=== PATIENT | female | born 1955 | race Caucasian/White ===

== ENCOUNTER 2022-06-04 22:21 | Inpatient (IN) ==
[2022-06-04] MEDS ORDERED: MoRPHine SULFATE 4 MG/ML 1 ML CARP\\VIAL IV STA (23:53)
[2022-06-04] MEDS ORDERED: ONDANSETRON INJ 2 MG/ML 2 ML VIAL IV STA (23:53)
[2022-06-04] MEDS ORDERED: SODIUM CHLORIDE 0.9% 500 ML IV STA (23:53)
--- NOTE | 2022-06-04 23:57 | Emergency Department Note ---
Impression & Plan Closed hip fracture ADMIT ED Provider Note HPI: The patient is a 67-year-old female with history of atrial fibrillation, on Eliquis, presents the emergency department with multiple complaints. Patient states that yesterday she had a mechanical fall, states that she fell after tripping onto her side. Patient states that she has had pain in her left hip as well as her bilateral knees where she states she does have a history of relatively severe osteoarthritis. Patient states that since her fall she has had some pain with ambulation in her left hip and her bilateral knees. Patient denies any headache although she states she did hit her head yesterday when she fell. On arrival the patient is alert, she is in no acute distress on my initial evaluation but is requesting pain medication for pain in her bilateral knees and left hip. ROS: -MSK: Bilateral knee pain, left hip pain status post fall *10 point review systems was conducted and is otherwise negative unless stated above *Outpatient medications and allergy history reviewed PE: General: Alert, NAD HEENT: Normocephalic, atraumatic Eyes: Extraocular eye movement is intact, no scleral erythema Pulmonary: Clear to auscultation bilaterally, no wheezing Cardio: Regular rate and rhythm GI: Abdomen is soft, nontender : No suprapubic tenderness MSK: No evidence of trauma or malformation of the extremities, no edema, there is limited range of motion with flexion at the left hip secondary to pain, palpable dorsalis pedis pulses felt bilaterally Skin: No evidence of rash Neuro: Alert, no focal deficits Psychiatric: Cooperative practice administrator: - An order was placed for continuous cardiac monitoring - Patient was noted to be in atrial fibrillation with a rate of 80 CT HEAD: Comparison is made to CT head on 11/08/2018. No acute intracranial abnormality identified. Chronic small vessel ischemic disease and cerebral volume loss. Stable remote lacunar infarct in the right caudate/gurerero radiata. Small remote lacunar infarct in the left caudate head. Bilateral lens implants. Atherosclerotic changes in the intracranial vasculature. Radiologist: Radha Chahal M.D. CT LEFT HIP: Nondisplaced subcapital femoral neck fracture on the left. Radiologist: Binh Roche MD Medical Decision Making: Patient presented to the emergency department with a chief complaint of bilateral knee pain as well as pain in her left hip, she states this is after mechanical fall that occurred yesterday and she fell on her left side. Patient states she has been able to ambulate small distances with the assistance of her walker at home, she is not able to flex the hip on the left side on arrival here to the ED. X-ray imaging of the knees did not show any obvious evidence of fracture or dislocation of the bilateral knees, x-ray imaging of the left hip is concerning for nondisplaced fracture. CT imaging was therefore obtained that does show evidence of a nondisplaced subcapital femoral neck fracture on the left side. CT imaging of the head was also obtained as the patient stated that she did hit her head when she fell yesterday, she is anticoagulated on Eliquis, there is no evidence of any acute intracranial bleeding. On my reassessment the patient was ordered a second dose of pain medication secondary to pain in her left hip. She will be admitted to the hospitalist service following my discussion with Dr. Broderick. Consultation was placed for Dr Miky Trinidad from orthopedics as the patient states that she currently is following with him as an outpatient. Patient is in agreement for admission and she was admitted in stable condition for further care. Diagnosis: 1. Left hip fracture, closed 2. Mechanical fall Disposition: Admission Vimal Romano DO Emergency Medicine Past Med/Surg History Medical History (Updated 06/05/22 @ 03:26 by Vimal Romano DO) Anxiety Atrial fibrillation dx 10/2019 - follows w/ Dr. Cee CAD (coronary artery disease) s/p SILVIANO to LAD in 2014 CHF (congestive heart failure), NYHA class III CKD (chronic kidney disease), stage III pt could not confirm Depression Diabetes mellitus, type II IDDM Diabetic neuropathy Diverticular disease Dyslipidemia Fatty liver History of colonic polyps HTN (hypertension) Multinodular goiter Myocardial Infarction 2014 Osteoarthritis RLS (restless legs syndrome) Surgical History H/O dilation and curettage H/O shoulder surgery "bilateral" H/O tubal ligation History of cardiac cath 2014 - [place] - [facility] - 1 STENT History of cataract surgery History of colonoscopy History of heart artery stent x 1 (2014) History of tooth extraction S/P tonsillectomy and adenoidectomy Family History Other Cancer Hypertension No family history of adverse response to anesthesia Social History Smoking Status: Never smoker Second Hand Exposure: No; Hx Alcohol Use: No Hx Substance Use: No Preferred Language: Lithuanian Communication Ability: Effective Project Intern Required: No Beliefs That Will Affect Care: None Current Living Situation: Spouse Feels Safe at Home: Yes Assistive Devices: Glasses Allergies Allergies Allergy/AdvReac Type Severity Reaction Status Date / Time Penicillins Allergy Intermediate RASH/ITCHIN Verified 12/18/20 17:46 G Iodinated Contrast Media AdvReac Intermediate NAUSEA/VOMI Verified 12/18/20 17:46 TTING Home Meds Home Medications Medication Instructions Recorded Confirmed amlodipine 5 mg tablet 5 mg PO QAM 11/08/18 12/18/20 aspirin 81 mg tablet,delayed 81 mg PO QAM 11/08/18 12/18/20 release atorvastatin 80 mg tablet 80 mg PO HS 11/08/18 12/18/20 glipizide 5 mg tablet 5 mg PO BID 11/08/18 12/18/20 insulin detemir U-100 100 unit/mL 35 units subcut HS 11/08/18 12/18/20 (3 mL) subcutaneous pen lorazepam 0.5 mg tablet 0.5 mg PO Q8H PRN Anxiety 11/08/18 12/18/20 losartan 100 mg tablet 100 mg PO QAM 11/08/18 12/18/20 nitroglycerin 0.4 mg sublingual 0.4 mg sublingual DIRECTED PRN 11/08/18 12/18/20 tablet Chest Pain venlafaxine 150 mg 150 mg PO QAM 11/08/18 12/18/20 capsule,extended release 24 hr zolpidem 10 mg tablet 10 mg PO HS PRN Sleep 11/08/18 12/18/20 metformin 500 mg tablet 500 mg PO BID 10/16/19 12/18/20 Previous Rx's Medication Instructions Recorded apixaban 5 mg tablet (Eliquis) 5 mg PO BID #60 tabs 10/21/19 furosemide 40 mg tablet 40 mg PO QAM #30 tabs 10/21/19 magnesium oxide 400 mg (241.3 mg 400 mg PO BID #30 tabs 10/21/19 magnesium) tablet metoprolol succinate 25 mg 25 mg PO HS #30 tabs 10/21/19 tablet,extended release 24 hr metoprolol succinate 50 mg 50 mg PO QAM #30 tabs 10/21/19 tablet,extended release 24 hr spironolactone 25 mg tablet 12.5 mg PO DAILY #30 tabs 10/21/19 dicyclomine 20 mg tablet 20 mg PO QID #20 tabs 12/18/20 Results & Data (ED) Vital Signs Vital Signs - 24 hr 06/04/22 22:24 06/04/22 23:51 06/05/22 00:18 Temperature 37.6 C H Temperature Source Oral Pulse Rate 100 H 84 Pulse Rate [Finger] 73 Respiratory Rate 18 18 18 Respiratory Effort / Characteristics Non-Labored Respiratory Depth Normal Blood Pressure 152/92 H Blood Pressure [Right Arm] 108/59 L Blood Pressure Mean 112 Blood Pressure Mean [Right Arm] 75 Pulse Oximetry 94 95 95 Oxygen Delivery Method Room Air Sepsis Recent Fever Within 48 Hours No Sepsis New/Unexplained Change in Mental Status No Sepsis Action Taken by Nursing No Action Required 06/05/22 01:00 06/05/22 02:22 Temperature Temperature Source Pulse Rate Pulse Rate [Finger] 71 84 Respiratory Rate 18 18 Respiratory Effort / Characteristics Respiratory Depth Blood Pressure Blood Pressure [Right Arm] 122/82 180/107 H Blood Pressure Mean Blood Pressure Mean [Right Arm] 95 131 Pulse Oximetry 94 94 Oxygen Delivery Method Room Air Sepsis Recent Fever Within 48 Hours Sepsis New/Unexplained Change in Mental Status Sepsis Action Taken by Nursing Laboratory Data Result diagrams: 06/05/22 00:09 06/05/22 00:09 Lab Results 06/05/22 06/05/22 06/05/22 Range/Units 00:09 00:09 00:09 WBC 14.48 H (4.8-10.8) K/ul RBC 4.54 (3.93-5.22) M/uL Hgb 14.4 (12.0-16.0) g/dl Hct 40.2 (34.1-44.9) % MCV 88.5 (80.0-100.0) fL MCH 31.7 (25.0-34.0) pg MCHC 35.8 (32.0-36.0) g/dL RDW Std Deviation 42.2 (36.4-46.3) fL RDW Coeff of Carissa 12.9 (11.5-14.5) % Plt Count 213 (130-400) K/uL MPV 8.9 L (9.4-12.3) fL Immature Gran % (Auto) 0.5 % Neut % (Auto) 68.4 % Lymph % (Auto) 20.3 % [place] % (Auto) 9.0 % Eos % (Auto) 1.2 % Baso % (Auto) 0.6 % Neut # (Auto) 9.91 H (1.4-6.5) K/uL Lymph # (Auto) 2.94 (1.2-3.4) K/uL [place] # (Auto) 1.30 H (0.24-0.82) K/uL Eos # (Auto) 0.18 (0-0.50) K/uL Baso # (Auto) 0.08 (0-0.2) K/uL Immature Gran # (Auto) 0.07 H (0.00-0.02) K/uL PT 10.8 (9.0-12.0) Seconds INR 1.0 (0.9-1.1) Sodium 133 L (136-145) mmol/L Potassium 3.3 L (3.5-5.1) mmol/L Chloride 98 (98-107) mmol/L Carbon Dioxide 26 (21-32) mmol/L Anion Gap 9 (3-11) BUN 19 (6-23) mg/dl Creatinine 1.11 (0.6-1.2) mg/dl Est Cr Clr Drug Dosing 58.1 ml/min Est GFR ( Amer) 58.7 ml/min Est GFR (Non-Af Amer) 50.6 ml/min BUN/Creatinine Ratio 17.1 (10-20) Glucose 274 H (70-99(Fasting)) mg/dl Calcium 9.1 (8.5-10.1) mg/dl Total Bilirubin 0.5 (0.2-1.0) mg/dl AST 11 L (13-39) U/L ALT 11 (7-52) U/L Alkaline Phosphatase 104 (34-104) U/L Total Protein 7.1 (6.0-8.3) gm/dl Albumin 4.1 (3.4-5.0) gm/dl Globulin 3.0 (2.5-4.0) gm/dl Albumin/Globulin Ratio 1.4 (0.9-2) Administered Medications Discontinued Medications Sodium Chloride (Nss) 500 mls @ 999 mls/hr IV .Q31M STA Stop: 06/05/22 00:23 Last Infusion: 06/05/22 01:36 Dose: 0 mls/hr Documented By: Admin: 06/05/22 00:06 Dose: 999 mls/hr Documented By: FREDDIE Morphine Sulfate (Morphine Sulfate 4 Mg/Ml 1 Ml Carp\\Vial) 4 mg IV NOW STA Stop: 06/04/22 23:54 Last Admin: 06/05/22 00:06 Dose: 4 mg Documented By: FREDDIE Ondansetron HCl (Ondansetron Inj 2 Mg/Ml 2 Ml Vial) 4 mg IV NOW STA Stop: 06/04/22 23:54 Last Admin: 06/05/22 00:06 Dose: 4 mg Documented By: FREDDIE Discharge Plan Visit Data Chief Complaint: Knee Injury/Pain Stated Complaint: KNEE, HIP AND HEAD PAIN, POST OP ED Provider: Vimal Romano Discharge Problem: Closed hip fracture Patient Disposition: Admitted As Inpatient Forms Stand Alone Forms: [facility] Prescriptions Prescriptions: No Action atorvastatin 80 mg tablet 80 mg PO HS venlafaxine 150 mg capsule,extended release 24hr 150 mg PO QAM amlodipine 5 mg tablet 5 mg PO QAM aspirin 81 mg Tablet,Delayed Release (Dr/Ec) 81 mg PO QAM lorazepam 0.5 mg tablet 0.5 mg PO Q8H PRN (Reason: Anxiety) nitroglycerin 0.4 mg tablet, sublingual 0.4 mg Sublingual DIRECTED PRN (Reason: Chest Pain) zolpidem 10 mg tablet 10 mg PO HS PRN (Reason: Sleep) losartan 100 mg tablet 100 mg PO QAM glipizide 5 mg Tablet 5 mg PO BID insulin detemir U-100 100 unit/mL (3 mL) insulin pen 35 units subcut HS metformin 500 mg tablet 500 mg PO BID Eliquis 5 mg Tablet 5 mg PO BID Qty: 60 0RF metoprolol succinate 25 mg Tablet Extended Release 24 Hr 25 mg PO HS Qty: 30 0RF metoprolol succinate 50 mg Tablet Extended Release 24 Hr 50 mg PO QAM Qty: 30 0RF spironolactone 25 mg Tablet 12.5 mg PO DAILY Qty: 30 0RF furosemide 40 mg Tablet 40 mg PO QAM Qty: 30 0RF magnesium oxide 400 mg (241.3 mg magnesium) Tablet 400 mg PO BID Qty: 30 0RF dicyclomine 20 mg tablet 20 mg PO QID Qty: 20 0RF Referrals Referrals: PCP,NO [Primary Care Provider] -
[2022-06-05 00:33] LABS: Basophils # (auto) 0.08 K/uL (0-0.2); Basophils % (auto) 0.6 %; Eosinophils # (auto) 0.18 K/uL (0-0.50); Eosinophils % (auto) 1.2 %; Hematocrit (blood only) 40.2 % (34.1-44.9); Hemoglobin 14.4 g/dl (12.0-16.0); Immature Granulocytes # (auto) 0.07 K/uL (0.00-0.02); Immature Granulocytes % (auto) 0.5 %; Lymphocytes # (auto) 2.94 K/uL (1.2-3.4); Lymphocytes % (auto) 20.3 %; Mean Corpuscular Hemoglobin 31.7 pg (25.0-34.0); Mean Corpuscular Hgb Conc 35.8 g/dL (32.0-36.0); Mean Corpuscular Volume 88.5 fL (80.0-100.0); Mean Platelet Volume 8.9 fL (9.4-12.3); Neutrophils # (auto) 9.91 K/uL (1.4-6.5); Neutrophils % (auto) 68.4 %; Platelet Count 213 K/uL (130-400); RDW Coefficient of Variation 12.9 % (11.5-14.5); RDW Standard Deviation 42.2 fL (36.4-46.3); Red Blood Count 4.54 M/uL (3.93-5.22); White Blood Count 14.48 K/ul (4.8-10.8)
[2022-06-05 00:39] LABS: Prothrombin Time 10.8 Seconds (9.0-12.0)
[2022-06-05 00:47] LABS: Albumin Globulin Ratio 1.4 (0.9-2); Albumin Level 4.1 gm/dl (3.4-5.0); BUN Creatinine Ratio 17.1 (10-20); Bilirubin,Total 0.5 mg/dl (0.2-1.0); Calcium 9.1 mg/dl (8.5-10.1); Creatinine Clr Calc Pharmacy 58.1 ml/min; Est GFR (African American) 58.7 ml/min; Est GFR (Non-African American) 50.6 ml/min; Potassium 3.3 mmol/L (3.5-5.1); Total Protein 7.1 gm/dl (6.0-8.3)
[2022-06-05] MEDS ORDERED: MoRPHine SULFATE 4 MG/ML 1 ML CARP\\VIAL ONE (03:31)
[2022-06-05] MEDS ORDERED: POTASSIUM CHLORIDE 20 MEQ/15 ML UDC PO STA (04:29)
--- NOTE | 2022-06-05 06:30 | History and Physical Report ---
DATE OF ADMISSION: 06/05/2022. CHIEF COMPLAINT: Status post fall, left hip fracture. HISTORY OF PRESENT ILLNESS: A 67-year-old female with past medical history significant for type 2 diabetes, diabetic retinopathy, chronic kidney disease stage III, hyperlipidemia, hypertension, CAD with a drug-eluting stent in 2014, GERD, depression, generalized anxiety disorder, who lives at home comes with a fall. The patient fell on Friday night, she was trying to pick out hand the paper, when she lost balance and fell . With difficulty, she was able to ambulate with a walker at home, but as the pain was getting worse, she was brought to the hospital today. The imaging study shows left nondisplaced subcapital femoral neck fracture on the left side. Received pain medication in the ER. The patient says she is somewhat foggy because of the pain medications. She says when she fell, she hit her head, but she did not lose her consciousness. Denies any headache. No blurred visions, no earache, no runny nose, no sore throat, no cough. The patient has no fevers, no chest pain, no shortness of breath, no difficulty swallowing. Her appetite is low because of her depression. No nausea. She has chronic mild abdominal pains thought to be from muscle spasms. No diarrhea. Normal bowel and bladder movements, hemodynamically stable. ALLERGIES: PENICILLIN AND IODINATED CONTRAST MEDIA. PAST MEDICAL HISTORY: As mentioned above. PAST SURGICAL HISTORY: Shoulder arthroscopy, colonoscopy, dilatation and curettage, injection of the eye drug, ligation of oviducts, cataract surgery, tonsillectomy and adenoidectomy. MEDICATIONS: The patient is on amlodipine 10 mg p.o. daily, aspirin 81 mg p.o. daily, Eliquis 5 mg p.o. b.i.d., Zetia 10 mg p.o. at bedtime, famotidine 40 mg p.o. daily, Lasix 40 mg p.o. a.m., Levemir 35 units subcutaneous at bedtime, lorazepam 0.5 mg p.o. q. 8 hours p.r.n., losartan 100 mg p.o. a.m., magnesium oxide 400 mg p.o. b.i.d., metformin 500 mg p.o. b.i.d., metoprolol succinate 50 mg p.o. p.m. and 25 mg p.o. a.m., nitroglycerin 0.4 mg sublingual p.r.n., atorvastatin 40 mg p.o. at bedtime, spironolactone 12.5 mg p.o. daily, terazosin 1 mg p.o. at bedtime, venlafaxine 225 mg p.o. daily, zolpidem 10 mg p.o. at bedtime p.r.n. FAMILY HISTORY: Significant for maternal grandfather had bladder cancer; mother has non-Hodgkin's lymphoma, glaucoma, thyroid disorder; father has aortic aneurysm, hypertension, heart disorder. SOCIAL HISTORY: Quit smoking in 1994. No alcohol use. No drug use. REVIEW OF SYSTEMS: As per HPI. Rest of the review of systems is negative. PHYSICAL EXAMINATION: GENERAL: The patient is obese, not in acute distress. VITAL SIGNS: Temperature 37.6, pulse 86, respiratory rate 20, blood pressure 175/109, oxygen 93% on room air. HEENT: Pupils equal, round, and reactive to light. Oral mucosa moist. NECK: No JVD, no neck masses. CARDIOVASCULAR: S1 and S2 heard. Regular rate and rhythm. No murmur, no gallop. RESPIRATORY SYSTEM: Normal AP diameter. No accessory muscle use. No wheezing, no crackles. ABDOMEN: Soft, bowel sounds present, nontender, no distention. CENTRAL NERVOUS SYSTEM: Alert and awake. Speech is clear. No facial droop. Obeys simple commands. EXTREMITIES: Left lower extremity shortened and externally rotated. No edema or erythema seen. LABORATORY DATA: WBC 14.4, hemoglobin 14.4, hematocrit 40.2, platelets 213. PT 10.8, INR 1. Sodium 133, potassium 3.3, chloride 98, bicarbonate 26, BUN 19, creatinine 1.1, serum glucose 274, calcium 9.1, total bilirubin 0.5, AST 11, ALT 11, alkaline phosphatase 104. SARS-CoV-2 rapid test negative. IMAGING DATA: Hip CT scan, preliminary report, nondisplaced subcapital femoral neck fracture on the left side. Head CT, preliminary report, no acute findings. Knee x-ray and hip x-rays, are pending. EKG: Normal sinus rhythm with rate of 86, incomplete right bundle-branch block and left axis deviation. ASSESSMENT AND PLAN: This is a 67-year-old female who presents status post mechanical fall and left hip fracture. 1. Mechanical fall, left hip fracture: Ortho consulted by the ER. Will keep her n.p.o., gentle fluids, IV pain medications p.r.n., IV antiemetics p.r.n. Monitor in the medical floor.Labs and ekg ok ,If CXR ok should be at acceptable risk to proceed with any procedure. 2. History of coronary artery disease: Status post stent. Continue her aspirin, statin, and beta kenton, currently stable 3. History of chronic systolic congestive heart failure: Her ejection fraction is 30% to 35%, on losartan, metoprolol succinate; Lasix and spironolactone. Getting gentle fluids. Monitor for any volume overload. 4. History of diabetes: Continue Levemir 35 units subcutaneous at bedtime. If still n.p.o. tomorrow night, then can cut back on the Levemir dose. Holding metformin. Placed on insulin sliding scale. Follow the blood sugars. 5. Hypertension: Continue her amlodipine, diuretics, losartan, metoprolol succinate, terazosin. Monitor the blood pressure. 6. Depression and generalized anxiety: Continue venlafaxine, Ativan p.r.n. 7. Hyperlipidemia: On Zetia and Crestor. 8. History of atrial fibrillation: Rate controlled with metoprolol succinate. On Eliquis, which will be held for procedures. 9. Chronic kidney disease stage III: Presents with creatinine of 1.1. Will follow the labs. 10. Gastroesophageal reflux disease: On famotidine. 11. Deep venous thrombosis prophylaxis: Could not place on scds because of the hip fracture, and no anticoagulation as there is plan for procedures. DISPOSITION: PT/OT prior to discharge. Social service to help with discharge planning. Level 1 full code. Job ID: [id number] [facility]
--- NOTE | 2022-06-05 06:50 | CT Scan Report ---
CT head/brain wo con CLINICAL HISTORY: 67 years-old Female with fall, hit R side of head. Acute right-sided head trauma s tatus post fall. Acute weakness. TECHNIQUE: Multiple axial CT images of the head were obtained without contrast. A dose lowering tech nique was utilized adhering to the principles of ALARA. CT DOSE: 614.27 mGy.cm COMPARISON: None. FINDINGS: No acute intracranial hemorrhage, midline shift, intracranial mass, hydrocephalus, territorial ischem ia or abnormal extra-axial collection. Age-related involutional changes. White matter hypodensities s uggest chronic microvascular ischemic disease. Chronic lacunar infarcts within the right guerrero radia ta. 9 mm hypodense focus within the left caudate head is new from prior. Cerebral vascular calcificat ions. The calvarium is intact. Prior bilateral lens repair. Streak artifact from the patient's necklace. Th e paranasal sinuses, mastoid air cells, and middle ear cavities are clear. IMPRESSION: 1. No acute intracranial hemorrhage, midline shift or acute territorial infarct. 2. Age-related involutional changes with chronic microvascular ischemic disease. 3. Subcentimeter age-indeterminate lacunar infarct of the left caudate nucleus is new from 11/08/2018 and is favored to be chronic. ACT 112: Negative or not required by law. The above report was generated using voice recognition software. It may contain grammatical, syntax o r spelling errors. Electronically signed by: Jonnie Ac M.D. 06/05/2022 6:48 AM
--- NOTE | 2022-06-05 07:01 | XRay Report ---
XR knee LT 3V, XR knee RT 3V HISTORY: 67 years-old Female fall acute pain of the bilateral knees status post fall COMPARISON: Knee radiographs 04/12/2020 TECHNIQUE: 3 views of the bilateral knees FINDINGS: LEFT: Mild medial with mild to moderate patellofemoral and moderate lateral compartment osteoarthritis. No acute fracture or dislocation. Small joint effusion. Arterial calcifications. RIGHT: Mild medial with mild to moderate lateral and patellofemoral compartment osteoarthritis. Trace joint effusion. Arterial calcifications. Degenerative spurring versus loose body measuring approximately 1. 2 cm projects over the anterior proximal tibia. IMPRESSION: No acute fracture or dislocation. ACT 112: Negative or not required by law. The above report was generated using voice recognition software. It may contain grammatical, syntax o r spelling errors. Electronically signed by: Jonnie Ac M.D. 06/05/2022 6:59 AM
[2022-06-05] MEDS ORDERED: HYDROmorphone INJ 0.5 MG/0.5 ML SYR IV STA (07:17)
[2022-06-05] MEDS ORDERED: HYDROmorphone INJ 0.5 MG/0.5 ML SYR ONE (07:21)
--- NOTE | 2022-06-05 07:43 | CT Scan Report ---
CT SCAN OF THE LEFT HIP WITHOUT IV CONTRAST CLINICAL HISTORY: Fall. Left hip pain. COMPARISON STUDY: Radiograph study left hip dated 06/05/2022. Pelvic CT dated 12/18/2020. TECHNIQUE: CT scan of the left hip was performed from the bony pelvis to the femoral shaft. Images ar e reviewed in the axial, sagittal, and coronal planes. IV contrast was not administered for this exam ination. A dose lowering technique was utilized adhering to the principles of ALARA. CT DOSE: 169.63 mGy.cm FINDINGS: The skeletal structures are osteopenic. There is an impacted subcapital fracture of the lef t femur with mild surrounding hemorrhage. No additional fracture is seen involving the left hemipelvi s. Mild arthritic change and joint space narrowing is seen in the hip. No lytic or blastic lesion is seen. There is no evidence of avascular necrosis of the femoral head. There is generalized atrophy of the regional musculature. No hematoma is seen. Atherosclerotic calcification is noted in the left fe moral artery. Imaged portions of the bladder are grossly unremarkable. There are calcified uterine fi broids. No left pelvic sidewall or inguinal adenopathy is seen. IMPRESSION: Impacted subcapital fracture of the left proximal femur. ACT 112: Negative or not required by law. Dictated: 06/05/2022 7:19 AM Transcribed: 06/05/2022 7:40 AM Cassidy [id number] JO-ANN_Judith Electronically signed by: Huseyin Hooks M.D. 06/05/2022 7:41 AM
[2022-06-05] MEDS ORDERED: POLYETHYLENE (MIRALAX) 17 GM PACK PO PRN (08:13)
[2022-06-05] MEDS ORDERED: ACETAMINOPHEN 325 MG TAB PO PRN (08:13)
[2022-06-05] MEDS ORDERED: ONDANSETRON INJ 2 MG/ML 2 ML VIAL IV PRN ×2 (08:13→15:45)
[2022-06-05] MEDS ORDERED: SODIUM CHLORIDE 0.9% 1000ML 1,000 ML IV SCH (08:13)
[2022-06-05] MEDS ORDERED: LORazepam 0.5 MG TAB PO PRN (08:13)
[2022-06-05] MEDS ORDERED: ZOLPIDEM TARTRATE 10 MG TAB PO PRN (08:13)
--- NOTE | 2022-06-05 08:27 | Anesthesiology Consultation ---
Date of Service June 05, 2022 Assessment & Plan (1) Encounter for pre-operative examination: Chart Review Chart Review: Acceptable Risk for Surgery (patient on eliquis - will d/w Dr Trinidad) History Surgery Operation Date: 06/05/22 10:20 Proposed Procedures p Left Hip Cannulate Screw Fixation - Caden Trinidad MD s Total Hip Arthroplasty - Caden Trinidad MD Height/Weight Height: 5 ft 7 in Weight: 100 kg Allergies Allergy/AdvReac Type Severity Reaction Status Date / Time Penicillins Allergy Intermediate RASH/ITCHIN Verified 12/18/20 17:46 G Iodinated Contrast Media AdvReac Intermediate NAUSEA/VOMI Verified 12/18/20 17:46 TTING Medications Home Medications Medication Instructions Recorded Confirmed Last Taken aspirin 81 mg tablet,delayed 81 mg PO QAM 11/08/18 12/18/20 12/18/20 release insulin detemir U-100 100 unit/mL 35 units subcut HS 11/08/18 12/18/20 12/17/20 (3 mL) subcutaneous pen lorazepam 0.5 mg tablet 0.5 mg PO Q8H PRN Anxiety 11/08/18 12/18/20 10/15/19 losartan 100 mg tablet 100 mg PO QAM 11/08/18 12/18/20 12/18/20 nitroglycerin 0.4 mg sublingual 0.4 mg sublingual DIRECTED PRN 11/08/18 12/18/20 Unknown tablet Chest Pain zolpidem 10 mg tablet 10 mg PO HS PRN Sleep 11/08/18 12/18/20 10/15/19 metformin 500 mg tablet 500 mg PO BID 10/16/19 12/18/20 12/18/20 08:00 apixaban 5 mg tablet (Eliquis) 5 mg PO BID #60 tabs 10/21/19 12/18/20 12/18/20 08:00 furosemide 40 mg tablet 40 mg PO QAM #30 tabs 10/21/19 12/18/20 12/18/20 magnesium oxide 400 mg (241.3 mg 400 mg PO BID #30 tabs 10/21/19 12/18/20 12/18/20 08:00 magnesium) tablet spironolactone 25 mg tablet 12.5 mg PO DAILY #30 tabs 10/21/19 12/18/20 12/18/20 amlodipine 10 mg tablet 10 mg PO DAILY 06/05/22 06/05/22 Unknown ezetimibe 10 mg tablet (Zetia) 10 mg PO HS 06/05/22 06/05/22 Unknown famotidine 40 mg tablet 40 mg PO DAILY 06/05/22 06/05/22 Unknown metoprolol succinate 25 mg 25 mg PO QAM 06/05/22 Unknown tablet,extended release 24 hr metoprolol succinate 50 mg 50 mg PO QPM 06/05/22 Unknown tablet,extended release 24 hr rosuvastatin 40 mg tablet 40 mg PO HS 06/05/22 06/05/22 Unknown terazosin 1 mg capsule 1 mg PO HS 06/05/22 06/05/22 Unknown venlafaxine 75 mg capsule,extended 225 mg PO DAILY 06/05/22 06/05/22 Unknown release 24 hr Past Medical History Medical History Anxiety Atrial fibrillation dx 10/2019 - follows w/ Dr. Cee CAD (coronary artery disease) s/p SILVIANO to LAD in 2014 CHF (congestive heart failure), NYHA class III CKD (chronic kidney disease), stage III pt could not confirm Depression Diabetes mellitus, type II IDDM Diabetic neuropathy Diverticular disease Dyslipidemia Fatty liver History of colonic polyps HTN (hypertension) Multinodular goiter Myocardial Infarction 2014 Osteoarthritis RLS (restless legs syndrome) Past Family History Family History Other Cancer Hypertension No family history of adverse response to anesthesia Past Surgical History Surgical History H/O dilation and curettage H/O shoulder surgery "bilateral" H/O tubal ligation History of cardiac cath 2014 - [place] - [facility] - 1 STENT History of cataract surgery History of colonoscopy History of heart artery stent x 1 (2014) History of tooth extraction S/P tonsillectomy and adenoidectomy Social History Smoking Status: Never smoker tobacco type: cigarettes Hx Alcohol Use: No Hx Substance Use: No Physical Exam Vital Signs Last Vital Signs Temp 37.6 C H 06/04/22 22:24 Pulse 91 H 06/05/22 07:32 Resp 22 06/05/22 07:32 BP 158/104 H 06/05/22 07:32 Pulse Ox 96 09/21/22 07:32 O2 Del Method 06/05/22 07:32 O2 Flow Rate 2 06/05/22 07:32 Testing Laboratory Results 06/05/22 00:09 06/05/22 00:09 PT 10.8 Seconds (9.0-12.0) 06/05/22 00:09 INR 1.0 (0.9-1.1) 06/05/22 00:09 Electrocardiogram Date: 06/05/22 Findings: + NSR @ (86) and + RBBB (incomplete) Echocardiogram Date: 10/16/19 EF: 30-35% Valvular Disease: + no significant valvular disease
[2022-06-05 08:45] LABS: Basophils # (auto) 0.07 K/uL (0-0.2); Basophils % (auto) 0.6 %; Eosinophils # (auto) 0.28 K/uL (0-0.50); Eosinophils % (auto) 2.4 %; Hematocrit (blood only) 37.4 % (34.1-44.9); Hemoglobin 13.2 g/dl (12.0-16.0); Immature Granulocytes # (auto) 0.03 K/uL (0.00-0.02); Immature Granulocytes % (auto) 0.3 %; Lymphocytes # (auto) 2.68 K/uL (1.2-3.4); Lymphocytes % (auto) 22.7 %; Mean Corpuscular Hemoglobin 31.6 pg (25.0-34.0); Mean Corpuscular Hgb Conc 35.3 g/dL (32.0-36.0); Mean Corpuscular Volume 89.5 fL (80.0-100.0); Monocytes # (auto) 1.32 K/uL (0.24-0.82); Monocytes % (auto) 11.2 %; Neutrophils # (auto) 7.44 K/uL (1.4-6.5); Neutrophils % (auto) 62.8 %; Platelet Count 193 K/uL (130-400); RDW Coefficient of Variation 13.2 % (11.5-14.5); RDW Standard Deviation 43.4 fL (36.4-46.3); Red Blood Count 4.18 M/uL (3.93-5.22); White Blood Count 11.82 K/ul (4.8-10.8)
[2022-06-05] MEDS ORDERED: CARBOHYDRATES FOR HYPOGLYCEMIA PO PRN ×2 (08:45→17:56)
[2022-06-05] MEDS ORDERED: GLUCOSE 10 TAB/TUBE PO PRN ×2 (08:45→17:56)
[2022-06-05] MEDS ORDERED: DEXTROSE 50% 50 ML SYRINGE IV PRN ×2 (08:45→17:56)
[2022-06-05] MEDS ORDERED: GLUCOSE 40% GEL 15 GM TUBE PO PRN ×2 (08:45→17:56)
[2022-06-05] MEDS ORDERED: GLUCAGON FOR INJ 1 MG VIAL IM PRN (08:45)
--- NOTE | 2022-06-05 08:57 | Cardiology Consultation ---
Date of Consultation June 05, 2022 Assessment & Plan (1) Preop cardiovascular exam: (2) CAD (coronary artery disease), [place] coronary artery: (3) Paroxysmal atrial fibrillation: (4) HTN (hypertension): Plan 67-year-old female admitted with acute left hip fracture after a mechanical fall. Perioperative cardiovascular risk is considered moderate due to underlying coronary disease and risk factors. Overall her cardiovascular disease status is stable without recent angina, unstable dysrhythmia, or decompensated heart failure. Recommend continuing beta-kenton uninterrupted perioperatively. Last dose of Eliquis 06/04/2022 in the evening. No further cardiac testing or intervention would lower patient's risk at this time. She may proceed with hip replacement per the discretion of orthopedic surgery. I will continue to follow the patient during hospitalization. History of Present Illness Reason for Consultation: Preop cardiovascular evaluation Requesting Physician: Dr. Broderick Attending Physician: Vandana Stanton MD History of Present Illness 67-year-old female suffered a mechanical fall on Friday. X-ray confirming hip fracture. Cardiology consultation requested for preoperative or stratification. History of chronic coronary disease status post drug-eluting stent implantation to the left anterior descending artery 2014, paroxysmal atrial fibrillation, tachycardia induced cardiomyopathy, hypertension, and dyslipidemia. Patient reports bending over to pickle pumper a piece of paper on Friday when she fell on her left hip. Significant discomfort and inability to bear weight noted. Denies any chest pain or unusual shortness of breath. Has not used any sublingual nitroglycerin recently. Function capacity stable. Denies orthopnea, PND, or lower extremity edema. Compliant with current cardiovascular medications including Eliquis and metoprolol. Last dose of Eliquis 06/04/2020 2 in the evening. present at bedside. Offers no additional concerns/complaints. Allergies Allergy/AdvReac Type Severity Reaction Status Date / Time Penicillins Allergy Intermediate RASH/ITCHIN Verified 12/18/20 17:46 G Iodinated Contrast Media AdvReac Intermediate NAUSEA/VOMI Verified 12/18/20 17:46 TTING Home Medications Medication Instructions Recorded Confirmed Type aspirin 81 mg tablet,delayed 81 mg PO QAM 11/08/18 12/18/20 History release insulin detemir U-100 100 unit/mL 35 units subcut HS 11/08/18 12/18/20 History (3 mL) subcutaneous pen lorazepam 0.5 mg tablet 0.5 mg PO Q8H PRN Anxiety 11/08/18 12/18/20 History losartan 100 mg tablet 100 mg PO QAM 11/08/18 12/18/20 History nitroglycerin 0.4 mg sublingual 0.4 mg sublingual DIRECTED PRN 11/08/18 12/18/20 History tablet Chest Pain zolpidem 10 mg tablet 10 mg PO HS PRN Sleep 11/08/18 12/18/20 History metformin 500 mg tablet 500 mg PO BID 10/16/19 12/18/20 History apixaban 5 mg tablet (Eliquis) 5 mg PO BID #60 tabs 10/21/19 12/18/20 Rx furosemide 40 mg tablet 40 mg PO QAM #30 tabs 10/21/19 12/18/20 Rx magnesium oxide 400 mg (241.3 mg 400 mg PO BID #30 tabs 10/21/19 12/18/20 Rx magnesium) tablet spironolactone 25 mg tablet 12.5 mg PO DAILY #30 tabs 10/21/19 12/18/20 Rx amlodipine 10 mg tablet 10 mg PO DAILY 06/05/22 06/05/22 History ezetimibe 10 mg tablet (Zetia) 10 mg PO HS 06/05/22 06/05/22 History famotidine 40 mg tablet 40 mg PO DAILY 06/05/22 06/05/22 History metoprolol succinate 25 mg 25 mg PO QAM 06/05/22 History tablet,extended release 24 hr metoprolol succinate 50 mg 50 mg PO QPM 06/05/22 History tablet,extended release 24 hr rosuvastatin 40 mg tablet 40 mg PO HS 06/05/22 06/05/22 History terazosin 1 mg capsule 1 mg PO HS 06/05/22 06/05/22 History venlafaxine 75 mg capsule,extended 225 mg PO DAILY 06/05/22 06/05/22 History release 24 hr Patient History Medical History Anxiety Atrial fibrillation dx 10/2019 - follows w/ Dr. Cee CAD (coronary artery disease) s/p SILVIANO to LAD in 2014 CHF (congestive heart failure), NYHA class III CKD (chronic kidney disease), stage III pt could not confirm Depression Diabetes mellitus, type II IDDM Diabetic neuropathy Diverticular disease Dyslipidemia Fatty liver History of colonic polyps HTN (hypertension) Multinodular goiter Myocardial Infarction 2014 Osteoarthritis RLS (restless legs syndrome) Surgical History H/O dilation and curettage H/O shoulder surgery "bilateral" H/O tubal ligation History of cardiac cath 2014 - [place] - [facility] - 1 STENT History of cataract surgery History of colonoscopy History of heart artery stent x 1 (2014) History of tooth extraction S/P tonsillectomy and adenoidectomy Family History Other Cancer Hypertension No family history of adverse response to anesthesia Social History Smoking Status: Never smoker Second Hand Exposure: No; Hx Alcohol Use: No Hx Substance Use: No Preferred Language: Amharic Communication Ability: Effective Counter Stitcher Required: No Beliefs That Will Affect Care: None Current Living Situation: Alone Feels Safe at Home: Yes Safety Concerns: Feels Safe At This Time Assistive Devices: Walker Review of Systems Review of Systems: All systems reviewed & are unremarkable except as noted in Subjective Physical Exam Constitutional: + obese; no acute distress Respiratory: normal respiratory effort; no respiratory distress and no labored breathing Auscultation: no crackles, no rales, no rhonchi and no wheezes Cardiovascular: Rate/Rhythm: regular rate and regular rhythm Heart Sounds: normal S1, normal S2 and + murmur (1/6 systolic ejection murmur heard best at the right second intercostal spa) Vessels: radial pulses present; no JVD and no carotid bruit Extremities: no edema Gastrointestinal (Abdomen): Inspection/Auscultation: normal bowel sounds; abdomen not distended Percussion/Palpation: abdomen soft; abdomen nontender and no guarding Neurologic: CN's II-XI intact bilaterally and moves all extremities; no focal motor deficits Results & Data ([facility]) Vital Signs (Past 12 Hours) Vital Signs Temp Pulse Pulse Resp BP BP Pulse Ox 06/05/22 07:32 91 H 22 158/104 H 96 06/05/22 06:10 84 19 155/92 H 94 06/05/22 04:54 88 L 06/05/22 04:11 86 20 175/109 H 93 06/05/22 02:22 84 18 180/107 H 94 06/05/22 01:00 71 18 122/82 94 06/05/22 00:18 84 18 95 06/04/22 23:51 73 18 108/59 L 95 06/04/22 22:24 37.6 C H 100 H 18 152/92 H 94 O2 Del Method O2 Flow Rate 06/05/22 07:32 Nasal Cannula 2 06/05/22 06:10 Room Air 2 06/05/22 04:54 Room Air, Nasal Cannula 0 06/05/22 04:11 Room Air 06/05/22 02:22 Room Air 06/05/22 01:00 06/05/22 00:18 Room Air 06/04/22 23:51 06/04/22 22:24
[2022-06-05 09:03] LABS: Calcium 8.5 mg/dl (8.5-10.1); Creatinine Clr Calc Pharmacy 64.5 ml/min; Est GFR (African American) 66.6 ml/min; Est GFR (Non-African American) 57.4 ml/min; Magnesium 1.8 mg/dl (1.7-2.4); Potassium 3.8 mmol/L (3.5-5.1)
--- NOTE | 2022-06-05 09:12 | Orthopedic Consultation ---
Date of Service June 05, 2022 Assessment & Plan (1) Closed hip fracture: She was educated on this injury/fracture and treatment options. I recommended surgery, specifically cannulated screw fixation. The procedure was explained to her including risks, benefits, alternatives. Consent obtained. She wants to proceed with surgery. This will be today with Dr. Trinidad. She is npo. She is on eliquis, which she can continue. I did discuss with her the possibility of hip arthroplasty if the fracture shifts position, so she is aware of this. History of Present Illness Reason for Consultation: . Requesting Physician: . Attending Physician: Vandana Stanton MD . Ruperto is a 67 year old patient admitted over night with a left hip fracture. She was bending to pick something up that she dropped, lost her balance and fell 2 days ago. She had immediate hip pain. She has had some hip pain prior to her fall. She has been ambulating with a walker on this since Friday. She was scheduled to seee Dr. Trinidad this week to discuss tka. Allergies Allergy/AdvReac Type Severity Reaction Status Date / Time Penicillins Allergy Intermediate RASH/ITCHIN Verified 12/18/20 17:46 G Iodinated Contrast Media AdvReac Intermediate NAUSEA/VOMI Verified 12/18/20 17:46 TTING Home Medications Medication Instructions Recorded Confirmed Type aspirin 81 mg tablet,delayed 81 mg PO QAM 11/08/18 12/18/20 History release insulin detemir U-100 100 unit/mL 35 units subcut HS 11/08/18 12/18/20 History (3 mL) subcutaneous pen lorazepam 0.5 mg tablet 0.5 mg PO Q8H PRN Anxiety 11/08/18 12/18/20 History losartan 100 mg tablet 100 mg PO QAM 11/08/18 12/18/20 History nitroglycerin 0.4 mg sublingual 0.4 mg sublingual DIRECTED PRN 11/08/18 12/18/20 History tablet Chest Pain zolpidem 10 mg tablet 10 mg PO HS PRN Sleep 11/08/18 12/18/20 History metformin 500 mg tablet 500 mg PO BID 10/16/19 12/18/20 History apixaban 5 mg tablet (Eliquis) 5 mg PO BID #60 tabs 10/21/19 12/18/20 Rx furosemide 40 mg tablet 40 mg PO QAM #30 tabs 10/21/19 12/18/20 Rx magnesium oxide 400 mg (241.3 mg 400 mg PO BID #30 tabs 10/21/19 12/18/20 Rx magnesium) tablet spironolactone 25 mg tablet 12.5 mg PO DAILY #30 tabs 10/21/19 12/18/20 Rx amlodipine 10 mg tablet 10 mg PO DAILY 06/05/22 06/05/22 History ezetimibe 10 mg tablet (Zetia) 10 mg PO HS 06/05/22 06/05/22 History famotidine 40 mg tablet 40 mg PO DAILY 06/05/22 06/05/22 History metoprolol succinate 25 mg 25 mg PO QAM 06/05/22 History tablet,extended release 24 hr metoprolol succinate 50 mg 50 mg PO QPM 06/05/22 History tablet,extended release 24 hr rosuvastatin 40 mg tablet 40 mg PO HS 06/05/22 06/05/22 History terazosin 1 mg capsule 1 mg PO HS 06/05/22 06/05/22 History venlafaxine 75 mg capsule,extended 225 mg PO DAILY 06/05/22 06/05/22 History release 24 hr Past Med/Surg History Medical History Anxiety Atrial fibrillation dx 10/2019 - follows w/ Dr. Cee CAD (coronary artery disease) s/p SILVIANO to LAD in 2014 CHF (congestive heart failure), NYHA class III CKD (chronic kidney disease), stage III pt could not confirm Depression Diabetes mellitus, type II IDDM Diabetic neuropathy Diverticular disease Dyslipidemia Fatty liver History of colonic polyps HTN (hypertension) Multinodular goiter Myocardial Infarction 2014 Osteoarthritis RLS (restless legs syndrome) Surgical History H/O dilation and curettage H/O shoulder surgery "bilateral" H/O tubal ligation History of cardiac cath 2014 - [place] - [facility] - 1 STENT History of cataract surgery History of colonoscopy History of heart artery stent x 1 (2014) History of tooth extraction S/P tonsillectomy and adenoidectomy Family History Other Cancer Hypertension No family history of adverse response to anesthesia Social History Smoking Status: Never smoker Second Hand Exposure: No; Hx Alcohol Use: No Hx Substance Use: No Preferred Language: [place] Island[place] Communication Ability: Effective Blueberry Grower Required: No Beliefs That Will Affect Care: None Current Living Situation: Spouse Feels Safe at Home: Yes Assistive Devices: Glasses Review of Systems All systems reviewed & are unremarkable except as noted in HPI & below. Physical Exam .alert and oriented. NAD Left leg: no motion of the hip performed. Minimal knee effusion. She can dorsiflex/plantarflex. NVI Results & Data Results & Data Laboratory Results . Diagnostic Findings .xrays and ct scan of the left hip shows an impacted femoral neck fracture of the left hip. PG Care Time/CCT Total # of Minutes Spent Total Time Spent with Patient: Total time spent is greater than 50% in coordination of care (as documented) at patient's floor/unit and/or counseling patient: Coding Level of Care Code 79646 Inpt Consult Level 4 Diagnoses Closed hip fracture S72.002A Encounter type: initial encounter Laterality: left (1) Closed hip fracture Encounter type: initial encounter Laterality: left Qualified Code(s): S72.002A - Fracture of unspecified part of neck of left femur, initial encounter for closed fracture
[2022-06-05] MEDS: amLODIPine BESYLATE 5 MG TAB PO SCH (09:16)
[2022-06-05] MEDS: FUROSEMIDE 40 MG TAB PO SCH (09:17)
[2022-06-05] MEDS: FAMOTIDINE 40 MG TABLET PO SCH (09:17)
[2022-06-05] MEDS: ASPIRIN 81 MG ECTAB PO SCH (09:17)
[2022-06-05] MEDS: LOSARTAN POTASSIUM 50 MG TAB PO SCH (09:18)
[2022-06-05] MEDS: MAGNESIUM OXIDE 400 MG TAB PO SCH ×2 (09:18→21:02)
[2022-06-05] MEDS: VENLAFAXINE HCL XR 75 MG CAPXR PO SCH (09:18)
[2022-06-05] MEDS: SPIRONOLACTONE 12.5 MG TAB PO SCH (09:18)
[2022-06-05] MEDS: METOPROLOL SUCC 25MG EXT REL TAB PO SCH (09:18)
--- NOTE | 2022-06-05 09:22 | XRay Report ---
XR chest 1V portable HISTORY: 67 years-old Female pre op preoperative exam. No acute chest complaints COMPARISON: Chest radiograph 10/16/2019, CTA chest 10/16/2019. TECHNIQUE: Portable AP view of the chest FINDINGS: Cardiac silhouette is enlarged. Mild right hemidiaphragmatic elevation. No pneumothorax, pleural effu hang, airspace consolidation or overt pulmonary edema. Unchanged right upper paratracheal opacity cor relating with the patient's known thyroid goiter. Degenerative changes of the shoulders and spine. IMPRESSION: No acute process. ACT 112: Negative or not required by law. The above report was generated using voice recognition software. It may contain grammatical, syntax o r spelling errors. Electronically signed by: Jonnie Ac M.D. 06/05/2022 9:20 AM
[2022-06-05] MEDS: INSULIN ASPART PER UNIT SC SCH ×5 (09:35→23:39)
--- NOTE | 2022-06-05 09:54 | XRay Report ---
XR hip LT min 2V HISTORY: 67 years-old Female fall acute left hip pain status post fall COMPARISON: CT left hip same day TECHNIQUE: 2 views of the left hip FINDINGS: Mildly demineralized appearance of the bones. There is an acute impacted subcapital fracture of the l eft femur demonstrating approximately 8 mm of impaction. No displacement or angulation. Mild to moder ate left hip osteoarthritis without dislocation. Arterial calcifications. Calcified uterine fibroid. IMPRESSION: Acute mildly impacted subcapital left femoral fracture. ACT 112: Negative or not required by law. The above report was generated using voice recognition software. It may contain grammatical, syntax o r spelling errors. Electronically signed by: Jonnie Ac M.D. 06/05/2022 9:53 AM
[2022-06-05 11:21] LABS: Estimated Average Glucose 229 mg/dl; Hemoglobin A1C 9.6 % (4.5-5.6)
--- NOTE | 2022-06-05 12:18 | Electrocardiogram Report ---
Test Reason : Blood Pressure : / mmHG Vent. Rate : 086 BPM Atrial Rate : 086 BPM P-R Int : 160 ms QRS Dur : 096 ms QT Int : 400 ms P-R-T Axes : 034 -59 070 degrees QTc Int : 478 ms Poor data quality, interpretation may be adversely affected Normal sinus rhythm Left axis deviation Incomplete right bundle branch block Left ventricular hypertrophy with repolarization abnormality Abnormal ECG When compared with ECG of 23-NOV-2019 07:57, Premature atrial complexes are no longer Present Incomplete right bundle branch block is now Present Confirmed by Denis Tavarez ([id number]) on 06/05/2022 12:17:50 PM Referred By: REFERRED SELF Confirmed By:Denis Tavarez
--- NOTE | 2022-06-05 13:18 | Hospitalist Progress Note ---
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 She is being managed for the following: Mechanical fall Left hip fracture Patient came in with mechanical fall, found to have mildly impacted subcapital left femoral fracture on imaging at presentation. Other imagings: Head CT/left knee x-ray/right knee x-ray/chest x-ray: With no acute findings. Cardiology for preop cardiovascular risk assessment, consider moderate risk. Last dose of Eliquis 06/04/2022, resume Eliquis after surgery with Ortho clearance. Pain management, nausea control. PT/OT as able after surgery. Will likely need rehab. Caution with antihypertensives during perioperative period Hypertension: Blood pressure borderline elevated likely secondary to pain from acute fracture, continue home meds, caution with blood pressure medication during perioperative period. Other chronic medical conditions: CAD, chronic systolic heart failure [EF 30 to 35%], T2DM, HTN, depression and JAZZMINE [venlafaxine and as needed Ativan], HLD, history of A. fib [on Eliquis], CKD stage III, GERD -->>> continue with/resume home meds as and when appropriate. DVT prophylaxis: Eliquis on hold for or today. Full code Admission and Anticipated Discharge Date Admission Date: June 05, 2022 Subjective Patient seen and examined at bedside as a follow-up of mechanical fall and left hip fracture. Patient was lying in bed, on 1 L nasal cannula oxygen, NAD, reports left hip pain upon movement, under control when not moving, denies any new acute event overnight, patient is n.p.o. for the OR today, denies any fever/ cough/headache/dizziness/chest pain/palpitation/other review of symptoms. Physical Exam Physical Exam: GENERAL: Alert and oriented x3. NAD, on 1L NC O2 HEENT: No pallor, no icterus. Pupils equal, round and reactive to light. Oral mucosa moist. NECK: No JVD, no neck masses. HEART: S1 and S2 heard. Regular rate and rhythm. No murmur, no gallop. RESPIRATORY SYSTEM: Normal AP diameter. No accessory muscle use. No wheezing, no crackles. ABDOMEN: Soft, bowel sounds present, nontender, no distention. CENTRAL NERVOUS SYSTEM: No facial droop. Speech is clear. Obeys simple commands. Moves extremities. EXTREMITIES: No edema, no erythema seen. LLE decreased ROM at hip, pain w/ movement. Distal NV status wnl x LLE. Results & Data Results & Data ([facility]) Vital Signs (Past 12 Hours) Vital Signs Pulse Pulse Resp BP BP Pulse Ox O2 Del Method 06/05/22 13:00 90 22 94 Nasal Cannula 06/05/22 13:00 153/124 H 06/05/22 12:45 90 23 94 Nasal Cannula 06/05/22 12:30 88 21 94 Nasal Cannula 06/05/22 12:15 89 24 93 Nasal Cannula 06/05/22 12:00 87 20 94 Nasal Cannula 06/05/22 12:00 142/93 H 06/05/22 11:45 90 24 94 Nasal Cannula 06/05/22 11:30 85 20 95 Nasal Cannula 06/05/22 11:30 153/84 H 06/05/22 11:15 84 19 94 Nasal Cannula 06/05/22 11:00 86 21 93 Nasal Cannula 06/05/22 11:00 135/80 06/05/22 10:45 87 20 93 Nasal Cannula 06/05/22 10:30 92 H 24 06/05/22 10:30 134/88 06/05/22 10:15 90 21 06/05/22 10:00 92 H 21 95 Nasal Cannula 06/05/22 10:00 150/84 H 06/05/22 09:45 89 21 06/05/22 09:30 91 H 22 94 Nasal Cannula 06/05/22 09:30 186/92 H 06/05/22 09:15 88 21 94 Nasal Cannula 06/05/22 09:00 89 18 94 Nasal Cannula 06/05/22 09:00 154/113 H 06/05/22 08:45 86 19 95 Nasal Cannula 06/05/22 08:30 87 22 94 Nasal Cannula 06/05/22 08:30 157/92 H 06/05/22 08:15 88 21 94 Nasal Cannula 06/05/22 08:00 87 21 93 Nasal Cannula 06/05/22 08:00 151/80 H 06/05/22 07:45 87 21 93 Nasal Cannula 06/05/22 07:32 91 H 22 158/104 H 96 Nasal Cannula 06/05/22 06:10 84 19 155/92 H 94 Room Air 06/05/22 04:54 88 L Room Air, Nasal Cannula 06/05/22 04:11 86 20 175/109 H 93 Room Air 06/05/22 02:22 84 18 180/107 H 94 Room Air O2 Flow Rate 06/05/22 13:00 2 06/05/22 13:00 06/05/22 12:45 2 06/05/22 12:30 2 06/05/22 12:15 2 06/05/22 12:00 2 06/05/22 12:00 06/05/22 11:45 2 06/05/22 11:30 2 06/05/22 11:30 06/05/22 11:15 2 06/05/22 11:00 2 06/05/22 11:00 06/05/22 10:45 2 06/05/22 10:30 06/05/22 10:30 06/05/22 10:15 06/05/22 10:00 2 06/05/22 10:00 06/05/22 09:45 06/05/22 09:30 2 06/05/22 09:30 06/05/22 09:15 2 06/05/22 09:00 2 06/05/22 09:00 06/05/22 08:45 2 06/05/22 08:30 2 06/05/22 08:30 06/05/22 08:15 2 06/05/22 08:00 2 06/05/22 08:00 06/05/22 07:45 2 06/05/22 07:32 2 06/05/22 06:10 2 06/05/22 04:54 0 06/05/22 04:11 06/05/22 02:22 (1) Closed hip fracture Encounter type: initial encounter Laterality: left Qualified Code(s): S72.002A - Fracture of unspecified part of neck of left femur, initial encounter for closed fracture
[2022-06-05] MEDS: HYDROmorphone INJ 0.5 MG/0.5 ML SYR IV PRN ×2 (13:36→21:00)
[2022-06-05] MEDS ORDERED: MIDAZOLAM HCL 1 MG/ML 2ML VIAL ONE (15:08)
[2022-06-05] MEDS ORDERED: fentaNYL citrate 100 MCG/2 ML VIAL ONE (15:08)
[2022-06-05] MEDS ORDERED: PROPOFOL IV EMULSION 10 MG/ML 20 ML VIAL IV ONE (15:08)
[2022-06-05] MEDS ORDERED: LIDOCAINE 2% MPF LOCAL 5 ML VIAL INFIL ONE (15:08)
[2022-06-05] MEDS ORDERED: ONDANSETRON INJ 2 MG/ML 2 ML VIAL ONE (15:08)
[2022-06-05] MEDS ORDERED: DEXAMETHASONE SOD INJ 4 MG/ML VIAL ONE (15:08)
[2022-06-05] MEDS ORDERED: EPINEPHrine INJ 1 MG/ML AMP ONE (15:43)
[2022-06-05] MEDS ORDERED: BUPIVACAINE 0.5 % 5 MG/1 ML MPF 30ML VIAL ONE (15:43)
[2022-06-05] MEDS ORDERED: PROMETHAZINE HCL 12.5 MG in SODIUM CHLORIDE 0.9% 50 ML IV PRN (15:45)
[2022-06-05] MEDS ORDERED: ATROPINE SULFATE 0.1 MG/ML 10ML SYR IV PRN (15:45)
[2022-06-05] MEDS ORDERED: fentaNYL citrate 100 MCG/2 ML VIAL IV PRN (15:45)
[2022-06-05] MEDS ORDERED: ePHEDrine sulfate 50 MG/ML AMP IV PRN (15:45)
[2022-06-05] MEDS ORDERED: HYDROmorphone INJ 2 MG/ML SYR/VIAL IV PRN (15:45)
[2022-06-05] MEDS ORDERED: ceFAZolin 330 MG/ML 1 GM VIAL ONE (16:10)
[2022-06-05] MEDS ORDERED: SUCCINYLCHOLINE CHLORIDE 20 MG/ML 10 ML VIAL IV ONE (16:10)
[2022-06-05] MEDS ORDERED: NEOSTIGMINE METHYLSULFATE 1 MG/ML 10ML VIAL ONE (16:40)
[2022-06-05] MEDS ORDERED: ROCURONIUM BROMIDE 10 MG/ML 5 ML VIAL IV ONE (16:40)
[2022-06-05] MEDS ORDERED: GLYCOPYRROLATE 0.2 MG/ML VIAL ONE (16:40)
--- NOTE | 2022-06-05 17:01 | Operative Report ---
PG Post Operative Report Pre & Post Diagnosis Operation Date: 06/05/22 10:20 Pre-Op Diagnosis: Left Hip Fracture/valgus impacted femoral neck fracture Post-Op Diagnosis: Left Hip Fracture/valgus impacted femoral neck fracture I identified the patient and participated in the time-out.: Yes Procedure Operation Date: 06/05/22 10:20 Actual Procedures p Left Hip Cannulate Screw Fixation(Left) - Caden Trinidad MD Surgeon Caden Trinidad MD Employee Relations Administrator Tobias Tamayo PA-C Estimated Blood Loss 50 Findings Consistent with Post-Op Diagnosis Specimens None Anesthesia Type General Complications none Disposition Accompanied Patient To Recovery: No Indications Patient is a 67-year-old female with multiple medical comorbidities who sustained a fall on Friday. She has some balance issues and slipped and fell. She had cute onset of pain and was having trouble ambulating. She is requiring a walker to get around. She came to the ER yesterday and x-ray and CT scan revealed a valgus impacted femoral neck fracture. Minimal arthritic change. She elected proceed with surgical treatment. Description of Procedure Operative implants consist of: 1. 7.3 long threaded cannulated screw x1 of 95 mm length. 2. 6.5 cannulated screw with short threads, 90 mm length with a washer. 3. 6.5 cannulated screw with short threads, 90 mm length. The patient was taken the operating, identified, placed on the operating table supine position protectors were properly padded. IV antibiotics tried by anesthesia team. General anesthetic was employed by anesthesia team. The patient was then placed on the fracture table. The left leg was placed in boot traction and the right leg was placed in a well leg ordonez. I applied some longitudinal traction of the left leg and internally rotated the foot to the point to the ceiling. X-rays brought in. The fracture was well aligned. There was valgus impaction. There is no significant displacement in other planes. The left hip was then scrubbed with Hibiclens, prepped with a ChloraPrep, and draped in the usual sterile fashion. A 5 cm incision was made over the lateral aspect of the proximal femur. Sharp dissection Through subcutaneous tissues down to level the IT band. The IT band was incised longitudinally in line with the skin incision. The vastus lateralis was retracted anteriorly. A guidewire was then placed in the mid aspect of the femur at the inferior aspect of the femoral neck. This is position under fluoroscopy. The parallel pin guide was then used to place 2 additional pins 1 superior and anterior 1 superior and posterior. The position of these were verified. I then placed a 7.3 screw over the inferior guidewire and a 2 x 6.5 screws over the superior guidewires. The most anterior screw I used a washer. We got excellent purchase. Some final x-rays were obtained. Attention drawn toward closing. The wound was irrigated with copious anand of normal saline. I injected locally with 30 cc of half Marcaine with epinephrine. The IT band was then closed with #1 Vicryl suture running fashion through the subcutaneous tissues then closed with 2 layers of the deep layer #1 Vicryl suture and subcutaneous ti ssues with 2-0 Dexon suture in a buried interrupted fashion the skin was closed skin elliot. Leg was then cleaned and dried and sterile dressed with Xeroform, 4 x 4's, ABD pad and foam tape was applied. The patient was then brought out of general anesthesia and transferred to the recovery room in stable condition. Patient tolerated procedure well and there are no complications. Tobias Tamayo, my physician program assistant, was present for the entire procedure. His assistance was required for proper patient positioning, prepping and draping, surgical exposure, perform the technical details the operation, placement of the hardware, closure of the wound, placement of sterile bandage. I attest to the content of the Intraoperative Record and any orders documented therein. Any exceptions are noted below.
--- NOTE | 2022-06-05 17:05 | Fluoroscopy Report ---
FL hip LT 2-3V CLINICAL HISTORY: LT CANNULATED SCREWS VS BRIGIDO TECHNIQUE: 2 views were obtained with the C-arm in the OR with the above procedure. Total fluoroscopy time was 54.2 seconds. Total skin dose was 16.7 mGy. Comparison: Comparison is made to CT left hip 06/05/2022 FINDINGS/IMPRESSION: Intraoperative images were obtained of cannulated screw placement. Please correlate with intraoperative fluoroscopy and operative report. ACT 112: Negative or not required by law. Electronically signed by: Travon Corrales M.D. 06/05/2022 5:03 PM
--- NOTE | 2022-06-05 17:28 | Anesthesiology Progress Note ---
Date of Service June 05, 2022 Anesthesia Post Procedure Vital Signs Vital Signs: Temp Pulse Pulse Pulse Resp BP BP 06/05/22 17:20 83 12 153/56 H 06/05/22 17:10 36.0 C L 78 22 134/70 06/05/22 14:55 36.7 C 85 17 06/05/22 14:30 90 17 06/05/22 14:30 153/87 H 06/05/22 14:15 88 17 06/05/22 14:00 89 18 06/05/22 14:00 153/80 H 06/05/22 13:45 93 H 18 06/05/22 13:30 90 21 06/05/22 13:30 161/89 H 06/05/22 13:15 94 H 22 06/05/22 13:00 90 22 06/05/22 13:00 153/124 H 06/05/22 12:45 90 23 06/05/22 12:30 88 21 06/05/22 12:15 89 24 06/05/22 12:00 87 20 06/05/22 12:00 142/93 H 06/05/22 11:45 90 24 06/05/22 11:30 85 20 06/05/22 11:30 153/84 H 06/05/22 11:15 84 19 06/05/22 11:00 86 21 06/05/22 11:00 135/80 06/05/22 10:45 87 20 06/05/22 10:30 92 H 24 06/05/22 10:30 134/88 06/05/22 10:15 90 21 06/05/22 10:00 92 H 21 06/05/22 10:00 150/84 H 06/05/22 09:45 89 21 06/05/22 09:30 91 H 22 06/05/22 09:30 186/92 H 06/05/22 09:15 88 21 06/05/22 09:00 89 18 06/05/22 09:00 154/113 H 06/05/22 08:45 86 19 06/05/22 08:30 87 22 06/05/22 08:30 157/92 H 06/05/22 08:15 88 21 06/05/22 08:00 87 21 06/05/22 08:00 151/80 H 06/05/22 07:45 87 21 06/05/22 07:32 91 H 22 158/104 H 06/05/22 06:10 84 19 06/05/22 04:54 06/05/22 04:11 86 20 06/05/22 02:22 84 18 06/05/22 01:00 71 18 06/05/22 00:18 84 18 06/04/22 23:51 73 18 06/04/22 22:24 37.6 C H 100 H 18 152/92 H BP Pulse Ox O2 Del Method O2 Flow Rate 06/05/22 17:20 96 Oxymask 6 06/05/22 17:10 96 Oxymask 15 06/05/22 14:55 136/82 94 Nasal Cannula 2 06/05/22 14:30 06/05/22 14:30 06/05/22 14:15 94 Nasal Cannula 2 06/05/22 14:00 93 Nasal Cannula 2 06/05/22 14:00 06/05/22 13:45 93 Nasal Cannula 2 06/05/22 13:30 95 Nasal Cannula 2 06/05/22 13:30 06/05/22 13:15 94 Nasal Cannula 2 06/05/22 13:00 94 Nasal Cannula 2 06/05/22 13:00 06/05/22 12:45 94 Nasal Cannula 2 06/05/22 12:30 94 Nasal Cannula 2 06/05/22 12:15 93 Nasal Cannula 2 06/05/22 12:00 94 Nasal Cannula 2 06/05/22 12:00 06/05/22 11:45 94 Nasal Cannula 2 06/05/22 11:30 95 Nasal Cannula 2 06/05/22 11:30 06/05/22 11:15 94 Nasal Cannula 2 06/05/22 11:00 93 Nasal Cannula 2 06/05/22 11:00 06/05/22 10:45 93 Nasal Cannula 2 06/05/22 10:30 06/05/22 10:30 06/05/22 10:15 06/05/22 10:00 95 Nasal Cannula 2 06/05/22 10:00 06/05/22 09:45 06/05/22 09:30 94 Nasal Cannula 2 06/05/22 09:30 06/05/22 09:15 94 Nasal Cannula 2 06/05/22 09:00 94 Nasal Cannula 2 06/05/22 09:00 06/05/22 08:45 95 Nasal Cannula 2 06/05/22 08:30 94 Nasal Cannula 2 06/05/22 08:30 06/05/22 08:15 94 Nasal Cannula 2 06/05/22 08:00 93 Nasal Cannula 2 06/05/22 08:00 06/05/22 07:45 93 Nasal Cannula 2 06/05/22 07:32 96 Nasal Cannula 2 06/05/22 06:10 155/92 H 94 Room Air 2 06/05/22 04:54 88 L Room Air, Nasal Cannula 0 06/05/22 04:11 175/109 H 93 Room Air 06/05/22 02:22 180/107 H 94 Room Air 06/05/22 01:00 122/82 94 06/05/22 00:18 95 Room Air 06/04/22 23:51 108/59 L 95 06/04/22 22:24 94 Pain Intensity Bilateral Knee: Pain Intensity: 8 Transfer of Care Handoff Completed per policy Notes Mental Status: alert / awake / arousable and participated in evaluation Patient Amnestic to Procedure: Yes Nausea / Vomiting: adequately controlled Pain: adequately controlled Airway Patency, RR, SpO2: stable & adequate BP & HR: stable & adequate Hydration State: stable & adequate Anesthetic Complications: no major complications apparent
[2022-06-05] MEDS ORDERED: GLUCAGON FOR INJ 1 MG VIAL SQ PRN (17:56)
[2022-06-05] MEDS ORDERED: NITROGLYCERIN SL 0.4 MG/TAB TAB SL PRN (17:56)
[2022-06-05] MEDS ORDERED: PHARMACY GLYCEMIC MGMT CONSULT PRN (17:56)
[2022-06-05] MEDS: SODIUM CHLORIDE 0.9% 1000ML 1,000 ML IV SCH (18:22)
[2022-06-05] MEDS: INSULIN DETEMIR FLEXPEN/FLEX TOUCH 100 UNITS/ML 3ML SQ SCH (20:59)
[2022-06-05] MEDS ORDERED: INSULIN DETEMIR FLEXPEN/FLEX TOUCH 100 UNITS/ML 3ML SQ SCH (21:00)
[2022-06-05] MEDS: ROSUVASTATIN CALCIUM 20 MG TAB PO SCH (21:01)
[2022-06-05] MEDS: TERAZOSIN HCL 1 MG CAP PO SCH (21:01)
[2022-06-05] MEDS: METOPROLOL SUCC 50MG EXT REL TAB PO SCH (21:02)
[2022-06-05] MEDS: APIXABAN 2.5 MG TAB PO SCH (21:11)
[2022-06-05] MEDS: EZETIMIBE 10 MG TABLET PO SCH (21:15)
[2022-06-06] MEDS: HYDROmorphone INJ 0.5 MG/0.5 ML SYR IV PRN ×3 (01:58→11:34)
[2022-06-06] MEDS: INSULIN ASPART PER UNIT SC SCH ×5 (04:18→21:09)
[2022-06-06] MEDS: SODIUM CHLORIDE 0.9% 1000ML 1,000 ML IV SCH ×2 (05:39→16:08)
[2022-06-06 06:42] LABS: Basophils # (auto) 0.02 K/uL (0-0.2); Basophils % (auto) 0.1 %; Hematocrit (blood only) 36.6 % (34.1-44.9); Hemoglobin 12.5 g/dl (12.0-16.0); Immature Granulocytes % (auto) 0.6 %; Lymphocytes # (auto) 0.95 K/uL (1.2-3.4); Mean Corpuscular Hemoglobin 31.7 pg (25.0-34.0); Mean Corpuscular Hgb Conc 34.2 g/dL (32.0-36.0); Mean Corpuscular Volume 92.9 fL (80.0-100.0); Mean Platelet Volume 9.2 fL (9.4-12.3); Monocytes # (auto) 1.52 K/uL (0.24-0.82); Monocytes % (auto) 9.6 %; Neutrophils # (auto) 13.25 K/uL (1.4-6.5); Neutrophils % (auto) 83.7 %; Platelet Count 179 K/uL (130-400); RDW Coefficient of Variation 13.2 % (11.5-14.5); RDW Standard Deviation 44.7 fL (36.4-46.3); Red Blood Count 3.94 M/uL (3.93-5.22); White Blood Count 15.84 K/ul (4.8-10.8)
[2022-06-06 07:13] LABS: Calcium 8.1 mg/dl (8.5-10.1); Creatinine Clr Calc Pharmacy 60.5 ml/min; Est GFR (African American) 62.8 ml/min; Est GFR (Non-African American) 54.1 ml/min; Magnesium 1.7 mg/dl (1.7-2.4); Potassium 4.5 mmol/L (3.5-5.1)
[2022-06-06] MEDS: MAGNESIUM OXIDE 400 MG TAB PO SCH ×2 (08:50→21:08)
[2022-06-06] MEDS: LOSARTAN POTASSIUM 50 MG TAB PO SCH (08:51)
[2022-06-06] MEDS: SPIRONOLACTONE 12.5 MG TAB PO SCH (08:51)
[2022-06-06] MEDS: METOPROLOL SUCC 25MG EXT REL TAB PO SCH (08:51)
[2022-06-06] MEDS: FAMOTIDINE 40 MG TABLET PO SCH (08:51)
[2022-06-06] MEDS: amLODIPine BESYLATE 5 MG TAB PO SCH (08:51)
[2022-06-06] MEDS: FUROSEMIDE 40 MG TAB PO SCH (08:51)
[2022-06-06] MEDS: ASPIRIN 81 MG ECTAB PO SCH (08:51)
[2022-06-06] MEDS: VENLAFAXINE HCL XR 75 MG CAPXR PO SCH (08:51)
[2022-06-06] MEDS: APIXABAN 2.5 MG TAB PO SCH ×2 (08:52→21:07)
--- NOTE | 2022-06-06 11:18 | Orthopedic Progress Note ---
Date of Service June 06, 2022 Assessment & Plan (1) Closed hip fracture: PT/OT: touch weight bearing LLE Pain controlled DVT prophylaxis: on eliquis d/c planning: she's looking into going to a rehab facility in [place] with her daughter. Subjective . 67 year old patient POD#1 from cannulated screw fixation of left hip fx. Having some hip pain. She was lightheaded with therapy. Review of Systems All systems reviewed & are unremarkable except as noted in HPI & below. Physical Exam .alert and oriented. NAD Sitting in chair. Dressing to left hip clean, dry, intact Able to dorsiflex and plantarflex. NVI Results & Data Results & Data Laboratory Results . Diagnostic Findings . PG Care Time/CCT Total # of Minutes Spent Total Time Spent with Patient: Total time spent is greater than 50% in coordination of care (as documented) at patient's floor/unit and/or counseling patient: Coding Level of Care Code 83565 Post Operative Follow-Up Diagnoses Closed hip fracture S72.002A Encounter type: initial encounter Laterality: left (1) Closed hip fracture Encounter type: initial encounter Laterality: left Qualified Code(s): S72.002A - Fracture of unspecified part of neck of left femur, initial encounter for closed fracture
--- NOTE | 2022-06-06 14:32 | Cardiology Progress Note ---
Date of Service June 06, 2022 Assessment & Plan (1) CAD (coronary artery disease), [place] coronary artery: (2) Paroxysmal atrial fibrillation: (3) HTN (hypertension): Plan 67-year-old female admitted with acute left hip fracture after a mechanical fall. Hip surgery performed yesterday without complication. Recovering well. Eliquis restarted at reduced dose per orthopedic surgeon. Recommend increase to full dose Eliquis, 5 mg twice daily within the next 24 to 48 hours if there are no bleeding complications. Continue other cardiovascular medications including metoprolol, furosemide, spironolactone, losartan, terazosin, aspirin, Zetia, and amlodipine. Admission and Anticipated Discharge Date Admission Date: June 05, 2022 Subjective Patient seen and examined the bedside. Feeling well from a cardiovascular perspective. Denies chest pain or shortness of breath. No palpitations, lightheadedness, or dizziness. Left hip discomfort controlled. Offers no other concerns/complaints. Eliquis restarted at reduced dose per orthopedic surgery. Review of Systems Review of Systems: All systems reviewed & are unremarkable except as noted in Subjective Physical Exam Constitutional: + obese; no acute distress Respiratory: normal respiratory effort; no respiratory distress and no labored breathing Auscultation: no crackles, no rales, no rhonchi and no wheezes Cardiovascular: Rate/Rhythm: regular rate and regular rhythm Heart Sounds: normal S1, normal S2 and + murmur (1/6 systolic ejection murmur heard best at the right second intercostal spa) Vessels: radial pulses present; no JVD and no carotid bruit Extremities: no edema Gastrointestinal (Abdomen): Inspection/Auscultation: normal bowel sounds; abdomen not distended Percussion/Palpation: abdomen soft; abdomen nontender and no guarding Neurologic: CN's II-XI intact bilaterally and moves all extremities; no focal motor deficits Results & Data ([facility]) Vital Signs (Past 12 Hours) Vital Signs Temp Pulse Resp BP BP Pulse Ox Pulse Ox 06/06/22 13:06 91 06/06/22 11:20 37.1 C 71 16 100/64 91 06/06/22 07:33 06/06/22 07:00 37.1 C 71 18 110/68 95 06/06/22 04:10 37.3 C 76 16 119/75 92 O2 Del Method O2 Flow Rate O2 Flow Rate 06/06/22 13:06 0 06/06/22 11:20 Room Air 06/06/22 07:33 Nasal Cannula 1 06/06/22 07:00 Nasal Cannula 1 06/06/22 04:10 Nasal Cannula 2
--- NOTE | 2022-06-06 14:40 | Pharmacy Report ---
Pharmacy Glycemic Short Note 2 - Date of Service June 06, 2022 - Glycemic Short BSG Results (Last 24 hours): 06/05/22 06/05/22 06/05/22 17:12 20:28 23:32 Glucose POC Glucose 220 H 258 H 247 H 06/06/22 06/06/22 06/06/22 04:09 05:24 08:05 Glucose 187 H POC Glucose 198 H 161 H 06/06/22 12:07 Glucose POC Glucose 166 H OUTPATIENT ANTIDIABETIC REGIMEN: * Levemir 35 units SQ HS * Metformin 500 mg PO BID ASSESSMENT: * 67 y/o F admitted for hip fracture repair. Patient with history of Type 2 diabetes managed at home on Levemir insulin and oral Metformin. * Metformin on hold currently. * POD #1 today. BSGs elevated last evening due to the IV Dexamethasone given yesterday with surgery. * Patient received basal 35 units of insulin last night which is her home dose. Continued basal insulin on a scale for HS today. * Novolog started last night based on wt and stress of 2. Tightened this slightly today with lunch. PLAN FOR INPATIENT GLYCEMIC CONTROL: * Hold outpatient oral diabetes medications * Basal insulin * Lantus 35-40 units scale SQ HS based on BSG * Bolus insulin * NovoLog per scale ACHS or Q6hrs while NPO * Goal Range: Low 110 mg/dL - High 140 mg/dL * Correction Factor: 20 mg/dL/unit * Nutritional / Prandial insulin per carb ratio of 1 unit per 7 grams CHO consumed
[2022-06-06] MEDS ORDERED: OLANZapine 5 MG TABLET PO STA (15:57)
--- NOTE | 2022-06-06 17:23 | Hospitalist Progress Note ---
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 She is being managed for the following: Mechanical fall Left hip fracture Patient came in with mechanical fall, found to have mildly impacted subcapital left femoral fracture on imaging at presentation. Other imagings: Head CT/left knee x-ray/right knee x-ray/chest x-ray: With no acute findings. Cardiology for preop cardiovascular risk assessment, consider moderate risk. Recommends Eliquis to be started at full dose in next 24 to 48 hours if no bleeding complications. Orthopedics started Eliquis at reduced dose. Pain management, nausea control. PT/OT as able after surgery. Will likely need rehab. Postoperative delirium: Patient was delirious during the day 06/06, mildly restless, not combative, will order haldol as needed, continue with IV fluids at a gentle rate, delirium precaution. Use one-to-one if needed. avoid ativan. Hypertension: Continue with home medications, blood pressure fairly controlled. Other chronic medical conditions: CAD, chronic systolic heart failure [EF 30 to 35%], T2DM, HTN, depression and JAZZMINE [venlafaxine and as needed Ativan], HLD, history of A. fib [on Eliquis], CKD stage III, GERD -->>> continue with/resume home meds as and when appropriate. DVT prophylaxis: Patient on reduced dose of Eliquis currently. Full code Disposition: PT/OT, CM to assist with DC planning, likely would need rehab. 06/06: Patient's daughter was updated at bedside. Admission and Anticipated Discharge Date Admission Date: June 05, 2022 Subjective Patient seen and examined at bedside as a follow-up of mechanical fall and left hip fracture. Patient was lying in bed, on RA, NAD, reports left hip pain under control with pain medications, denies any new acute event overnight, patient reports eating okay, has not moved bowels, is moving gas, denies any fever/cough/headache/dizziness/chest pain/palpitation/other review of symptoms. This was the finding during morning bedside exam. During the day, I was called for patient being hallucinogenic. I evaluated the patient at bedside. Patient was hallucinating and stating that " Dr. Cee came to my living room in the morning without permission and he could have gone anywhere", also stated that " PT came to my living room in the morning without my permission". Patient is oriented, is mildly restless, will avoid Ativan, will use haldol as needed, nurse communicated to reorient frequently and use one-to-one if needed. Physical Exam Physical Exam: GENERAL: Alert and oriented x3. NAD, on room air. Hallucination present HEENT: No pallor, no icterus. Pupils equal, round and reactive to light. Oral mucosa moist. NECK: No JVD, no neck masses. HEART: S1 and S2 heard. Regular rate and rhythm. No murmur, no gallop. RESPIRATORY SYSTEM: Normal AP diameter. No accessory muscle use. No wheezing, no crackles. ABDOMEN: Soft, bowel sounds present, nontender, no distention. CENTRAL NERVOUS SYSTEM: No facial droop. Speech is clear. Obeys simple commands. Moves extremities. EXTREMITIES: No edema, no erythema seen. Left hip with clean dressing without soakage.. Distal NV status wnl x LLE. Results & Data Results & Data ([facility]) Vital Signs (Past 12 Hours) Vital Signs Temp Pulse Resp BP BP Pulse Ox Pulse Ox 06/06/22 15:17 36.7 C 76 16 106/58 L 91 06/06/22 13:06 91 06/06/22 11:20 37.1 C 71 16 100/64 91 06/06/22 07:33 06/06/22 07:00 37.1 C 71 18 110/68 95 O2 Del Method O2 Flow Rate O2 Flow Rate 06/06/22 15:17 Room Air 06/06/22 13:06 0 06/06/22 11:20 Room Air 06/06/22 07:33 Nasal Cannula 1 06/06/22 07:00 Nasal Cannula 1 (1) Closed hip fracture Encounter type: initial encounter Laterality: left Qualified Code(s): S72.002A - Fracture of unspecified part of neck of left femur, initial encounter for closed fracture
[2022-06-06] MEDS ORDERED: haloperidoL 0.5 MG TAB PO PRN (17:25)
[2022-06-06] MEDS: METOPROLOL SUCC 50MG EXT REL TAB PO SCH (21:08)
[2022-06-06] MEDS: ROSUVASTATIN CALCIUM 20 MG TAB PO SCH (21:08)
[2022-06-06] MEDS: EZETIMIBE 10 MG TABLET PO SCH (21:09)
[2022-06-06] MEDS: INSULIN DETEMIR FLEXPEN/FLEX TOUCH 100 UNITS/ML 3ML SQ SCH (21:10)
[2022-06-06] MEDS: TERAZOSIN HCL 1 MG CAP PO SCH (21:11)
[2022-06-07] MEDS: SODIUM CHLORIDE 0.9% 1000ML 1,000 ML IV SCH (06:24)
[2022-06-07 06:28] LABS: Hematocrit (blood only) 32.7 % (34.1-44.9); Hemoglobin 11.1 g/dl (12.0-16.0); Mean Corpuscular Hemoglobin 31.3 pg (25.0-34.0); Mean Corpuscular Hgb Conc 33.9 g/dL (32.0-36.0); Mean Corpuscular Volume 92.1 fL (80.0-100.0); Mean Platelet Volume 9.3 fL (9.4-12.3); Platelet Count 175 K/uL (130-400); RDW Coefficient of Variation 13.2 % (11.5-14.5); RDW Standard Deviation 45.1 fL (36.4-46.3); Red Blood Count 3.55 M/uL (3.93-5.22); White Blood Count 12.21 K/ul (4.8-10.8)
[2022-06-07 07:04] LABS: BUN Creatinine Ratio 22.8 (10-20); Calcium 8.1 mg/dl (8.5-10.1); Creatinine Clr Calc Pharmacy 51.7 ml/min; Est GFR (African American) 51.8 ml/min; Est GFR (Non-African American) 44.7 ml/min; Potassium 3.5 mmol/L (3.5-5.1)
--- NOTE | 2022-06-07 07:56 | Progress Notes ---
DATE OF SERVICE: 06/07/2022 SUBJECTIVE: A 67-year-old white female with multiple medical comorbidities. Postop day 2 from cannu lated screw fixation of a valgus impacted femoral neck fracture. She seems to be doing pretty well t his morning. Denies much in the way of pain. No chest pain or shortness of breath. OBJECTIVE: VITAL SIGNS: Temperature 37.0. Vital signs are stable. GENERAL: Pleasant, elderly female. She is lying in bed, looks reasonably comfortable this morning. EXTREMITIES: Examination of the left hip reveals dressing to be clean, dry and intact. Leg lengths are equal. She is neurologically intact. LABORATORY DATA: Hemoglobin 11.1. Hematocrit 32.7. ASSESSMENT: A 67-year-old white female with multiple medical comorbidities. Postop day 2 from cannu lated screw fixation of valgus impacted femoral neck fracture. Orthopedically, she is doing okay. PLAN: 1. DVT prophylaxis includes thigh-high TEDs, SCDs and back on her normal anticoagulation. 2. PT/OT. She is touch weightbearing left leg for the next 4 to 6 weeks. 3. Pain control, seems to be doing okay, pain pritchett. 4. Medical management as per the medicine service. 5. Disposition: She is orthopedically okay for discharge any time. I need to see her back 2 to 3 w eeks out from surgery date. She is toe-touch weightbearing on this left side until I see her back. Any orthopedic questions can be directed to me at [phone]. Job ID: [id number]
[2022-06-07] MEDS: VENLAFAXINE HCL XR 75 MG CAPXR PO SCH (07:59)
[2022-06-07] MEDS: FUROSEMIDE 40 MG TAB PO SCH (08:00)
[2022-06-07] MEDS: APIXABAN 2.5 MG TAB PO SCH (08:00)
[2022-06-07] MEDS: SPIRONOLACTONE 12.5 MG TAB PO SCH (08:00)
[2022-06-07] MEDS: FAMOTIDINE 40 MG TABLET PO SCH (08:00)
[2022-06-07] MEDS: amLODIPine BESYLATE 5 MG TAB PO SCH (08:00)
[2022-06-07] MEDS: ASPIRIN 81 MG ECTAB PO SCH (08:00)
[2022-06-07] MEDS: MAGNESIUM OXIDE 400 MG TAB PO SCH ×2 (08:00→20:05)
[2022-06-07] MEDS: METOPROLOL SUCC 25MG EXT REL TAB PO SCH (08:00)
[2022-06-07] MEDS: LOSARTAN POTASSIUM 50 MG TAB PO SCH (08:00)
[2022-06-07] MEDS: INSULIN ASPART PER UNIT SC SCH ×4 (08:05→20:15)
[2022-06-07] MEDS: HYDROmorphone INJ 0.5 MG/0.5 ML SYR IV PRN ×2 (09:28→20:06)
--- NOTE | 2022-06-07 13:11 | Cardiology Progress Note ---
Date of Service June 07, 2022 Assessment & Plan (1) CAD (coronary artery disease), [place] coronary artery: (2) Paroxysmal atrial fibrillation: (3) HTN (hypertension): Plan 67-year-old female admitted with acute left hip fracture after a mechanical fall. Hip surgery performed 05/2021without complication. Recovering well. Mild postoperative anemia noted. No signs of ongoing blood loss. Eliquis will be titrated back to 5 mg twice daily. Continue other cardiovascular medications including metoprolol, furosemide, spironolactone, losartan, terazosin, aspirin, Zetia, and amlodipine. Cardiology will sign off. Please call with any further concerns/questions. Admission and Anticipated Discharge Date Admission Date: June 05, 2022 Subjective Patient seen exam at the bedside. Denies chest pain or unusual shortness of breath. No palpitations, lightheadedness, or dizziness. Hip pain controlled. Participating in physical therapy. Review of Systems Review of Systems: All systems reviewed & are unremarkable except as noted in Subjective Physical Exam Constitutional: + obese; no acute distress Respiratory: normal respiratory effort; no respiratory distress and no labored breathing Auscultation: no crackles, no rales, no rhonchi and no wheezes Cardiovascular: Rate/Rhythm: regular rate and regular rhythm Heart Sounds: normal S1, normal S2 and + murmur (1/6 systolic ejection murmur heard best at the right second intercostal spa) Vessels: radial pulses present; no JVD and no carotid bruit Extremities: no edema Gastrointestinal (Abdomen): Inspection/Auscultation: normal bowel sounds; abdomen not distended Percussion/Palpation: abdomen soft; abdomen nontender and no guarding Neurologic: CN's II-XI intact bilaterally and moves all extremities; no focal motor deficits Results & Data ([facility]) Vital Signs (Past 12 Hours) Vital Signs Temp Pulse Resp BP Pulse Ox O2 Del Method 06/07/22 08:00 Room Air 06/07/22 07:53 36.7 C 88 18 120/72 95 Room Air
--- NOTE | 2022-06-07 13:45 | Pharmacy Report ---
Pharmacy Glycemic Short Note 2 - Date of Service June 07, 2022 - Glycemic Short BSG Results (Last 24 hours): 06/06/22 06/06/22 06/07/22 17:12 20:32 05:30 Glucose 70 POC Glucose 163 H 197 H 06/07/22 06/07/22 08:04 12:16 Glucose POC Glucose 81 142 H OUTPATIENT ANTIDIABETIC REGIMEN: * Levemir 35 units SQ HS * Metformin 500 mg PO BID ASSESSMENT: 06/07 * Fasting this AM, slightly below goal, will decrease back to home 35 units of levemir * BSGs have been well-controlled , will continue current parameters, may consider loosening if BSGs trend down further. 06/06 * 67 y/o F admitted for hip fracture repair. Patient with history of Type 2 diabetes managed at home on Levemir insulin and oral Metformin. * Metformin on hold currently. * POD #1 today. BSGs elevated last evening due to the IV Dexamethasone given yesterday with surgery. * Patient received basal 35 units of insulin last night which is her home dose. Continued basal insulin on a scale for HS today. * Novolog started last night based on wt and stress of 2. Tightened this slightly today with lunch. PLAN FOR INPATIENT GLYCEMIC CONTROL: * Hold outpatient oral diabetes medications * Basal insulin * Lantus 35-40 units scale SQ HS based on BSG * Bolus insulin * NovoLog per scale ACHS or Q6hrs while NPO * Goal Range: Low 110 mg/dL - High 140 mg/dL * Correction Factor: 20 mg/dL/unit * Nutritional / Prandial insulin per carb ratio of 1 unit per 7 grams CHO consumed
[2022-06-07] MEDS ORDERED: POTASSIUM CHLORIDE CRTAB 20 MEQ TABCR PO STA (17:06)
--- NOTE | 2022-06-07 17:14 | Hospitalist Progress Note ---
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 She is being managed for the following: Mechanical fall Left hip fracture Patient came in with mechanical fall, found to have mildly impacted subcapital left femoral fracture on imaging at presentation. Other imagings: Head CT/left knee x-ray/right knee x-ray/chest x-ray: With no acute findings. Cardiology evaluated for preop cardiovascular risk assessment, appreciate recommendation. Pain management, nausea control. PT/OT as able after surgery. Will likely need rehab. Follow-up with orthopedics at 2 weeks upon discharge. She is toe touch la nena ghtbearing on her left side until she sees orthopedics. Laxative for BM. Postoperative delirium: Patient was delirious during the day 06/06, mildly restless, not combative, haldol as needed, continue with IV fluids at a gentle rate, delirium precaution. avoid ativan. Hypertension: Continue with home medications, blood pressure fairly controlled. Other chronic medical conditions: CAD, chronic systolic heart failure [EF 30 to 35%], T2DM, HTN, depression and JAZZMINE [venlafaxine and as needed Ativan], HLD, history of A. fib [on Eliquis], CKD stage III, GERD -->>> continue with/resume home meds as and when appropriate. DVT prophylaxis: Eliquis Full code Disposition: PT/OT, ESTEBAN to assist with DC planning, likely would need rehab. CM working w/ placement. 06/06: Patient's daughter was updated at bedside. Admission and Anticipated Discharge Date Admission Date: June 05, 2022 Subjective Patient seen and examined at bedside as a follow-up of mechanical fall and left hip fracture. Patient was sitting up in bed, getting ready to work with OT, on 1 L nasal cannula oxygen, NAD, reports left hip pain under control with pain medications, denies any new acute event overnight, patient reports eating okay, has not moved bowels, is moving gas, denies any fever/cough/headache/dizziness/chest pain/palpitation/other review of symptoms. Physical Exam Physical Exam: GENERAL: Alert and oriented x3. NAD, on room air. Hallucination absent. HEENT: No pallor, no icterus. Pupils equal, round and reactive to light. Oral mucosa moist. NECK: No JVD, no neck masses. HEART: S1 and S2 heard. Regular rate and rhythm. No murmur, no gallop. RESPIRATORY SYSTEM: Normal AP diameter. No accessory muscle use. No wheezing, no crackles. ABDOMEN: Soft, bowel sounds present, nontender, no distention. CENTRAL NERVOUS SYSTEM: No facial droop. Speech is clear. Obeys simple commands. Moves extremities. EXTREMITIES: No edema, no erythema seen. Left hip with clean dressing without soakage.. Distal NV status wnl x LLE. Results & Data Results & Data ([facility]) Vital Signs (Past 12 Hours) Vital Signs Temp Pulse Pulse Resp BP Pulse Ox O2 Del Method 06/07/22 16:00 36.8 C 75 20 106/70 98 Room Air 06/07/22 08:00 Room Air 06/07/22 07:53 36.7 C 88 18 120/72 95 Room Air O2 Flow Rate 06/07/22 16:00 1 06/07/22 08:00 06/07/22 07:53 (1) Closed hip fracture Encounter type: initial encounter Laterality: left Qualified Code(s): S72.002A - Fracture of unspecified part of neck of left femur, initial encounter for closed fracture
[2022-06-07] MEDS: POLYETHYLENE (MIRALAX) 17 GM PACK PO SCH (17:33)
[2022-06-07] MEDS: APIXABAN 5 MG TABLET PO SCH (20:04)
[2022-06-07] MEDS: METOPROLOL SUCC 50MG EXT REL TAB PO SCH (20:05)
[2022-06-07] MEDS: EZETIMIBE 10 MG TABLET PO SCH (20:05)
[2022-06-07] MEDS: ROSUVASTATIN CALCIUM 20 MG TAB PO SCH (20:05)
[2022-06-07] MEDS: TERAZOSIN HCL 1 MG CAP PO SCH (20:05)
[2022-06-07] MEDS: INSULIN DETEMIR FLEXPEN/FLEX TOUCH 100 UNITS/ML 3ML SQ SCH (20:15)
[2022-06-07] MEDS ORDERED: MELATONIN 3 MG TAB PO PRN (22:55)
[2022-06-07] MEDS ORDERED: OLANZapine 10 MG/2.1 ML SDV IM PRN (22:57)
[2022-06-07] MEDS ORDERED: ALBUMIN 25% 100 mL 25 GM/100 ML VIAL IV ONE (22:58)
--- NOTE | 2022-06-07 23:00 | Communication Note ---
Date of Service: June 07, 2022 Patient noted to be increasingly confused and agitated as per RN. Serum creatinine from a.m. labs 1.23 AP Delirium ARF Rule out UTI Zyprexa as needed agitation Baseline UA, monitor creatinine response to IV albumin (colloid preferred over crystalloid given CHF history) Hold losartan, diuretic for now until creatinine back to baseline ADDENDUM : UA WBC esterase Urine CS, cefepime for complicated UTI Will relay to AM provider.
[2022-06-07] MEDS: haloperidoL 5 MG TAB PO PRN (23:02)
[2022-06-07 23:47] LABS: BUN Creatinine Ratio 22.7 (10-20); Calcium 8.1 mg/dl (8.5-10.1); Creatinine Clr Calc Pharmacy 57.8 ml/min; Est GFR (African American) 59.3 ml/min; Est GFR (Non-African American) 51.2 ml/min; Potassium 3.8 mmol/L (3.5-5.1)
[2022-06-08 00:09] LABS: Thyroid Stimulating Hormone 0.115 uIu/ml (0.300-4.500)
[2022-06-08 00:42] LABS: T4 Free Thyroxine 1.38 ng/dl (0.61-1.60)
[2022-06-08 01:03] LABS: Appearance Urine Cloudy (Clear); Bacteria Urine Automated Negative (Negative); Bilirubin Urine Negative (Negative); Blood Urine Trace (Negative); Color Urine Yellow; Epithelial Cell Urine Auto >30 /lpf (0-5); Glucose Urine UA Negative (Negative); Ketones Urine Negative (Negative); Leukocyte Esterase Urine 3+ (Negative); Nitrite Urine Negative (Negative); Protein Urine Negative (Negative); RBC Urine Automated 0-4 /hpf (0-4); Specific Gravity Urine 1.012 (1.000-1.030); Urobilinogen Urine Negative (Negative); WBC Urine Automated >30 /hpf (0-5)
[2022-06-08] MEDS: CEFEPIME 2,000 MG in SYRINGE 0 ML IV SCH (06:40)
[2022-06-08 07:22] LABS: Hemoglobin 10.7 g/dl (12.0-16.0); Mean Corpuscular Hemoglobin 31.4 pg (25.0-34.0); Mean Corpuscular Hgb Conc 33.4 g/dL (32.0-36.0); Mean Corpuscular Volume 93.8 fL (80.0-100.0); Mean Platelet Volume 9.3 fL (9.4-12.3); Platelet Count 181 K/uL (130-400); RDW Coefficient of Variation 13.4 % (11.5-14.5); RDW Standard Deviation 46.3 fL (36.4-46.3); Red Blood Count 3.41 M/uL (3.93-5.22)
[2022-06-08 07:38] LABS: BUN Creatinine Ratio 23.1 (10-20); Calcium 8.4 mg/dl (8.5-10.1); Creatinine Clr Calc Pharmacy 58.8 ml/min; Est GFR (African American) 60.7 ml/min; Est GFR (Non-African American) 52.3 ml/min; Potassium 3.7 mmol/L (3.5-5.1)
[2022-06-08] MEDS: FAMOTIDINE 40 MG TABLET PO SCH (08:12)
[2022-06-08] MEDS: SPIRONOLACTONE 12.5 MG TAB PO SCH (08:13)
[2022-06-08] MEDS: amLODIPine BESYLATE 5 MG TAB PO SCH (08:13)
[2022-06-08] MEDS: VENLAFAXINE HCL XR 75 MG CAPXR PO SCH (08:13)
[2022-06-08] MEDS: ASPIRIN 81 MG ECTAB PO SCH (08:13)
[2022-06-08] MEDS: APIXABAN 5 MG TABLET PO SCH ×2 (08:13→20:55)
[2022-06-08] MEDS: METOPROLOL SUCC 25MG EXT REL TAB PO SCH (08:14)
[2022-06-08] MEDS: MAGNESIUM OXIDE 400 MG TAB PO SCH ×2 (08:14→20:55)
[2022-06-08] MEDS: POLYETHYLENE (MIRALAX) 17 GM PACK PO SCH (08:14)
[2022-06-08] MEDS: INSULIN ASPART PER UNIT SC SCH ×4 (08:56→20:53)
[2022-06-08] MEDS: HYDROmorphone INJ 0.5 MG/0.5 ML SYR IV PRN ×2 (10:48→20:56)
--- NOTE | 2022-06-08 16:41 | Hospitalist Progress Note ---
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 She is being managed for the following: Mechanical fall Left hip fracture Patient came in with mechanical fall, found to have mildly impacted subcapital left femoral fracture on imaging at presentation. Other imagings: Head CT/left knee x-ray/right knee x-ray/chest x-ray: With no acute findings. Cardiology evaluated for preop cardiovascular risk assessment, appreciate recommendation. Pain management, nausea control. PT/OT as able after surgery. Will likely need rehab. Follow-up with orthopedics at 2 weeks upon discharge. She is toe touch la nena ghtbearing on her left side until she sees orthopedics. Laxative for BM. Postoperative delirium: Patient was delirious during the day 06/06, mildly restless, not combative, haldol as needed, delirium precaution. avoid ativan and ambien. Will use melatonin. UTI: cefepime 06/08, f/u Cx. Hypertension: Continue with home medications, blood pressure fairly controlled. Other chronic medical conditions: CAD, chronic systolic heart failure [EF 30 to 35%], T2DM, HTN, depression and JAZZMINE [venlafaxine and as needed Ativan], HLD, history of A. fib [on Eliquis], CKD stage III, GERD -->>> continue with/resume home meds as and when appropriate. DVT prophylaxis: Eliquis Full code Disposition: PT/OT, ESTEBAN to assist with DC planning, likely would need rehab. CM working w/ placement. 06/06: Patient's daughter was updated at bedside. Admission and Anticipated Discharge Date Admission Date: June 05, 2022 Subjective Patient seen and examined at bedside as a follow-up of mechanical fall and left hip fracture. Patient was sitting up in bed, getting ready to work with OT, on 2 L nasal cannula oxygen, NAD, reports left hip pain under control with pain medications, has sundowning during evening and was more confused, patient reports eating less, denies any fever/cough/headache/dizziness/chest pain/palpitation/other review of symptoms. Physical Exam Physical Exam: GENERAL: Alert and oriented x3. NAD, on 2L O2 via NC. Hallucination absent. HEENT: No pallor, no icterus. Pupils equal, round and reactive to light. Oral mucosa moist. NECK: No JVD, no neck masses. HEART: S1 and S2 heard. Regular rate and rhythm. No murmur, no gallop. RESPIRATORY SYSTEM: Normal AP diameter. No accessory muscle use. No wheezing, no crackles. ABDOMEN: Soft, bowel sounds present, nontender, no distention. CENTRAL NERVOUS SYSTEM: No facial droop. Speech is clear. Obeys simple commands. Moves extremities. EXTREMITIES: No edema, no erythema seen. Left hip with clean dressing without soakage.. Distal NV status wnl x LLE. Results & Data Results & Data ([facility]) Vital Signs (Past 12 Hours) Vital Signs O2 Del Method 06/08/22 08:00 Room Air (1) Closed hip fracture Encounter type: initial encounter Laterality: left Qualified Code(s): S72.002A - Fracture of unspecified part of neck of left femur, initial encounter for closed fracture
[2022-06-08] MEDS: TERAZOSIN HCL 1 MG CAP PO SCH (20:53)
[2022-06-08] MEDS: INSULIN DETEMIR FLEXPEN/FLEX TOUCH 100 UNITS/ML 3ML SQ SCH (20:53)
[2022-06-08] MEDS: MELATONIN 3 MG TAB PO SCH (20:54)
[2022-06-08] MEDS: ROSUVASTATIN CALCIUM 20 MG TAB PO SCH (20:54)
[2022-06-08] MEDS: METOPROLOL SUCC 50MG EXT REL TAB PO SCH (20:54)
[2022-06-08] MEDS: EZETIMIBE 10 MG TABLET PO SCH (20:55)
[2022-06-08] MEDS: haloperidoL 5 MG TAB PO PRN (20:58)
[2022-06-09] MEDS: HYDROmorphone INJ 0.5 MG/0.5 ML SYR IV PRN ×2 (04:28→16:34)
[2022-06-09] MEDS: CEFEPIME 2,000 MG in SYRINGE 0 ML IV SCH (05:38)
[2022-06-09] MEDS: MAGNESIUM OXIDE 400 MG TAB PO SCH ×2 (07:35→21:05)
[2022-06-09] MEDS: APIXABAN 5 MG TABLET PO SCH ×2 (07:35→21:05)
[2022-06-09] MEDS: METOPROLOL SUCC 25MG EXT REL TAB PO SCH (07:35)
[2022-06-09] MEDS: amLODIPine BESYLATE 5 MG TAB PO SCH (07:36)
[2022-06-09] MEDS: ASPIRIN 81 MG ECTAB PO SCH (07:36)
[2022-06-09] MEDS: VENLAFAXINE HCL XR 75 MG CAPXR PO SCH (07:36)
[2022-06-09] MEDS: SPIRONOLACTONE 12.5 MG TAB PO SCH (07:36)
[2022-06-09] MEDS: FAMOTIDINE 40 MG TABLET PO SCH (07:36)
[2022-06-09] MEDS: POLYETHYLENE (MIRALAX) 17 GM PACK PO SCH (07:37)
[2022-06-09] MEDS: LOSARTAN POTASSIUM 50 MG TAB PO SCH (08:18)
[2022-06-09] MEDS: FUROSEMIDE 40 MG TAB PO SCH (08:18)
[2022-06-09] MEDS: INSULIN ASPART PER UNIT SC SCH ×4 (08:49→21:02)
--- NOTE | 2022-06-09 16:16 | Hospitalist Progress Note ---
Date of Service June 09, 2022 Assessment & Plan (1) Closed hip fracture: Plan 67-year-old lady with PMH of T2DM, diabetic retinopathy, CKD stage III, HLD, HTN, CAD with SILVIANO in 2014, GERD, depression, JAZZMINE presented from home 06/04 with fall after she was trying to roller picker the paper/she lost balance. She is being managed for the following: Mechanical fall Left hip fracture Patient came in with mechanical fall, found to have mildly impacted subcapital left femoral fracture on imaging at presentation. Other imagings: Head CT/left knee x-ray/right knee x-ray/chest x-ray: With no acute findings. Cardiology evaluated for preop cardiovascular risk assessment, appreciate recommendation. Pain management, nausea control. PT/OT as able after surgery. Will likely need rehab. Follow-up with orthopedics at 2 weeks upon discharge. She is toe touch la nena ghtbearing on her left side until she sees orthopedics. Laxative for BM. Postoperative delirium/sundowning: Patient was delirious during the day 06/06, mildly restless, not combative, haldol as needed, delirium precaution. avoid ativan and ambien. Will use melatonin. Patient has been delirious/confused in the evening since 06/06. UTI: cefepime 06/08, f/u Cx. Hypertension: Continue with home medications, blood pressure fairly controlled. Other chronic medical conditions: CAD, chronic systolic heart failure [EF 30 to 35%], T2DM, HTN, depression and JAZZMINE [venlafaxine and as needed Ativan], HLD, history of A. fib [on Eliquis], CKD stage III, GERD -->>> continue with/resume home meds as and when appropriate. DVT prophylaxis: Eliquis Full code Disposition: PT/OT, ESTEBAN to assist with DC planning, likely would need rehab. CM working w/ placement. Can DC. 06/06: Patient's daughter was updated at bedside. Admission and Anticipated Discharge Date Admission Date: June 05, 2022 Subjective Patient seen and examined at bedside as a follow-up of mechanical fall and left hip fracture. Patient was sitting up in chair, on room air, NAD, reports left hip pain under control with pain medications, has sundowning during evening and received Haldol, patient reports eating less, denies any fever/cough/headache/dizziness/chest pain/palpitation/other review of symptoms. Patient denies bowel movement. Will increase bowel regimen. Physical Exam Physical Exam: GENERAL: Alert and oriented x3. NAD, on room air. Hallucination absent. HEENT: No pallor, no icterus. Pupils equal, round and reactive to light. Oral mucosa moist. NECK: No JVD, no neck masses. HEART: S1 and S2 heard. Regular rate and rhythm. No murmur, no gallop. RESPIRATORY SYSTEM: Normal AP diameter. No accessory muscle use. No wheezing, no crackles. ABDOMEN: Soft, bowel sounds present, nontender, no distention. CENTRAL NERVOUS SYSTEM: No facial droop. Speech is clear. Obeys simple commands. Moves extremities. EXTREMITIES: No edema, no erythema seen. Left hip with clean dressing without soakage. Distal NV status wnl x LLE. Results & Data Results & Data ([facility]) Vital Signs (Past 12 Hours) Vital Signs Temp Pulse Resp BP Pulse Ox O2 Del Method 06/09/22 14:53 37.1 C 70 18 125/76 92 Room Air 06/09/22 11:18 93 06/09/22 08:00 36.5 C 66 16 130/76 97 Room Air (1) Closed hip fracture Encounter type: initial encounter Laterality: left Qualified Code(s): S72.002A - Fracture of unspecified part of neck of left femur, initial encounter for closed fracture
[2022-06-09] MEDS: INSULIN DETEMIR FLEXPEN/FLEX TOUCH 100 UNITS/ML 3ML SQ SCH (21:03)
[2022-06-09] MEDS: MELATONIN 3 MG TAB PO SCH (21:06)
[2022-06-09] MEDS: TERAZOSIN HCL 1 MG CAP PO SCH (21:06)
[2022-06-09] MEDS: DOCUSATE SODIUM 100 MG CAP PO SCH (21:06)
[2022-06-09] MEDS: ROSUVASTATIN CALCIUM 20 MG TAB PO SCH (21:06)
[2022-06-09] MEDS: EZETIMIBE 10 MG TABLET PO SCH (21:06)
[2022-06-09] MEDS: haloperidoL 5 MG TAB PO PRN (22:24)
[2022-06-09] MEDS: METOPROLOL SUCC 50MG EXT REL TAB PO SCH (22:24)
[2022-06-10] MEDS: HYDROmorphone INJ 0.5 MG/0.5 ML SYR IV PRN ×2 (00:24→11:42)
[2022-06-10] MEDS: CEFEPIME 2,000 MG in SYRINGE 0 ML IV SCH (06:23)
[2022-06-10 07:59] LABS: Creatinine Clr Calc Pharmacy 59.9 ml/min; Est GFR (Non-African American) 53.5 ml/min
[2022-06-10] MEDS: MAGNESIUM OXIDE 400 MG TAB PO SCH ×2 (08:41→19:57)
[2022-06-10] MEDS: LOSARTAN POTASSIUM 50 MG TAB PO SCH (08:41)
[2022-06-10] MEDS: FUROSEMIDE 40 MG TAB PO SCH (08:41)
[2022-06-10] MEDS: POLYETHYLENE (MIRALAX) 17 GM PACK PO SCH (08:41)
[2022-06-10] MEDS: SPIRONOLACTONE 12.5 MG TAB PO SCH (08:41)
[2022-06-10] MEDS: FAMOTIDINE 40 MG TABLET PO SCH (08:41)
[2022-06-10] MEDS: VENLAFAXINE HCL XR 75 MG CAPXR PO SCH (08:41)
[2022-06-10] MEDS: amLODIPine BESYLATE 5 MG TAB PO SCH (08:41)
[2022-06-10] MEDS: DOCUSATE SODIUM 100 MG CAP PO SCH ×2 (08:41→19:56)
[2022-06-10] MEDS: ASPIRIN 81 MG ECTAB PO SCH (08:41)
[2022-06-10] MEDS: METOPROLOL SUCC 25MG EXT REL TAB PO SCH (08:41)
[2022-06-10] MEDS: APIXABAN 5 MG TABLET PO SCH ×2 (08:42→19:56)
[2022-06-10] MEDS: INSULIN ASPART PER UNIT SC SCH ×4 (08:46→21:37)
--- NOTE | 2022-06-10 09:33 | Pharmacy Report ---
Pharmacy Glycemic Short Note 2 - Date of Service June 10, 2022 - Glycemic Short BSG Results (Last 24 hours): 06/09/22 06/09/22 06/09/22 12:14 16:59 20:54 POC Glucose 138 H 147 H 209 H 06/10/22 08:04 POC Glucose 175 H OUTPATIENT ANTIDIABETIC REGIMEN: * Levemir 35 units SQ HS * Metformin 500 mg PO BID ASSESSMENT: 06/10 * BSGs well controlled over last 24 hrs with current insulin orders * Fasting BSG elevated this AM, FBS 175, with 35 units Levemir on board. However this is a clear deviation from prior fasting BSG trend on same basal dose. Will not respond to today's isolated elevation. Continue same basal dose and monitor. * Post-prandial BSGs acceptable over last 24 hrs with current CF and CR - no change 06/07 * Fasting this AM, slightly below goal, will decrease back to home 35 units of levemir * BSGs have been well-controlled , will continue current parameters, may consider loosening if BSGs trend down further. 06/06 * 67 y/o F admitted for hip fracture repair. Patient with history of Type 2 diabetes managed at home on Levemir insulin and oral Metformin. * Metformin on hold currently. * POD #1 today. BSGs elevated last evening due to the IV Dexamethasone given yesterday with surgery. * Patient received basal 35 units of insulin last night which is her home dose. Continued basal insulin on a scale for HS today. * Novolog started last night based on wt and stress of 2. Tightened this slightly today with lunch. PLAN FOR INPATIENT GLYCEMIC CONTROL: * Hold outpatient oral diabetes medications * Basal insulin * Levemir 35 units scale SQ HS * Bolus insulin * NovoLog per scale ACHS or Q6hrs while NPO * Goal Range: Low 110 mg/dL - High 140 mg/dL * Correction Factor: 20 mg/dL/unit * Nutritional / Prandial insulin per carb ratio of 1 unit per 7 grams CHO consumed
--- NOTE | 2022-06-10 10:48 | Orthopedic Progress Note ---
Date of Service June 10, 2022 Assessment & Plan (1) Closed hip fracture: Pain controlled. Not really having hip pain. She would like to try an injection again for the knee. We will plan on doing an intraarticular steroid injection later today. PT/OT-touch weight bearing LLE DVT prophylaxis. D/c planning: awaiting possible d/c to rehab in [place]. (2) Left knee DJD: Subjective . 67 year old patient POD#5 from cannulated screw fixation of left hip. Not really having much hip pain. She complains of left knee pain. She was scheduled to see us in the office to schedule tka. It has been over a year since her last injection. Review of Systems All systems reviewed & are unremarkable except as noted in HPI & below. Physical Exam . alert and oriented. NAD Left leg: dressing clean, dry, intact Minimal left knee effusion. Able to dorsiflex and plantarflex. NVI Results & Data Results & Data Laboratory Results . Diagnostic Findings . PG Care Time/CCT Total # of Minutes Spent Total Time Spent with Patient: Total time spent is greater than 50% in coordination of care (as documented) at patient's floor/unit and/or counseling patient: Coding Level of Care Code 33497 Post Operative Follow-Up Diagnoses Closed hip fracture S72.002A Encounter type: initial encounter Laterality: left Left knee DJD M17.12 (1) Closed hip fracture Encounter type: initial encounter Laterality: left Qualified Code(s): S72. 002A - Fracture of unspecified part of neck of left femur, initial encounter for closed fracture
[2022-06-10] MEDS ORDERED: BUPIVACAINE 0.5 % 5 MG/1 ML MPF 30ML VIAL IA SCH (11:00)
[2022-06-10] MEDS ORDERED: BETAMETH SOD PHOS/ACETATE IA 6 MG/ML IA SCH (11:00)
--- NOTE | 2022-06-10 14:20 | Hospitalist Progress Note ---
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 She is being managed for the following: Mechanical fall Left hip fracture s/p cannulated screw fixation on 06/05 Patient came in with mechanical fall, found to have mildly impacted subcapital left femoral fracture on imaging at presentation. Underwent surgery on 06/05 Other imaging: Head CT/left knee x-ray/right knee x-ray/chest x-ray: With no acute findings. Pain management, nausea control. PT OT recommend rehab; patient wants to go to [facility] in [place]. Follow-up with orthopedics at 2 weeks upon discharge. She is toe touch weightbearing on her left side until she sees orthopedics. Laxative for BM. Postoperative delirium/sundowning: Patient was delirious during the day 06/06, mildly restless, not combative, haldol as needed, delirium precaution. avoid ativan and ambien. Daughter reported that this patient has frequent episode of delirium at night at home as well. UTI: cefepime 06/08, culture shows yeast. Patient is asymptomatic; discontinue antibiotics Hypertension: Continue with home medications, blood pressure fairly controlled. Other chronic medical conditions: CAD, chronic systolic heart failure [EF 30 to 35%], T2DM, HTN, depression and JAZZMINE [venlafaxine and as needed Ativan], HLD, history of A. fib [on Eliquis], CKD stage III, GERD -->>> continue with/resume home meds as and when appropriate. DVT prophylaxis: Eliquis Full code Disposition: PT/OT, ESTEBAN to assist with DC planning, likely would need rehab. CM working w/ placement. Can DC when placement obtained. Admission and Anticipated Discharge Date Admission Date: June 05, 2022 Subjective Patient seen and examined at bedside. She is sitting up on the chair; not in any distress. She is looking forward to getting discharged and going to rehab with her daughter in [place]. Review of Systems Review of Systems: All systems reviewed & are unremarkable except as noted in Subjective Physical Exam Physical Exam: GENERAL: Alert and oriented x3. NAD, on room air. Hallucination absent. HEENT: No pallor, no icterus. Pupils equal, round and reactive to light. Oral mucosa moist. NECK: No JVD, no neck masses. HEART: S1 and S2 heard. Regular rate and rhythm. No murmur, no gallop. RESPIRATORY SYSTEM: Normal AP diameter. No accessory muscle use. No wheezing, no crackles. ABDOMEN: Soft, bowel sounds present, nontender, no distention. CENTRAL NERVOUS SYSTEM: No facial droop. Speech is clear. Obeys simple commands. Moves extremities. EXTREMITIES: No edema, no erythema seen. Left hip with clean dressing without soakage. Distal NV status wnl x LLE. Results & Data Results & Data ([facility]) Vital Signs (Past 12 Hours) Vital Signs Temp Pulse Resp BP Pulse Ox O2 Del Method 06/10/22 07:45 Room Air 06/10/22 08:04 36.8 C 68 16 148/78 H 94 Room Air Laboratory Results Laboratory Results WBC 9.60 K/ul (4.8-10.8) 06/08/22 06:34 RBC 3.41 M/uL (3.93-5.22) L 06/08/22 06:34 Hgb 10.7 g/dl (12.0-16.0) L 06/08/22 06:34 Hct 32.0 % (34.1-44.9) L 06/08/22 06:34 MCV 93.8 fL (80.0-100.0) 06/08/22 06:34 MCH 31.4 pg (25.0-34.0) 06/08/22 06:34 MCHC 33.4 g/dL (32.0-36.0) 06/08/22 06:34 RDW Std Deviation 46.3 fL (36.4-46.3) 06/08/22 06:34 RDW Coeff of Carissa 13.4 % (11.5-14.5) 06/08/22 06:34 Plt Count 181 K/uL (130-400) 06/08/22 06:34 MPV 9.3 fL (9.4-12.3) L 06/08/22 06:34 Immature Gran % (Auto) 0.6 % 06/06/22 05:24 Neut % (Auto) 83.7 % 06/06/22 05:24 Lymph % (Auto) 6.0 % 06/06/22 05:24 Crane % (Auto) 9.6 % 06/06/22 05:24 Eos % (Auto) 0.0 % 06/06/22 05:24 Baso % (Auto) 0.1 % 06/06/22 05:24 Neut # (Auto) 13.25 K/uL (1.4-6.5) H 06/06/22 05:24 Lymph # (Auto) 0.95 K/uL (1.2-3.4) L 06/06/22 05:24 Crane # (Auto) 1.52 K/uL (0.24-0.82) H 06/06/22 05:24 Eos # (Auto) 0.00 K/uL (0-0.50) 06/06/22 05:24 Baso # (Auto) 0.02 K/uL (0-0.2) 06/06/22 05:24 Immature Gran # (Auto) 0.10 K/uL (0.00-0.02) H 06/06/22 05:24 PT 10.8 Seconds (9.0-12.0) 06/05/22 00:09 INR 1.0 (0.9-1.1) 06/05/22 00:09 Sodium 136 mmol/L (136-145) 06/08/22 06:34 Potassium 3.7 mmol/L (3.5-5.1) 06/08/22 06:34 Chloride 103 mmol/L (98-107) 06/08/22 06:34 Carbon Dioxide 30 mmol/L (21-32) 06/08/22 06:34 Anion Gap 3 (3-11) 06/08/22 06:34 BUN 25 mg/dl (6-23) H 06/08/22 06:34 Creatinine 1.06 mg/dl (0.6-1.2) 06/10/22 06:16 Est Cr Clr Drug Dosing 59.9 ml/min 06/10/22 06:16 Est GFR ( Amer) 62.0 ml/min 06/10/22 06:16 Est GFR (Non-Af Amer) 53.5 ml/min 06/10/22 06:16 BUN/Creatinine Ratio 23.1 (10-20) H 06/08/22 06:34 Glucose 74 mg/dl (70-99(Fasting)) 06/08/22 06:34 POC Glucose 165 mg/dl (70-99) H 06/10/22 12:02 Estimat Average Glucose 229 mg/dl 06/05/22 08:28 Hemoglobin A1c 9.6 % (4.5-5.6) H 06/05/22 08:28 Calcium 8.4 mg/dl (8.5-10.1) L 06/08/22 06:34 Magnesium 2.0 mg/dl (1.7-2.4) 06/07/22 05:30 Total Bilirubin 0.5 mg/dl (0.2-1.0) 06/05/22 00:09 AST 11 U/L (13-39) L 06/05/22 00:09 ALT 11 U/L (7-52) 06/05/22 00:09 Alkaline Phosphatase 104 U/L (34-104) 06/05/22 00:09 Total Protein 7.1 gm/dl (6.0-8.3) 06/05/22 00:09 Albumin 4.1 gm/dl (3.4-5.0) 06/05/22 00:09 Globulin 3.0 gm/dl (2.5-4.0) 06/05/22 00:09 Albumin/Globulin Ratio 1.4 (0.9-2) 06/05/22 00:09 25-OH Vitamin D Total 11.2 ng/ml (30-100) L 06/06/22 05:24 TSH 0.115 uIu/ml (0.300-4.500) L 06/07/22 23:12 Free T4 1.38 ng/dl (0.61-1.60) 06/07/22 23:12 Urine Color Yellow 06/08/22 00:33 Urine Appearance Cloudy (Clear) A 06/08/22 00:33 Urine pH 5.0 (4.5-7.5) 06/08/22 00:33 Ur Specific Hart 1.012 (1.000-1.030) 06/08/22 00:33 Urine Protein Negative (Negative) 06/08/22 00:33 Urine Glucose (UA) Negative (Negative) 06/08/22 00:33 Urine Ketones Negative (Negative) 06/08/22 00:33 Urine Blood Trace (Negative) H 06/08/22 00:33 Urine Nitrite Negative (Negative) 06/08/22 00:33 Urine Bilirubin Negative (Negative) 06/08/22 00:33 Urine Urobilinogen Negative (Negative) 06/08/22 00:33 Ur Leukocyte Esterase 3+ (Negative) H 06/08/22 00:33 Urine WBC (Auto) >30 /hpf (0-5) H 06/08/22 00:33 Urine RBC (Auto) 0-4 /hpf (0-4) 06/08/22 00:33 U Hyaline Cast (Auto) 1-5 /lpf (0-5) 06/08/22 00:33 U Epithel Cells (Auto) >30 /lpf (0-5) H 06/08/22 00:33 Urine Bacteria (Auto) Negative (Negative) 06/08/22 00:33 Urine Yeast Budding (None Prsent) A 06/08/22 00:33 SARS-CoV-2, RNA, NAAT NEGATIVE (NEGATIVE) 06/05/22 03:15 Blood Type A Positive 06/05/22 08:28 Antibody Screen NEGATIVE 06/05/22 08:[address] 06/04/22 23:52 CT head/brain wo con CLINICAL HISTORY: 67 years-old Female with fall, hit R side of head. Acute right-sided head trauma status post fall. Acute weakness. TECHNIQUE: Multiple axial CT images of the head were obtained without contrast. A dose lowering technique was utilized adhering to the principles of ALARA. CT DOSE: 614.27 mGy.cm COMPARISON: None. FINDINGS: No acute intracranial hemorrhage, midline shift, intracranial mass, hydrocephalus, territorial ischemia or abnormal extra-axial collection. Age- related involutional changes. White matter hypodensities suggest chronic microvascular ischemic disease. Chronic lacunar infarcts within the right guerrero radiata. 9 mm hypodense focus within the left caudate head is new from prior. Cerebral vascular calcifications. The calvarium is intact. Prior bilateral lens repair. Streak artifact from the patient's necklace. The paranasal sinuses, mastoid air cells, and middle ear cavities are clear. IMPRESSION: 1. No acute intracranial hemorrhage, midline shift or acute territorial infarct. 2. Age-related involutional changes with chronic microvascular ischemic disease. 3. Subcentimeter age-indeterminate lacunar infarct of the left caudate nucleus is new from 11/08/2018 and is favored to be chronic. ACT 112: Negative or not required by law. The above report was generated using voice recognition software. It may contain grammatical, syntax or spelling errors. Electronically signed by: Jonnie Ac M.D. 06/05/2022 6:48 AM Knee X-Ray 06/04/22 23:52 XR knee LT 3V, XR knee RT 3V HISTORY: 67 years-old Female fall acute pain of the bilateral knees status post fall COMPARISON: Knee radiographs 04/12/2020 TECHNIQUE: 3 views of the bilateral knees FINDINGS: LEFT: Mild medial with mild to moderate patellofemoral and moderate lateral compartment osteoarthritis. No acute fracture or dislocation. Small joint effusion. Arterial calcifications. RIGHT: Mild medial with mild to moderate lateral and patellofemoral compartment osteoarthritis. Trace joint effusion. Arterial calcifications. Degenerative spurring versus loose body measuring approximately 1.2 cm projects over the anterior proximal tibia. IMPRESSION: No acute fracture or dislocation. ACT 112: Negative or not required by law. The above report was generated using voice recognition software. It may contain grammatical, syntax or spelling errors. Electronically signed by: Jonnie Ac M.D. 06/05/2022 6:59 AM Hip X-Ray 06/05/22 00:00 FL hip LT 2-3V CLINICAL HISTORY: LT CANNULATED SCREWS VS BRIGIDO TECHNIQUE: 2 views were obtained with the C-arm in the OR with the above procedure. Total fluoroscopy time was 54.2 seconds. Total skin dose was 16.7 mGy. Comparison: Comparison is made to CT left hip 06/05/2022 FINDINGS/IMPRESSION: Intraoperative images were obtained of cannulated screw placement. Please correlate with intraoperative fluoroscopy and operative report. ACT 112: Negative or not required by law. Electronically signed by: Travon Corrales M.D. 06/05/2022 5:[address] 06/05/22 01:50 CT SCAN OF THE LEFT HIP WITHOUT IV CONTRAST CLINICAL HISTORY: Fall. Left hip pain. COMPARISON STUDY: Radiograph study left hip dated 06/05/2022. Pelvic CT dated 12/18/2020. TECHNIQUE: CT scan of the left hip was performed from the bony pelvis to the femoral shaft. Images are reviewed in the axial, sagittal, and coronal planes. IV contrast was not administered for this examination. A dose lowering technique was utilized adhering to the principles of ALARA. CT DOSE: 169.63 mGy.cm FINDINGS: The skeletal structures are osteopenic. There is an impacted subcapital fracture of the left femur with mild surrounding hemorrhage. No additional fracture is seen involving the left hemipelvis. Mild arthritic change and joint space narrowing is seen in the hip. No lytic or blastic lesion is seen. There is no evidence of avascular necrosis of the femoral head. There is generalized atrophy of the regional musculature. No hematoma is seen. Atheroscle rotic calcification is noted in the left femoral artery. Imaged portions of the bladder are grossly unremarkable. There are calcified uterine fibroids. No left pelvic sidewall or inguinal adenopathy is seen. IMPRESSION: Impacted subcapital fracture of the left proximal femur. ACT 112: Negative or not required by law. Dictated: 06/05/2022 7:19 AM Transcribed: 06/05/2022 7:40 AM Cassidy [id number] [facility] Electronically signed by: Huseyin Hooks M.D. 06/05/2022 7:41 AM Chest X-Ray 06/05/22 08:13 XR chest 1V portable HISTORY: 67 years-old Female pre op preoperative exam. No acute chest complaints COMPARISON: Chest radiograph 10/16/2019, CTA chest 10/16/2019. TECHNIQUE: Portable AP view of the chest FINDINGS: Cardiac silhouette is enlarged. Mild right hemidiaphragmatic elevation. No pneumothorax, pleural effusion, airspace consolidation or overt pulmonary edema. Unchanged right upper paratracheal opacity correlating with the patient's known thyroid goiter. Degenerative changes of the shoulders and spine. IMPRESSION: No acute process. ACT 112: Negative or not required by law. The above report was generated using voice recognition software. It may contain grammatical, syntax or spelling errors. Electronically signed by: Jonnie Ac M.D. 06/05/2022 9:20 AM (1) Closed hip fracture Encounter type: initial encounter Laterality: left Qualified Code(s): S72.002A - Fracture of unspecified part of neck of left femur, initial encounter for closed fracture
--- NOTE | 2022-06-10 15:49 | XRay Report ---
XR knee LT 1 or 2V routine CLINICAL HISTORY: Left knee pain and swelling. COMPARISON: Left knee radiographs June 05, 2022. FINDINGS: Alignment of the left knee is anatomic. There is no acute fracture. No suspicious osseous lesion. Trace joint effusion is unchanged. There is moderate to severe lateral compartment osteoarthr itis. Moderate patellofemoral compartment osteoarthritis is present. IMPRESSION: 1. No acute fracture. 2. Trace joint effusion. 3. Moderate to severe lateral compartment osteoarthritis. ACT 112: Negative or not required by law. Electronically signed by: Gurpreet Andujar M.D. 06/10/2022 3:48 PM
[2022-06-10] MEDS ORDERED: ACETAMINOPHEN 325 MG TAB PO PRN (18:05)
[2022-06-10] MEDS: oxyCODONE HCL IR 5 MG TAB (IMMEDIATE RELEASE) PO PRN (18:34)
[2022-06-10] MEDS: METOPROLOL SUCC 50MG EXT REL TAB PO SCH (19:56)
[2022-06-10] MEDS: ROSUVASTATIN CALCIUM 20 MG TAB PO SCH (19:57)
[2022-06-10] MEDS: TERAZOSIN HCL 1 MG CAP PO SCH (19:57)
[2022-06-10] MEDS: MELATONIN 3 MG TAB PO SCH (19:57)
[2022-06-10] MEDS: EZETIMIBE 10 MG TABLET PO SCH (19:57)
[2022-06-10] MEDS: INSULIN DETEMIR FLEXPEN/FLEX TOUCH 100 UNITS/ML 3ML SQ SCH (21:38)
[2022-06-10] MEDS: haloperidoL 5 MG TAB PO PRN (22:39)
[2022-06-11] MEDS: HYDROmorphone INJ 0.5 MG/0.5 ML SYR IV PRN (00:05)
[2022-06-11 06:24] LABS: Basophils # (auto) 0.03 K/uL (0-0.2); Basophils % (auto) 0.2 %; Hematocrit (blood only) 35.9 % (34.1-44.9); Hemoglobin 12.5 g/dl (12.0-16.0); Immature Granulocytes # (auto) 0.09 K/uL (0.00-0.02); Immature Granulocytes % (auto) 0.7 %; Lymphocytes # (auto) 0.95 K/uL (1.2-3.4); Lymphocytes % (auto) 7.9 %; Mean Corpuscular Hemoglobin 31.2 pg (25.0-34.0); Mean Corpuscular Hgb Conc 34.8 g/dL (32.0-36.0); Mean Corpuscular Volume 89.5 fL (80.0-100.0); Mean Platelet Volume 9.2 fL (9.4-12.3); Monocytes # (auto) 0.59 K/uL (0.24-0.82); Monocytes % (auto) 4.9 %; Neutrophils % (auto) 86.3 %; Platelet Count 288 K/uL (130-400); RDW Coefficient of Variation 11.9 % (11.5-14.5); RDW Standard Deviation 39.1 fL (36.4-46.3); Red Blood Count 4.01 M/uL (3.93-5.22); White Blood Count 12.06 K/ul (4.8-10.8)
[2022-06-11 07:03] LABS: BUN Creatinine Ratio 25.2 (10-20); Calcium 9.2 mg/dl (8.5-10.1); Creatinine Clr Calc Pharmacy 59.4 ml/min; Est GFR (African American) 61.3 ml/min; Est GFR (Non-African American) 52.9 ml/min; Potassium 4.6 mmol/L (3.5-5.1)
[2022-06-11] MEDS ORDERED: MAGNESIUM HYDROXIDE SUSP 30 ML UDC PO ONE (07:21)
[2022-06-11] MEDS: POLYETHYLENE (MIRALAX) 17 GM PACK PO SCH (08:47)
[2022-06-11] MEDS: VENLAFAXINE HCL XR 75 MG CAPXR PO SCH (08:48)
[2022-06-11] MEDS: amLODIPine BESYLATE 5 MG TAB PO SCH (08:48)
[2022-06-11] MEDS: FAMOTIDINE 40 MG TABLET PO SCH (08:48)
[2022-06-11] MEDS: LOSARTAN POTASSIUM 50 MG TAB PO SCH (08:48)
[2022-06-11] MEDS: FUROSEMIDE 40 MG TAB PO SCH (08:48)
[2022-06-11] MEDS: ASPIRIN 81 MG ECTAB PO SCH (08:48)
[2022-06-11] MEDS: DOCUSATE SODIUM 100 MG CAP PO SCH (08:49)
[2022-06-11] MEDS: METOPROLOL SUCC 25MG EXT REL TAB PO SCH (08:49)
[2022-06-11] MEDS: INSULIN ASPART PER UNIT SC SCH ×4 (08:49→20:25)
[2022-06-11] MEDS: SPIRONOLACTONE 12.5 MG TAB PO SCH (08:49)
[2022-06-11] MEDS: MAGNESIUM OXIDE 400 MG TAB PO SCH ×2 (08:49→20:22)
--- NOTE | 2022-06-11 08:51 | Pharmacy Report ---
Pharmacy Glycemic Short Note 2 - Date of Service June 11, 2022 - Glycemic Short BSG Results (Last 24 hours): 06/10/22 06/10/22 06/10/22 12:02 17:05 20:35 Glucose POC Glucose 165 H 186 H 217 H 06/11/22 06/11/22 05:50 08:11 Glucose 202 H POC Glucose 214 H OUTPATIENT ANTIDIABETIC REGIMEN: * Levemir 35 units SQ HS * Metformin 500 mg PO BID ASSESSMENT: 06/11 * BSGs have been trending higher. Suspect increase in insulin resistance is secondary to IA betamethasone administered yesterday. * Will titrate up both basal and prandial insulin doses today given steroid effect likely to persist today. * Of note, Levemir was converted to Lantus today as Levemir no longer available to pharmacy due to formulary changes. 06/10 * BSGs well controlled over last 24 hrs with current insulin orders * Fasting BSG elevated this AM, FBS 175, with 35 units Levemir on board. However this is a clear deviation from prior fasting BSG trend on same basal dose. Will not respond to today's isolated elevation. Continue same basal dose and monitor. * Post-prandial BSGs acceptable over last 24 hrs with current CF and CR - no change 06/07 * Fasting this AM, slightly below goal, will decrease back to home 35 units of levemir * BSGs have been well-controlled , will continue current parameters, may consider loosening if BSGs trend down further. 06/06 * 67 y/o F admitted for hip fracture repair. Patient with history of Type 2 diabetes managed at home on Levemir insulin and oral Metformin. * Metformin on hold currently. * POD #1 today. BSGs elevated last evening due to the IV Dexamethasone given yesterday with surgery. * Patient received basal 35 units of insulin last night which is her home dose. Continued basal insulin on a scale for HS today. * Novolog started last night based on wt and stress of 2. Tightened this slightly today with lunch. PLAN FOR INPATIENT GLYCEMIC CONTROL: * Hold outpatient oral diabetes medications * Basal insulin * Lantus 40 units scale SQ HS; give additional 5 units this AM * Bolus insulin * NovoLog per scale ACHS or Q6hrs while NPO * Goal Range: Low 110 mg/dL - High 140 mg/dL * Correction Factor: 15 mg/dL/unit * Nutritional / Prandial insulin per carb ratio of 1 unit per 6 grams CHO consumed
[2022-06-11] MEDS ORDERED: LANTUS PER UNIT CHARGE SQ ONE (09:00)
[2022-06-11] MEDS: APIXABAN 5 MG TABLET PO SCH ×2 (09:07→20:39)
[2022-06-11] MEDS: oxyCODONE HCL IR 5 MG TAB (IMMEDIATE RELEASE) PO PRN ×2 (13:02→20:31)
--- NOTE | 2022-06-11 13:11 | Hospitalist Progress Note ---
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 She is being managed for the following: Mechanical fall Left hip fracture s/p cannulated screw fixation on 06/05 Patient came in with mechanical fall, found to have mildly impacted subcapital left femoral fracture on imaging at presentation. Underwent surgery on 06/05 Other imaging: Head CT/left knee x-ray/right knee x-ray/chest x-ray: With no acute findings. Pain management, nausea control. PT OT recommend rehab; patient wants to go to [facility] in [place]. global marketing operations manager on board. Follow-up with orthopedics at 2 weeks upon discharge. She is toe touch weightbearing on her left side until she sees orthopedics. Laxative for BM. Postoperative delirium/sundowning: Patient was delirious during the day 06/06, mildly restless, not combative, haldol as needed, delirium precaution. avoid ativan and ambien. Daughter reported that this patient has frequent episode of delirium at night at home as well. UTI: cefepime 06/08, culture shows yeast. Patient is asymptomatic; discontinue antibiotics Hypertension: Continue with home medications, blood pressure fairly controlled. Other chronic medical conditions: CAD, chronic systolic heart failure [EF 30 to 35%], T2DM, HTN, depression and JAZZMINE [venlafaxine and as needed Ativan], HLD, history of A. fib [on Eliquis], CKD stage III, GERD -->>> continue with/resume home meds as and when appropriate. DVT prophylaxis: Eliquis Full code Disposition: PT/OT, ESTEBAN to assist with DC planning, likely would need rehab. CM working w/ placement. Can DC when placement obtained. Admission and Anticipated Discharge Date Admission Date: June 05, 2022 Subjective Patient seen and examined at bedside. She is sitting up on the chair; not in any distress. Her pain is well controlled. She is able to move around with a walker. She denies any fever, chills, chest pain, shortness of breath. Review of Systems Review of Systems: All systems reviewed & are unremarkable except as noted in Subjective Physical Exam Physical Exam: GENERAL: Alert and oriented x3. NAD, on room air. Hallucination absent. HEENT: No pallor, no icterus. Pupils equal, round and reactive to light. Oral mucosa moist. NECK: No JVD, no neck masses. HEART: S1 and S2 heard. Regular rate and rhythm. No murmur, no gallop. RESPIRATORY SYSTEM: Normal AP diameter. No accessory muscle use. No wheezing, no crackles. ABDOMEN: Soft, bowel sounds present, nontender, no distention. CENTRAL NERVOUS SYSTEM: No facial droop. Speech is clear. Obeys simple commands. Moves extremities. EXTREMITIES: No edema, no erythema seen. Left hip with clean dressing without soakage. Distal NV status wnl x LLE. Results & Data Results & Data ([facility]) Vital Signs (Past 12 Hours) Vital Signs Temp Pulse Resp BP Pulse Ox O2 Del Method O2 Flow Rate 06/11/22 07:20 Room Air 06/11/22 07:36 36.7 C 66 16 135/72 94 Nasal Cannula 2 Laboratory Results Laboratory Results WBC 12.06 K/ul (4.8-10.8) H 06/11/22 05:50 RBC 4.01 M/uL (3.93-5.22) 06/11/22 05:50 Hgb 12.5 g/dl (12.0-16.0) 06/11/22 05:50 Hct 35.9 % (34.1-44.9) 06/11/22 05:50 MCV 89.5 fL (80.0-100.0) 06/11/22 05:50 MCH 31.2 pg (25.0-34.0) 06/11/22 05:50 MCHC 34.8 g/dL (32.0-36.0) 06/11/22 05:50 RDW Std Deviation 39.1 fL (36.4-46.3) 06/11/22 05:50 RDW Coeff of Carissa 11.9 % (11.5-14.5) 06/11/22 05:50 Plt Count 288 K/uL (130-400) 06/11/22 05:50 MPV 9.2 fL (9.4-12.3) L 06/11/22 05:50 Immature Gran % (Auto) 0.7 % 06/11/22 05:50 Neut % (Auto) 86.3 % 06/11/22 05:50 Lymph % (Auto) 7.9 % 06/11/22 05:50 Stevens % (Auto) 4.9 % 06/11/22 05:50 Eos % (Auto) 0.0 % 06/11/22 05:50 Baso % (Auto) 0.2 % 06/11/22 05:50 Neut # (Auto) 10.40 K/uL (1.4-6.5) H 06/11/22 05:50 Lymph # (Auto) 0.95 K/uL (1.2-3.4) L 06/11/22 05:50 Stevens # (Auto) 0.59 K/uL (0.24-0.82) 06/11/22 05:50 Eos # (Auto) 0.00 K/uL (0-0.50) 06/11/22 05:50 Baso # (Auto) 0.03 K/uL (0-0.2) 06/11/22 05:50 Immature Gran # (Auto) 0.09 K/uL (0.00-0.02) H 06/11/22 05:50 PT 10.8 Seconds (9.0-12.0) 06/05/22 00:09 INR 1.0 (0.9-1.1) 06/05/22 00:09 Sodium 133 mmol/L (136-145) L 06/11/22 05:50 Potassium 4.6 mmol/L (3.5-5.1) 06/11/22 05:50 Chloride 96 mmol/L (98-107) L 06/11/22 05:50 Carbon Dioxide 31 mmol/L (21-32) 06/11/22 05:50 Anion Gap 6 (3-11) 06/11/22 05:50 BUN 27 mg/dl (6-23) H 06/11/22 05:50 Creatinine 1.07 mg/dl (0.6-1.2) 06/11/22 05:50 Est Cr Clr Drug Dosing 59.4 ml/min 06/11/22 05:50 Est GFR ( Amer) 61.3 ml/min 06/11/22 05:50 Est GFR (Non-Af Amer) 52.9 ml/min 06/11/22 05:50 BUN/Creatinine Ratio 25.2 (10-20) H 06/11/22 05:50 Glucose 202 mg/dl (70-99(Fasting)) H 06/11/22 05:50 POC Glucose 176 mg/dl (70-99) H 06/11/22 11:40 Estimat Average Glucose 229 mg/dl 06/05/22 08:28 Hemoglobin A1c 9.6 % (4.5-5.6) H 06/05/22 08:28 Calcium 9.2 mg/dl (8.5-10.1) 06/11/22 05:50 Magnesium 2.0 mg/dl (1.7-2.4) 06/07/22 05:30 Total Bilirubin 0.5 mg/dl (0.2-1.0) 06/05/22 00:09 AST 11 U/L (13-39) L 06/05/22 00:09 ALT 11 U/L (7-52) 06/05/22 00:09 Alkaline Phosphatase 104 U/L (34-104) 06/05/22 00:09 Total Protein 7.1 gm/dl (6.0-8.3) 06/05/22 00:09 Albumin 4.1 gm/dl (3.4-5.0) 06/05/22 00:09 Globulin 3.0 gm/dl (2.5-4.0) 06/05/22 00:09 Albumin/Globulin Ratio 1.4 (0.9-2) 06/05/22 00:09 25-OH Vitamin D Total 11.2 ng/ml (30-100) L 06/06/22 05:24 TSH 0.115 uIu/ml (0.300-4.500) L 06/07/22 23:12 Free T4 1.38 ng/dl (0.61-1.60) 06/07/22 23:12 Urine Color Yellow 06/08/22 00:33 Urine Appearance Cloudy (Clear) A 06/08/22 00:33 Urine pH 5.0 (4.5-7.5) 06/08/22 00:33 Ur Specific [place] 1.012 (1.000-1.030) 06/08/22 00:33 Urine Protein Negative (Negative) 06/08/22 00:33 Urine Glucose (UA) Negative (Negative) 06/08/22 00:33 Urine Ketones Negative (Negative) 06/08/22 00:33 Urine Blood Trace (Negative) H 06/08/22 00:33 Urine Nitrite Negative (Negative) 06/08/22 00:33 Urine Bilirubin Negative (Negative) 06/08/22 00:33 Urine Urobilinogen Negative (Negative) 06/08/22 00:33 Ur Leukocyte Esterase 3+ (Negative) H 06/08/22 00:33 Urine WBC (Auto) >30 /hpf (0-5) H 06/08/22 00:33 Urine RBC (Auto) 0-4 /hpf (0-4) 06/08/22 00:33 U Hyaline Cast (Auto) 1-5 /lpf (0-5) 06/08/22 00:33 U Epithel Cells (Auto) >30 /lpf (0-5) H 06/08/22 00:33 Urine Bacteria (Auto) Negative (Negative) 06/08/22 00:33 Urine Yeast Budding (None Prsent) A 06/08/22 00:33 SARS-CoV-2, RNA, NAAT NEGATIVE (NEGATIVE) 06/05/22 03:15 Blood Type A Positive 06/05/22 08:28 Antibody Screen NEGATIVE 06/05/22 08:[address] 06/04/22 23:52 CT head/brain wo con CLINICAL HISTORY: 67 years-old Female with fall, hit R side of head. Acute right-sided head trauma status post fall. Acute weakness. TECHNIQUE: Multiple axial CT images of the head were obtained without contrast. A dose lowering technique was utilized adhering to the principles of ALARA. CT DOSE: 614.27 mGy.cm COMPARISON: None. FINDINGS: No acute intracranial hemorrhage, midline shift, intracranial mass, hydrocephal us, territorial ischemia or abnormal extra-axial collection. Age-related involutional changes. White matter hypodensities suggest chronic microvascular ischemic disease. Chronic lacunar infarcts within the right guerrero radiata. 9 mm hypodense focus within the left caudate head is new from prior. Cerebral vascular calcifications. The calvarium is intact. Prior bilateral lens repair. Streak artifact from the patient's necklace. The paranasal sinuses, mastoid air cells, and middle ear cavities are clear. IMPRESSION: 1. No acute intracranial hemorrhage, midline shift or acute territorial infarct. 2. Age-related involutional changes with chronic microvascular ischemic disease. 3. Subcentimeter age-indeterminate lacunar infarct of the left caudate nucleus is new from 11/08/2018 and is favored to be chronic. ACT 112: Negative or not required by law. The above report was generated using voice recognition software. It may contain grammatical, syntax or spelling errors. Electronically signed by: Jonnie Ac M.D. 06/05/2022 6:48 AM Hip X-Ray 06/05/22 00:00 FL hip LT 2-3V CLINICAL HISTORY: LT CANNULATED SCREWS VS BRIGIDO TECHNIQUE: 2 views were obtained with the C-arm in the OR with the above procedure. Total fluoroscopy time was 54.2 seconds. Total skin dose was 16.7 mGy. Comparison: Comparison is made to CT left hip 06/05/2022 FINDINGS/IMPRESSION: Intraoperative images were obtained of cannulated screw placement. Please correlate with intraoperative fluoroscopy and operative report. ACT 112: Negative or not required by law. Electronically signed by: Travon Corrales M.D. 06/05/2022 5:[address] 06/05/22 01:50 CT SCAN OF THE LEFT HIP WITHOUT IV CONTRAST CLINICAL HISTORY: Fall. Left hip pain. COMPARISON STUDY: Radiograph study left hip dated 06/05/2022. Pelvic CT dated 12/18/2020. TECHNIQUE: CT scan of the left hip was performed from the bony pelvis to the femoral shaft. Images are reviewed in the axial, sagittal, and coronal planes. IV contrast was not administered for this examination. A dose lowering technique was utilized adhering to the principles of ALARA. CT DOSE: 169.63 mGy.cm FINDINGS: The skeletal structures are osteopenic. There is an impacted subcapital fracture of the left femur with mild surrounding hemorrhage. No additional fracture is seen involving the left hemipelvis. Mild arthritic change and joint space narrowing is seen in the hip. No lytic or blastic lesion is seen. There is no evidence of avascular necrosis of the femoral head. There is generalized atrophy of the regional musculature. No hematoma is seen. Atherosclerotic calcification is noted in the left femoral artery. Imaged portions of the bladder are grossly unremarkable. There are calcified uterine fibroids. No left pelvic sidewall or inguinal adenopathy is seen. IMPRESSION: Impacted subcapital fracture of the left proximal femur. ACT 112: Negative or not required by law. Dictated: 06/05/2022 7:19 AM Transcribed: 06/05/2022 7:40 AM Cassidy [id number] [email or web address] Electronically signed by: Huseyin Hooks M.D. 06/05/2022 7:41 AM Chest X-Ray 06/05/22 08:13 XR chest 1V portable HISTORY: 67 years-old Female pre op preoperative exam. No acute chest complaints COMPARISON: Chest radiograph 10/16/2019, CTA chest 10/16/2019. TECHNIQUE: Portable AP view of the chest FINDINGS: Cardiac silhouette is enlarged. Mild right hemidiaphragmatic elevation. No pneumothorax, pleural effusion, airspace consolidation or overt pulmonary edema. Unchanged right upper paratracheal opacity correlating with the patient's known thyroid goiter. Degenerative changes of the shoulders and spine. IMPRESSION: No acute process. ACT 112: Negative or not required by law. The above report was generated using voice recognition software. It may contain grammatical, syntax or spelling errors. Electronically signed by: Jonnie Ac M.D. 06/05/2022 9:20 AM Knee X-Ray 06/10/22 14:01 XR knee LT 1 or 2V routine CLINICAL HISTORY: Left knee pain and swelling. COMPARISON: Left knee radiographs June 05, 2022. FINDINGS: Alignment of the left knee is anatomic. There is no acute fracture. No suspicious osseous lesion. Trace joint effusion is unchanged. There is moderate to severe lateral compartment osteoarthritis. Moderate patellofemoral compartment osteoarthritis is present. IMPRESSION: 1. No acute fracture. 2. Trace joint effusion. 3. Moderate to severe lateral compartment osteoarthritis. ACT 112: Negative or not required by law. Electronically signed by: Gurpreet Andujar M.D. 06/10/2022 3:48 PM (1) Closed hip fracture Encounter type: initial encounter Laterality: left Qualified Code(s): S72.002A - Fracture of unspecified part of neck of left femur, initial encounter for closed fracture
--- NOTE | 2022-06-11 14:45 | Orthopedic Progress Note ---
Date of Service June 11, 2022 Assessment & Plan (1) Left knee DJD: (2) Closed hip fracture: She was seen and examined by Dr. Trinidad today. Pain is controlled and the injection helped her knee. PT/OT : touch weight bearing LLE Dvt prophylaxis d/c planning: awaiting transfer to rehab facility in [place]. Subjective . POD #6 from cannulated screw fixation of left hip and 1 day s/p left knee injection. Not really having much hip pain. The injection helped her knee. Review of Systems All systems reviewed & are unremarkable except as noted in HPI & below. Physical Exam .Alert and oriented. NAD. Left leg: dressing clean, dry, intact. Incision well approximated. Able to dorsiflex and plantarflex. NVI. Results & Data Results & Data Laboratory Results . Diagnostic Findings . PG Care Time/CCT Total # of Minutes Spent Total Time Spent with Patient: Total time spent is greater than 50% in coordination of care (as documented) at patient's floor/unit and/or counseling patient: Coding Level of Care Code 61256 Post Operative Follow-Up Diagnoses Left knee DJD M17.12 Closed hip fracture S72.002A Encounter type: initial encounter Laterality: left (1) Closed hip fracture Encounter type: initial encounter Laterality: left Qualified Code(s): S72.002A - Fracture of unspecified part of neck of left femur, initial encounter for closed fracture
[2022-06-11] MEDS: EZETIMIBE 10 MG TABLET PO SCH (20:22)
[2022-06-11] MEDS: ROSUVASTATIN CALCIUM 20 MG TAB PO SCH (20:22)
[2022-06-11] MEDS: TERAZOSIN HCL 1 MG CAP PO SCH (20:22)
[2022-06-11] MEDS: MELATONIN 3 MG TAB PO SCH (20:23)
[2022-06-11] MEDS: METOPROLOL SUCC 50MG EXT REL TAB PO SCH (20:23)
[2022-06-11] MEDS: haloperidoL 5 MG TAB PO PRN (20:31)
[2022-06-11] MEDS ORDERED: LANTUS PER UNIT CHARGE SQ SCH (21:00)
[2022-06-12 07:49] LABS: Basophils # (auto) 0.05 K/uL (0-0.2); Basophils % (auto) 0.3 %; Eosinophils # (auto) 0.03 K/uL (0-0.50); Eosinophils % (auto) 0.2 %; Hematocrit (blood only) 34.7 % (34.1-44.9); Immature Granulocytes # (auto) 0.12 K/uL (0.00-0.02); Immature Granulocytes % (auto) 0.8 %; Lymphocytes # (auto) 2.45 K/uL (1.2-3.4); Lymphocytes % (auto) 16.1 %; Mean Corpuscular Hemoglobin 31.7 pg (25.0-34.0); Mean Corpuscular Hgb Conc 34.6 g/dL (32.0-36.0); Mean Corpuscular Volume 91.6 fL (80.0-100.0); Mean Platelet Volume 9.2 fL (9.4-12.3); Monocytes # (auto) 1.19 K/uL (0.24-0.82); Monocytes % (auto) 7.8 %; Neutrophils # (auto) 11.39 K/uL (1.4-6.5); Neutrophils % (auto) 74.8 %; Platelet Count 299 K/uL (130-400); RDW Coefficient of Variation 12.5 % (11.5-14.5); RDW Standard Deviation 41.8 fL (36.4-46.3); Red Blood Count 3.79 M/uL (3.93-5.22); White Blood Count 15.23 K/ul (4.8-10.8)
[2022-06-12 08:27] LABS: BUN Creatinine Ratio 32.2 (10-20); Calcium 9.2 mg/dl (8.5-10.1); Creatinine Clr Calc Pharmacy 53.8 ml/min; Est GFR (African American) 54.5 ml/min; Potassium 4.9 mmol/L (3.5-5.1)
[2022-06-12] MEDS: INSULIN ASPART PER UNIT SC SCH ×4 (09:16→20:50)
[2022-06-12] MEDS: LOSARTAN POTASSIUM 50 MG TAB PO SCH (09:17)
[2022-06-12] MEDS: APIXABAN 5 MG TABLET PO SCH ×2 (09:17→20:48)
[2022-06-12] MEDS: VENLAFAXINE HCL XR 75 MG CAPXR PO SCH (09:17)
[2022-06-12] MEDS: SPIRONOLACTONE 12.5 MG TAB PO SCH (09:17)
[2022-06-12] MEDS: ASPIRIN 81 MG ECTAB PO SCH (09:18)
[2022-06-12] MEDS: POLYETHYLENE (MIRALAX) 17 GM PACK PO SCH (09:18)
[2022-06-12] MEDS: amLODIPine BESYLATE 5 MG TAB PO SCH (09:18)
[2022-06-12] MEDS: METOPROLOL SUCC 25MG EXT REL TAB PO SCH (09:18)
[2022-06-12] MEDS: FAMOTIDINE 40 MG TABLET PO SCH (09:18)
[2022-06-12] MEDS: MAGNESIUM OXIDE 400 MG TAB PO SCH ×2 (09:18→20:50)
[2022-06-12] MEDS: FUROSEMIDE 40 MG TAB PO SCH (09:18)
[2022-06-12] MEDS ORDERED: COVID19 BIVALENT Vaccine (Booster ONLY--Pfizer) 30mcg/0.3mL IM ONE (14:14)
[2022-06-12] MEDS: oxyCODONE HCL IR 5 MG TAB (IMMEDIATE RELEASE) PO PRN ×2 (14:35→22:44)
--- NOTE | 2022-06-12 15:28 | Hospitalist Progress Note ---
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 She is being managed for the following: Mechanical fall Left hip fracture s/p cannulated screw fixation on 06/05 Patient came in with mechanical fall, found to have mildly impacted subcapital left femoral fracture on imaging at presentation. Underwent surgery on 06/05 Other imaging: Head CT/left knee x-ray/right knee x-ray/chest x-ray: With no acute findings. Pain management, nausea control. PT OT recommend rehab; rejected for [facility]. [facility] to peer attempted. patient to go to [facility] Follow-up with orthopedics at 2 weeks upon discharge. She is toe touch weightbearing on her left side until she sees orthopedics. Laxative for BM. no BM yet. Enema ordered. Postoperative delirium/sundowning: Patient was delirious during the day 06/06, mildly restless, not combative, haldol as needed, delirium precaution. avoid ativan and ambien. Daughter reported that this patient has frequent episode of delirium at night at home as well. UTI: cefepime 06/08, culture shows yeast. Patient is asymptomatic; discontinue antibiotics Hypertension: Continue with home medications, blood pressure fairly controlled. Other chronic medical conditions: CAD, chronic systolic heart failure [EF 30 to 35%], T2DM, HTN, depression and JAZZMINE [venlafaxine and as needed Ativan], HLD, history of A. fib [on Eliquis], CKD stage III, GERD -->>> continue with/resume home meds as and when appropriate. DVT prophylaxis: Eliquis Full code Disposition: PT/OT, ESTEBAN to assist with DC planning, likely would need rehab. CM working w/ placement. Can DC when placement obtained. Admission and Anticipated Discharge Date Admission Date: June 05, 2022 Subjective Patient is comfortable; not in any distress. No bowel movement yet Review of Systems Review of Systems: All systems reviewed & are unremarkable except as noted in Subjective Physical Exam Physical Exam: GENERAL: Alert and oriented x3. NAD, on room air. Hallucination absent. HEENT: No pallor, no icterus. Pupils equal, round and reactive to light. Oral mucosa moist. NECK: No JVD, no neck masses. HEART: S1 and S2 heard. Regular rate and rhythm. No murmur, no gallop. RESPIRATORY SYSTEM: Normal AP diameter. No accessory muscle use. No wheezing, no crackles. ABDOMEN: Soft, bowel sounds present, nontender, no distention. CENTRAL NERVOUS SYSTEM: No facial droop. Speech is clear. Obeys simple commands. Moves extremities. EXTREMITIES: No edema, no erythema seen. Left hip with clean dressing without soakage. Distal NV status wnl x LLE. Results & Data Results & Data ([facility]) Vital Signs (Past 12 Hours) Vital Signs Temp Pulse Resp BP BP Pulse Ox O2 Del Method 06/12/22 15:22 36.5 C 60 16 92/52 L 95 Room Air 06/12/22 07:29 36.3 C L 58 L 16 132/67 95 Room Air Laboratory Results Laboratory Results WBC 15.23 K/ul (4.8-10.8) H 06/12/22 07:13 RBC 3.79 M/uL (3.93-5.22) L 06/12/22 07:13 Hgb 12.0 g/dl (12.0-16.0) 06/12/22 07:13 Hct 34.7 % (34.1-44.9) 06/12/22 07:13 MCV 91.6 fL (80.0-100.0) 06/12/22 07:13 MCH 31.7 pg (25.0-34.0) 06/12/22 07:13 MCHC 34.6 g/dL (32.0-36.0) 06/12/22 07:13 RDW Std Deviation 41.8 fL (36.4-46.3) 06/12/22 07:13 RDW Coeff of Carissa 12.5 % (11.5-14.5) 06/12/22 07:13 Plt Count 299 K/uL (130-400) 06/12/22 07:13 MPV 9.2 fL (9.4-12.3) L 06/12/22 07:13 Immature Gran % (Auto) 0.8 % 06/12/22 07:13 Neut % (Auto) 74.8 % 06/12/22 07:13 Lymph % (Auto) 16.1 % 06/12/22 07:13 [place] % (Auto) 7.8 % 06/12/22 07:13 Eos % (Auto) 0.2 % 06/12/22 07:13 Baso % (Auto) 0.3 % 06/12/22 07:13 Neut # (Auto) 11.39 K/uL (1.4-6.5) H 06/12/22 07:13 Lymph # (Auto) 2.45 K/uL (1.2-3.4) 06/12/22 07:13 [place] # (Auto) 1.19 K/uL (0.24-0.82) H 06/12/22 07:13 Eos # (Auto) 0.03 K/uL (0-0.50) 06/12/22 07:13 Baso # (Auto) 0.05 K/uL (0-0.2) 06/12/22 07:13 Immature Gran # (Auto) 0.12 K/uL (0.00-0.02) H 06/12/22 07:13 PT 10.8 Seconds (9.0-12.0) 06/05/22 00:09 INR 1.0 (0.9-1.1) 06/05/22 00:09 Sodium 136 mmol/L (136-145) 06/12/22 07:13 Potassium 4.9 mmol/L (3.5-5.1) 06/12/22 07:13 Chloride 97 mmol/L (98-107) L 06/12/22 07:13 Carbon Dioxide 36 mmol/L (21-32) H 06/12/22 07:13 Anion Gap 3 (3-11) 06/12/22 07:13 BUN 38 mg/dl (6-23) H 06/12/22 07:13 Creatinine 1.18 mg/dl (0.6-1.2) 06/12/22 07:13 Est Cr Clr Drug Dosing 53.8 ml/min 06/12/22 07:13 Est GFR ( Amer) 54.5 ml/min 06/12/22 07:13 Est GFR (Non-Af Amer) 47.0 ml/min 06/12/22 07:13 BUN/Creatinine Ratio 32.2 (10-20) H 06/12/22 07:13 Glucose 156 mg/dl (70-99(Fasting)) H 06/12/22 07:13 POC Glucose 175 mg/dl (70-99) H 06/12/22 11:51 Estimat Average Glucose 229 mg/dl 06/05/22 08:28 Hemoglobin A1c 9.6 % (4.5-5.6) H 06/05/22 08:28 Calcium 9.2 mg/dl (8.5-10.1) 06/12/22 07:13 Magnesium 2.0 mg/dl (1.7-2.4) 06/07/22 05:30 Total Bilirubin 0.5 mg/dl (0.2-1.0) 06/05/22 00:09 AST 11 U/L (13-39) L 06/05/22 00:09 ALT 11 U/L (7-52) 06/05/22 00:09 Alkaline Phosphatase 104 U/L (34-104) 06/05/22 00:09 Total Protein 7.1 gm/dl (6.0-8.3) 06/05/22 00:09 Albumin 4.1 gm/dl (3.4-5.0) 06/05/22 00:09 Globulin 3.0 gm/dl (2.5-4.0) 06/05/22 00:09 Albumin/Globulin Ratio 1.4 (0.9-2) 06/05/22 00:09 25-OH Vitamin D Total 11.2 ng/ml (30-100) L 06/06/22 05:24 TSH 0.115 uIu/ml (0.300-4.500) L 06/07/22 23:12 Free T4 1.38 ng/dl (0.61-1.60) 06/07/22 23:12 Urine Color Yellow 06/08/22 00:33 Urine Appearance Cloudy (Clear) A 06/08/22 00:33 Urine pH 5.0 (4.5-7.5) 06/08/22 00:33 Ur Specific [place] 1.012 (1.000-1.030) 06/08/22 00:33 Urine Protein Negative (Negative) 06/08/22 00:33 Urine Glucose (UA) Negative (Negative) 06/08/22 00:33 Urine Ketones Negative (Negative) 06/08/22 00:33 Urine Blood Trace (Negative) H 06/08/22 00:33 Urine Nitrite Negative (Negative) 06/08/22 00:33 Urine Bilirubin Negative (Negative) 06/08/22 00:33 Urine Urobilinogen Negative (Negative) 06/08/22 00:33 Ur Leukocyte Esterase 3+ (Negative) H 06/08/22 00:33 Urine WBC (Auto) >30 /hpf (0-5) H 06/08/22 00:33 Urine RBC (Auto) 0-4 /hpf (0-4) 06/08/22 00:33 U Hyaline Cast (Auto) 1-5 /lpf (0-5) 06/08/22 00:33 U Epithel Cells (Auto) >30 /lpf (0-5) H 06/08/22 00:33 Urine Bacteria (Auto) Negative (Negative) 06/08/22 00:33 Urine Yeast Budding (None Prsent) A 06/08/22 00:33 SARS-CoV-2, RNA, NAAT NEGATIVE (NEGATIVE) 06/05/22 03:15 Blood Type A Positive 06/05/22 08:28 Antibody Screen NEGATIVE 06/05/22 08:[address] 06/04/22 23:52 CT head/brain wo con CLINICAL HISTORY: 67 years-old Female with fall, hit R side of head. Acute right-sided head trauma status post fall. Acute weakness. TECHNIQUE: Multiple axial CT images of the head were obtained without contrast. A dose lowering technique was utilized adhering to the principles of ALARA. CT DOSE: 614.27 mGy.cm COMPARISON: None. FINDINGS: No acute intracranial hemorrhage, midline shift, intracranial mass, hydrocephalus, territorial ischemia or abnormal extra-axial collection. Age- related involutional changes. White matter hypodensities suggest chronic microvascular ischemic disease. Chronic lacunar infarcts within the right guerrero radiata. 9 mm hypodense focus within the left caudate head is new from prior. Cerebral vascular calcifications. The calvarium is intact. Prior bilateral lens repair. Streak artifact from the patient's necklace. The paranasal sinuses, mastoid air cells, and middle ear cavities are clear. IMPRESSION: 1. No acute intracranial hemorrhage, midline shift or acute territorial infarct. 2. Age-related involutional changes with chronic microvascular ischemic disease. 3. Subcentimeter age-indeterminate lacunar infarct of the left caudate nucleus is new from 11/08/2018 and is favored to be chronic. ACT 112: Negative or not required by law. The above report was generated using voice recognition software. It may contain grammatical, syntax or spelling errors. Electronically signed by: Jonnie Ac M.D. 06/05/2022 6:48 AM Hip X-Ray 06/05/22 00:00 FL hip LT 2-3V CLINICAL HISTORY: LT CANNULATED SCREWS VS BRIGIDO TECHNIQUE: 2 views were obtained with the C-arm in the OR with the above procedure. Total fluoroscopy time was 54.2 seconds. Total skin dose was 16.7 mGy. Comparison: Comparison is made to CT left hip 06/05/2022 FINDINGS/IMPRESSION: Intraoperative images were obtained of cannulated screw placement. Please correlate with intraoperative fluoroscopy and operative report. ACT 112: Negative or not required by law. Electronically signed by: Travon Corrales M.D. 06/05/2022 5:[address] 06/05/22 01:50 CT SCAN OF THE LEFT HIP WITHOUT IV CONTRAST CLINICAL HISTORY: Fall. Left hip pain. COMPARISON STUDY: Radiograph study left hip dated 06/05/2022. Pelvic CT dated 12/18/2020. TECHNIQUE: CT scan of the left hip was performed from the bony pelvis to the femoral shaft. Images are reviewed in the axial, sagittal, and coronal planes. IV contrast was not administered for this examination. A dose lowering technique was utilized adhering to the principles of ALARA. CT DOSE: 169.63 mGy.cm FINDINGS: The skeletal structures are osteopenic. There is an impacted subcapital fracture of the left femur with mild surrounding hemorrhage. No additional fracture is seen involving the left hemipelvis. Mild arthritic change and joint space narrowing is seen in the hip. No lytic or blastic lesion is seen. There is no evidence of avascular necrosis of the femoral head. There is generalized atrophy of the regional musculature. No hematoma is seen. Atherosclerotic calcification is noted in the left femoral artery. Imaged portions of the bladder are grossly unremarkable. There are calcified uterine fibroids. No left pelvic sidewall or inguinal adenopathy is seen. IMPRESSION: Impacted subcapital fracture of the left proximal femur. ACT 112: Negative or not required by law. Dictated: 06/05/2022 7:19 AM Transcribed: 06/05/2022 7:40 AM [place] [id number] [facility]_[employer] Electronically signed by: Huseyin Hooks M.D. 06/05/2022 7:41 AM Chest X-Ray 06/05/22 08:13 XR chest 1V portable HISTORY: 67 years-old Female pre op preoperative exam. No acute chest com plaints COMPARISON: Chest radiograph 10/16/2019, CTA chest 10/16/2019. TECHNIQUE: Portable AP view of the chest FINDINGS: Cardiac silhouette is enlarged. Mild right hemidiaphragmatic elevation. No pneumothorax, pleural effusion, airspace consolidation or overt pulmonary edema. Unchanged right upper paratracheal opacity correlating with the patient's known thyroid goiter. Degenerative changes of the shoulders and spine. IMPRESSION: No acute process. ACT 112: Negative or not required by law. The above report was generated using voice recognition software. It may contain grammatical, syntax or spelling errors. Electronically signed by: Jonnie Ac M.D. 06/05/2022 9:20 AM Knee X-Ray 06/10/22 14:01 XR knee LT 1 or 2V routine CLINICAL HISTORY: Left knee pain and swelling. COMPARISON: Left knee radiographs June 05, 2022. FINDINGS: Alignment of the left knee is anatomic. There is no acute fracture. No suspicious osseous lesion. Trace joint effusion is unchanged. There is moderate to severe lateral compartment osteoarthritis. Moderate patellofemoral compartment osteoarthritis is present. IMPRESSION: 1. No acute fracture. 2. Trace joint effusion. 3. Moderate to severe lateral compartment osteoarthritis. ACT 112: Negative or not required by law. Electronically signed by: Gurpreet Andujar M.D. 06/10/2022 3:48 PM (1) Closed hip fracture Encounter type: initial encounter Laterality: left Qualified Code(s): S72.002A - Fracture of unspecified part of neck of left femur, initial encounter for closed fracture
--- NOTE | 2022-06-12 15:39 | Orthopedic Progress Note ---
Date of Service June 12, 2022 Assessment & Plan (1) Left knee DJD: (2) Closed hip fracture: PT/OT: toe touch weight bearing LLE d/c planning: awaiting transfer to rehab facility in [place] near daughter pain controlled. Follow up 2-3 weeks post op with Dr. Amos Blue .67 year old patient POD #7 from cannulated screw fixation of left hip fx. Not having hip pain. Knee improved after steroid injection. Awaiting transfer to rehab facility in [place]. Review of Systems All systems reviewed & are unremarkable except as noted in HPI & below. Physical Exam . alert and oriented. NAD Left leg: Dressing clean, dry, intact. No significant swelling Minimal knee effusion. NVI Results & Data Results & Data Laboratory Results . Diagnostic Findings . PG Care Time/CCT Total # of Minutes Spent Total Time Spent with Patient: Total time spent is greater than 50% in coordination of care (as documented) at patient's floor/unit and/or counseling patient: Coding Level of Care Code 21956 Post Operative Follow-Up Diagnoses Left knee DJD M17.12 Closed hip fracture S72.002A Encounter type: initial encounter Laterality: left (1) Closed hip fracture Encounter type: initial encounter Laterality: left Qualified Code(s): S72.002A - Fracture of unspecified part of neck of left femur, initial encounter for closed fracture
[2022-06-12] MEDS ORDERED: MAGNESIUM HYDROXIDE SUSP 30 ML UDC PO ONE (17:12)
[2022-06-12] MEDS: SENNA 8.6 MG TAB PO SCH (17:31)
[2022-06-12] MEDS: METOPROLOL SUCC 50MG EXT REL TAB PO SCH (20:48)
[2022-06-12] MEDS: MELATONIN 3 MG TAB PO SCH (20:49)
[2022-06-12] MEDS: EZETIMIBE 10 MG TABLET PO SCH (20:49)
[2022-06-12] MEDS: ROSUVASTATIN CALCIUM 20 MG TAB PO SCH (20:49)
[2022-06-12] MEDS: TERAZOSIN HCL 1 MG CAP PO SCH (20:49)
[2022-06-12] MEDS ORDERED: LANTUS PER UNIT CHARGE SQ SCH (21:00)
[2022-06-13] MEDS: oxyCODONE HCL IR 5 MG TAB (IMMEDIATE RELEASE) PO PRN ×2 (04:26→09:23)
[2022-06-13] MEDS: ASPIRIN 81 MG ECTAB PO SCH (09:17)
[2022-06-13] MEDS: MAGNESIUM OXIDE 400 MG TAB PO SCH (09:17)
[2022-06-13] MEDS: METOPROLOL SUCC 25MG EXT REL TAB PO SCH (09:17)
[2022-06-13] MEDS: FAMOTIDINE 40 MG TABLET PO SCH (09:17)
[2022-06-13] MEDS: APIXABAN 5 MG TABLET PO SCH (09:17)
[2022-06-13] MEDS: LOSARTAN POTASSIUM 50 MG TAB PO SCH (09:17)
[2022-06-13] MEDS: VENLAFAXINE HCL XR 75 MG CAPXR PO SCH (09:18)
[2022-06-13] MEDS: FUROSEMIDE 40 MG TAB PO SCH (09:18)
[2022-06-13] MEDS: POLYETHYLENE (MIRALAX) 17 GM PACK PO SCH (09:18)
[2022-06-13] MEDS: SENNA 8.6 MG TAB PO SCH (09:18)
[2022-06-13] MEDS: amLODIPine BESYLATE 5 MG TAB PO SCH (09:18)
[2022-06-13] MEDS: SPIRONOLACTONE 12.5 MG TAB PO SCH (09:18)
[2022-06-13] MEDS: INSULIN ASPART PER UNIT SC SCH (09:23)
--- NOTE | 2022-06-13 10:49 | Discharge Summary ---
Date of Service June 13, 2022 Admission HPI Per Admitting Provider A 67-year-old female with past medical history significant for type 2 diabetes, diabetic retinopathy, chronic kidney disease stage III, hyperlipidemia, hypertension, CAD with a drug-eluting stent in 2014, GERD, depression, generalized anxiety disorder, who lives at home comes with a fall. 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 With difficulty, she was able to ambulate with a walker at home, but as the pain was getting worse, she was brought to the hospital today. The imaging study shows left nondisplaced subcapital femoral neck fracture on the left side. Received pain medication in the ER. The patient says she is somewhat foggy because of the pain medications. She says when she fell, she hit her head, but she did not lose her consciousness. Denies any headache. No blurred visions, no earache, no runny nose, no sore throat, no cough. The patient has no fevers, no chest pain, no shortness of breath, no difficulty swallowing. Her appetite is low because of her depression. No nausea. She has chronic mild abdominal pains thought to be from muscle spasms. No diarrhea. Normal bowel and bladder movements, hemodynamically stable. Admission Exam Per Admitting Provider GENERAL: The patient is obese, not in acute distress. VITAL SIGNS: Temperature 37.6, pulse 86, respiratory rate 20, blood pressure 175/109, oxygen 93% on room air. HEENT: Pupils equal, round, and reactive to light. Oral mucosa moist. NECK: No JVD, no neck masses. CARDIOVASCULAR: S1 and S2 heard. Regular rate and rhythm. No murmur, no gallop. RESPIRATORY SYSTEM: Normal AP diameter. No accessory muscle use. No wheezing, no crackles. ABDOMEN: Soft, bowel sounds present, nontender, no distention. CENTRAL NERVOUS SYSTEM: Alert and awake. Speech is clear. No facial droop. Obeys simple commands. EXTREMITIES: Left lower extremity shortened and externally rotated. No edema or erythema seen. Principal Diagnosis Mechanical fall Left hip fracture s/p cannulated screw fixation on 06/05 Discharge Exam GENERAL: Alert and oriented x3. NAD, on room air. Hallucination absent. HEENT: No pallor, no icterus. Pupils equal, round and reactive to light. Oral mucosa moist. NECK: No JVD, no neck masses. HEART: S1 and S2 heard. Regular rate and rhythm. No murmur, no gallop. RESPIRATORY SYSTEM: Normal AP diameter. No accessory muscle use. No wheezing, no crackles. ABDOMEN: Soft, bowel sounds present, nontender, no distention. CENTRAL NERVOUS SYSTEM: No facial droop. Speech is clear. Obeys simple commands. Moves extremities. EXTREMITIES: No edema, no erythema seen. Left hip with clean dressing without soakage. Distal NV status wnl x LLE. Discharge Data Allergies Allergy/AdvReac Type Severity Reaction Status Date / Time Penicillins Allergy Intermediate RASH/ITCHIN Verified 12/18/20 17:46 G Iodinated Contrast Media AdvReac Intermediate NAUSEA/VOMI Verified 12/18/20 17:46 TTING Consultations 06/05/22 03:14 Consult Orthopedic Surgery Routine ED Decision to Admit Stat 06/05/22 07:51 Consult Cardiology Routine Procedures Performed Operation Date: 06/05/22 10:20 Actual Procedures p Left Hip Cannulate Screw Fixation(Left) - Caden Trinidad MD Ordered Studies 06/04/22 23:52 CT head/brain wo con Stat 06/05/22 FL hip LT 2-3V Routine 06/05/22 01:50 CT hip LT wo con Urgent Diabetes Follow up Diabetes Follow-up Needed for HgbA1c >9% Hospital Course (1) Closed hip fracture: Plan Patient is a 67-year-old lady with PMH of T2DM, diabetic retinopathy, CKD stage III, HLD, HTN, CAD with SILVIANO in 2014, GERD, depression, JAZZMINE presented from home on 06/04 with fall after she was trying to 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 Patient was found to have left hip fracture. She underwent surgery on 06/05 by orthopedics with cannulated screw fixation. In the postop period, patient was delirious and required Haldol. Patient's home Ativan and Ambien were discontinued. Patient complained of left knee pain during the postop period. X-ray showed severe osteoarthritis; patient was given intra-articular steroid by orthopedics. PT OT evaluation was done; patient was recommended to go to rehab. Her daughter prefer her to be near her in [place]. Patient was discharged to subacute rehab in [place]. All her home medication were continued except for Ambien and Ativan. She was instructed to do follow-up with orthopedic for postop check in [address] Trinidad. She was also instructed to follow-up with her PCP as well. Total Time Total Time Spent Total Time Spent (In Minutes): 35 Total Time Includes: Examination of the Patient, Discharge Planning, Medication Reconciliation, Communication With Other Providers and Other Discharge Plan Discharge Items Patient Disposition: Transfer Shelter Fac Reason For Visit: FALL Discharge Diagnosis: Internal Fixation of Left Hip Fracture Activity: As commented below Activity Comment: Toe-touch weightbearing left leg for next 4 weeks Weightbearing: Left toe touch Non-emergency contact: Primary Care Provider Call non-emergency contact if: you have any medication questions Follow-up/Referrals: Caden Trinidad MD [Physician] - (Orthopedic follow-up 2-3 weeks from surgery date..) PCP,NO [Primary Care Provider] - Diet: Carb Consistent or DM2 Addtl Attending Provider Instructions: Toe-touch weight bearing on left leg for next 4 weeks. Please follow-up with Dr. Trinidad in 2 to 3 weeks. Please take your medications as prescribed. We are stopping Ambien and Ativan. Please follow-up with your primary care doctor. Pending Studies at Discharge: No Stand-Alone Forms: My Safe N Clear Skilled Items Patient informed of condition?: No DNR: No Discharge Level of Care: Skilled Communicable Disease: No Discharge Prognosis: Stable Lines: None Urinary Catheter: No Medications and DC Order Prescriptions: New acetaminophen 325 mg Tablet 650 mg PO Q4H PRN (Reason: pain) Qty: 60 0RF oxycodone 5 mg Tablet 5 mg PO Q6H PRN (Reason: pain) Qty: 10 0RF polyethylene glycol 3350 [Miralax] 17 gram Powder In Packet 17 g PO DAILY PRN (Reason: Constipation) Qty: 30 0RF melatonin 3 mg Tablet 6 mg PO HS PRN (Reason: sleep) Qty: 30 0RF Continued furosemide 40 mg Tablet 40 mg PO QAM Qty: 30 0RF metformin 500 mg tablet 500 mg PO BID Qty: 60 0RF venlafaxine 75 mg capsule,extended release 24hr 225 mg PO DAILY Qty: 30 0RF famotidine 40 mg tablet 40 mg PO DAILY Qty: 30 0RF terazosin 1 mg capsule 1 mg PO HS Qty: 30 0RF aspirin 81 mg Tablet,Delayed Release (Dr/Ec) 81 mg PO QAM Qty: 30 0RF spironolactone 25 mg Tablet 12.5 mg PO DAILY Qty: 30 0RF magnesium oxide 400 mg (241.3 mg magnesium) Tablet 400 mg PO BID Qty: 30 0RF amlodipine 10 mg tablet 10 mg PO DAILY Qty: 30 0RF nitroglycerin 0.4 mg tablet, sublingual 0.4 mg Sublingual DIRECTED PRN (Reason: Chest Pain) Qty: 30 0RF losartan 100 mg tablet 100 mg PO QAM Qty: 30 0RF ezetimibe [Zetia] 10 mg Tablet 10 mg PO HS Qty: 30 0RF rosuvastatin 40 mg tablet 40 mg PO HS Qty: 30 0RF Eliquis 5 mg Tablet 5 mg PO BID Qty: 60 0RF Changed metoprolol succinate 50 mg tablet extended release 24 hr 50 mg PO QPM Qty: 30 0RF metoprolol succinate 25 mg tablet extended release 24 hr 25 mg PO QAM Qty: 30 0RF insulin detemir U-100 100 unit/mL (3 mL) insulin pen 35 unit subcut HS Qty: 15 0RF Discontinued lorazepam 0.5 mg tablet 0.5 mg PO Q8H PRN (Reason: Anxiety) zolpidem 10 mg tablet 10 mg PO HS PRN (Reason: Sleep) Discharge Orders: Discharge Order (Routine); Ordered 06/13/22 Ordered By: Haile Davis/Other Patient Handouts: Managing Type 2 Diabetes Admission Data Admit Date/Time: 06/05/22 04:28 Attending Provider: Haile Roldan Admit Provider: Rob Broderick Primary Care Provider: PCP,NO Other Providers: Rob Broderick ; Caden Trinidad ; Abel Abreu ; Caden Vergara ; Peter Galindo ; Adiel Cee ; Luis Felipe Pimentel ; Vimal Bland ; Makenzie Little ; Norma Abraham ; Gilma Lobo ; Domingo Quinn ; Christy Trinidad Other Interventions: Discharge Summary Assessment (RN) Last Done: 06/13/22 09:27
== END 2022-06-13 10:39 | DRG 481 ==
LOC: ED 22:21 → EDINP 06-05 04:28 → SUATTDRO 06-05 04:28 → EDINP 06-05 08:01 → 3N 06-05 17:54

== ENCOUNTER 2023-01-21 07:44 | Observation (INO) ==
--- NOTE | 2022-12-30 14:02 | PAT Medication Instructions ---
Medication Instructions Date of Service December 30, 2022 Home Medications Medication Instructions Recorded acetaminophen 325 mg tablet 650 mg PO Q4H PRN pain #60 tabs 06/13/22 aspirin 81 mg tablet,delayed 81 mg PO QAM #30 tabs 06/13/22 release magnesium oxide 400 mg (241.3 mg 400 mg PO BID #30 tabs 06/13/22 magnesium) tablet melatonin 3 mg tablet 6 mg PO HS PRN sleep #30 tabs 06/13/22 metformin 500 mg tablet 500 mg PO BID #60 tabs 06/13/22 nitroglycerin 0.4 mg sublingual 0.4 mg sublingual DIRECTED PRN 06/13/22 tablet Chest Pain #30 tabs polyethylene glycol 3350 17 gram 17 g PO DAILY PRN Constipation #30 06/13/22 oral powder packet (Miralax) ea insulin detemir U-100 100 unit/mL 35 unit (0.35 mL) subcut HS #15 mL 08/14/22 (3 mL) subcutaneous pen apixaban 5 mg tablet (Eliquis) 5 mg PO BID #180 tabs 09/17/22 ezetimibe 10 mg tablet (Zetia) 10 mg PO HS #90 tabs 09/17/22 furosemide 40 mg tablet 40 mg PO QAM #90 tabs 09/17/22 losartan 25 mg tablet 25 mg PO BID #60 tabs 09/17/22 metoprolol succinate 25 mg 25 mg PO BID #180 tabs 09/17/22 tablet,extended release 24 hr rosuvastatin 40 mg tablet 40 mg PO HS #90 tabs 09/17/22 acetaminophen 325 mg tablet 650 mg PO Q4H PRN aspirin 81 mg tablet,delayed release 81 mg PO QAM magnesium oxide 400 mg (241.3 mg magnesium) tablet 400 mg PO BID melatonin 3 mg tablet 6 mg PO HS PRN metformin 500 mg tablet 500 mg PO BID nitroglycerin 0.4 mg sublingual tablet 0.4 mg sublingual DIRECTED PRN polyethylene glycol 3350 17 gram oral powder packet (Miralax) 17 g PO DAILY PRN insulin detemir U-100 100 unit/mL (3 mL) subcutaneous pen 35 unit (0.35 mL) subcut HS apixaban 5 mg tablet (Eliquis) 5 mg PO BID ezetimibe 10 mg tablet (Zetia) 10 mg PO HS furosemide 40 mg tablet 40 mg PO QAM losartan 25 mg tablet 25 mg PO BID metoprolol succinate 25 mg tablet,extended release 24 hr 25 mg PO BID rosuvastatin 40 mg tablet 40 mg PO HS trazodone 50 mg tablet 50 mg PO BID ropinirole 0.25 mg tablet 0.25 mg PO QPM venlafaxine 75 mg capsule,extended release 24 hr 75 mg PO TID Continue as directed nitroglycerin 0.4 mg sublingual tablet 0.4 mg sublingual DIRECTED PRN(if needed) ASK your prescriber and surgeon apixaban 5 mg tablet (Eliquis) 5 mg PO BID(in order for spinal or epidural anesthesia, Eliquis needs to be stopped 72 hours/3 days before surgery. Please check if okay with doctor that prescribes this to you) aspirin 81 mg tablet,delayed release 81 mg PO QAM DO NOT take the morning of surgery magnesium oxide 400 mg (241.3 mg magnesium) tablet 400 mg PO BID metformin 500 mg tablet 500 mg PO BID polyethylene glycol 3350 17 gram oral powder packet (Miralax) 17 g PO DAILY PRN furosemide 40 mg tablet 40 mg PO QAM losartan 25 mg tablet 25 mg PO BID Take morning of surgery With a small sip of water, OTHERWISE NOTHING TO EAT OR DRINK AFTER MIDNIGHT: acetaminophen 325 mg tablet 650 mg PO Q4H PRN(if needed) metoprolol succinate 25 mg tablet,extended release 24 hr 25 mg PO BID trazodone 50 mg tablet 50 mg PO BID venlafaxine 75 mg capsule,extended release 24 hr 75 mg PO TID Take evening before surgery acetaminophen 325 mg tablet 650 mg PO Q4H PRN(if needed) magnesium oxide 400 mg (241.3 mg magnesium) tablet 400 mg PO BID melatonin 3 mg tablet 6 mg PO HS PRN(if needed) metformin 500 mg tablet 500 mg PO BID insulin detemir U-100 100 unit/mL (3 mL) subcutaneous pen 35 unit (0.35 mL) subcut HS ezetimibe 10 mg tablet (Zetia) 10 mg PO HS losartan 25 mg tablet 25 mg PO BID metoprolol succinate 25 mg tablet,extended release 24 hr 25 mg PO BID rosuvastatin 40 mg tablet 40 mg PO HS trazodone 50 mg tablet 50 mg PO BID ropinirole 0.25 mg tablet 0.25 mg PO QPM venlafaxine 75 mg capsule,extended release 24 hr 75 mg PO TID Other Notes If you have any questions please call us at [phone] or [phone] or [phone] or [phone]
--- NOTE | 2023-01-02 10:52 | Anesthesiology Consultation ---
Date of Service January 02, 2023 Assessment & Plan (1) Encounter for pre-operative examination: - Check BSG AM DOS - COVID screening: Per assessment on 01/02: No known COVID-19 positive contacts or current COVID-19 related symptoms. Travel screen negative. Patient vaccinated. At surgeon discretion if preop Covid testing being done. - Outpatient joint assessment: Pt currently scheduled for inpatient pathway. If surgeon requests review for outpatient joint pathway, patient is not recommended candidate for outpatient joint program from anesthesia standpoint. - Apixaban/Eliquis instructions: patient made aware that in order for spinal anesthesia, Apixaban/Eliquis needs to be held 72 hours/3 days prior to surgery. Patient voiced understanding/will check if okay with prescriber. - Anesthesia reaction: Patient states that after having left hip fracture surgery/screw fixation 06/05/22 at [facility], she had hallucinations (same day as surgery)- saw "hayleeecauns" and called 911 indicating she "was held hostage." Concerned regarding upcoming anesthesia/surgery given reaction with previous anesthesia/surgery. - Cardiology visit (12/23/22): "History of obstructive sleep apnea.. This increases the patient's cardiovascular morbidity and mortality. If not using CPAP then this should be initiated as indicated. Management per primary care provider.. Cardiomyopathy.. EF is improved. Now only with mild LV systolic dysfunction and diastolic dysfunction. No evidence of volume overload at this time. Continue Lasix 40 mg daily for euvolemia. Continue chronic heart failure regimen with losartan 25 mg p.o. twice daily and metoprolol succinate ER 25 mg p.o. twice daily. We should also consider SGLT2 inhibitor if not previously attempted by her prior director of billing. I will discuss this further with her and recommend beginning after she completes her surgery.. Paroxysmal atrial fibrillation.. [id number] score is 6. High annual risk of CVA, TIA, or systemic embolization. Her rate is controlled and she is in sinus rhythm today. Continue metoprolol and Eliquis 5 mg p.o. twice daily for CVA prophylaxis.. Prior CA (details unavailable). No anginal symptoms but somewhat limited with activity secondary to orthopedic issues. Continue guideline directed medical therapy for secondary prevention of coronary disease including aspirin 81 mg daily, metoprolol succinate ER 25 mg p.o. daily, and losartan 25 mg p.o. daily. She will also continue on high intensity statin therapy as below. No recent stress tests available for review.. Dyslipidemia.. Patient is high risk (coronary disease and diabetes). High intensity statin therapy currently ongoing with Crestor 40 mg daily. She also takes Zetia 10 mg daily as adjunct. Annual lipid panel.. Pre-operative cardiovascular examination, myocardial ischemia.. Patient is asymptomatic with limited activity. She has intermediate pretest probability. Therefore, if she is to undergo orthopedic surgery I recommend she have further risk stratification by stress testing. Further recommendations pending results. If she does not undergo surgery then in the absence of symptoms I would not proceed with stress testing. She is likely unable to ambulate adequately for treadmill stress testing because of her orthopedic issues." Awaiting cardiology-ordered preop stress test (not scheduled yet) and final cardiology recommendations ([facility]). Chart Review Chart Review: Patient seen in Pre Admission Testing Teaching & Discussion Pre-Anesthesia Teaching/Discussion Notes: Instructed NPO after midnight before surgery,except medications with 15 cc of water. Medication instructions provided according to the PAT guidelines. History Surgery Operation Date: 01/21/23 10:40 Proposed Procedures p Left Total Knee Arthroplasty - Caden Trinidad MD Height/Weight Height: 5 ft 7 in Weight: 93.5 kg Allergies Allergy/AdvReac Type Severity Reaction Status Date / Time Penicillins Allergy Intermediate RASH/ITCHIN Verified 12/27/22 11:27 G Iodinated Contrast Media AdvReac Intermediate NAUSEA/VOMI Verified 12/27/22 11:27 TTING Medications Home Medications Medication Instructions Recorded Confirmed Last Taken acetaminophen 325 mg tablet 650 mg PO Q4H PRN pain #60 tabs 06/13/22 12/27/22 Unknown aspirin 81 mg tablet,delayed 81 mg PO QAM #30 tabs 06/13/22 12/27/22 Unknown release magnesium oxide 400 mg (241.3 mg 400 mg PO BID #30 tabs 06/13/22 12/27/22 Unknown magnesium) tablet melatonin 3 mg tablet 6 mg PO HS PRN sleep #30 tabs 06/13/22 12/27/22 Unknown metformin 500 mg tablet 500 mg PO BID #60 tabs 06/13/22 12/27/22 Unknown nitroglycerin 0.4 mg sublingual 0.4 mg sublingual DIRECTED PRN 09/29/22 04/14/23 Unknown tablet Chest Pain #30 tabs polyethylene glycol 3350 17 gram 17 g PO DAILY PRN Constipation #30 06/13/22 12/27/22 Unknown oral powder packet (Miralax) ea insulin detemir U-100 100 unit/mL 35 unit (0.35 mL) subcut HS #15 mL 08/14/22 12/27/22 Unknown (3 mL) subcutaneous pen apixaban 5 mg tablet (Eliquis) 5 mg PO BID #180 tabs 09/17/22 12/27/22 Unknown ezetimibe 10 mg tablet (Zetia) 10 mg PO HS #90 tabs 09/17/22 12/27/22 Unknown furosemide 40 mg tablet 40 mg PO QAM #90 tabs 09/17/22 12/27/22 Unknown losartan 25 mg tablet 25 mg PO BID #60 tabs 09/17/22 12/27/22 Unknown metoprolol succinate 25 mg 25 mg PO BID #180 tabs 09/17/22 12/27/22 Unknown tablet,extended release 24 hr rosuvastatin 40 mg tablet 40 mg PO HS #90 tabs 09/17/22 12/27/22 Unknown trazodone 50 mg tablet 50 mg PO BID 09/17/22 12/27/22 Unknown ropinirole 0.25 mg tablet 0.25 mg PO QPM 12/27/22 12/27/22 Unknown venlafaxine 75 mg capsule,extended 75 mg PO TID 12/27/22 12/27/22 Unknown release 24 hr Past Medical History Medical History Anxiety Atrial fibrillation Dx 2019 Follows w/ Dr. Cee CAD (coronary artery disease) s/p SILVIANO to LAD in 2014 CHF (congestive heart failure), NYHA class III CKD (chronic kidney disease), stage III Per records Depression Diabetes mellitus, type II IDDM Diabetic neuropathy Diverticular disease Dyslipidemia Fatty liver History of colonic polyps HTN (hypertension) Multinodular goiter Myocardial Infarction 2014 Osteoarthritis RLS (restless legs syndrome) Exercise / Class Metabolic Activity II 4-5 Yardwork/Stairs/Walk up hill (one FS (no CP, no SOB)) Past Family History Family History Mother Non-Hodgkin lymphoma Grandfather (Maternal) Bladder cancer Father Hypertension Myocardial infarction Grandfather (Paternal) Hypertension Grandmother (Paternal) Hypotension Other No family history of adverse response to anesthesia Denies family history of Ovarian cancer Prostate cancer Breast cancer Colorectal cancer Colonic polyp Past Surgical History Surgical History H/O dilation and curettage H/O shoulder surgery R/L H/O tubal ligation History of cardiac cath 2014 > stent x1 History of cataract surgery History of colonoscopy History of heart artery stent x1 (2014) History of hip surgery Left hip fracture > cannulated screw fixation (06/05/22): Grade view 1, MAC#4, ETT 7.0 at [facility] History of tooth extraction S/P tonsillectomy and adenoidectomy Past Anesthesia History No Family Hx of Anesthesia Complications and Other Anesthesia reaction: Patient states that after having left hip fracture surgery/screw fixation 06/05/22 at [facility], she had hallucinations (same day as surgery)- saw "bambi" and called 911 indicating she "was held hostage." Concerned regarding upcoming anesthesia/surgery given reaction with previous anesthesia/surgery. History of PONV No Hx of PONV and No Hx of Motion Sickness Social History Smoking Status: Never smoker Do You Dip or Chew Tobacco: No Hx Alcohol Use: No Hx Substance Use: No substance use type: does not use Review of Systems Patient denies chest pain, shortness of breath, dyspnea on exertion, fever, chills, cough, wheezing, palpitations. Physical Exam Vital Signs VITALS BP 178/83 P 77 TEMP 98.9 SP02 95%RA RESP 16 PHYSICAL Full cervical extension range of motion. Full TMJ range of motion. TMD 3.5 finger breaths Mallampati Score 1 Dentition: full upper plate, several missing on lower Lungs: clear throughout to auscultation Cardiac: regular rate and rhythm, no murmurs noted Spine: normal Carotid arteries: negative bruit Extremities: no LE edema Lab Results Anesthesia Preop Results Results Anesthesia Widget: WBC 6.36 K/ul (4.8-10.8) 01/02/23 Hgb 13.8 g/dl (12.0-16.0) 01/02/23 Hct 39.8 % (37.0-47.0) 01/02/23 Plt 256 K/uL (130-400) 01/02/23 Na 137 mmol/L (136-145) 01/02/23 K 5.0 mmol/L (3.5-5.1) 01/02/23 Cl 100 mmol/L (98-107) 01/02/23 CO2 30 mmol/L (21-32) 01/02/23 BUN 13 mg/dl (6-23) 01/02/23 Creat 1.03 mg/dl (0.6-1.2) 01/02/23 Glucose Level 221 mg/dl (70-99(Fasting)) H 01/02/23 PT 10.5 Seconds (9.0-12.0) 01/02/23 PTT 27.0 Seconds (21.0-31.0) 01/02/23 INR 1.0 (0.9-1.1) 01/02/23 HA1c 8.1 % (4.5-5.6) H 01/02/23 Blood Type A Positive 01/02/23 Antibody Screen NEGATIVE 01/02/23 Testing Electrocardiogram Date: 06/05/22 Normal sinus rhythm at 86 bpm. LAD. IRBBB. LVH with repolarization ab normality. *Poor data quality. Echo performed 12/16/2022* Chest X-Ray Date: 06/05/22 FINDINGS: Cardiac silhouette is enlarged. Mild right hemidiaphragmatic elevation. No pneumothorax, pleural effusion, airspace consolidation or overt pulmonary edema. Unchanged right upper paratracheal opacity correlating with the patient's known thyroid goiter. Degenerative changes of the shoulders and spine. IMPRESSION: No acute process. Echocardiogram Date: 12/16/22 EF 40-45%. Mild global hypokinesis of the left ventricle. No thrombus. Moderate concentric LVH. Grade 1 diastolic dysfunction. No significant valvular disease. Compared to prior echo 10/16/2019, EF and MR have improved per report. COVID-19 Risk Screen Screening Information COVID-19 Screen Date: 01/02/23 Exposure 21 Days Family/Household +COVID Last 21 Days: No Exposure 10 Days Any COVID Exposure Last 10 Days: No Symptoms Last 10 Days Experienced COVID Sx Last 10 Days: No + COVID 0-90 Days COVID + in Last 0-90 Days: No
[~2023-01-21 07:44] MED LIST: ACETAMINOPHEN 500 MG TAB PO SCH; BUPIVACAINE 0.5 % 5 MG/1 ML PF 10ML VIAL ONE; BUPIVACAINE LIPOSOME/PF 266 MG, BUPIVACAINE/EPINEPHRINE 50 ML, SODIUM CHLORIDE 0.9% PF ... INFIL SCH; CeleBREX 200 MG CAP PO SCH; FAMOTIDINE 20 MG TAB PO SCH; LR 15ML/HR IV SCH; LR 60ML/HR IV SCH; METOCLOPRAMIDE HCL 10 MG TABLET PO SCH; ROPIVACAINE 0.5% 5 MG/ML 30 ML VIAL ONE; Scopolamine 1 MG TDSY TD SCH; TRANEXAMIC ACID 1,000 MG **IV Intra-op IV SCH; ceFAZolin 2000MG 2,000 MG/15 ML SYR IV SCH
--- NOTE | 2023-01-21 09:03 | History & Physical Bridge Note ---
Date of Service January 21, 2023 History & Physical Bridge Note I have examined the patient, reviewed the History & Physical and in the interval since the performance of the History & Physical I have noted the following changes of clinical significance: no changes noted
[2023-01-21] MEDS ORDERED: MIDAZOLAM HCL 1 MG/ML 2ML VIAL ONE (10:00)
[2023-01-21] MEDS ORDERED: fentaNYL citrate PF 100 MCG/2 ML VIAL IV PRN (10:16)
[2023-01-21] MEDS ORDERED: ATROPINE SULFATE 0.1 MG/ML 10ML SYR IV PRN (10:16)
[2023-01-21] MEDS ORDERED: ePHEDrine sulfate 50 MG/ML AMP IV PRN (10:16)
[2023-01-21] MEDS ORDERED: PROMETHAZINE HCL 12.5 MG in SODIUM CHLORIDE 0.9% 50 ML IV PRN (10:16)
[2023-01-21] MEDS ORDERED: ONDANSETRON INJ 2 MG/ML 2 ML VIAL IV PRN ×2 (10:16→14:16)
[2023-01-21] MEDS ORDERED: HYDROmorphone INJ 2 MG/ML SYR/VIAL IV PRN (10:16)
[2023-01-21] MEDS ORDERED: BUPIVACAINE/EPINEPHRINE 0.25% 1:200,000 30 ML VIAL ONE (11:15)
[2023-01-21] MEDS ORDERED: SODIUM CHLORIDE 0.9% PF 50 ML VIAL ONE (11:15)
[2023-01-21] MEDS ORDERED: BUPIVACAINE LIPOSOME 1.3% 266 MG/20 ML VIAL ONE (11:15)
[2023-01-21] MEDS ORDERED: DEXAMETHASONE SOD INJ 4 MG/ML VIAL ONE (12:35)
[2023-01-21] MEDS ORDERED: PROPOFOL IV EMULSION 10 MG/ML 100 ML VIAL IV ONE (12:35)
--- NOTE | 2023-01-21 13:22 | Operative Report ---
PG Post Operative Report Pre & Post Diagnosis Operation Date: 01/21/23 10:00 Pre-Op Diagnosis: Left Knee Degenerative Joint Disease Post-Op Diagnosis: Left Knee Degenerative Joint Disease I identified the patient and participated in the time-out.: Yes Procedure Operation Date: 01/21/23 10:00 Actual Procedures p Left Total Knee Arthroplasty(Left) - Caden Trinidad MD Surgeon Caden Trinidad MD Textile Technologist Tobias Tamayo PA-C Estimated Blood Loss 50 Findings Consistent with Post-Op Diagnosis Operative findings real advanced left knee DJD. Chest she had a valgus deformity to her knee with grade 4 [id number] disease of the lateral compartment. She did have some spotty grade 4 changes of the patellofemoral joint as well as the medial compartment. Moderate-sized joint effusion. Specimens Left knee sent for pathology Anesthesia Type Spinal MAC Complications none Disposition Accompanied Patient To Recovery: No Indications Patient is a 67-year-old female has had a several year history of increasing l eft knee pain discomfort. She failed all conservative measures. She did have a fall bout 7 or 8 months ago and underwent cannulated screw fixation of a femoral neck fracture. She is recovered from this and now to continue to be bothered by knee pain. She failed conservative measures. X-rays show advanced lateral compartment arthritis. She elected proceed with surgical management. Description of Procedure Operative implants consist of: 1. Biomet Vanguard size 65 left posterior stabilized femoral component. 2. Biomet size 71 tibial tray. 3. 10 mm posterior stabilized polyethylene insert. 4. 31 x 8 all poly patella. The patient was taken to the operating room, identified, and placed on the operating table supine position but all contact areas were appropriately padded. IV antibiotics were provided by anesthesia team. A spinal anesthetic and abductor canal block had provided in the holding area. Stiles catheter was placed in sterile fashion. Left thigh tent was then placed in the left lower extremities and prepped and draped in usual sterile fashion. The left leg was elevated exsanguinated with use of an Esmarch and the to urniquet was placed at 300 mmHg. An anterior approach left knee was then performed through a longitudinal incision centered over the patella. Sharp dissection was carried through the subcutaneous tissue down the extensor mechanism. A medial parapatellar arthrotomy incision was made. Some subperiosteal dissection was carried out medially. The fat pad was dissected from Neath patella tendon. The lateral patellofemoral ligament was released. Patella subluxated laterally and the knee was flexed. The osteophytes taken distal femur. The ACL and PCL were then released from the distal femur and the tibia subluxated anteriorly. The external tibial alignment jig was then placed in the interface the tibia and adjusted 14 mm medially. Proximal tibial cut was made to remove about 3 to 4 mm of bone from the medial side. Her bone was fairly soft. The tibia was sized to a size 71. We tried to maximize coverage due to the osteopenia. Attention drawn the femur. The distal femur was then with a sharp drill. Intramedullary canal was suction. A left 5 degree valgus cutting guide was placed. Distal femoral cutting block was pinned in place. Distal femoral cut was made to take an additional 3 mm of bone off distal femur. The femur was then sized to a size 65. The AP cutting block was pinned parallel to the epicondylar axis which was 6 degrees of external rotation. The anterior cut, anterior chamfer, posterior cut, posterior chamfer cuts were made. The box cutting guide was placed in a just slightly lateral and the box cut was made. The knee was flexed. The remnants of the medial and lateral menisci were excised. The osteophytes were taken off the posterior aspect of femur. Trial femoral component was placed. Tibial tray was pinned in maximum external rotation and the drill and stem punch used to create defect in proximal tibia for the tibial tray. The knee was then trialed and the 10 mm insert fit most appropriately. Attention drawn the patella. The patella was cleaned of all soft tissues. Patella thickness measured 22 mm in thickness and was cut down to 13. It was sized to a size 31 patella. The lug holes were drilled for the 31 patella. The lateral osteophytes removed. Patella button was placed. Knee was taken through range of motion and the patella tracked nicely with no thumbs test. Attention drawn to place the permanent components. All trial components were removed. Bone plug was placed in the distal femur limit blood loss. Double batch Palacos G cement was mixed. BiomOcean Aero size 65 left posterior stabilized femoral component, size 71 tibial tray, a 10 mm posterior stabilized polyethylene insert, and a 31 x 8 all poly patella then cemented in place. Knee was brought into full extension till cement hardened. Final cement check was then performed. The pericapsular tissues were injected with total of 100 cc of combination of 20 cc of Exparel, 30 cc normal saline, 50 cc of quarter percent Marcaine with epinephrine. Patient did receive 1 g tranexamic acid. The tourniquet was then let down for final tourniquet time of 54 minutes. Hemostasis reduced electrocautery. Extensor mechanism closed with combination 1 PDS suture #1 Vicryl suture in a [id number] fashion. Extensor mechanism checked found to be intact and subcutaneous tissues then closed with 2 Dexon suture in a buried interrupted fashion skin was closed skin elliot. Leg was then cleaned and dried and sterile dressed with Xeroform, 4 fours, sterile cast padding, Lamberto bandage were applied. Patient then transferred to the recovery room in stable condition. Patient tolerated procedure well and there were no complications. Tobias Tamayo, my physician certified registered dental assistant, was present for the entire procedure. His assistance was essential and required for appropriate patient positioning, prepping and draping, surgical exposure, performing the technical details of the operation, placement the implants, closure of the wound, and placement of the sterile bandage. I attest to the content of the Intraoperative Record and any orders documented therein. Any exceptions are noted below.
--- NOTE | 2023-01-21 14:02 | Anesthesiology Progress Note ---
Date of Service January 21, 2023 Anesthesia Post Procedure Vital Signs Vital Signs: Temp Pulse Pulse Resp BP Pulse Ox O2 Del Method 01/21/23 14:00 36.3 C L 89 21 144/97 H 92 Room Air 01/21/23 13:40 71 20 144/68 H 93 Room Air 01/21/23 13:50 70 17 157/88 H 93 Room Air 01/21/23 13:30 82 17 124/73 95 Room Air 01/21/23 13:21 36.2 C L 79 14 122/67 94 Room Air 01/21/23 08:34 37.2 C 78 20 206/122 H 95 Room Air Transfer of Care Handoff Completed per policy Notes Mental Status: alert / awake / arousable and participated in evaluation Nausea / Vomiting: adequately controlled Pain: adequately controlled Airway Patency, RR, SpO2: stable & adequate BP & HR: stable & adequate Hydration State: stable & adequate Neuraxial Anesthesia: was administered and sensory block is resolving Anesthetic Complications: no major complications apparent and Pt Satisfied with anesthetic care
--- NOTE | 2023-01-21 14:05 | XRay Report ---
TWO VIEWS LEFT KNEE CLINICAL HISTORY: Postoperative examination. FINDINGS: AP and crosstable lateral portable views of the left knee are obtained. A left knee arthrop lasty is in near anatomic alignment. There has been undersurface remodeling of the patella. No acute fracture is seen. There are expected postoperative changes around the knee including skin clips, soft tissue edema, and subcutaneous gas. IMPRESSION: Expected postoperative changes status post left knee arthroplasty. No acute fracture is s een. ACT 112: Negative or not required by law. Electronically signed by: Huseyin Hooks M.D. 01/21/2023 2:03 PM
[2023-01-21] MEDS ORDERED: PHARMACY GLYCEMIC MGMT CONSULT PRN (14:16)
[2023-01-21] MEDS ORDERED: MELATONIN 3 MG TAB PO PRN (14:16)
[2023-01-21] MEDS ORDERED: NALOXONE HCL 0.4 MG/1 ML VIAL/CARP IV PRN (14:16)
[2023-01-21] MEDS ORDERED: HYDROmorphone INJ 0.5 MG/0.5 ML SYR IV PRN (14:16)
[2023-01-21] MEDS ORDERED: DEXTROSE 50% 50 ML SYRINGE IV PRN (14:16)
[2023-01-21] MEDS ORDERED: bisacodyL 10 MG SUPP PR PRN (14:16)
[2023-01-21] MEDS ORDERED: NITROGLYCERIN SL 0.4 MG/TAB TAB SL PRN (14:16)
[2023-01-21] MEDS ORDERED: MAGNESIUM HYDROXIDE SUSP 30 ML UDC PO PRN (14:16)
[2023-01-21] MEDS ORDERED: GLUCOSE 10 TAB/TUBE PO PRN (14:16)
[2023-01-21] MEDS ORDERED: GLUCAGON FOR INJ 1 MG VIAL SQ PRN (14:16)
[2023-01-21] MEDS ORDERED: GLUCOSE 40% GEL 15 GM TUBE PO PRN (14:16)
[2023-01-21] MEDS ORDERED: CARBOHYDRATES FOR HYPOGLYCEMIA PO PRN (14:16)
[2023-01-21] MEDS ORDERED: METOCLOPRAMIDE HCL INJ 5 MG/ML 2 ML VIAL IV PRN (14:16)
[2023-01-21] MEDS ORDERED: POLYETHYLENE (MIRALAX) 17 GM PACK PO PRN (14:16)
[2023-01-21] MEDS ORDERED: ALUMINUM/MAGNESIUM SUSP 30 ML UDC PO PRN (14:16)
[2023-01-21] MEDS: SODIUM CHLORIDE 0.9% 1000ML 1,000 ML IV SCH (14:58)
[2023-01-21] MEDS: VENLAFAXINE HCL XR 75 MG CAPXR PO SCH ×2 (15:01→20:23)
[2023-01-21] MEDS: ACETAMINOPHEN 500 MG TAB PO SCH ×2 (15:02→21:53)
[2023-01-21] MEDS: KETOROLAC TROMETHAMINE 15 MG/ML VIAL IV SCH ×2 (15:02→20:23)
[2023-01-21] MEDS: Scopolamine CHECK PATCH PLACEMENT SCH ×2 (15:04→23:51)
[2023-01-21] MEDS ORDERED: LANTUS PER UNIT CHARGE SC SCH (16:30)
[2023-01-21] MEDS: INSULIN ASPART PER UNIT CHARGE SC SCH ×2 (17:41→20:29)
[2023-01-21] MEDS: ASCORBIC ACID 500 MG TAB PO SCH (17:43)
[2023-01-21] MEDS: LOSARTAN POTASSIUM 25 MG TAB PO SCH (18:30)
[2023-01-21] MEDS: METOPROLOL SUCC 25MG EXT REL TAB PO SCH (18:30)
[2023-01-21] MEDS ORDERED: TRANEXAMIC ACID / 0.7% NACL 1,000 MG/100 ML BAG IV SCH (19:30)
[2023-01-21] MEDS: ceFAZolin 2000MG 2,000 MG/15 ML SYR IV SCH (19:31)
[2023-01-21] MEDS: DOCUSATE SODIUM 100 MG CAP PO SCH (20:19)
[2023-01-21] MEDS: SENNA 8.6 MG TAB PO SCH (20:20)
[2023-01-21] MEDS: traZODone HCL 50 MG TAB PO SCH (20:22)
[2023-01-21] MEDS: MAGNESIUM OXIDE 400 MG TAB PO SCH (20:22)
[2023-01-21] MEDS ORDERED: SENNA 8.6 MG TAB PO SCH (21:00)
[2023-01-21] MEDS ORDERED: EZETIMIBE 10 MG TABLET PO SCH (21:00)
[2023-01-21] MEDS ORDERED: rOPINIRole HCL 0.25 MG TABLET PO SCH (21:00)
[2023-01-21] MEDS ORDERED: ROSUVASTATIN CALCIUM 20 MG TAB PO SCH (21:00)
--- NOTE | 2023-01-21 21:23 | Pharmacy Report ---
Pharmacy Glycemic Short Note 2 - Date of Service January 21, 2023 - Glycemic Short BSG Results (Last 24 hours): 01/21/23 01/21/23 01/21/23 08:26 13:23 16:56 POC Glucose 170 H 172 H 274 H 01/21/23 20:22 POC Glucose 176 H OUTPATIENT ANTIDIABETIC REGIMEN: * Detemir 35 units HS, Metformin 500 mg BID * A1c 8.1% 01/02/23 ASSESSMENT: * Patient admitted post left knee arthroplasty. BSGs in the 170s pre/post op * Will start with home lantus dose 35 units * Add Novolog with weight based stress of 3 carb ratio and between 2/3 correction factor * BSG elevated at dinner, trending downward at HS PLAN FOR INPATIENT GLYCEMIC CONTROL: * Hold outpatient oral diabetes medications * Basal insulin * Lantus 35 units SQ x1- needs reassessed tomorrow * Bolus insulin * NovoLog per scale ACHS or Q6hrs while NPO * Goal Range: Low 110 mg/dL - High 150 mg/dL * Correction Factor: 20 mg/dL/unit * Nutritional / Prandial insulin per carb ratio of 1 unit per 6 grams CHO consumed
[2023-01-21] MEDS: oxyCODONE HCL IR 5 MG TAB (IMMEDIATE RELEASE) PO PRN (21:56)
[2023-01-22] MEDS: INSULIN ASPART PER UNIT CHARGE SC SCH ×4 (00:08→12:40)
[2023-01-22] MEDS: KETOROLAC TROMETHAMINE 15 MG/ML VIAL IV SCH ×2 (04:08→08:28)
[2023-01-22] MEDS: ceFAZolin 2000MG 2,000 MG/15 ML SYR IV SCH (04:09)
[2023-01-22] MEDS: SODIUM CHLORIDE 0.9% 1000ML 1,000 ML IV SCH (04:17)
[2023-01-22] MEDS: ACETAMINOPHEN 500 MG TAB PO SCH ×2 (05:06→12:41)
[2023-01-22 06:18] LABS: Hematocrit (blood only) 33.6 % (37.0-47.0); Hemoglobin 11.7 g/dl (12.0-16.0); Mean Corpuscular Hemoglobin 31.4 pg (25.0-34.0); Mean Corpuscular Hgb Conc 34.8 g/dL (32.0-36.0); Mean Corpuscular Volume 90.1 fL (80.0-100.0); Platelet Count 208 K/uL (130-400); RDW Coefficient of Variation 12.6 % (11.5-14.5); RDW Standard Deviation 41.7 fL (36.4-46.3); Red Blood Count 3.73 M/uL (4.20-5.40); White Blood Count 18.15 K/ul (4.8-10.8)
[2023-01-22 06:35] LABS: BUN Creatinine Ratio 17.9 (10-20); Calcium 7.7 mg/dl (8.6-10.3); Creatinine Clr Calc Pharmacy 53.3 ml/min; Est GFR (African American) 55.1 ml/min; Est GFR (Non-African American) 47.5 ml/min; Potassium 4.1 mmol/L (3.5-5.1)
[2023-01-22] MEDS: MAGNESIUM OXIDE 400 MG TAB PO SCH (08:22)
[2023-01-22] MEDS: Scopolamine CHECK PATCH PLACEMENT SCH (08:23)
[2023-01-22] MEDS: ASCORBIC ACID 500 MG TAB PO SCH (08:23)
[2023-01-22] MEDS: METOPROLOL SUCC 25MG EXT REL TAB PO SCH (08:23)
[2023-01-22] MEDS: LOSARTAN POTASSIUM 25 MG TAB PO SCH (08:23)
[2023-01-22] MEDS: VENLAFAXINE HCL XR 75 MG CAPXR PO SCH ×2 (08:24→12:41)
[2023-01-22] MEDS: traZODone HCL 50 MG TAB PO SCH (08:24)
[2023-01-22] MEDS: SENNA 8.6 MG TAB PO SCH (08:25)
[2023-01-22] MEDS: DOCUSATE SODIUM 100 MG CAP PO SCH (08:25)
[2023-01-22] MEDS: oxyCODONE HCL IR 5 MG TAB (IMMEDIATE RELEASE) PO PRN (08:36)
[2023-01-22] MEDS ORDERED: FUROSEMIDE 40 MG TAB PO SCH (09:00)
[2023-01-22] MEDS ORDERED: ASPIRIN 81 MG ECTAB PO SCH (09:00)
[2023-01-22] MEDS ORDERED: MULTIVITAMIN TAB PO SCH (09:00)
--- NOTE | 2023-01-22 13:24 | Progress Notes ---
SUBJECTIVE: A 67-year-old white female postoperative day 1 from a left knee replacement. She is doi ng well. Denies any significant pain. Therapy went well. Hoping to go home. Denies any chest pain , shortness of breath. Not feeling dizzy or lightheaded. OBJECTIVE: VITAL SIGNS: Temperature 37.0. Vital signs are stable. GENERAL: Shows a pleasant, elderly female. She is sitting up in bed, talking to her friend. She lo oks comfortable. LUNGS: Clear to auscultation. HEART: Has a regular rate and rhythm. ABDOMEN: Soft, nontender, nondistended. EXTREMITIES: Grossly neurovascularly intact except as follows. Examination of the left leg reveals the dressing to be in place. There is a little bit of bloody florencio inage and has been reinforced. She can do a good straight leg raise. She can dorsiflex and plantarf dax her foot appropriately. She is neurologically intact. LABORATORY DATA: Hemoglobin 11.7. Hematocrit 33.6. Electrolytes are stable. ASSESSMENT: A 67-year-old white female postoperative day 1 from a left knee replacement, doing quite well. Pain is controlled. She is neurologically intact. She is hoping to go home. PLAN: 1. DVT prophylaxis includes thigh-high TEDs, SCDs and back on Eliquis. We will use 2.5 mg today and then bump up to regular dose tomorrow. 2. PT/OT. She can weightbear as tolerated. Left total knee protocol. 3. Pain control, doing okay with current pain regimen. 4. Disposition: Plan to discharge to home with some home health today. Job ID: [id number]
[2023-01-22] MEDS ORDERED: APIXABAN 2.5 MG TAB PO SCH (14:00)
--- NOTE | 2023-01-24 18:08 | Discharge Summary ---
Date of Service January 24, 2023 Discharge Data Procedures Performed Operation Date: 01/21/23 10:00 Actual Procedures p Left Total Knee Arthroplasty(Left) - Caden Trinidda MD Hospital Course (1) Status post total left knee replacement: This is a 67 year old patient admitted on 01/21/23 and underwent total knee arthroplasty. She tolerated the procedure well and there were no complications. Transferred to the PACU post op and later to the orthopedic floor for further care. She was given ancef for antibiotic prophylaxis. She was also given ANTONIO stockings, SCDs, and eliquis for DVT prophylaxis. Hemoglobin, hematocrit, and vital signs were monitored during her hospital stay and remained stable. Did not require any blood transfusions. There were no complications during her hospital stay. By post op day #1 the patient was tolerating a diabetic diet, pain was reasonably controlled with oral pain medicine, and she was participating in physical therapy. On post op day #1 the patient was discharged home and set up with home health care. She was given printed discharge instructions including prescriptions for extra strength tylenol, cefadroxil, zofran, senokot, and oxycodone. Continue physical therapy, weight bearing as tolerated. Continue ANTONIO stockings. Follow up approximately 2 weeks post op or sooner if there are problems or concerns. Coding Level of Care Code None Diagnoses Status post total left knee replacement Z96.652
== END 2023-01-22 13:24 | disposition home health service (06) ==
LOC: ASU 07:44 → 3E 07:44

== ENCOUNTER 2024-03-04 17:01 | Inpatient (IN) ==
[2024-03-04 17:55] LABS: Basophils # (auto) 0.07 K/uL (0.00-0.20); Basophils % (auto) 0.7 %; Eosinophils # (auto) 0.08 K/uL (0.00-0.50); Eosinophils % (auto) 0.8 %; Hematocrit (blood only) 39.9 % (37.0-47.0); Hemoglobin 13.1 g/dl (12.0-16.0); Immature Granulocytes # (auto) 0.05 K/uL (0.01-0.20); Immature Granulocytes % (auto) 0.5 %; Lymphocytes # (auto) 1.89 K/uL (1.20-3.40); Mean Corpuscular Hemoglobin 29.4 pg (25.0-34.0); Mean Corpuscular Hgb Conc 32.8 g/dL (32.0-36.0); Mean Corpuscular Volume 89.5 fL (80.0-100.0); Mean Platelet Volume 8.8 fL (9.4-12.4); Monocytes # (auto) 0.85 K/uL (0.11-0.59); Monocytes % (auto) 8.1 %; Neutrophils # (auto) 7.57 K/uL (1.40-6.50); Neutrophils % (auto) 71.9 %; Platelet Count 214 K/uL (130-400); RDW Coefficient of Variation 14.3 % (11.5-14.5); RDW Standard Deviation 46.3 fL (36.4-46.3); Red Blood Count 4.46 M/uL (4.20-5.40); White Blood Count 10.51 K/ul (4.8-10.8)
[2024-03-04] MEDS: FUROSEMIDE 40 MG/4 ML VIAL IV ONE (18:07)
[2024-03-04] MEDS: MoRPHine SULFATE 4 MG/ML 1 ML CARP\\VIAL IV STA (18:07)
[2024-03-04] MEDS: ASPIRIN CHEW 324 MG PO STA (18:07)
[2024-03-04] MEDS: ONDANSETRON INJ 2 MG/ML 2 ML VIAL IV STA (18:07)
--- NOTE | 2024-03-04 18:14 | Emergency Department Note ---
Impression & Plan Hypertension, Pulmonary edema, Elevated troponin I level ED Provider Note NAME: MARY GRANADOS AGE: 68 SEX: F : 1955 ARRIVES VIA: Walk-In INFORMANT: Patient, ED PROVIDER(S): Loy Valverde DO CHIEF COMPLAINT: Shortness of breath HPI: The patient is a 68-year-old female whose been having problems of the course the last few weeks. The patient has been noticing difficulty breathing as well as epigastric pain. She also notices some chest pain at times. She has been using nitroglycerin for her shortness of breath because she thinks it could be related to her heart. She had a follow-up appointment with her robotic weld technician today. She was waiting for this appointment until she saw provider but the appointment was canceled so she came to the emergency department for further evaluation. She does complain of some leg swelling. She denies having any nausea or vomiting. She denies have any rectal bleeding. ROS: See above HPI for pertinent positives & negatives. A total of 10 systems reviewed and were otherwise negative. PAST MEDICAL HISTORY: See Below PAST SURGICAL HISTORY: See Below FAMILY HISTORY: See Below SOCIAL HISTORY: See Below HOME MEDICATIONS: See Below ALLERGIES: See Below VITALS: See Below PHYSICAL EXAMINATION: GENERAL: Patient is awake alert in no acute distress patient is resting comfortably and showing no signs of anxiety EYES: The conjunctivae are clear. The pupils are round and reactive. EARS, NOSE, MOUTH AND THROAT: The nose is without any evidence of any deformity. NECK: The neck is nontender and supple. RESPIRATORY: Diminished breath sounds are noted at both bases. There were rales both bases. CARDIOVASCULAR: Regular rate and rhythm noted there no murmurs rubs or gallops normal S1 normal S2. GASTROINTESTINAL: The abdomen is soft. Abdomen is nontender. MUSCULOSKELETAL/EXTREMITIES: There is no evidence of gross deformity full range of motion is noted in the hips and shoulders. SKIN: Trace pedal edema was noted bilaterally. NEUROLOGIC: Patient is awake alert and oriented x3 MEDICAL DECISION MAKING: The patient is a 68-year-old female who presented to the emergency department for an evaluation of elevated blood pressure. She has been having what sounds like chest pain but also shortness of breath. She had signs of pulmonary edema on chest x-ray. I discussed the patient's laboratory and radiographic studies with her. She was treated with aspirin as well as Lasix. She was also treated with morphine. Blood pressure significantly improved. The patient's symptoms also significantly improved. Given her elevated troponin I [facility] have agreed to evaluate the patient in the emergency department for further management and disposition. Triage Nursing notes reviewed. Prior medical records reviewed Vital Signs: reviewed and remarkable for no significant abnormalities Differential diagnosis: Cardiac ischemia, aortic dissection, pulmonary embolism, pneumothorax, pneumonia, pericarditis, myocarditis, esophageal rupture, GERD, cholecystitis, pancreatitis, musculoskeletal, as well as other pathologies. ER treatment provided: See below Diagnostics interpreted by me: ECG: EKG was obtained in the emergency department. My interpretation is normal sinus rhythm at 82 bpm. PVCs were noted. LVH was noted by voltage criteria. Poor R wave progression was noted. This was compared to a tracing from June 05, 2022. No significant changes were noted. Cardiac Monitoring: An order was placed for continuous cardiac monitoring. The monitor shows a rate of 72 bpm with sinus rhythm. Laboratory studies: As stated above and show below. Imaging studies: See below. Radiographic imaging was reviewed by myself Consultation(s): [facility] hospitalist, Dr. Terry was notified about the patient. 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, shift work type Status post total left knee replacement Depression (Chronic) Anxiety (Chronic) Fatty liver (Chronic) S/P coronary artery stent placement (Chronic) Bronchitis History of coronary artery disease Knee pain CAD (coronary artery disease), [place] coronary artery Paroxysmal atrial fibrillation Left knee DJD Insomnia Dysuria (Acute) Acute UTI Bilateral hand swelling Cardiomyopathy History of obstructive sleep apnea CHF (congestive heart failure), NYHA class III Dyslipidemia CKD (chronic kidney disease), stage III Per records Diabetes mellitus, type II (Chronic) IDDM RLS (restless legs syndrome) (Chronic) Diabetic neuropathy (Chronic) HTN (hypertension) (Chronic) H/O tubal ligation (Chronic) H/O dilation and curettage (Chronic) S/P tonsillectomy and adenoidectomy (Chronic) H/O shoulder surgery (Chronic) R/L Medical History Constipation Encounter for pre-operative examination Dizziness Osteoarthritis Fatty liver History of colonic polyps Diverticular disease Depression Anxiety CAD (coronary artery disease) s/p SILVIANO to LAD in 2014 Myocardial Infarction 2014 Atrial fibrillation Dx 2019 Follows w/ Dr. Cee Multinodular goiter Surgical History History of hip surgery Left hip fracture > cannulated screw fixation (06/05/22): Grade view 1, MAC#4, ETT 7.0 at [facility] History of cataract surgery History of tooth extraction History of colonoscopy History of heart artery stent x1 (2014) History of cardiac cath 2014 > stent x1 Family History Mother Non-Hodgkin lymphoma Grandfather (Maternal) Bladder cancer Father Hypertension Myocardial infarction Grandfather (Paternal) Hypertension Grandmother (Paternal) Hypotension Other No family history of adverse response to anesthesia Denies family history of Ovarian cancer Prostate cancer Breast cancer Colorectal cancer Colonic polyp Social History Smoking Status: Never smoker Second Hand Exposure: No; Do You Dip or Chew Tobacco: No; Hx Alcohol Use: No Hx Substance Use: No Preferred Language: Filipino Communication Ability: Effective Visual Impairment: No Limitations Hearing Ability: Normal Cartographic Engineer Required: No Beliefs That Will Affect Care: None marital status: Current Living Situation: Alone current occupational status: retired 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 [employer] Feels Safe at Home: Yes Childhood Exposure to Second-Hand Smoke: No Diet: regular Dental Care, Regularly: No Physical Activity Frequency: Does not Exercise Seatbelt Use: never Sunscreen Use: Yes Assistive Devices: Walker Allergies Allergies Allergy/AdvReac Type Severity Reaction Status Date / Time Penicillins Allergy Intermediate RASH/ITCHIN Verified 12/01/23 13:14 G Iodinated Contrast Media AdvReac Intermediate NAUSEA/VOMI Verified 12/01/23 13:14 TTING Home Meds Previous Rx's Medication Instructions Recorded aspirin 81 mg tablet,delayed 81 mg PO QAM #30 tabs 06/13/22 release magnesium oxide 400 mg (241.3 mg 400 mg PO BID #30 tabs 06/13/22 magnesium) tablet melatonin 3 mg tablet 6 mg (2 x 3 mg) PO HS PRN sleep 06/13/22 #30 tabs polyethylene glycol 3350 17 gram 17 g PO DAILY PRN Constipation #30 06/13/22 oral powder packet (Miralax) ea acetaminophen 500 mg tablet 1,000 mg (2 x 500 mg) PO TID pain 01/19/23 (Tylenol Extra Strength) 30 days #180 tabs sennosides 8.6 mg tablet (Senokot) 8.6 mg PO BID prevent constipation 01/19/23 14 days #28 tabs trazodone 50 mg tablet 50 mg PO DAILY #30 tabs 03/12/23 pen needle, diabetic 31 gauge x #100 ea 04/28/23/16" (BD Ultra-Fine Short Pen Needle) insulin glargine 100 unit/mL (3 35 unit (0.35 mL) subcut HS #15 mL 10/14/23 mL) subcutaneous pen (SafetyCultureaglNovaSom DemetriusPen U-100 Insulin) doxepin 10 mg capsule 10 mg PO .COMPLEX #60 caps 10/21/23 diltiazem HCl 180 mg 180 mg PO DAILY #90 caps 11/13/23 capsule,extended release 24 hr nitroglycerin 0.4 mg sublingual 0.4 mg sublingual DIRECTED PRN 11/13/23 tablet Chest Pain #25 tabs apixaban 5 mg tablet (Eliquis) 5 mg PO BID #180 tabs 11/18/23 ezetimibe 10 mg tablet (Zetia) 10 mg PO HS #90 tabs 11/18/23 flash glucose scanning reader #1 ea 11/18/23 (FreeStyle Chanelle 2 Novi) flash glucose sensor (FreeStyle #6 ea 11/18/23 Chanelle 2 Sensor kit) furosemide 40 mg tablet 40 mg PO QAM #90 tabs 11/18/23 losartan 50 mg tablet 50 mg PO BID #180 tabs 11/18/23 metformin 500 mg tablet,extended 500 mg PO BID #180 tabs 11/18/23 release 24 hr metoprolol succinate 25 mg 25 mg PO BID #180 tabs 11/18/23 tablet,extended release 24 hr rosuvastatin 40 mg tablet 40 mg PO HS #90 tabs 11/18/23 sertraline 100 mg tablet 100 mg PO DAILY #90 tabs 11/18/23 temazepam 30 mg capsule 30 mg PO ONCE #30 caps 11/27/23 Results & Data (ED) Vital Signs Vital Signs - 24 hr 03/04/24 17:06 03/04/24 17:10 03/04/24 18:09 Temperature 36.8 C Temperature Source Temporal Artery Scan Pulse Rate 84 87 Pulse Rate [Apical] Pulse Rate from SpO2 Sensor 79 Respiratory Rate 16 Respiratory Effort / Characteristics Non-Labored Spontaneous Respiratory Depth Normal Respiratory Pattern Blood Pressure 199/100 H Blood Pressure [Right Arm] Blood Pressure Mean 133 Blood Pressure Mean [Right Arm] Pulse Oximetry 92 94 92 Oxygen Delivery Method Room Air Nasal Cannula Oxygen Flow Rate 2 Fraction of Inspired Oxygen Sepsis Recent Fever Within 48 Hours No Sepsis New/Unexplained Change in Mental Status No Sepsis Action Taken by Nursing No Action Required 03/04/24 18:12 03/04/24 18:24 03/04/24 18:33 Temperature Temperature Source Pulse Rate 89 82 81 Pulse Rate [Apical] Pulse Rate from SpO2 Sensor 89 74 Respiratory Rate 20 19 19 Respiratory Effort / Characteristics Respiratory Depth Respiratory Pattern Blood Pressure 170/82 H Blood Pressure [Right Arm] Blood Pressure Mean 111 Blood Pressure Mean [Right Arm] Pulse Oximetry 88 L 95 Oxygen Delivery Method Oxygen Flow Rate Fraction of Inspired Oxygen Sepsis Recent Fever Within 48 Hours Sepsis New/Unexplained Change in Mental Status Sepsis Action Taken by Nursing 03/04/24 18:37 03/04/24 19:38 Temperature Temperature Source Pulse Rate Pulse Rate [Apical] 72 Pulse Rate from SpO2 Sensor Respiratory Rate 18 Respiratory Effort / Characteristics Non-Labored Respiratory Depth Normal Respiratory Pattern Regular Blood Pressure Blood Pressure [Right Arm] 138/84 Blood Pressure Mean Blood Pressure Mean [Right Arm] 102 Pulse Oximetry 94 95 Oxygen Delivery Method Room Air Nasal Cannula Oxygen Flow Rate 88 2 Fraction of Inspired Oxygen 2 Sepsis Recent Fever Within 48 Hours Sepsis New/Unexplained Change in Mental Status Sepsis Action Taken by Longterm Medications Current Medication List: was personally reviewed by me Laboratory Data Attestation: I reviewed the patient's lab results. 03/04/24 17:40 03/04/24 18:36 Lab Results 03/04/24 03/04/24 03/04/24 Range/Units 17:40 18:36 19:32 WBC 10.51 (4.8-10.8) K/ul RBC 4.46 (4.20-5.40) M/uL Hgb 13.1 (12.0-16.0) g/dl Hct 39.9 (37.0-47.0) % MCV 89.5 (80.0-100.0) fL MCH 29.4 (25.0-34.0) pg MCHC 32.8 (32.0-36.0) g/dL RDW Std Deviation 46.3 (36.4-46.3) fL RDW Coeff of Carissa 14.3 (11.5-14.5) % Plt Count 214 (130-400) K/uL MPV 8.8 L (9.4-12.4) fL Immature Gran % (Auto) 0.5 % Neut % (Auto) 71.9 % Lymph % (Auto) 18.0 % Alpine % (Auto) 8.1 % Eos % (Auto) 0.8 % Baso % (Auto) 0.7 % Neut # (Auto) 7.57 H (1.40-6.50) K/uL Lymph # (Auto) 1.89 (1.20-3.40) K/uL Alpine # (Auto) 0.85 H (0.11-0.59) K/uL Eos # (Auto) 0.08 (0.00-0.50) K/uL Baso # (Auto) 0.07 (0.00-0.20) K/uL Immature Gran # (Auto) 0.05 (0.01-0.20) K/uL PT 11.2 (9.0-12.0) Seconds INR 1.0 (0.9-1.1) APTT 27 (21-31) Seconds PTT Ratio 1.0 Sodium TNP 138 Potassium TNP 4.8 Chloride 103 (98-107) mmol/L Carbon Dioxide 28 (21-32) mmol/L Anion Gap TNP BUN 22 (6-23) mg/dl Creatinine 1.12 (0.6-1.2) mg/dl Est Cr Clr Drug Dosing 57.3 ml/min Est GFR ( Amer) 57.6 ml/min Est GFR (Non-Af Amer) 49.7 ml/min BUN/Creatinine Ratio 19.6 (10-20) Glucose 132 H (70-99(Fasting)) mg/dl Calcium 8.6 (8.6-10.3) mg/dl Total Bilirubin 0.4 (0.2-1.0) mg/dl AST TNP 12 L ALT 10 (7-52) U/L Alkaline Phosphatase 105 H (34-104) U/L Troponin I High Sens 28.2 H 30.7 H (0-14) pg/ml B-Natriuretic Peptide 726 H (0-100) pg/ml Total Protein 7.1 (6.0-8.3) gm/dl Albumin 4.2 (3.4-5.0) gm/dl Globulin 2.9 (2.5-4.0) gm/dl Albumin/Globulin Ratio 1.4 (0.9-2) Administered Medications Discontinued Medications Aspirin (Aspirin Chew 324 Mg) 324 mg PO NOW STA Stop: 03/04/24 18:02 Last Admin: 03/04/24 18:07 Dose: 324 mg Documented By: KT Furosemide (Furosemide 40 Mg/4 Ml Vial) 40 mg IV ONE ONE Stop: 03/04/24 18:02 Last Admin: 03/04/24 18:07 Dose: 40 mg Documented By: KT Morphine Sulfate (Morphine Sulfate 4 Mg/Ml 1 Ml Carp\\Vial) 4 mg IV NOW STA Stop: 03/04/24 18:02 Last Admin: 03/04/24 18:07 Dose: 4 mg Documented By: KT Ondansetron HCl (Ondansetron Inj 2 Mg/Ml 2 Ml Vial) 4 mg IV NOW STA Stop: 03/04/24 18:02 Last Admin: 03/04/24 18:07 Dose: 4 mg Documented By: KT Imaging Data Attestation: I personally reviewed and interpreted this imaging study as follows: My Impression: 1 view chest x-ray was obtained in the emergency department. My interpretation is no free air or definite infiltrate, final report below. Radiologist's Impression: Chest X-Ray 03/04/24 17:10 SINGLE VIEW CHEST CLINICAL HISTORY: Atypical chest pain. FINDINGS: An AP upright chest radiograph is compared to study dated 06/05/2022 and correlated with chest CT dated 10/16/2019. The heart is enlarged noting atherosclerotic calcification of the thoracic aorta. There is pulmonary vascular congestion. Scarring/atelectasis is noted at the lung bases. No large pleural effusion or pneumothorax is seen. The skeletal structures are osteopenic. The bony thorax is grossly intact. IMPRESSION: Cardiomegaly with evidence of congestive failure. ACT 112: Negative or not required by law. Electronically signed by: Huseyin Hooks M.D. 03/04/2024 7:52 PM Discharge Plan Visit Data Chief Complaint: Shortness of Breath/Dyspnea Stated Complaint: SOB, CHEST AND ABD PAIN, NECK PAIN ED Provider: Loy Valverde Discharge Problem: Hypertension, Pulmonary edema, Elevated troponin I level Patient Disposition: Being Evaluated by Hospitalist Forms Stand Alone Forms: My [facility] Prescriptions Prescriptions: No Action sennosides [Senokot] 8.6 mg tablet 8.6 mg PO BID 14 Days Qty: 28 0RF Rx Instructions: Take two times a day to prevent/treat constipation acetaminophen [Tylenol Extra Strength] 500 mg tablet 1,000 mg PO TID 30 Days Qty: 180 0RF Rx Instructions: Take 3 times per day to lessen paon. trazodone 50 mg tablet 50 mg PO DAILY Qty: 30 11RF (DME) pen needle, diabetic [BD Ultra-Fine Short Pen Needle] 31 gauge x 5/16" needle See Rx Instructions .Route Qty: 100 5RF Rx Instructions: TO USE WITH INSULIN ONCE DAILY; DX CODE-E11.9 insulin glargine [Basaglar KwikPen U-100 Insulin] 100 unit/mL (3 mL) insulin pen 35 unit subcut HS Qty: 15 5RF doxepin 10 mg capsule 10 mg PO .COMPLEX Qty: 60 5RF Rx Instructions: 10 mg PO One or 2 as needed for sleep at night; temazepam 30 mg capsule 30 mg PO ONCE Qty: 30 5RF (DME) FreeStyle Chanelle 2 Sensor Kit See Rx Instructions .Route Qty: 6 3RF Rx Instructions: continuous glucose monitoring (DME) FreeStyle Chanelle 2 Novi Misc See Rx Instructions .ROUTE .MEDSUPPLY Qty: 1 0RF Rx Instructions: continuous glucose monitoring Eliquis 5 mg tablet 5 mg PO BID Qty: 180 3RF furosemide 40 mg tablet 40 mg PO QAM Qty: 90 3RF metoprolol succinate 25 mg tablet extended release 24 hr 25 mg PO BID Qty: 180 3RF rosuvastatin 40 mg tablet 40 mg PO HS Qty: 90 3RF sertraline 100 mg tablet 100 mg PO DAILY Qty: 90 3RF ezetimibe [Zetia] 10 mg tablet 10 mg PO HS Qty: 90 3RF metformin 500 mg tablet extended release 24 hr 500 mg PO BID Qty: 180 3RF losartan 50 mg tablet 50 mg PO BID Qty: 180 3RF diltiazem HCl 180 mg capsule,extended release 24hr 180 mg PO DAILY Qty: 90 3RF nitroglycerin 0.4 mg tablet, sublingual 0.4 mg Sublingual DIRECTED PRN (Reason: Chest Pain) Qty: 25 5RF polyethylene glycol 3350 [Miralax] 17 gram Powder In Packet 17 g PO DAILY PRN (Reason: Constipation) Qty: 30 0RF melatonin 3 mg Tablet 6 mg PO HS PRN (Reason: sleep) Qty: 30 0RF aspirin 81 mg Tablet,Delayed Release (Dr/Ec) 81 mg PO QAM Qty: 30 0RF magnesium oxide 400 mg (241.3 mg magnesium) Tablet 400 mg PO BID Qty: 30 0RF Referrals Referrals: Julius Rodriguez DO [Primary Care Provider] - Discharge Problem: Hypertension Qualifiers: Hypertension type: unspecified Qualified Code(s): I10 - Essential (primary) hypertension Pulmonary edema Qualifiers: Chronicity: acute Qualified Code(s): J81.0 - Acute pulmonary edema
[2024-03-04 18:20] LABS: Alanine Aminotransferase 10 U/L (7-52); Albumin Globulin Ratio 1.4 (0.9-2); Albumin Level 4.2 gm/dl (3.4-5.0); Alkaline Phosphatase 105 U/L (34-104); BUN Creatinine Ratio 19.6 (10-20); Bilirubin,Total 0.4 mg/dl (0.2-1.0); Blood Urea Nitrogen 22 mg/dl (6-23); Calcium 8.6 mg/dl (8.6-10.3); Carbon Dioxide 28 mmol/L (21-32); Chloride 103 mmol/L (98-107); Creatinine Clr Calc Pharmacy 57.3 ml/min; Est GFR (African American) 57.6 ml/min; Est GFR (Non-African American) 49.7 ml/min; Globulin 2.9 gm/dl (2.5-4.0); Glucose 132 mg/dl (70-99(Fasting)); Total Protein 7.1 gm/dl (6.0-8.3); Troponin I High Sensitivity 28.2 pg/ml (0-14)
[2024-03-04 18:21] LABS: Partial Thromboplastin Time 27 Seconds (21-31); Prothrombin Time 11.2 Seconds (9.0-12.0)
[2024-03-04 19:13] LABS: Potassium 4.8 mmol/L (3.5-5.1)
--- NOTE | 2024-03-04 19:53 | XRay Report ---
SINGLE VIEW CHEST CLINICAL HISTORY: Atypical chest pain. FINDINGS: An AP upright chest radiograph is compared to study dated 06/05/2022 and correlated with [facility] CT dated 10/16/2019. The heart is enlarged noting atherosclerotic calcification of the thoracic aort a. There is pulmonary vascular congestion. Scarring/atelectasis is noted at the lung bases. No large pleural effusion or pneumothorax is seen. The skeletal structures are osteopenic. The bony thorax is grossly intact. IMPRESSION: Cardiomegaly with evidence of congestive failure. ACT 112: Negative or not required by law. Electronically signed by: Huseyin Hooks M.D. 03/04/2024 7:52 PM
--- NOTE | 2024-03-04 21:04 | History & Physical Report ---
Date of Service March 04, 2024 Assessment & Plan (1) Acute exacerbation of CHF (congestive heart failure): (2) Insulin dependent type 2 diabetes mellitus: (3) S/P coronary artery stent placement: (4) History of coronary artery disease: (5) History of obstructive sleep apnea: (6) CKD (chronic kidney disease), stage III: Plan 68-year-old female with past medical history of type 2 diabetes, hypertension that is not well-controlled, coronary artery disease, paroxysmal atrial fibrillation currently on Eliquis, dyslipidemia, insomnia, anxiety with depression, and HFrEF who was admitted for management of heart failure exacerbation. HFrEF exacerbation -Patient with 6 weeks of shortness of breath that worsens with exertion and noted swelling in bilateral lower extremities -BNP elevated above 700, and troponins with slight increase to 30.7 -Noncompliant with low-salt diet -Status post Lasix 40 mg IV in the ED -Last weight in EMR of 100 kg, but all weights before this averaging around 95 kg -Last ECHO on 07/07 with ejection fraction of 40 to 45%, no valvular abnormalities, and mild hypokinesis of left ventricle -Will admit to PCU/telemetry for IV diuresis -Strict I's and O's -Daily weight checks -Lasix 40 mg IV twice daily -Low-salt diet -Trend troponins to peak -TTE ordered -Monitor renal function during IV diuresis and other electrolytes with daily metabolic panel Hypertension -Not well-controlled on home losartan 50 mg and metoprolol succinate -Currently blood pressure improved -Will continue home medication regimen for now -If blood pressures remain uncontrolled during hospital stay, consider modifying antihypertensive regimen versus outpatient follow-up Right upper quadrant pain -Physical exam showing right upper quadrant pain on palpation, as well as epigastric pain that patient states is more due to radiation to right upper quadrant -Patient without history of fevers, shivers, weakness, nausea or vomiting, or noted jaundice -Given patient's obese habitus, hyperlipidemia, and other risk factors, will order CTAP for further evaluation Paroxysmal A-fib -Not currently in A-fib and heart rate well-controlled in the 70s -Continue home metoprolol succinate and Eliquis 5 mg twice daily Diabetes mellitus type 2 -Blood sugar at the time of admission around 130 -Last hemoglobin A1c on 02/05 showing level 7.6 (improved from 8.3 on 07/07) -Lantus and SSI ordered Anxiety with depression -Continue home sertraline Hyperlipidemia/CAD -Continue home ezetimibe, aspirin 81 mg, metoprolol, and rosuvastatin 40 mg Insomnia -Patient with long history of insomnia -Continue home trazodone and doxepin Dispo: Admit to PCU/telemetry Fluids: None Diet: Heart healthy, low-salt, DM2 Pain Control: None VTE ppx: Eliquis 5 mg twice daily Code Status: Full History of Present Illness Chief Complaint: SOB and swelling Primary Care Provider: Julius Rodriguez DO 68-year-old female with past medical history of type 2 diabetes, hypertension that is not well-controlled, coronary artery disease, paroxysmal atrial fibrillation currently on Eliquis, dyslipidemia, insomnia, anxiety with depressi on, and HFrEF who arrived to the emergency department due to 6 weeks of shortness of breath that is worse with exertion. She uses nasal cannula at 2 lpm at baseline when she is going to sleep as was recommended to her by her sleep medicine physician. Patient describes her blood pressure has not been very well-controlled since even before her shortness of breath began, and that her blood pressure in office while seeing her PCP has been mostly around 170s or 180s systolic. She talked to her licensed clinical social worker office about this and they had started losartan 50 mg, however her blood pressure has not reached goal and has remained elevated despite this addition. Other than her shortness of breath that has worsened acutely this last week, patient also describes having pain in her left arm going up the left side of her neck that was relieved after taking a nitroglycerin at home. Also describes having left sided headache without other associated symptoms last night that was also relieved with nitroglycerin. She has been experiencing swelling in bilateral lower extremities that was not relieved when she elevated them at home. She states that she does not cook with salt, but does eat foods that are high in sodium such as luncheon meat and pre- prepared salads with ham. ED Course: Patient given 40 mg of IV Lasix, aspirin 324 mg given, pain control with morphine 4 mg given. Labs/Imaging: CBC with possible subjective elevation in WBC (7.75 from previous visit and 10.5. Current visit with neutrophilic predominance), hemoglobin 13.1, platelets of 214, coagulation studies within normal limits, electrolytes within reference range, renal markers within appropriate range, blood sugar of 132, liver enzymes within normal limits, troponin of 28.2 on arrival at that increased to 30.7 hours later, BNP of 726. Chest x-ray without evidence of pleural effusions or pulmonary edema. Medical History: [Reviewed] Medications: [Reviewed] Surgical History: [Reviewed] Allergies: [Reviewed] Social History: [Reviewed] Code Status: Full Allergies Allergy/AdvReac Type Severity Reaction Status Date / Time Penicillins Allergy Intermediate RASH/ITCHIN Verified 12/01/23 13:14 G Iodinated Contrast Media AdvReac Intermediate NAUSEA/VOMI Verified 12/01/23 13:14 TTING Home Medications Medication Instructions Recorded Confirmed Type aspirin 81 mg tablet,delayed 81 mg PO QAM #30 tabs 06/13/22 12/01/23 Rx release magnesium oxide 400 mg (241.3 mg 400 mg PO BID #30 tabs 06/13/22 12/01/23 Rx magnesium) tablet melatonin 3 mg tablet 6 mg (2 x 3 mg) PO HS PRN sleep 06/13/22 12/01/23 Rx #30 tabs polyethylene glycol 3350 17 gram 17 g PO DAILY PRN Constipation #30 06/13/22 12/01/23 Rx oral powder packet (Miralax) ea acetaminophen 500 mg tablet 1,000 mg (2 x 500 mg) PO TID pain 01/19/23 12/01/23 Rx (Tylenol Extra Strength) 30 days #180 tabs sennosides 8.6 mg tablet (Senokot) 8.6 mg PO BID prevent constipation 01/19/23 12/01/23 Rx 14 days #28 tabs trazodone 50 mg tablet 50 mg PO DAILY #30 tabs 03/12/23 12/01/23 Rx pen needle, diabetic 31 gauge x #100 ea 04/28/23 12/01/23 Rx 5/16" (BD Ultra-Fine Short Pen Needle) insulin glargine 100 unit/mL (3 35 unit (0.35 mL) subcut HS #15 mL 10/14/2311/13 Rx mL) subcutaneous pen (Basaglar KwikPen U-100 Insulin) doxepin 10 mg capsule 10 mg PO .COMPLEX #60 caps 10/21/23 12/01/23 Rx diltiazem HCl 180 mg 180 mg PO DAILY #90 caps 11/13/23 12/01/23 Rx capsule,extended release 24 hr nitroglycerin 0.4 mg sublingual 0.4 mg sublingual DIRECTED PRN 11/13/23 12/01/23 Rx tablet Chest Pain #25 tabs apixaban 5 mg tablet (Eliquis) 5 mg PO BID #180 tabs 11/18/23 12/01/23 Rx ezetimibe 10 mg tablet (Zetia) 10 mg PO HS #90 tabs 11/18/23 12/01/23 Rx flash glucose scanning reader #1 ea 11/18/23 12/01/23 Rx (FreeStyle [place] 2 [place]) flash glucose sensor (FreeStyle #6 ea 11/18/23 12/01/23 Rx Chanelle 2 Sensor kit) furosemide 40 mg tablet 40 mg PO QAM #90 tabs 11/18/23 12/01/23 Rx losartan 50 mg tablet 50 mg PO BID #180 tabs 11/18/23 12/01/23 Rx metformin 500 mg tablet,extended 500 mg PO BID #180 tabs 11/18/23 12/01/23 Rx release 24 hr metoprolol succinate 25 mg 25 mg PO BID #180 tabs 11/18/23 12/01/23 Rx tablet,extended release 24 hr rosuvastatin 40 mg tablet 40 mg PO HS #90 tabs 11/18/23 12/01/23 Rx sertraline 100 mg tablet 100 mg PO DAILY #90 tabs 11/18/23 12/01/23 Rx temazepam 30 mg capsule 30 mg PO ONCE #30 caps 11/27/23 12/01/23 Rx 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, shift work type Status post total left knee replacement Depression (Chronic) Anxiety (Chronic) Fatty liver (Chronic) S/P coronary artery stent placement (Chronic) Bronchitis History of coronary artery disease Knee pain CAD (coronary artery disease), [place] coronary artery Paroxysmal atrial fibrillation Left knee DJD Insomnia Dysuria (Acute) Acute UTI Bilateral hand swelling Cardiomyopathy History of obstructive sleep apnea CHF (congestive heart failure), NYHA class III Dyslipidemia CKD (chronic kidney disease), stage III Per records Diabetes mellitus, type II (Chronic) IDDM RLS (restless legs syndrome) (Chronic) Diabetic neuropathy (Chronic) HTN (hypertension) (Chronic) H/O tubal ligation (Chronic) H/O dilation and curettage (Chronic) S/P tonsillectomy and adenoidectomy (Chronic) H/O shoulder surgery (Chronic) R/L Medical History Constipation Encounter for pre-operative examination Dizziness Osteoarthritis Fatty liver History of colonic polyps Diverticular disease Depression Anxiety CAD (coronary artery disease) s/p SILVIANO to LAD in 2014 Myocardial Infarction 2014 Atrial fibrillation Dx 2020 Follows w/ Dr. Cee Multinodular goiter Surgical History History of hip surgery Left hip fracture > cannulated screw fixation (06/05/22): Grade view 1, MAC#4, ETT 7.0 at [facility] History of cataract surgery History of tooth extraction History of colonoscopy History of heart artery stent x1 (2014) History of cardiac cath 2014 > stent x1 Family History Mother Non-Hodgkin lymphoma Grandfather (Maternal) Bladder cancer Father Hypertension Myocardial infarction Grandfather (Paternal) Hypertension Grandmother (Paternal) Hypotension Other No family history of adverse response to anesthesia Denies family history of Ovarian cancer Prostate cancer Breast cancer Colorectal cancer Colonic polyp Social History Smoking Status: Never smoker Second Hand Exposure: No; Do You Dip or Chew Tobacco: No; Hx Alcohol Use: No Hx Substance Use: No Preferred Language: Azerbaijani Communication Ability: Effective Visual Impairment: No Limitations Hearing Ability: Normal Cornice Upholsterer Required: No Beliefs That Will Affect Care: None marital status: Current Living Situation: Alone current occupational status: retired 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 Feels Safe at Home: Yes Childhood Exposure to Second-Hand Smoke: No Diet: regular Dental Care, Regularly: No Physical Activity Frequency: Does not Exercise Seatbelt Use: never Sunscreen Use: Yes Assistive Devices: Walker Review of Systems Review of Systems: As per HPI Physical Exam Physical Exam: GENERAL: AAOx3, afebrile, calm, in no acute distress HEAD: Atraumatic and normocephalic EYES: EOM intact, pupils equal and reactive to light, noninjected conjunctiva THROAT: Normal to visual inspection CHEST: Symmetric chest rise with respirations CARDIO: Regular rate and rhythm, no rubs murmurs or gallops appreciated PULMONARY: Crackles on auscultation of bilateral lung bases, normal respiratory effort, nasal cannula at 1 L/min, normal respiratory effort, no respiratory distress GI: Soft, nondistended, tenderness to palpation of right upper quadrant and epigastric region, no tenderness elicited on palpation of other quadrants : No [place] EXTREMITIES: Mild swelling in bilateral lower extremities without pitting, no calf tenderness bilaterally SKIN: No rashes Results & Data Results & Data Vital Signs (Past 12 Hours) Vital Signs Temp Pulse Pulse Resp BP BP Pulse Ox 03/04/24 19:38 72 18 138/84 95 03/04/24 18:37 94 03/04/24 18:33 81 19 170/82 H 03/04/24 18:24 82 19 95 03/04/24 18:12 89 20 88 L 03/04/24 18:09 87 92 03/04/24 17:10 94 03/04/24 17:06 36.8 C 84 16 199/100 H 92 O2 Del Method O2 Flow Rate FiO2 03/04/24 19:38 Nasal Cannula 2 03/04/24 18:37 Room Air 88 2 03/04/24 18:33 03/04/24 18:24 03/04/24 18:12 03/04/24 18:09 03/04/24 17:10 Nasal Cannula 2 03/04/24 17:06 Room Air Supervising Physician Co-Signing Physician Notes Attending addendum: I have physically seen this patient, have supervised the medical residents activities, and agree with the H&P unless as otherwise noted. Assessment and Plan: Acute on chronic HFrEF/hypertension/CAD/coronary stent placement/PAF/cardiomyopathy- The patient will be admitted to telemetry for serial cardiac enzymes, serial EKG's, cardiac rhythm monitoring and a 2-D echocardiogram with Dopplers. Initial troponin 28.2, follow-up 30.7 BNP 726 Status post furosemide 40 mg IV and aspirin 324 mg in the ED Most recent echo on 07/09/2023 with ejection fraction 40-45% Hold oral furosemide, placed on furosemide 40 mg IV twice daily and follow clinical examination Continue apixaban, aspirin, diltiazem, losartan, metoprolol succinate Diabetes mellitus- Hold metformin Insulin glargine as noted Placed on Accu-Cheks with NovoLog SSI Check hemoglobin A1c Hyperlipidemia- Continue Zetia, and rosuvastatin Check a fasting lipid panel Resident Activity Tracking Resident Involvement: Resident Care Provided Care Provided: Adult [facility] Medicine
[2024-03-04] MEDS ORDERED: GLUCOSE 10 TAB/TUBE PO PRN (23:13)
[2024-03-04] MEDS ORDERED: GLUCOSE 40% GEL 15 GM TUBE PO PRN (23:13)
[2024-03-04] MEDS ORDERED: GLUCAGON FOR INJ 1 MG VIAL SQ PRN (23:13)
[2024-03-04] MEDS ORDERED: DEXTROSE 50% 50 ML SYRINGE IV PRN (23:13)
[2024-03-04] MEDS ORDERED: CARBOHYDRATES FOR HYPOGLYCEMIA PO PRN (23:13)
[2024-03-05] MEDS ORDERED: Nursing to Pharmacy Communication SCH (01:15)
[2024-03-05] MEDS: DOXEPIN HCL 10 MG CAPSULE PO PRN (01:37)
--- NOTE | 2024-03-05 01:57 | CT Scan Report ---
Exam(s): CT ABDOMEN + PELVIS Without Contrast EXAM: CT Abdomen and Pelvis Without Intravenous Contrast CLINICAL HISTORY: Reason for exam: RUQ and erpigastric pain. TECHNIQUE: Axial computed tomography images of the abdomen and pelvis without intravenous contrast. CTDI is 27.91 mGy and DLP is 1439.14 mGy-cm. Automated exposure control was utilized for the study. A dose lowering technique was utilized adhering to the principles of ALARA. COMPARISON: No relevant prior studies available. FINDINGS: Lung bases: See below. Pleural space: Small bilateral pleural effusions. Consolidation at the lung bases, likely atelectasis. Correlate for mild pneumonia. ABDOMEN: Liver: Unremarkable. Gallbladder and bile ducts: Small gallstones. No ductal dilation. Pancreas: Unremarkable. No ductal dilation. Spleen: Unremarkable. No splenomegaly. Adrenals: Unremarkable. No mass. Kidneys and ureters: Unremarkable. No hydronephrosis or nephrolithiasis. Stomach and bowel: Diverticulosis, without acute diverticulitis. No small bowel obstruction. No free intraperitoneal air. PELVIS: Appendix: No findings to suggest acute appendicitis. Bladder: Unremarkable. No stones. Normal urinary bladder. Reproductive: Calcified fundal fibroid measures 2.3 cm. ABDOMEN and PELVIS: Intraperitoneal space: Unremarkable. No free air. No significant fluid collection. Bones/joints: Degenerative changes of the spine. Percutaneous pinning of the left femoral neck. No acute fracture. No dislocation. Soft tissues: Unremarkable. Vasculature: Atherosclerotic changes of the aorta. No abdominal aortic aneurysm. Lymph nodes: Unremarkable. No enlarged lymph nodes. IMPRESSION: 1. No hydronephrosis or nephrolithiasis. 2. Small bilateral pleural effusions. Consolidation at the lung bases, likely atelectasis. Correlate for mild pneumonia. 3. Small gallstones. 4. Percutaneous pinning of the left femoral neck. 5. Diverticulosis, without acute diverticulitis. No small bowel obstruction. No free intraperitoneal air. Electronically signed by: Melo cEhols MD 03/05/24 01:56 AM
[2024-03-05 02:29] LABS: Basophils # (auto) 0.07 K/uL (0.00-0.20); Basophils % (auto) 0.7 %; Eosinophils # (auto) 0.12 K/uL (0.00-0.50); Eosinophils % (auto) 1.2 %; Hematocrit (blood only) 35.5 % (37.0-47.0); Hemoglobin 11.8 g/dl (12.0-16.0); Immature Granulocytes # (auto) 0.03 K/uL (0.01-0.20); Immature Granulocytes % (auto) 0.3 %; Lymphocytes % (auto) 20.6 %; Mean Corpuscular Hemoglobin 29.7 pg (25.0-34.0); Mean Corpuscular Hgb Conc 33.2 g/dL (32.0-36.0); Mean Corpuscular Volume 89.4 fL (80.0-100.0); Monocytes # (auto) 0.97 K/uL (0.11-0.59); Monocytes % (auto) 9.5 %; Neutrophils % (auto) 67.7 %; Platelet Count 195 K/uL (130-400); RDW Coefficient of Variation 14.4 % (11.5-14.5); RDW Standard Deviation 46.8 fL (36.4-46.3); Red Blood Count 3.97 M/uL (4.20-5.40); White Blood Count 10.19 K/ul (4.8-10.8)
--- NOTE | 2024-03-05 02:38 | Billing Data ---
Date of Service March 05, 2024 Coding Level of Care Code 87662 INT INP/OBS CARE
[2024-03-05 02:44] LABS: Albumin Globulin Ratio 1.4 (0.9-2); Albumin Level 3.8 gm/dl (3.4-5.0); BUN Creatinine Ratio 16.5 (10-20); Bilirubin,Total 0.5 mg/dl (0.2-1.0); Calcium 8.7 mg/dl (8.6-10.3); Creatinine Clr Calc Pharmacy 48.3 ml/min; Est GFR (African American) 46.8 ml/min; Est GFR (Non-African American) 40.4 ml/min; Globulin 2.7 gm/dl (2.5-4.0); Magnesium 1.9 mg/dl (1.7-2.4); Potassium 4.7 mmol/L (3.5-5.1); Total Protein 6.5 gm/dl (6.0-8.3)
[2024-03-05] MEDS: ACETAMINOPHEN 325 MG TAB PO PRN (03:20)
[2024-03-05] MEDS ORDERED: STAT IV Infusion **Titration per Protocol STA (08:19)
[2024-03-05] MEDS: INSULIN ASPART PER UNIT CHARGE SC SCH (08:45)
[2024-03-05] MEDS: LANTUS PER UNIT CHARGE SQ SCH (08:51)
[2024-03-05] MEDS: SERTRALINE HCL 100 MG TABLET PO SCH (08:57)
[2024-03-05] MEDS: FUROSEMIDE 40 MG/4 ML VIAL IV SCH (08:57)
[2024-03-05] MEDS: LOSARTAN POTASSIUM 50 MG TAB PO SCH (08:57)
[2024-03-05] MEDS: ASPIRIN 81 MG ECTAB PO SCH (08:57)
[2024-03-05] MEDS: dilTIAZem HCL 180 MG CAPCR PO SCH (08:58)
[2024-03-05] MEDS: METOPROLOL SUCC 25MG EXT REL TAB PO SCH (08:58)
[2024-03-05] MEDS: APIXABAN 5 MG TABLET PO SCH (08:58)
[2024-03-05] MEDS ORDERED: traZODone HCL 50 MG TAB PO SCH (09:00)
[2024-03-05] MEDS: dilTIAZem HCl 5 MG/ML 5 ML VIAL IV STA (09:09)
[2024-03-05] MEDS: dilTIAZem HCL 125 MG in DEXTROSE 5% 100 ML IV SCH (09:09)
--- NOTE | 2024-03-05 09:53 | Hospitalist Progress Note ---
Date of Service March 05, 2024 Assessment & Plan (1) Acute exacerbation of CHF (congestive heart failure): Plan: Acute congestive heart failure with reduced ejection fraction: Patient presents to the hospital worsening shortness of breath On admission BNP was 700 Last 2D echo in 2022 showed ejection fraction 40 to 45% Has been started on IV Lasix 40 mg daily Monitor input and output, daily weight Repeat 2D echo (2) Chest pain: Plan: Patient described pain radiating to the left shoulder, which got better with nitroglycerin Mild elevation in troponin Will consult cardiology (3) Paroxysmal atrial fibrillation: Plan: Has a history of A-fib under good control however this morning went into rapid rhythm 140 However has since come back under good control Will continue metoprolol and p.o. Cardizem Currently on Eliquis, continue. (4) Hypertension: Plan: Blood pressures under fair control Continue home losartan (5) Insulin dependent type 2 diabetes mellitus: Plan: Blood glucose under good control Last hemoglobin A1c 7 Continue insulin sliding scale Plan Continue to monitor in the hospital Full code Admission and Anticipated Discharge Date Admission Date: March 04, 2024 Subjective Patient seen and examined, lying quietly in bed, states shortness of breath is still little bit improved Review of Systems Review of Systems: All systems reviewed are negative, apart from the ones contained in the history. Physical Exam Physical Exam: The patient is awake, alert and oriented 3, well developed and well nourished, normocephalic and atraumatic, lying in bed and in no acute distress. HEENT--PERRL, EOMI, mucous membranes and oropharynx mildly dry Neck--supple. No JVD. No bruits. Thyroid normal, trachea midline, no adenopathy. Heart--normal S1 and S2. No murmurs, rubs or gallops. Lungs--clear bilaterally, no respiratory distress, no accessory muscle use. Abdomen--normal bowel sounds and soft. Extremities--no cyanosis or clubbing. No edema. Dermatologic--normal skin turgor, normal color, no abnormal lymph nodes, no r antony. Neurologic--cranial nerves II through XII grossly intact. Rheumatologic--normal range of motion. Psychiatric--normal affect. Results & Data Results & Data Vital Signs (Past 12 Hours) Vital Signs Temp Pulse Pulse Resp BP Pulse Ox O2 Del Method 03/05/24 08:15 99.3 F 132 H 20 160/87 H 92 Nasal Cannula 03/05/24 08:05 Nasal Cannula 03/05/24 03:13 98.8 F 76 18 175/82 H 95 Nasal Cannula 03/04/24 23:29 Nasal Cannula 03/04/24 23:10 73 03/04/24 22:55 98.2 F 79 19 146/80 H 88 L Room Air O2 Flow Rate 03/05/24 08:15 1 03/05/24 08:05 2 03/05/24 03:13 1 03/04/24 23:29 2 03/04/24 23:10 03/04/24 22:55 PG Care Time/CCT Total # of Minutes Spent Total Time Spent with Patient: Total time spent is greater than 50% in coordination of care (as documented) at patient's floor/unit and/or counseling patient: Coding Level of Care Code 61804 SUB INP/OBS CARE 2/35MIN Diagnoses Acute exacerbation of CHF (congestive heart failure) I50.9 Chest pain R07.9 Paroxysmal atrial fibrillation I48.0 Hypertension I10 Hypertension type: unspecified Insulin dependent type 2 diabetes mellitus E11.9; Z79.4 Time Spent (min) 35 (4) Hypertension Hypertension type: unspecified Qualified Code(s): I10 - Essential (primary) hypertension
--- NOTE | 2024-03-05 10:57 | Electrocardiogram Report ---
Test Reason : Blood Pressure : / mmHG Vent. Rate : 082 BPM Atrial Rate : 082 BPM P-R Int : 176 ms QRS Dur : 108 ms QT Int : 394 ms P-R-T Axes : 042 -56 091 degrees QTc Int : 460 ms Sinus rhythm with marked sinus arrhythmia Left anterior fascicular block Left ventricular hypertrophy with repolarization abnormality ( R in aVL ) Poor R wave progression, consider anterior MA vs. lead placement vs. LVH Abnormal ECG When compared with ECG of 13-NOV-2023 14:16, (unconfirmed) Incomplete right bundle branch block is no longer Present Confirmed by Loy Telles ([id number]) on 03/05/2024 10:56:37 AM Referred By: REFERRED SELF Confirmed By:Loy Telles
--- NOTE | 2024-03-05 16:05 | Cardiology Consultation ---
Date of Consultation March 05, 2024 Assessment & Plan (1) Acute on chronic combined systolic (congestive) and diastolic (congestive) heart failure: Unclear why she became decompensated. Suspect the high blood pressure plus may be some dietary indiscretion or even potentially protracted episodes of uncont rolled atrial fibrillation. In any case, she is fluid overloaded at this time. Continue diuresis. Will titrate her chronic heart failure regimen. She has [place] heart association class III symptoms at this time although sounds like she was class IV on admission. (2) Coronary artery disease without angina pectoris: History of coronary disease. She did not have anginal chest pain she has intermittent fluttering more consistent with her A-fib. Her troponin is very mildly elevated and in a pattern which is flat. This is inconsistent with acute coronary syndrome. We should continue with guideline directed medical therapy for secondary prevention of coronary disease including aspirin 81 mg daily, losartan, metoprolol succinate, and rosuvastatin. (3) Hypertension: Blood pressure was very elevated. Currently its improved but still not at target. Will continue diuresis and if it remains elevated tomorrow I would recommend titrating up her regimen. (4) Atherogenic dyslipidemia: Patient is high risk. High intensity statin therapy is recommended. Continue rosuvastatin and Zetia. (5) Paroxysmal atrial fibrillation: She is not in atrial fibrillation on my evaluation. However, the fluttering episodes which lasted a few minutes may be A-fib or a flutter. She will need to remain on her anticoagulant (Eliquis 5 mg p.o. twice daily) and the low-dose aspirin. Continue metoprolol and utilize diltiazem for blood pressure control and rate control. History of Present Illness Reason for Consultation: CHF exacerbation Attending Physician: Alma Delia Hicks MD History of Present Illness 68-year-old female known to me from the outpatient setting. She has a history of coronary disease status post myocardial infarction status post LAD stent, ischemic cardiomyopathy, paroxysmal atrial fibrillation, and comorbid disease including hypertension, dyslipidemia, diabetes complicated by stage III chronic renal insufficiency. She presented to the hospital at this time with several day history of increasing dyspnea, weight gain, and lower extremity edema. She denies any excessive sodium intake. She has been taking her medications as recommended. She reports fatigue, exertional dyspnea, orthopnea, no PND, occasional fluttering but no racing heartbeat, denies syncope or near syncope, and has the aforementioned edema. She has been admitted to the hospitalist service and diuresis was initiated. At the time of my evaluation she was feeling better although not back to her usual self. She was laying nearly flat without dyspnea. She denies any fevers, chills, anginal chest pain, numbness, tingling, or weakness. She tells me she has had a lot of lightheadedness and her blood pressure has been running high. Even after receiving medications in the hospital she notes some residual lightheadedness and dizziness despite the fact that her blood pressure is improved. Allergies Allergy/AdvReac Type Severity Reaction Status Date / Time Penicillins Allergy Intermediate RASH/ITCHIN Verified 12/01/23 13:14 G Iodinated Contrast Media AdvReac Intermediate NAUSEA/VOMI Verified 12/01/23 13:14 TTING Home Medications Medication Instructions Recorded Confirmed Type aspirin 81 mg tablet,delayed 81 mg PO QAM #30 tabs 06/13/22 12/01/23 Rx release magnesium oxide 400 mg (241.3 mg 400 mg PO BID #30 tabs 06/13/22 12/01/23 Rx magnesium) tablet melatonin 3 mg tablet 6 mg (2 x 3 mg) PO HS PRN sleep 06/13/22 12/01/23 Rx #30 tabs polyethylene glycol 3350 17 gram 17 g PO DAILY PRN Constipation #30 06/13/22 12/01/23 Rx oral powder packet (Miralax) ea acetaminophen 500 mg tablet 1,000 mg (2 x 500 mg) PO TID pain 01/19/23 12/01/23 Rx (Tylenol Extra Strength) 30 days #180 tabs sennosides 8.6 mg tablet (Senokot) 8.6 mg PO BID prevent constipation 01/19/23 12/01/23 Rx 14 days #28 tabs trazodone 50 mg tablet 50 mg PO DAILY #30 tabs 03/12/23 12/01/23 Rx pen needle, diabetic 31 gauge x #100 ea 04/28/23 12/01/23 Rx 5/16" (BD Ultra-Fine Short Pen Needle) insulin glargine 100 unit/mL (3 35 unit (0.35 mL) subcut HS #15 mL 10/14/23 12/01/23 Rx mL) subcutaneous pen (Basaglar KwikPen U-100 Insulin) doxepin 10 mg capsule 10 mg PO .COMPLEX #60 caps 10/21/23 12/01/23 Rx diltiazem HCl 180 mg 180 mg PO DAILY #90 caps 11/13/23 12/01/23 Rx capsule,extended release 24 hr nitroglycerin 0.4 mg sublingual 0.4 mg sublingual DIRECTED PRN 11/13/23 12/01/23 Rx tablet Chest Pain #25 tabs apixaban 5 mg tablet (Eliquis) 5 mg PO BID #180 tabs 11/18/23 12/01/23 Rx ezetimibe 10 mg tablet (Zetia) 10 mg PO HS #90 tabs 11/18/23 12/01/23 Rx flash glucose scanning reader #1 ea 11/18/23 12/01/23 Rx (FreeStyle Chanelle 2 [place]) flash glucose sensor (FreeStyle #6 ea 11/18/23 12/01/23 Rx Chanelle 2 Sensor kit) furosemide 40 mg tablet 40 mg PO QAM #90 tabs 11/18/23 12/01/23 Rx losartan 50 mg tablet 50 mg PO BID #180 tabs 11/18/23 12/01/23 Rx metformin 500 mg tablet,extended 500 mg PO BID #180 tabs 11/18/23 12/01/23 Rx release 24 hr metoprolol succinate 25 mg 25 mg PO BID #180 tabs 11/18/23 12/01/23 Rx tablet,extended release 24 hr rosuvastatin 40 mg tablet 40 mg PO HS #90 tabs 11/18/23 12/01/23 Rx sertraline 100 mg tablet 100 mg PO DAILY #90 tabs 11/18/23 12/01/23 Rx temazepam 30 mg capsule 30 mg PO ONCE #30 caps 11/27/23 12/01/23 Rx Patient History Medical History Constipation Encounter for pre-operative examination Dizziness Osteoarthritis Fatty liver History of colonic polyps Diverticular disease Depression Anxiety CAD (coronary artery disease) s/p SILVIANO to LAD in 2014 Myocardial Infarction 2014 Atrial fibrillation Dx 2019 Follows w/ Dr. Cee Multinodular goiter Surgical History History of hip surgery Left hip fracture > cannulated screw fixation (06/05/22): Grade view 1, MAC#4, ETT 7.0 at [facility] History of cataract surgery History of tooth extraction History of colonoscopy History of heart artery stent x1 (2014) History of cardiac cath 2014 > stent x1 Family History Mother Non-Hodgkin lymphoma Grandfather (Maternal) Bladder cancer Father Hypertension Myocardial infarction Grandfather (Paternal) Hypertension Grandmother (Paternal) Hypotension Other No family history of adverse response to anesthesia Denies family history of Ovarian cancer Prostate cancer Breast cancer Colorectal cancer Colonic polyp Social History Smoking Status: Never smoker Second Hand Exposure: No; Do You Dip or Chew Tobacco: No; Hx Alcohol Use: No Hx Substance Use: No Preferred Language: Sammarinese Communication Ability: Effective Visual Impairment: No Limitations Hearing Ability: Normal Certified Ski Patroller Required: No Beliefs That Will Affect Care: None marital status: Current Living Situation: Alone current occupational status: retired 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 Sclera anicteric. ENMT: Oral mucosa is pink moist and intact Neck: No JVD, thyromegaly, or bruits. Respiratory: Diffuse bilateral crackles. Diminished air movement. Cardiovascular: Regular rate and rhythm. S4 gallop. No rubs or murmurs appreciated. 1+ bilateral lower extremity edema Musculoskeletal: no cyanosis or clubbing, extremities motor strength 5/5 Neurologic: Cognition is intact. Speech is fluent. No focal motor deficits. No tremor. Psychiatric: A+Ox3, euthymic affect Results & Data Vital Signs (Past 12 Hours) Vital Signs Temp Pulse Pulse Resp BP Pulse Ox O2 Del Method 03/05/24 15:55 78 06/21/24 15:42 37.4 C 76 19 157/68 H 93 Nasal Cannula 03/05/24 14:42 80 03/05/24 11:26 37.3 C 67 20 131/73 93 Nasal Cannula 03/05/24 08:15 37.4 C 132 H 20 160/87 H 92 Nasal Cannula 03/05/24 08:05 Nasal Cannula O2 Flow Rate 03/05/24 15:55 03/05/24 15:42 1 03/05/24 14:42 03/05/24 11:26 1 03/05/24 08:15 1 03/05/24 08:05 2 PG Care Time/CCT Total # of Minutes Spent Total Time Spent with Patient: Total time spent is greater than 50% in coordination of care (as documented) at patient's floor/unit and/or counseling patient: Coding Level of Care Code 79687 INT INP/OBS CARE 2/55MIN Diagnoses Acute on chronic combined systolic (congestive) and diastolic (congestive) heart failure I50.43 Coronary artery disease without angina pectoris I25.10 Hypertension I10 Hypertension type: unspecified Atherogenic dyslipidemia E78.5 Paroxysmal atrial fibrillation I48.0 (3) Hypertension Hypertension type: unspecified Qualified Code(s): I10 - Essential (primary) hypertension
[2024-03-05] MEDS: ROSUVASTATIN CALCIUM 20 MG TAB PO SCH (21:01)
[2024-03-05] MEDS: traZODone HCL 50 MG TAB PO SCH (21:02)
[2024-03-05] MEDS: EZETIMIBE 10 MG TAB PO SCH (21:02)
[2024-03-06 06:27] LABS: Basophils # (auto) 0.05 K/uL (0.00-0.20); Basophils % (auto) 0.5 %; Eosinophils # (auto) 0.11 K/uL (0.00-0.50); Eosinophils % (auto) 1.2 %; Hematocrit (blood only) 36.6 % (37.0-47.0); Hemoglobin 12.3 g/dl (12.0-16.0); Immature Granulocytes # (auto) 0.04 K/uL (0.01-0.20); Immature Granulocytes % (auto) 0.4 %; Lymphocytes # (auto) 2.26 K/uL (1.20-3.40); Lymphocytes % (auto) 24.7 %; Mean Corpuscular Hemoglobin 30.1 pg (25.0-34.0); Mean Corpuscular Hgb Conc 33.6 g/dL (32.0-36.0); Mean Corpuscular Volume 89.7 fL (80.0-100.0); Mean Platelet Volume 9.2 fL (9.4-12.4); Monocytes # (auto) 1.03 K/uL (0.11-0.59); Monocytes % (auto) 11.2 %; Neutrophils # (auto) 5.67 K/uL (1.40-6.50); Platelet Count 194 K/uL (130-400); RDW Coefficient of Variation 14.3 % (11.5-14.5); RDW Standard Deviation 47.1 fL (36.4-46.3); Red Blood Count 4.08 M/uL (4.20-5.40); White Blood Count 9.16 K/ul (4.8-10.8)
[2024-03-06 06:36] LABS: Albumin Globulin Ratio 1.4 (0.9-2); Albumin Level 3.7 gm/dl (3.4-5.0); BUN Creatinine Ratio 16.3 (10-20); Bilirubin,Total 0.6 mg/dl (0.2-1.0); Calcium 8.6 mg/dl (8.6-10.3); Creatinine Clr Calc Pharmacy 37.7 ml/min; Est GFR (African American) 37.4 ml/min; Est GFR (Non-African American) 32.3 ml/min; Globulin 2.7 gm/dl (2.5-4.0); Potassium 3.4 mmol/L (3.5-5.1); Total Protein 6.4 gm/dl (6.0-8.3)
--- NOTE | 2024-03-06 09:53 | Hospitalist Progress Note ---
Date of Service March 06, 2024 Assessment & Plan (1) Acute exacerbation of CHF (congestive heart failure): Plan: Acute congestive heart failure with reduced ejection fraction: Patient presents to the hospital worsening shortness of breath On admission BNP was 700 Last 2D echo in 2022 showed ejection fraction 40 to 45% Has been started on IV Lasix 40 mg daily She is diuresing very well, shortness of breath is much improved leg swelling is much improved to Monitor input and output, daily weight Repeat 2D echo Pending (2) Chest pain: Plan: Patient described pain radiating to the left shoulder, which got better with nitroglycerin Mild elevation in troponin Per cardiology, no concern for ACS Continue to monitor (3) Paroxysmal atrial fibrillation: Plan: Has a history of A-fib under good control however this morning went into rapid rhythm 140 However has since come back under good control Will continue metoprolol and p.o. Cardizem Currently on Eliquis, continue. (4) Hypertension: Plan: Blood pressures under fair control Continue home losartan (5) Insulin dependent type 2 diabetes mellitus: Plan: Blood glucose under good control Last hemoglobin A1c 7 Continue insulin sliding scale Plan Continue to monitor in the hospital Full code Admission and Anticipated Discharge Date Admission Date: March 04, 2024 Subjective Patient seen and examined, lying quietly in bed, states shortness of breath is still little bit improved Review of Systems Review of Systems: All systems reviewed are negative, apart from the ones contained in the history. Physical Exam Physical Exam: The patient is awake, alert and oriented 3, well developed and well nourished, normocephalic and atraumatic, lying in bed and in no acute distress. HEENT--PERRL, EOMI, mucous membranes and oropharynx mildly dry Neck--supple. No JVD. No bruits. Thyroid normal, trachea midline, no adenopathy. Heart--normal S1 and S2. No murmurs, rubs or gallops. Lungs--clear bilaterally, no respiratory distress, no accessory muscle use. Abdomen--normal bowel sounds and soft. Extremities--no cyanosis or clubbing. No edema. Dermatologic--normal skin turgor, normal color, no abnormal lymph nodes, no rash. Neurologic--cranial nerves II through XII grossly intact. Rheumatologic--normal range of motion. Psychiatric--normal affect. Results & Data Results & Data Vital Signs (Past 12 Hours) Vital Signs Temp Pulse Pulse Resp BP Pulse Ox O2 Del Method 03/06/24 08:06 83 03/06/24 07:30 97.3 F L 66 18 114/79 95 Nasal Cannula 03/06/24 04:17 97.7 F 73 18 104/66 93 Nasal Cannula 03/06/24 01:39 79 03/06/24 00:06 98.1 F 67 18 115/69 91 Nasal Cannula O2 Flow Rate 03/06/24 08:06 03/06/24 07:30 03/06/24 04:17 2 03/06/24 01:39 03/06/24 00:06 2 PG Care Time/CCT Total # of Minutes Spent Total Time Spent with Patient: Total time spent is greater than 50% in coordination of care (as documented) at patient's floor/unit and/or counseling patient: Coding Level of Care Code 59875 SUB INP/OBS CARE 2/35MIN Diagnoses Acute exacerbation of CHF (congestive heart failure) I50.9 Chest pain R07.9 Paroxysmal atrial fibrillation I48.0 Hypertension I10 Hypertension type: unspecified Insulin dependent type 2 diabetes mellitus E11.9; Z79.4 Time Spent (min) 35 (4) Hypertension Hypertension type: unspecified Qualified Code(s): I10 - Essential (primary) hypertension
--- NOTE | 2024-03-06 13:29 | XCELERA ---
[id number]
[2024-03-07 06:26] LABS: Basophils # (auto) 0.05 K/uL (0.00-0.20); Basophils % (auto) 0.5 %; Eosinophils # (auto) 0.14 K/uL (0.00-0.50); Eosinophils % (auto) 1.4 %; Hematocrit (blood only) 36.1 % (37.0-47.0); Hemoglobin 12.1 g/dl (12.0-16.0); Immature Granulocytes # (auto) 0.05 K/uL (0.01-0.20); Immature Granulocytes % (auto) 0.5 %; Lymphocytes # (auto) 2.14 K/uL (1.20-3.40); Lymphocytes % (auto) 20.7 %; Mean Corpuscular Hemoglobin 29.5 pg (25.0-34.0); Mean Corpuscular Hgb Conc 33.5 g/dL (32.0-36.0); Mean Platelet Volume 9.5 fL (9.4-12.4); Monocytes # (auto) 0.97 K/uL (0.11-0.59); Monocytes % (auto) 9.4 %; Neutrophils # (auto) 6.98 K/uL (1.40-6.50); Neutrophils % (auto) 67.5 %; Platelet Count 197 K/uL (130-400); RDW Coefficient of Variation 13.8 % (11.5-14.5); RDW Standard Deviation 44.7 fL (36.4-46.3); White Blood Count 10.33 K/ul (4.8-10.8)
[2024-03-07 06:50] LABS: Albumin Globulin Ratio 1.3 (0.9-2); Albumin Level 3.6 gm/dl (3.4-5.0); BUN Creatinine Ratio 21.6 (10-20); Bilirubin,Total 0.5 mg/dl (0.2-1.0); Calcium 8.5 mg/dl (8.6-10.3); Creatinine Clr Calc Pharmacy 45.5 ml/min; Est GFR (African American) 46.4 ml/min; Globulin 2.7 gm/dl (2.5-4.0); Potassium 3.4 mmol/L (3.5-5.1); Total Protein 6.3 gm/dl (6.0-8.3)
[2024-03-07] MEDS: FUROSEMIDE 40 MG/4 ML VIAL IV SCH (08:44)
[2024-03-07] MEDS: POTASSIUM CHLORIDE CRTAB 20 MEQ TABCR PO STA (08:51)
--- NOTE | 2024-03-07 10:45 | Discharge Summary ---
Date of Service March 07, 2024 Admission HPI Per Admitting Provider 68-year-old female with past medical history of type 2 diabetes, hypertension that is not well-controlled, coronary artery disease, paroxysmal atrial fibrillation currently on Eliquis, dyslipidemia, insomnia, anxiety with depression, and HFrEF who arrived to the emergency department due to 6 weeks of shortness of breath that is worse with exertion. She uses nasal cannula at 2 lpm at baseline when she is going to sleep as was recommended to her by her sleep medicine physician. Patient describes her blood pressure has not been very well-controlled since even before her shortness of breath began, and that her blood pressure in office while seeing her PCP has been mostly around 170s or 180s systolic. She talked to her computer repair instructor office about this and they had started losartan 50 mg, however her blood pressure has not reached goal and has remained elevated despite this addition. Other than her shortness of breath that has worsened acutely this last week, patient also describes having pain in her left arm going up the left side of her neck that was relieved after taking a nitroglycerin at home. Also describes having left sided headache without other associated symptoms last night that was also relieved with nitroglycerin. She has been experiencing swelling in bilateral lower extremities that was not relieved when she elevated them at home. She states that she does not cook with salt, but does eat foods that are high in sodium such as luncheon meat and pre- prepared salads with ham. ED Course: Patient given 40 mg of IV Lasix, aspirin 324 mg given, pain control with morphine 4 mg given. Labs/Imaging: CBC with possible subjective elevation in WBC (7.75 from previous visit and 10.5. Current visit with neutrophilic predominance), hemoglobin 13.1, platelets of 214, coagulation studies within normal limits, electrolytes within reference range, renal markers within appropriate range, blood sugar of 132, liver enzymes within normal limits, troponin of 28.2 on arrival at that increased to 30.7 hours later, BNP of 726. Chest x-ray without evidence of pleural effusions or pulmonary edema. Medical History: [Reviewed] Medications: [Reviewed] Surgical History: [Reviewed] Allergies: [Reviewed] Social History: [Reviewed] Code Status: Full Principal Diagnosis Acute congestive heart failure Discharge Exam The patient is awake, alert and oriented 3, well developed and well nourished, normocephalic and atraumatic, lying in bed and in no acute distress. HEENT--PERRL, EOMI, mucous membranes and oropharynx mildly dry Neck--supple. No JVD. No bruits. Thyroid normal, trachea midline, no adenopathy. Heart--normal S1 and S2. No murmurs, rubs or gallops. Lungs--clear bilaterally, no respiratory distress, no accessory muscle use. Abdomen--normal bowel sounds and soft. Extremities--no cyanosis or clubbing. No edema. Dermatologic--normal skin turgor, normal color, no abnormal lymph nodes, no rash. Neurologic--cranial nerves II through XII grossly intact. Rheumatologic--normal range of motion. Psychiatric--normal affect. Discharge Data Allergies Allergy/AdvReac Type Severity Reaction Status Date / Time Penicillins Allergy Intermediate RASH/ITCHIN Verified 12/01/23 13:14 G Iodinated Contrast Media AdvReac Intermediate NAUSEA/VOMI Verified 12/01/23 13:14 TTING Consultations 03/04/24 20:36 ED Decision to Admit Stat 03/05/24 07:54 Consult Cardiology Routine Ordered Studies 03/04/24 22:08 CT Abd and Pelvis [CT abd pelvis wo con] Routine Hospital Course (1) Acute exacerbation of CHF (congestive heart failure): Acute congestive heart failure with reduced ejection fraction: Patient presents to the hospital worsening shortness of breath On admission BNP was 700 Last 2D echo in 2022 showed ejection fraction 40 to 45% Has been started on IV Lasix 40 mg daily She is diuresing very well, shortness of breath is much improved leg swelling is much improved to Monitor input and output, daily weight Repeat 2D echo Showed ejection fraction 40 to 45%, no wall motion abnormality Will discharge today, patient asked to follow-up with cardiology (2) Chest pain: Patient described pain radiating to the left shoulder, which got better with nitroglycerin Mild elevation in troponin Per cardiology, no concern for ACS Continue to monitor (3) Paroxysmal atrial fibrillation: Has a history of A-fib under good control however this morning went into rapid r hythm 140 However has since come back under good control Will continue metoprolol and p.o. Cardizem Currently on Eliquis, continue. (4) Hypertension: Blood pressures under fair control Continue home losartan (5) Insulin dependent type 2 diabetes mellitus: Blood glucose under good control Last hemoglobin A1c 7 Continue insulin sliding scale Plan Discharge home Full code Total Time Total Time Spent Total Time Spent (In Minutes): 35 Discharge Plan Discharge Items Patient Disposition: Home - Self-Care Reason For Visit: SOB Discharge Diagnosis: acute chf exacerbation Activity: Resume your previous activity Non-emergency contact: Primary Care Provider and Cane Burner Follow-up/Referrals: Julius Rodriguez, [Primary Care Provider] - Diet: Heart Healthy and Low Sodium (2gm) Addtl Attending Provider Instructions: please follow up with your regular computer repair instructor as soon as possible Pending Studies at Discharge: No Stand-Alone Forms: My [employer], Smoking Cessation Medications and DC Order Prescriptions: New potassium chloride 10 mEq capsule, extended release 10 meq PO DAILY Qty: 30 0RF Continued sennosides [Senokot] 8.6 mg tablet 8.6 mg PO BID 14 Days Qty: 28 0RF Rx Instructions: Take two times a day to prevent/treat constipation acetaminophen [Tylenol Extra Strength] 500 mg tablet 1,000 mg PO TID 30 Days Qty: 180 0RF Rx Instructions: Take 3 times per day to lessen paon. trazodone 50 mg tablet 50 mg PO DAILY Qty: 30 11RF (DME) pen needle, diabetic [BD Ultra-Fine Short Pen Needle] 31 gauge x 5/16" needle See Rx Instructions .Route Qty: 100 5RF Rx Instructions: TO USE WITH INSULIN ONCE DAILY; DX CODE-E11.9 insulin glargine [Basaglar KwikPen U-100 Insulin] 100 unit/mL (3 mL) insulin pen 35 unit subcut HS Qty: 15 5RF doxepin 10 mg capsule 10 mg PO .COMPLEX Qty: 60 5RF Rx Instructions: 10 mg PO One or 2 as needed for sleep at night; temazepam 30 mg capsule 30 mg PO ONCE Qty: 30 5RF (DME) FreeStyle Chanelle 2 Sensor Kit See Rx Instructions .Route Qty: 6 3RF Rx Instructions: continuous glucose monitoring (DME) FreeStyle Chanelle 2 [place] Misc See Rx Instructions .ROUTE .MEDSUPPLY Qty: 1 0RF Rx Instructions: continuous glucose monitoring Eliquis 5 mg tablet 5 mg PO BID Qty: 180 3RF furosemide 40 mg tablet 40 mg PO QAM Qty: 90 3RF metoprolol succinate 25 mg tablet extended release 24 hr 25 mg PO BID Qty: 180 3RF rosuvastatin 40 mg tablet 40 mg PO HS Qty: 90 3RF sertraline 100 mg tablet 100 mg PO DAILY Qty: 90 3RF ezetimibe [Zetia] 10 mg tablet 10 mg PO HS Qty: 90 3RF metformin 500 mg tablet extended release 24 hr 500 mg PO BID Qty: 180 3RF losartan 50 mg tablet 50 mg PO BID Qty: 180 3RF diltiazem HCl 180 mg capsule,extended release 24hr 180 mg PO DAILY Qty: 90 3RF nitroglycerin 0.4 mg tablet, sublingual 0.4 mg Sublingual DIRECTED PRN (Reason: Chest Pain) Qty: 25 5RF polyethylene glycol 3350 [Miralax] 17 gram Powder In Packet 17 g PO DAILY PRN (Reason: Constipation) Qty: 30 0RF melatonin 3 mg Tablet 6 mg PO HS PRN (Reason: sleep) Qty: 30 0RF aspirin 81 mg Tablet,Delayed Release (Dr/Ec) 81 mg PO QAM Qty: 30 0RF magnesium oxide 400 mg (241.3 mg magnesium) Tablet 400 mg PO BID Qty: 30 0RF Discharge Orders: Discharge Order (Routine); Ordered 03/07/24 Ordered By: Alma Delia Hicks Admission Data Admit Date/Time: 03/04/24 21:50 Attending Provider: Alma Delia Hicks Admit Provider: Silvana Mcmillan Primary Care Provider: Julius Rodriguez Other Providers: Jewel Artis; Loy Telles Coding Level of Care Code 70989 INP/OBS DISCH >30 MIN Diagnoses Acute exacerbation of CHF (congestive heart failure) I50.9 Chest pain R07.9 Paroxysmal atrial fibrillation I48.0 Hypertension I10 Hypertension type: unspecified Insulin dependent type 2 diabetes mellitus E11.9; Z79.4 Time Spent (min) 35
== END 2024-03-07 13:15 | disposition home or self-care (01) | DRG 291 ==
LOC: ED 17:01 → SUATTDRO 21:50 → 4W 21:50

== ENCOUNTER 2024-08-28 09:05 | Inpatient (IN) ==
[2024-08-28 09:35] LABS: iSTAT Creatinine 1.2 mg/dl (0.6-1.3); iSTAT Hemoglobin 12.9 g/dl (12.0-16.0); iSTAT Ionized Calcium 1.07 mmol/l (1.12-1.32); iSTAT Potassium 3.6 mmol/L (3.3-5.0)
[2024-08-28] MEDS: OPTIRAY 320 125ml IV ONE (09:38)
[2024-08-28] MEDS: diphenhydrAMINE 50 MG/ML VIAL IV STA (09:42)
[2024-08-28 09:44] LABS: Basophils # (auto) 0.04 K/uL (0.00-0.20); Basophils % (auto) 0.3 %; Eosinophils # (auto) 0.05 K/uL (0.00-0.50); Eosinophils % (auto) 0.3 %; Hematocrit (blood only) 36.5 % (37.0-47.0); Hemoglobin 12.3 g/dl (12.0-16.0); Immature Granulocytes % (auto) 0.6 %; Lymphocytes # (auto) 0.75 K/uL (1.20-3.40); Lymphocytes % (auto) 4.8 %; Mean Corpuscular Hemoglobin 30.4 pg (25.0-34.0); Mean Corpuscular Hgb Conc 33.7 g/dL (32.0-36.0); Mean Corpuscular Volume 90.1 fL (80.0-100.0); Monocytes # (auto) 1.34 K/uL (0.11-0.59); Monocytes % (auto) 8.6 %; Neutrophils # (auto) 13.22 K/uL (1.40-6.50); Neutrophils % (auto) 85.4 %; Platelet Count 189 K/uL (130-400); RDW Coefficient of Variation 14.2 % (11.5-14.5); RDW Standard Deviation 47.1 fL (36.4-46.3); Red Blood Count 4.05 M/uL (4.20-5.40)
--- NOTE | 2024-08-28 09:57 | CT Scan Report ---
CT ANGIOGRAPHY OF THE CHEST, PULMONARY EMBOLUS PROTOCOL CLINICAL HISTORY: Shortness of breath. PE vs CHF. COMPARISON STUDY: Chest CT October 16, 2019 and chest radiograph June 21, 2024. TECHNIQUE: Following IV administration of 112 mL of Optiray, helical axial images of the chest were o btained utilizing the pulmonary embolus protocol. Maximal intensity projections and sagittal and cor onal reformats were viewed on an independent 3D workstation. IV contrast was administered without co mplication. Automated exposure control was utilized for the study. A dose lowering technique was ut ilized adhering to the principles of ALARA. CT DOSE: 976.04 mGy.cm FINDINGS: No pulmonary emboli are identified although segmental and subsegmental pulmonary arteries are suboptimally assessed due to respiratory motion. The heart is moderately enlarged and there is mo derate coronary artery calcification. There is no pericardial effusion. Mildly enlarged mediastinal a nd bilateral hilar lymph nodes have decreased in size when compared to CT of October 16, 2019. These are likely benign. This no pneumothorax. There are trace bilateral pleural effusions. The lungs are s uboptimally assessed due to respiratory motion. Interlobular septal thickening is present. There are mild groundglass opacities within the lungs as well. There is no consolidation to suggest pneumonia. The thyroid gland is enlarged and contains numerous nodules, similar in appearance to prior CT. This represents a multinodular goiter. Chest wall collaterals are again noted. There are gallstones within the gallbladder. Upper abdomen is otherwise unremarkable. IMPRESSION: 1. No pulmonary emboli identified although segmental and subsegmental pulmonary arteries suboptimally assessed due to respiratory motion. 2. Cardiomegaly with interstitial pulmonary edema. Groundglass opacities favor alveolar pulmonary soren ma. No consolidation to suggest pneumonia. 3. Trace bilateral pleural effusions. 4. Multinodular thyroid goiter, similar in appearance to prior CT. ACT 112: Negative or not required by law. Electronically signed by: Gurpreet Andujar M.D. 08/28/2024 9:54 AM
[2024-08-28 10:04] LABS: BUN Creatinine Ratio 16.1 (10-20); Calcium 8.6 mg/dl (8.6-10.3); Creatinine Clr Calc Pharmacy 56.4 ml/min; Potassium 3.6 mmol/L (3.5-5.1)
[2024-08-28 10:10] LABS: Troponin I High Sensitivity 28.3 pg/ml (0-14)
[2024-08-28] MEDS: STAT IV Infusion **Titration per Protocol STA (10:33)
[2024-08-28] MEDS: NITROGLYCERIN/D5W 100MCG/ML 250 ML IV SCH (10:33)
--- NOTE | 2024-08-28 10:44 | Emergency Department Note ---
Impression & Plan Flash pulmonary edema, CHF exacerbation, Shortness of breath ED Provider Note NAME: MARY GRANADOS AGE: 69 SEX: F : 1955 ARRIVES VIA: Ambulance INFORMANT: Patient, ED PROVIDER(S): Stepan Leary MD CHIEF COMPLAINT: Short of breath HPI: This is a 69-year-old female present for shortness of breath and chest pain. Patient was cardioverted twice in the last few weeks. She does take Eliquis missing doses. She notes history of A-fib. She notes she began having chest pain and extreme shortness of breath. She notes was 2 L at night. EMS noted Rales bilaterally. She reports her chest pain is improving but her shortness of breath is still the same and severe. ROS: See above HPI for pertinent positives & negatives. A total of 10 systems reviewed and were otherwise negative. PAST MEDICAL HISTORY: See Below PAST SURGICAL HISTORY: See Below FAMILY HISTORY: See Below SOCIAL HISTORY: See Below HOME MEDICATIONS: See Below ALLERGIES: See Below VITALS: See Below PHYSICAL EXAMINATION: General: Moderate respiratory distress Head: Normocephalic and atraumatic Eyes: Normal inspection, extraocular muscles intact Ear, nose, throat: Normal external exam Neck: Normal range of motion Respiratory: Crackles with poor air movement Cardiovascular: Regular rate/rhythm, no murmur GI: soft, nontender, no guarding or rebound Extremities: nontender, moves all extremities Neuro: The patient awake and alert, appropriately conversive, no focal deficits, symmetric faces Skin: Warm, dry, and intact MEDICAL DECISION MAKING: This is a 69-year-old female presented for shortness of breath/chest pain to consider PE as patient was cardioverted recently despite taking Eliquis. Also consider flash pulmonary edema. Will do emergent CT imaging to rule out PE. Will do IV nitro drip and BiPAP for shortness of breath afterwards. Will check for ACS, PE, dissection, CHF, flash pulm edema, pneumonia, upper respiratory infection -Troponin minimally elevated with significant elevated BNP. White count is noted at 15.5. -Will initiate IV nitroglycerin drip due to the significant respiratory distress, concerning for flash, edema -CTA of the chest performed for PE rule out does not reveal pulm embolism but does reveal cardiomegaly, likely pulmonary edema -Patient has no sniffing improvement with nitroglycerin drip at this time, shortness of breath is significantly improving. -Patient watched for multiple hours, now has remained stable. Will admit for vaginal edema, CHF. Will give IV Lasix, 40 mg here -Discussed with Dr. Young for admission Differential diagnosis: Flash pulmonary edema, PE, history, CHF, pneumonia, URI Diagnostics interpreted by me: ECG: ECG independently interpreted by me with sinus tachycardia at 131, normal axis, normal CT, normal QRS, normal QTc, no ST segment elevations consistent with STEMI criteria, frequent PVCs Cardiac Monitoring: An order was placed for continuous cardiac monitoring. The monitor shows a rate of 130 with sinus tachycardia rhythm. Critical Care Note: I have personally spent 45 minutes of critical care time in the direct management of this patient. This includes bedside care, interpretation of diagnostic studies, and testing, discussion with consultants, patient, and family members, and other required patient management activities. This 45 minutes is in excess of all separately billable procedures. 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, shift work type Dysuria (Acute) Encounter for pre-operative examination Multinodular goiter Medical History RLS (restless legs syndrome) Nocturnal hypoxemia 2L O2 HS Multinodular goiter History of obstructive sleep apnea 2L O2 HS Insomnia Fatigue Diabetic neuropathy Diabetes mellitus, type 2 IDDM Chronic kidney disease, stage III (moderate) Hx of cardiomyopathy Bilateral hand swelling Hypertension Atrial fibrillation Follows with [facility] cardio Atherogenic dyslipidemia History of anemia CHF (congestive heart failure), NYHA class III Constipation Dizziness Osteoarthritis Fatty liver History of colonic polyps Diverticular disease Hx Depression Anxiety CAD (coronary artery disease) SILVIANO to LAD (2014) Myocardial Infarction 2014 Surgical History History of anesthesia reaction After hip surgery "was seeing bambi and called 911 from hospital room" > no similar issues after total knee replacement" (both surgeries at [facility]) History of tonsillectomy and adenoidectomy Hx of shoulder surgery R/L x2 History of bilateral tubal ligation History of dilatation and curettage History of cardioversion [facility] History of total left knee replacement (TKR) History of hip surgery Left hip fracture > cannulated screw fixation (06/05/22): Grade view 1, MAC#4, ETT 7.0 at [facility] History of cataract surgery R/L History of tooth extraction History of colonoscopy History of heart artery stent x1 (2014) History of cardiac cath 2014 > stent x1 Family History Mother Non-Hodgkin lymphoma Grandfather (Maternal) Bladder cancer Father Hypertension Myocardial infarction Grandfather (Paternal) Hypertension Grandmother (Paternal) Hypotension Other No family history of adverse response to anesthesia Denies family history of Ovarian cancer Prostate cancer Breast cancer Colorectal cancer Colonic polyp Social History Smoking Status: Former smoker Tobacco Type: Cigarettes Second Hand Exposure: No; Do You Dip or Chew Tobacco: No; Hx Alcohol Use: No Hx Substance Use: No Preferred Language: Belarusian Communication Ability: Effective Visual Impairment: No Limitations Hearing Ability: Normal Firefighter Type One Required: No Beliefs That Will Affect Care: None marital status: Current Living Situation: Alone current occupational status: retired 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 Other Information That Helps Us Care for You: No Feels Safe at Home: Yes Safety Concerns: Feels Safe At This Time Childhood Exposure to Second-Hand Smoke: No Diet: regular Dental Care, Regularly: No Physical Activity Frequency: Does not Exercise Seatbelt Use: never Sunscreen Use: Yes Assistive Devices: Denture - Upper, Denture - Lower, Glasses, Oxygen - at Night and Walker Allergies Allergies Allergy/AdvReac Type Severity Reaction Status Date / Time Penicillins Allergy Intermediate Rash, Verified 08/28/24 11:53 itching Iodinated Contrast Media AdvReac Intermediate N/V Verified 08/28/24 11:53 Home Meds Home Medications Medication Instructions Recorded Confirmed doxepin 10 mg capsule 10 mg PO UD PRN Sleep 08/19/24 08/28/24 insulin glargine 100 unit/mL (3 36 unit subcut HS 08/19/24 08/28/24 mL) subcutaneous pen (Basaglar KwikPen U-100 Insulin) lemborexant 5 mg tablet 5 mg PO HS 08/19/24 08/28/24 potassium chloride 10 mEq 0 meq PO QAM 08/19/24 08/28/24 capsule,extended release sertraline 100 mg tablet 100 mg PO QAM 08/19/24 08/28/24 apixaban 5 mg tablet (Eliquis) 0 mg PO BID 08/28/24 08/28/24 ezetimibe 10 mg tablet (Zetia) 0 mg PO HS 08/28/24 08/28/24 furosemide 40 mg tablet 0 mg PO QAM 08/28/24 08/28/24 losartan 50 mg tablet 0 mg PO BID 08/28/24 08/28/24 metformin 500 mg tablet,extended 0 mg PO BID 08/28/24 08/28/24 release 24 hr rosuvastatin 40 mg tablet 0 mg PO HS 08/28/24 08/28/24 Previous Rx's Medication Instructions Recorded aspirin 81 mg tablet,delayed 81 mg PO QAM #30 tabs 06/13/22 release magnesium oxide 400 mg (241.3 mg 400 mg PO BID #30 tabs 06/13/22 magnesium) tablet polyethylene glycol 3350 17 gram 17 g PO DAILY PRN Constipation #30 06/13/22 oral powder packet (Miralax) ea acetaminophen 500 mg tablet 1,000 mg (2 x 500 mg) PO TID pain 01/19/23 (Tylenol Extra Strength) 30 days #180 tabs nitroglycerin 0.4 mg sublingual 0.4 mg sublingual DIRECTED PRN 11/13/23 tablet Chest Pain #25 tabs flash glucose scanning reader #1 ea 11/18/23 (FreeStyle Chanelle 2 [place]) flash glucose sensor (FreeStyle #6 ea 11/18/23 Chanelle 2 Sensor kit) metoprolol succinate 25 mg 50 mg (2 x 25 mg) PO BID #180 tabs 07/14/24 tablet,extended release 24 hr pen needle, diabetic 31 gauge x #100 ea 08/03/24/16" (BD Ultra-Fine Short Pen Needle) Results & Data (ED) Vital Signs Vital Signs - 24 hr 08/28/24 09:10 08/28/24 09:10 08/28/24 09:10 Temperature 37.9 C H Temperature Source Oral Pulse Rate 122 H Pulse Rate from SpO2 Sensor Pulse Rhythm Irregular Respiratory Rate 24 Respiratory Effort / Characteristics Short of Breath Non-Labored Respiratory Depth Shallow Normal Respiratory Pattern Regular Blood Pressure 170/118 H Blood Pressure Mean 135 Pulse Oximetry 97 88 L Oxygen Delivery Method Nasal Cannula Nasal Cannula Oxygen Flow Rate 2 0 Sepsis Recent Fever Within 48 Hours No Sepsis New/Unexplained Change in Mental Status N/A Sepsis Action Taken by Nursing Physician Notified Oxygen Flow Rate - Titration 2 Pulse Oximetry Post Tiitration 96 08/28/24 09:20 08/28/24 09:34 08/28/24 10:00 Temperature Temperature Source Pulse Rate 120 H 117 H 132 H Pulse Rate from SpO2 Sensor Pulse Rhythm Respiratory Rate 12 32 H Respiratory Effort / Characteristics Respiratory Depth Respiratory Pattern Blood Pressure 170/118 H 178/126 H Blood Pressure Mean 135 160 Pulse Oximetry 96 94 Oxygen Delivery Method Nasal Cannula Oxygen Flow Rate 2 Sepsis Recent Fever Within 48 Hours Sepsis New/Unexplained Change in Mental Status Sepsis Action Taken by Nursing Oxygen Flow Rate - Titration Pulse Oximetry Post Tiitration 08/28/24 10:30 08/28/24 10:40 08/28/24 10:55 Temperature Temperature Source Pulse Rate 121 H 118 H 120 H Pulse Rate from SpO2 Sensor Pulse Rhythm Respiratory Rate 33 H 34 H 30 H Respiratory Effort / Characteristics Respiratory Depth Respiratory Pattern Blood Pressure 152/119 H 177/122 H 169/113 H Blood Pressure Mean 134 145 143 Pulse Oximetry 95 96 96 Oxygen Delivery Method Oxygen Flow Rate Sepsis Recent Fever Within 48 Hours Sepsis New/Unexplained Change in Mental Status Sepsis Action Taken by Nursing Oxygen Flow Rate - Titration Pulse Oximetry Post Tiitration 08/28/24 11:05 08/28/24 11:10 08/28/24 11:35 Temperature Temperature Source Pulse Rate 113 H 113 H 124 H Pulse Rate from SpO2 Sensor 114 H 126 H Pulse Rhythm Respiratory Rate 29 H 29 H 31 H Respiratory Effort / Characteristics Respiratory Depth Respiratory Pattern Blood Pressure 154/114 H 135/96 Blood Pressure Mean 135 109 Pulse Oximetry 98 98 96 Oxygen Delivery Method Nasal Cannula Oxygen Flow Rate 4 Sepsis Recent Fever Within 48 Hours Sepsis New/Unexplained Change in Mental Status Sepsis Action Taken by Nursing Oxygen Flow Rate - Titration Pulse Oximetry Post Tiitration 08/28/24 11:41 08/28/24 11:50 08/28/24 11:56 Temperature Temperature Source Pulse Rate 107 H 105 H 103 H Pulse Rate from SpO2 Sensor 107 H 101 H Pulse Rhythm Respiratory Rate 30 H 30 H 29 H Respiratory Effort / Characteristics Respiratory Depth Respiratory Pattern Blood Pressure 144/91 H 112/95 121/97 Blood Pressure Mean 108 100 105 Pulse Oximetry 96 96 97 Oxygen Delivery Method Nasal Cannula Oxygen Flow Rate 4 Sepsis Recent Fever Within 48 Hours Sepsis New/Unexplained Change in Mental Status Sepsis Action Taken by Nursing Oxygen Flow Rate - Titration Pulse Oximetry Post Tiitration 08/28/24 12:30 08/28/24 12:35 Temperature Temperature Source Pulse Rate 100 H 98 H Pulse Rate from SpO2 Sensor Pulse Rhythm Respiratory Rate 30 H 28 H Respiratory Effort / Characteristics Respiratory Depth Respiratory Pattern Blood Pressure 133/81 135/99 Blood Pressure Mean 115 117 Pulse Oximetry 97 97 Oxygen Delivery Method Oxygen Flow Rate Sepsis Recent Fever Within 48 Hours Sepsis New/Unexplained Change in Mental Status Sepsis Action Taken by Nursing Oxygen Flow Rate - Titration Pulse Oximetry Post Tiitration Laboratory Data 08/29/24 02:48 08/29/24 02:48 Lab Results 08/28/24 08/28/24 Range/Units 09:18 09:23 WBC 15.50 H (4.8-10.8) K/ul RBC 4.05 L (4.20-5.40) M/uL Hgb 12.3 (12.0-16.0) g/dl POC Hgb 12.9 (12.0-16.0) g/dl Hct 36.5 L (37.0-47.0) % POC Hct 38 (37-47) % MCV 90.1 (80.0-100.0) fL MCH 30.4 (25.0-34.0) pg MCHC 33.7 (32.0-36.0) g/dL RDW Std Deviation 47.1 H (36.4-46.3) fL RDW Coeff of Carissa 14.2 (11.5-14.5) % Plt Count 189 (130-400) K/uL MPV 9.0 L (9.4-12.4) fL Immature Gran % (Auto) 0.6 % Neut % (Auto) 85.4 % Lymph % (Auto) 4.8 % [place] % (Auto) 8.6 % Eos % (Auto) 0.3 % Baso % (Auto) 0.3 % Neut # (Auto) 13.22 H (1.40-6.50) K/uL Lymph # (Auto) 0.75 L (1.20-3.40) K/uL [place] # (Auto) 1.34 H (0.11-0.59) K/uL Eos # (Auto) 0.05 (0.00-0.50) K/uL Baso # (Auto) 0.04 (0.00-0.20) K/uL Immature Gran # (Auto) 0.10 (0.01-0.20) K/uL POC Sodium 138 (135-144) mmol/L Sodium 138 (136-145) mmol/L POC Potassium 3.6 (3.3-5.0) mmol/L Potassium 3.6 (3.5-5.1) mmol/L POC Chloride 100 L (101-112) mmol/L Chloride 102 (98-107) mmol/L Carbon Dioxide 28 (21-32) mmol/L POC Total CO2 27 (24-31) mmol/L Anion Gap 8 (3-11) POC Anion Gap 16.0 (16-25) mmol/L POC BUN 19 H (7-18) mg/dl BUN 19 (6-23) mg/dl Creatinine 1.18 (0.6-1.2) mg/dl POC Creatinine 1.2 (0.6-1.3) mg/dl Est Cr Clr Drug Dosing 56.4 ml/min eGFR 49.38 BUN/Creatinine Ratio 16.1 (10-20) Glucose 163 H (70-99(Fasting)) mg/dl POC Glucose (other) 161 H (70-99) mg/dl Calcium 8.6 (8.6-10.3) mg/dl POC Ioniz Calcium Hlelen 1.07 L (1.12-1.32) mmol/l Troponin I High Sens 28.3 H (0-14) pg/ml B-Natriuretic Peptide 984 H (0-100) pg/ml Adenovirus (PCR) Not Detected (NotDetected) B. pertussis DNA (PCR) Not Detected (NotDetected) B.parapertussis DNA PCR Not Detected (NotDetected) C. pneumoniae DNA (PCR) Not Detected (NotDetected) Coronavirus OC43 (PCR) Not Detected (NotDetected) Coronavirus HKU1 (PCR) Not Detected (NotDetected) Coronavirus 229E (PCR) Not Detected (NotDetected) SARS-CoV-2 (PCR) Not Detected (NotDetected) Coronavirus NL63 (PCR) Not Detected (NotDetected) Human Metapneumovir PCR Not Detected (NotDetected) Influenza Type A (PCR) Not Detected (NotDetected) Influenza Type B (PCR) Not Detected (NotDetected) M. pneumoniae (PCR) Not Detected (NotDetected) Parainfluenza 1 (PCR) Not Detected (NotDetected) Parainfluenza 2 (PCR) Not Detected (NotDetected) Parainfluenza 3 (PCR) Not Detected (NotDetected) Parainfluenza 4 (PCR) Not Detected (NotDetected) RSV (PCR) Not Detected (NotDetected) Entero/Rhino (PCR) Not Detected (NotDetected) Administered Medications Acetaminophen (Acetaminophen 500 Mg Tab) 1,000 mg PO TID [facility] Stop: 09/27/24 14:55 Last Admin: 08/29/24 13:04 Dose: 1,000 mg Documented By: Admin: 08/29/24 08:29 Dose: 1,000 mg Documented By: Admin: 08/28/24 20:20 Dose: 1,000 mg Documented By: Admin: 08/28/24 15:08 Dose: 1,000 mg Documented By: PARKER Apixaban (Apixaban 5 Mg Tablet) 5 mg PO BID [facility] Stop: 09/27/24 20:59 Last Admin: 08/29/24 07:18 Dose: 5 mg Documented By: Admin: 08/28/24 20:19 Dose: 5 mg Documented By: HARI Aspirin (Aspirin 81 Mg Ectab) 81 mg PO QAM [facility] Stop: 09/28/24 08:59 Last Admin: 08/29/24 07:18 Dose: 81 mg Documented By: PARKER Ezetimibe (Ezetimibe 10 Mg Tab) 10 mg PO HS [facility] Stop: 09/27/24 20:59 Last Admin: 08/28/24 20:19 Dose: 10 mg Documented By: HARI Furosemide (Furosemide 40 Mg/4 Ml Vial) 40 mg IV BID [facility] Stop: 09/27/24 20:59 Last Admin: 08/29/24 07:22 Dose: 40 mg Documented By: Admin: 08/28/24 20:20 Dose: 40 mg Documented By: HARI Diltiazem HCl 125 mg/ Dextrose 125 mls @ 15 mls/hr IV .Q8H20M [facility]; Protocol Stop: 09/27/24 22:44 Last Admin: 08/29/24 13:04 Dose: 15 mg/hr, 15 mls/hr Documented By: PARKER Co-signed By: ALEC Titration: 08/29/24 13:04 Dose: Infused Documented By: PARKER Co-signed By: ALEC Titration: 08/29/24 08:08 Dose: 15 mg/hr, 15 mls/hr Documented By: PARKER Co-signed By: ALEC Titration: 08/29/24 07:14 Dose: 10 mg/hr, 10 mls/hr Documented By: PARKER Co-signed By: [facility] Admin: 08/28/24 23:21 Dose: 5 mg/hr, 5 mls/hr Documented By: HARI Co-signed By: WILL Ceftriaxone Sodium (Rocephin) 2,000 mg in 50 mls @ 100 mls/hr IV Q24H [facility] Stop: 09/08/24 09:29 Last Infusion: 08/29/24 11:23 Dose: Infused Documented By: Admin: 08/29/24 10:40 Dose: 100 mls/hr Documented By: PARKER Insulin Aspart (Insulin Aspart Per Unit Charge) 0 units SC ACHS [facility] Stop: 09/27/24 20:59 Last Admin: 08/29/24 12:33 Dose: 4 units Documented By: PARKER Co-signed By: [facility] [place] Admin: 08/29/24 08:28 Dose: 4 units Documented By: PARKER Co-signed By: [facility] [place] Admin: 08/28/24 20:02 Dose: Not Given Documented By: HARI Insulin Glargine (Lantus Per Unit Charge) 30 units SC HS [facility] Stop: 09/27/24 20:59 Last Admin: 08/29/24 08:28 Dose: 30 units Documented By: PARKER Co-signed By: [facility] [place] Admin: 08/28/24 20:20 Dose: 30 units Documented By: HARI Co-signed By: WILL Losartan Potassium (Losartan Potassium 50 Mg Tab) 50 mg PO BID [facility] Stop: 09/27/24 20:59 Last Admin: 08/29/24 07:18 Dose: 50 mg Documented By: Admin: 08/28/24 20:19 Dose: 50 mg Documented By: HARI Magnesium Oxide (Magnesium Oxide 400 Mg Tab) 400 mg PO BID [facility] Stop: 09/27/24 20:59 Last Admin: 08/29/24 08:49 Dose: 400 mg Documented By: Admin: 08/28/24 20:19 Dose: 400 mg Documented By: HARI Methimazole (Methimazole 5 Mg Tablet) 10 mg PO BID [facility] Stop: 09/28/24 11:14 Last Admin: 08/29/24 12:33 Dose: 10 mg Documented By: PARKER Metoprolol Succinate (Metoprolol Succ 50mg Ext Rel Tab) 50 mg PO BID [facility] Stop: 09/27/24 20:59 Last Admin: 08/29/24 08:49 Dose: 50 mg Documented By: Admin: 08/28/24 20:19 Dose: 50 mg Documented By: HARI Nitroglycerin (Nitroglycerin 2% Ointment 30gm Tube) 1 inch EXT Q6 [facility] Stop: 09/27/24 17:59 Last Admin: 08/29/24 12:33 Dose: 1 inch Documented By: Admin: 08/29/24 06:23 Dose: 1 inch Documented By: Admin: 08/29/24 00:33 Dose: 1 inch Documented By: Admin: 08/28/24 17:16 Dose: 1 inch Documented By: PARKER Potassium Chloride (Potassium Chloride 10 Meq Tabcr) 10 meq PO QAM [facility] Stop: 09/28/24 08:59 Last Admin: 08/29/24 08:29 Dose: 10 meq Documented By: PARKER Rosuvastatin Calcium (Rosuvastatin Calcium 20 Mg Tab) 40 mg PO HS [facility] Stop: 09/27/24 20:59 Last Admin: 08/28/24 20:19 Dose: 40 mg Documented By: HARI Sertraline HCl (Sertraline Hcl 100 Mg Tablet) 100 mg PO QAM [facility] Stop: 09/28/24 08:59 Last Admin: 08/29/24 07:18 Dose: 100 mg Documented By: PARKER Discontinued Medications Diltiazem HCl (Diltiazem Hcl 5 Mg/Ml 5 Ml Vial) 20 mg IV NOW STA Stop: 08/28/24 22:43 Last Admin: 08/28/24 23:07 Dose: 20 mg Documented By: HARI Co-signed By: WILL Diphenhydramine HCl (Diphenhydramine 50 Mg/Ml Vial) 25 mg IV NOW STA Stop: 08/28/24 09:30 Last Admin: 08/28/24 09:42 Dose: 25 mg Documented By: ABIMAEL Furosemide (Furosemide 40 Mg/4 Ml Vial) 40 mg IV ONE ONE Stop: 08/28/24 12:10 Last Admin: 08/28/24 12:27 Dose: 40 mg Documented By: RILEY Nitroglycerin/Dextrose (Nitroglycerin/D5w 100 Mcg/Ml) 250 mls @ 3 mls/hr IV .Q24H [facility]; Protocol Stop: 09/27/24 10:14 Last Titration: 08/28/24 14:55 Dose: Infused Documented By: Titration: 08/28/24 14:00 Dose: 0 mcg/min, 0 mls/hr Documented By: Titration: 08/28/24 12:50 Dose: 15 mcg/min, 9 mls/hr Documented By: Titration: 08/28/24 11:01 Dose: 10 mcg/min, 6 mls/hr Documented By: Admin: 08/28/24 10:33 Dose: 5 mcg/min, 3 mls/hr Documented By: ABIMAEL Co-signed By: Magnesium Sulfate/Dextrose (Magnesium Sulfate / D5w) 1 gm in 100 mls @ 50 mls/hr IV 0745 ONE Stop: 08/29/24 09:44 Last Infusion: 08/29/24 09:57 Dose: Infused Documented By: Admin: 08/29/24 07:55 Dose: 50 mls/hr Documented By: PARKER Ioversol (Optiray 320 125ml) 112 ml IV ONCE ONE Stop: 08/28/24 09:39 Last Admin: 08/28/24 09:38 Dose: 112 ml Documented By: SE Metoprolol Tartrate (Metoprolol Tartrate 1 Mg/Ml Vial) 5 mg IV NOW STA Stop: 08/28/24 20:53 Last Admin: 08/28/24 21:47 Dose: Not Given Documented By: HARI Metoprolol Tartrate (Metoprolol Tartrate 1 Mg/Ml Vial) Confirm Administered Dose 5 mg IV .STK-MED ONE Stop: 08/28/24 20:56 Last Admin: 08/28/24 20:57 Dose: 5 mg Documented By: HARI Metoprolol Tartrate (Metoprolol Tartrate 1 Mg/Ml Vial) 5 mg IV NOW STA Stop: 08/28/24 21:54 Last Admin: 08/28/24 22:16 Dose: 5 mg Documented By: HARI Miscellaneous (Stat Iv Infusion Titration Per Protocol) 1 each N/A NOW STA Stop: 08/28/24 10:05 Last Admin: 08/28/24 10:33 Dose: Not Given Documented By: ANT Miscellaneous (Order Awaiting Action Lemborexant (Dayvigo) 5 Mg) 1 each N/A QS [facility] Stop: 09/27/24 15:59 Last Admin: 08/28/24 15:45 Dose: Not Given Documented By: PARKER Morphine Sulfate (Morphine Sulfate 2 Mg/Ml Carp) 1 mg IV NOW STA Stop: 08/28/24 22:14 Last Admin: 08/28/24 23:13 Dose: Not Given Documented By: HARI Morphine Sulfate (Morphine Sulfate 2 Mg/Ml Carp) Confirm Administered Dose 2 mg .ROUTE .STK-MED ONE Stop: 08/28/24 22:25 Last Admin: 08/28/24 22:24 Dose: 2 mg Documented By: HARI Imaging Data Radiologist's Impression: Chest CTA 08/28/24 09:28 CT ANGIOGRAPHY OF THE CHEST, PULMONARY EMBOLUS PROTOCOL CLINICAL HISTORY: Shortness of breath. PE vs CHF. COMPARISON STUDY: Chest CT October 16, 2019 and chest radiograph June 21, 2024. TECHNIQUE: Following IV administration of 112 mL of Optiray, helical axial images of the chest were obtained utilizing the pulmonary embolus protocol. Maximal intensity projections and sagittal and coronal reformats were viewed on an independent 3D workstation. IV contrast was administered without complication. Automated exposure control was utilized for the study. A dose lowering technique was utilized adhering to the principles of ALARA. CT DOSE: 976.04 mGy.cm FINDINGS: No pulmonary emboli are identified although segmental and subsegmental pulmonary arteries are suboptimally assessed due to respiratory motion. The heart is moderately enlarged and there is moderate coronary artery calcification. There is no pericardial effusion. Mildly enlarged mediastinal and bilateral hilar lymph nodes have decreased in size when compared to CT of October 16, 2019. These are likely benign. This no pneumothorax. There are trace bilateral pleural effusions. The lungs are suboptimally assessed due to respiratory motion. Interlobular septal thickening is present. There are mild groundglass opacities within the lungs as well. There is no consolidation to suggest pneumonia. The thyroid gland is enlarged and contains numerous nodules, similar in appearance to prior CT. This represents a multinodular goiter. Chest wall collaterals are again noted. There are gallstones within the gallbladder. Upper abdomen is otherwise unremarkable. IMPRESSION: 1. No pulmonary emboli identified although segmental and subsegmental pulmonary arteries suboptimally assessed due to respiratory motion. 2. Cardiomegaly with interstitial pulmonary edema. Groundglass opacities favor alveolar pulmonary edema. No consolidation to suggest pneumonia. 3. Trace bilateral pleural effusions. 4. Multinodular thyroid goiter, similar in appearance to prior CT. ACT 112: Negative or not required by law. Electronically signed by: Gurpreet Andujar M.D. 08/28/2024 9:54 AM Discharge Plan Visit Data Chief Complaint: Cardiac Assessment Stated Complaint: CARDIAC ASSESSMENT ED Provider: Stepan Leary Discharge Problem: Flash pulmonary edema, CHF exacerbation, Shortness of breath Patient Disposition: Admitted As Inpatient Discharge Instructions Interventions: ED Discharge Assessment Last Done: 08/28/24 13:58
[2024-08-28 11:10] LABS: Adenovirus PCR Not Detected (NotDetected); Bordetella parapertussis PCR Not Detected (NotDetected); Bordetella pertussis PCR Not Detected (NotDetected); Chlamydia pneumoniae PCR Not Detected (NotDetected); Coronavirus 229E PCR Not Detected (NotDetected); Coronavirus CoV-2 (COVID19)PCR Not Detected (NotDetected); Coronavirus HKU1 PCR Not Detected (NotDetected); Coronavirus NL63 PCR Not Detected (NotDetected); Coronavirus OC43PCR Not Detected (NotDetected); Human Metapneumovirus PCR Not Detected (NotDetected); Influenza A PCR Not Detected (NotDetected); Influenza B PCR Not Detected (NotDetected); Mycoplasma pneumoniae PCR Not Detected (NotDetected); Parainfluenza Virus 1 PCR Not Detected (NotDetected); Parainfluenza Virus 2 PCR Not Detected (NotDetected); Parainfluenza Virus 3 PCR Not Detected (NotDetected); Parainfluenza Virus 4 PCR Not Detected (NotDetected); Respiratory Syncytial VirusPCR Not Detected (NotDetected); Rhinovirus/Enterovirus PCR Not Detected (NotDetected)
[2024-08-28] MEDS: FUROSEMIDE 40 MG/4 ML VIAL IV ONE (12:27)
--- NOTE | 2024-08-28 13:02 | History & Physical Report ---
Date of Service August 28, 2024 Assessment & Plan (1) CHF (congestive heart failure), NYHA class III: Plan: appears to be acute on chronic combined systolic and diastolic CHFI suspect the chronic worsening was due to uncontrolled atrial fibrillationprobably leadi ng to impaired diastolic filling time and a slow accumulation of pulmonary edema during the last few months; while the cardioversion was successful, she probably had already been fluid overloadedand then the salt load with her jaradaut unfortunately probably led to excess fluid retention leading to today's admission fortunately she is already stabilizing significantly from when the ER initially saw her to whenever I do; continue supplemental oxygen was started on a nitrate drip by the ERtransition to Nitropastewean as possible continue Lasix 40 mg IV twice daily follow closely/follow daily labs/serial exams/oxygen requirement will need ongoing education about sodium restriction (2) Atrial fibrillation: Plan: now sinus rhythm/rate fitting to her degree of physiologic distress; anticoagulated. Continue to follow (3) Diabetes mellitus, type 2: Plan: last A1c fairly recently was 7.5. Is only on Lantus as far as I can tellcontinue this, but reduce the dose somewhat given that she will likely be eating less carbohydrates while in the hospital. Fingersticks and supplemental insulin with NovoLog as needed (4) Chronic kidney disease, stage III (moderate): Plan: appears to be at her baseline range (5) Leukocytosis: Plan: no infectious signs or symptoms, outside of having a low-grade temperature briefly while she is herebut no other signs or symptoms consistent with infectionchecked CRP and Pro-Andreas that are both not in a bacterial rangeI suspect her leukocytosis is demargination from physiologic stress, possibly even from her procedure the other day. Continue to follow closely, serial exams/serial labs, but no indication for empiric antibiotics at this time (6) DVT prophylaxis: Plan: anticoagulated History of Present Illness Chief Complaint: SOB/fatigue Primary Care Provider: Julius Rodriguez DO patient is a very pleasant 69-year-old female who presents after probably 2 months of worsening symptoms. She noted nonspecifically in onset of shortness of breath and fatigue about 2 months agopredominantly with exertion. She does not note any orthopnea, but also clarifies by saying she was recently started on oxygen at bedtime and wonders if that is why she does not have any dyspnea whenever she is laying down (she only sleeps on 1 pillow). She notes that her symptoms were gradually worsening, and she has been struggling with her atrial fibrillationshe actually had a cardioversion only a few days ago. Notes that unfortunately that did not help with her symptoms at all. She notes that she was continuing to feel about the same after the cardioversion not really worse, and then this morning had way worse shortness of breath and came to the ER for further evaluationhere she was found to have findings mostly consistent with fairly severe pulmonary edema and was started on Lasix and a nitro drip as well as supplemental oxygen (BiPAP initially ordered, but she stabilized quickly enough it was not needed). Of note, she relates that she had sauerkraut last night. Although she had a low-grade temperature here in the ER, she denies any infe ctious symptoms, denies fevers chills sweats. Allergies Allergy/AdvReac Type Severity Reaction Status Date / Time Penicillins Allergy Intermediate Rash, Verified 08/28/24 11:53 itching Iodinated Contrast Media AdvReac Intermediate N/V Verified 08/28/24 11:53 Home Medications Medication Instructions Recorded Confirmed Type aspirin 81 mg tablet,delayed 81 mg PO QAM #30 tabs 06/13/22 08/28/24 Rx release magnesium oxide 400 mg (241.3 mg 400 mg PO BID #30 tabs 06/13/22 08/28/24 Rx magnesium) tablet polyethylene glycol 3350 17 gram 17 g PO DAILY PRN Constipation #30 06/13/22 08/28/24 Rx oral powder packet (Miralax) ea acetaminophen 500 mg tablet 1,000 mg (2 x 500 mg) PO TID pain 01/19/23 08/28/24 Rx (Tylenol Extra Strength) 30 days #180 tabs nitroglycerin 0.4 mg sublingual 0.4 mg sublingual DIRECTED PRN 11/13/23 08/28/24 Rx tablet Chest Pain #25 tabs flash glucose scanning reader #1 ea 11/18/23 08/05/24 Rx (FreeStyle Chanelle 2 [place]pe) flash glucose sensor (FreeStyle #6 ea 11/18/23 08/05/24 Rx Chanelle 2 Sensor kit) metoprolol succinate 25 mg 50 mg (2 x 25 mg) PO BID #180 tabs 07/14/24 08/28/24 Rx tablet,extended release 24 hr pen needle, diabetic 31 gauge x #100 ea 08/03/24 08/05/24 Rx /16" (BD Ultra-Fine Short Pen Needle) doxepin 10 mg capsule 10 mg PO UD PRN Sleep 08/19/24 08/28/24 History insulin glargine 100 unit/mL (3 36 unit subcut HS 08/19/24 08/28/24 History mL) subcutaneous pen (Basaglar KwikPen U-100 Insulin) lemborexant 5 mg tablet 5 mg PO HS 08/19/24 08/28/24 History potassium chloride 10 mEq 0 meq PO QAM 08/19/24 08/28/24 History capsule,extended release sertraline 100 mg tablet 100 mg PO QAM 08/19/24 08/28/24 History apixaban 5 mg tablet (Eliquis) 0 mg PO BID 08/28/24 08/28/24 History ezetimibe 10 mg tablet (Zetia) 0 mg PO HS 08/28/24 08/28/24 History furosemide 40 mg tablet 0 mg PO QAM 08/28/24 08/28/24 History losartan 50 mg tablet 0 mg PO BID 08/28/24 08/28/24 History metformin 500 mg tablet,extended 0 mg PO BID 08/28/24 08/28/24 History release 24 hr rosuvastatin 40 mg tablet 0 mg PO HS 08/28/24 08/28/24 History Past Med/Surg History Problem List (Updated 08/28/24 @ 16:37 by Mac Young DO) DVT prophylaxis Leukocytosis Decreased thyroid stimulating hormone (TSH) level Elevated troponin I level (Acute) Hypersomnia Circadian rhythm sleep disorder, 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, shift work type Dysuria (Acute) Encounter for pre-operative examination Multinodular goiter Medical History RLS (restless legs syndrome) Nocturnal hypoxemia 2L O2 HS Multinodular goiter History of obstructive sleep apnea 2L O2 HS Insomnia Fatigue Diabetic neuropathy Diabetes mellitus, type 2 IDDM Chronic kidney disease, stage III (moderate) Hx of cardiomyopathy Bilateral hand swelling Hypertension Atrial fibrillation Follows with [facility] cardio Atherogenic dyslipidemia History of anemia CHF (congestive heart failure), NYHA class III Constipation Dizziness Osteoarthritis Fatty liver History of colonic polyps Diverticular disease Hx Depression Anxiety CAD (coronary artery disease) SILVIANO to LAD (2014) Myocardial Infarction 2015 Surgical History History of anesthesia reaction After hip surgery "was seeing bambi and called 911 from hospital room" > no similar issues after total knee replacement" (both surgeries at [facility]) History of tonsillectomy and adenoidectomy Hx of shoulder surgery R/L x2 History of bilateral tubal ligation History of dilatation and curettage History of cardioversion [facility] History of total left knee replacement (TKR) History of hip surgery Left hip fracture > cannulated screw fixation (06/05/22): Grade view 1, MAC#4, ETT 7.0 at [facility] History of cataract surgery R/L History of tooth extraction History of colonoscopy History of heart artery stent x1 (2014) History of cardiac cath 2014 > stent x1 Family History Mother Non-Hodgkin lymphoma Grandfather (Maternal) Bladder cancer Father Hypertension Myocardial infarction Grandfather (Paternal) Hypertension Grandmother (Paternal) Hypotension Other No family history of adverse response to anesthesia Denies family history of Ovarian cancer Prostate cancer Breast cancer Colorectal cancer Colonic polyp Social History Smoking Status: Former smoker Tobacco Type: Cigarettes Second Hand Exposure: No; Do You Dip or Chew Tobacco: No; Hx Alcohol Use: No Hx Substance Use: No Preferred Language: Somali Communication Ability: Effective Visual Impairment: No Limitations Hearing Ability: Normal Engineer Systems Required: No Beliefs That Will Affect Care: None marital status: Current Living Situation: Alone current occupational status: retired 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 HEENT normocephalic atraumatic mucous membranes moist. Cardio is regular without rubs murmurs or gallops, somewhat distant. Lungs are diminished bilaterally and faint rales, no rhonchi no wheezes no accessory muscle use, she has no conversational dyspnea/tachypnea/accessory muscles on 4 L nasal cannula. Abdomen is soft. Extremities are without cyanosis or clubbing, no calf tenderness. Skin without rashes pallor or icterus. Neuro shows cranial nerves II through XII are grossly intact gross motor and sensory intact. Mental status shows good recent and remote recall normal mood and affect good judgment and insight. Results & Data Results & Data Vital Signs (Past 12 Hours) Vital Signs Temp Pulse Resp BP Pulse Ox O2 Del Method O2 Flow Rate 08/28/24 12:35 98 H 28 H 135/99 97 08/28/24 12:30 100 H 30 H 133/81 97 08/28/24 11:56 103 H 29 H 121/97 97 08/28/24 11:50 105 H 30 H 112/95 96 Nasal Cannula 4 08/28/24 11:41 107 H 30 H 144/91 H 96 08/28/24 11:35 124 H 31 H 135/96 96 08/28/24 11:10 113 H 29 H 154/114 H 98 Nasal Cannula 4 08/28/24 11:05 113 H 29 H 98 08/28/24 10:55 120 H 30 H 169/113 H 96 08/28/24 10:40 118 H 34 H 177/122 H 96 08/28/24 10:30 121 H 33 H 152/119 H 95 08/28/24 10:00 132 H 32 H 178/126 H 94 08/28/24 09:34 117 H 08/28/24 09:20 120 H 12 170/118 H 96 Nasal Cannula 2 08/28/24 09:10 88 L Nasal Cannula 0 08/28/24 09:10 100.2 F H 122 H 24 170/118 H 97 Nasal Cannula 2 PG Care Time/CCT Total # of Minutes Spent Total Time Spent with Patient: Total time spent is greater than 50% in coordination of care (as documented) at patient's floor/unit and/or counseling patient: Coding Level of Care Code 33515 INT INP/OBS CARE 3/75MIN Diagnoses CHF (congestive heart failure), NYHA class III I50.9 Atrial fibrillation I48.91 Diabetes mellitus, type 2 E11.9 Chronic kidney disease, stage III (moderate) N18.30 Leukocytosis D72.829 DVT prophylaxis Z29.9
[2024-08-28 14:13] LABS: C Reactive Protein 3.87 mg/dl (0-0.5)
[2024-08-28] MEDS ORDERED: ALUMINUM/MAGNESIUM SUSP 30 ML UDC PO PRN (14:56)
[2024-08-28] MEDS ORDERED: ACETAMINOPHEN 325 MG TAB PO PRN (14:56)
[2024-08-28] MEDS ORDERED: MAGNESIUM HYDROXIDE SUSP 30 ML UDC PO PRN (14:56)
[2024-08-28] MEDS ORDERED: POLYETHYLENE (MIRALAX) 17 GM PACK PO PRN (14:56)
[2024-08-28] MEDS ORDERED: NITROGLYCERIN SL 0.4 MG/TAB TAB SL PRN (14:56)
[2024-08-28] MEDS ORDERED: DOXEPIN HCL 10 MG CAPSULE PO PRN (14:56)
[2024-08-28] MEDS: ACETAMINOPHEN 500 MG TAB PO SCH (15:08)
[2024-08-28 16:49] LABS: Troponin I High Sensitivity 61.6 pg/ml (0-14)
[2024-08-28] MEDS: NITROGLYCERIN 2% OINTMENT 30GM TUBE EXT SCH (17:16)
[2024-08-28] MEDS: INSULIN ASPART PER UNIT CHARGE SC SCH (20:02)
[2024-08-28] MEDS: MAGNESIUM OXIDE 400 MG TAB PO SCH (20:19)
[2024-08-28] MEDS: METOPROLOL SUCC 50MG EXT REL TAB PO SCH (20:19)
[2024-08-28] MEDS: EZETIMIBE 10 MG TAB PO SCH (20:19)
[2024-08-28] MEDS: ROSUVASTATIN CALCIUM 20 MG TAB PO SCH (20:19)
[2024-08-28] MEDS: APIXABAN 5 MG TABLET PO SCH (20:19)
[2024-08-28] MEDS: LOSARTAN POTASSIUM 50 MG TAB PO SCH (20:19)
[2024-08-28] MEDS: LANTUS PER UNIT CHARGE SC SCH (20:20)
[2024-08-28] MEDS: FUROSEMIDE 40 MG/4 ML VIAL IV SCH (20:20)
[2024-08-28] MEDS: METOPROLOL TARTRATE 1 MG/ML VIAL IV ONE (20:57)
[2024-08-28] MEDS ORDERED: LANTUS PER UNIT CHARGE SC SCH (21:00)
[2024-08-28] MEDS: METOPROLOL TARTRATE 1 MG/ML VIAL IV STA ×2 (21:47→22:16)
[2024-08-28] MEDS: MoRPHine SULFATE 2 MG/ML CARP ONE (22:24)
[2024-08-28] MEDS ORDERED: STAT IV Infusion **Titration per Protocol STA (22:42)
--- NOTE | 2024-08-28 22:45 | Communication Note ---
Date of Service: August 28, 2024 Received messaging from nursing that when getting her pills in the evening she choked on 1. Heart rate went as high as 188. She then was sustaining SVT at 166 bpm. Blood pressure of 141/83. Vagal maneuver tried and only slightly decreased heart rate. 2 rounds of 5 mg Lopressor was given. 1 mg of morphine was given as well. Patient then states that she could not breathe despite being on 99% on 4 L. She remained in SVT at 164. Chest x-ray showed pulmonary vascular congestion with suggest mild pulmonary edema as well as small pleural effusions. Patient denies any chest pain, abdominal pain, nausea, vomiting, or other pain. Still states that she is just short of breath. Patient has required cardioversion x 2 last week. UA was ordered due to having dark urine. Patient was then started on a Cardizem drip with a 20 mg bolus. She then converted to normal sinus rhythm overnight on Cardizem drip. Added on magnesium to morning labs.
[2024-08-28] MEDS: dilTIAZem HCl 5 MG/ML 5 ML VIAL IV STA (23:07)
[2024-08-28] MEDS: MoRPHine SULFATE 2 MG/ML CARP IV STA (23:13)
--- NOTE | 2024-08-28 23:18 | XRay Report ---
Exam(s): XR CXR 1 VIEW EXAM: XR Chest, 1 View CLINICAL HISTORY: Reason for exam: sob. TECHNIQUE: Frontal view of the chest. COMPARISON: No relevant prior studies available. FINDINGS: Lungs: Pulmonary vascular congestion. Interstitial prominence. No consolidation. Pleural space: Small pleural effusions. Heart: Borderline cardiomegaly. Bones/joints: No acute fracture. No dislocation. IMPRESSION: 1. Pulmonary vascular congestion. Interstitial prominence. Appearance suggests mild pulmonary edema. 2. Small pleural effusions. Electronically signed by: Jennifer Vernon M.D. 08/28/24 23:17 PM
[2024-08-28] MEDS: dilTIAZem HCL 125 MG in DEXTROSE 5% 100 ML IV SCH (23:21)
[2024-08-29 03:05] LABS: Basophils # (auto) 0.04 K/uL (0.00-0.20); Basophils % (auto) 0.3 %; Eosinophils # (auto) 0.01 K/uL (0.00-0.50); Eosinophils % (auto) 0.1 %; Hematocrit (blood only) 34.5 % (37.0-47.0); Hemoglobin 11.3 g/dl (12.0-16.0); Immature Granulocytes # (auto) 0.09 K/uL (0.01-0.20); Immature Granulocytes % (auto) 0.6 %; Lymphocytes # (auto) 0.76 K/uL (1.20-3.40); Lymphocytes % (auto) 5.4 %; Mean Corpuscular Hemoglobin 29.4 pg (25.0-34.0); Mean Corpuscular Hgb Conc 32.8 g/dL (32.0-36.0); Mean Corpuscular Volume 89.8 fL (80.0-100.0); Mean Platelet Volume 8.8 fL (9.4-12.4); Monocytes # (auto) 1.37 K/uL (0.11-0.59); Monocytes % (auto) 9.7 %; Neutrophils # (auto) 11.79 K/uL (1.40-6.50); Neutrophils % (auto) 83.9 %; Platelet Count 159 K/uL (130-400); RDW Coefficient of Variation 14.6 % (11.5-14.5); RDW Standard Deviation 47.6 fL (36.4-46.3); Red Blood Count 3.84 M/uL (4.20-5.40); White Blood Count 14.06 K/ul (4.8-10.8)
[2024-08-29 03:23] LABS: BUN Creatinine Ratio 15.6 (10-20); Calcium 8.7 mg/dl (8.6-10.3); Creatinine Clr Calc Pharmacy 45.4 ml/min; Magnesium 1.9 mg/dl (1.7-2.4); Potassium 3.9 mmol/L (3.5-5.1)
--- NOTE | 2024-08-29 06:06 | Electrocardiogram Report ---
Test Reason : Blood Pressure : */* mmHG Vent. Rate : 131 BPM Atrial Rate : 131 BPM P-R Int : 176 ms QRS Dur : 110 ms QT Int : 312 ms P-R-T Axes : * -66 88 degrees QTcB Int : 460 ms Sinus tachycardia with Premature ventricular complexes or Fusion complexes Left anterior fascicular block Left ventricular hypertrophy with repolarization abnormality ( R in aVL , [place] product ) Poor R wave progression, consider anterior [place] vs. lead placement vs. LVH Abnormal ECG When compared with ECG of 25-Aug-2024 07:36, Premature ventricular complexes are now Present Confirmed by Con Galvez ([id number]) on 08/29/2024 6:05:59 AM Referred By: REFERRED SELF Confirmed By: Con Galvez
[2024-08-29] MEDS: SERTRALINE HCL 100 MG TABLET PO SCH (07:18)
[2024-08-29] MEDS: ASPIRIN 81 MG ECTAB PO SCH (07:18)
--- NOTE | 2024-08-29 07:42 | Hospitalist Progress Note ---
Date of Service August 29, 2024 Assessment & Plan (1) Atrial fibrillation: Plan: 69yo female admitted for acute on chronic systolic/diastolic heart failure with worsening uncontrolled afib likely leading to impaired diastolic dysfunction. Did just recently undergo cardioversion in the past month. CXR w/ volume overload and hypoxia/O2 requirements, increased salt load w/ sauerkraut at home (eats out ~6x/wk) Lasix IV BID continued for volume overload Resident reporting SVT overnight, see note. -- Mag 1.9/1gm IV ordered given underlying afib/flutter and appears was actually in fib/flutter rather than SVT Cardizem gtt started/titrated and rates stable in 80s at present. Flipping in/out but rates controlled at present on metoprolol 50mg BID Cardiology consult placed Troponin elevation suspected 2nd to afib/flutter w/ elevated rates. NO CP but monitoring EKG/repeat troponin. Cannot r/o ACS/anginal equivalent but suspect related to demand ischemia. Will defer echo to cardiology who has been consulted Discussed w/ cardiology as I reviewed outpatient labs w/ repeat undetectable TSH and no antibody testing but w/ goiter on exam and "unchanged multinodular goiter" on CT soft tissue neck on outpatient imaging - Does endorse sx consistent with, tremors as well as palpitations at times Discussed w/ endocrinology outpatient who rec for TSI/TPO testing as well as TSH/T4/T3 (T3 to be added to AM labs) TSH repeated w/ T4 --> TSH LOW 0.012, T4 ELEVATED 1.84. --> Recs to start methimazole 10mg PO BID and will arrange for outpatient follow up. Possible need for biopsy pending further eval Likely worse w/ diltiazem with underlying thyroid issues. -->Dr Galvez to see today but plans to discontinue following increasing her metoprolol.. Continues on eliquis BID Also notable infection w/ UTI causes her "afib to act up" --> WBC elevation w/ low grade temp and suprapubic discomfort and UA obtained and APPEARS INFECTED. --> Start Ceftriaxone IV, -->monitor urine cx EKG w/ CP Continued telemetry monitoring/appreciate cardiology recs (2) Hyperthyroidism: Plan: suspected as above multiple TSH outpt low/undetectable back to 2021, noting goiter on CTA since 2019 As above, repeat TSH LOW/ELEVATED T4 Sending to TPO/TSI Plans to start methimazole 10mg PO BID per endocrinology recs and plan for outpt f/u (3) SVT (supraventricular tachycardia): Plan: Reported episode SVT following choking on pill last evening with HR 188bpm, BP 141/83 and resident attempted vagal maneuver with slight improvement in HR but not significant and was provided 2 rounds of lopressory and 1mg of morphine for shortness of breath and was 99% on 4L NC. Remained SVT 164bpm, CXR noting mild pulmonary edema with small effusions. Cardiazem drip with bolus ordered and converted to SR overnight This morning, back into afib @ 0630 per nursing Mag 1.9, 1gm IV ordered to keep closer to 2 Cardizem drip increased, telemetry monitoring Cardiology consulted Troponin elevated 1821, repeat EKG ordered. ?anginal equivalent Notably her TSH < 0.1 on prior checks w/ notes of multinodular goiter from CTA chest 2019. ?hyperthyroidism contributing to poor control of symptoms? --> TESTING ABOVE (4) CHF (congestive heart failure), NYHA class III: Plan: As above, suspected dietary indescretions with uncontrolled afib contributing but ALSO HYPERTHYROIDISM not treated Given Lasix IV, nitrate drip on admission/transitioned to nitropast Lasix 40mg IV BID continued Cardiology consulted Tx afib/flutter as above, plans to increase metoprolol and would avoid further dilt w/ suspected thyroid disease not treated Continue to monitor volume status/I&O, weights Will need f/u discussion about salt (eats out frequently, 6x/wk), low salt diet at wa (5) Diabetes mellitus, type 2: Plan: last A1c fairly recently was 7.5. Is only on Lantus as far as I can tellcontinue this, but reduce the dose somewhat given that she will likely be eating less carbohydrates while in the hospital. Fingersticks and supplemental insulin with NovoLog as needed (6) Chronic kidney disease, stage III (moderate): Plan: appears to be at her baseline range renal dose meds/avoid nephrotoxins as able (7) Leukocytosis: Plan: As above, initially suspected no infectious sx but reporting suprapubic discomfort and low grade temp w/ +UA and procal 0.11 Start Ceftriaxone, follow urine cx. Monitor CBC in AM (8) DVT prophylaxis: Plan: anticoagulated as above Plan Dispo: continued inpatient stay, cardiology consult pending. plan to increase metoprolol. starting methimazole for TSH, additional testing send and will need endo f/u at discharge Admission and Anticipated Discharge Date Admission Date: August 28, 2024 Supervising Physician Co-Signing Physician Notes The patient was not seen by me. The chart was reviewed. Case discussed with TRINITY Velazquez. Agree with assessment and plan Subjective Eval this morning, had episode of elevated HR with reports of SVT but appears to have been aflutter. Has been paced on cardizem drip, HR improved. Just converted back to NSR this morning but has been flipping back/forth. Does report low temp Lasix provided this morning, put out 1500cc overnight. She does have some lower abdominal pain/nausea. Reports no vomiting but denies burning however does have some suprapubic fullness. Discussed with nursing to check bladder scan/catheter if needing for retention but also starting antibiotics given WBC on admission/suprapubic discomfort on exam will start Ceftriaxone and monitor urine cx. Pt does report UTIs have caused her afib to act up. She does also endorse having temp ~100F on admission. Does also appear with thyroid goiter. Prior TSH checked and undetectable. Discussed prior undetectable testing and imaging noted w/ "no change in multinodular goiter". Discussed possible underlying thyroid issue contributing to her afib/flutter as well. She does endorse tremors at time/extreme fatigue. Will plan to check TSI/TPO and if TSH still undetectable consideration to start methimazole 10mg BID with endocrinology follow up. Physical Exam Physical Exam: General: 69yo female sitting up in bed, breathing slightly labored but NAD, on 3L NC HEENT: head atraumatic, +thyroid goiter/nodules, trachea midline Resp: diminished in the bases with bibasilar crackles, faint exp wheeze, on 3L NC CV: irregularly irregular, rates 80s, +systolic murmur, trace medal edema, calves nontender GI: +BS, soft/slight distension, +suprapubic discomfort no lindsay MSK/Neuro:not confused, answering questions appropriately, nonfocal Psych: AOX3, cooperative with exam Results & Data Results & Data Vital Signs (Past 12 Hours) Vital Signs Temp Pulse Pulse Resp BP BP Pulse Ox 08/29/24 07:15 116 H 138/83 08/29/24 03:46 36.8 C 70 18 105/67 95 08/29/24 00:04 77 08/28/24 23:22 100 H 20 128/67 97 08/28/24 23:15 127 H 22 140/78 98 08/28/24 23:07 155 H 22 132/91 97 08/28/24 22:29 164 H 171/129 H 08/28/24 22:16 164 H 176/105 H 08/28/24 21:43 105 H 08/28/24 21:12 100 H 143/88 H 08/28/24 20:57 167 H 157/110 H 08/28/24 20:26 189 H O2 Del Method O2 Flow Rate 08/29/24 07:15 08/29/24 03:46 Nasal Cannula 3 08/29/24 00:04 08/28/24 23:22 Nasal Cannula 3 08/28/24 23:15 Nasal Cannula 3 08/28/24 23:07 Nasal Cannula 3 08/28/24 22:29 08/28/24 22:16 08/28/24 21:43 08/28/24 21:12 08/28/24 20:57 08/28/24 20:26 PG Care Time/CCT Total # of Minutes Spent Total Time Spent with Patient: Total time spent is greater than 50% in coordination of care (as documented) at patient's floor/unit and/or counseling patient: Coding Level of Care Code 70905 SUB INP/OBS CARE 3/50MIN Diagnoses Atrial fibrillation I48.91 Hyperthyroidism E05.90 SVT (supraventricular tachycardia) I47.10 CHF (congestive heart failure), NYHA class III I50.9 Diabetes mellitus, type 2 E11.9 Chronic kidney disease, stage III (moderate) N18.30 Leukocytosis D72.829 DVT prophylaxis Z29.9
[2024-08-29] MEDS: MAGNESIUM SULFATE / D5W 1 GM/100 ML BAG IV ONE (07:55)
[2024-08-29 08:23] LABS: Appearance Urine Clear (Clear); Bacteria Urine Automated 4+ (None Seen); Bilirubin Urine Negative (Negative); Blood Urine Trace (Negative); Color Urine Yellow; Epithelial Cell Urine Auto 0-2 /hpf (0-2); Glucose Urine UA Negative (Negative); Hyaline Casts Urine Present /lpf (None Presnt); Ketones Urine Negative (Negative); Leukocyte Esterase Urine 2+ (Negative); Nitrite Urine Positive (Negative); Protein Urine Trace (Negative); RBC Urine Automated 0-2 /hpf (0-2); Specific Gravity Urine 1.017 (1.000-1.030); Urobilinogen Urine Negative (Negative); WBC Urine Automated >50 /hpf (0-5)
[2024-08-29] MEDS: POTASSIUM CHLORIDE 10 MEQ TABCR PO SCH (08:29)
[2024-08-29 08:43] LABS: Thyroid Stimulating Hormone 0.012 uIu/ml (0.300-4.500)
--- NOTE | 2024-08-29 09:09 | XRay Report ---
XR chest 1V portable CLINICAL HISTORY: follow up pulm congestion COMPARISON STUDY: Chest CT and chest radiograph August 28, 2024. FINDINGS: Lung volumes are normal. There is no pneumothorax. No pleural effusion is identified. Linea r left lower lung opacities favor atelectasis. There is no consolidation to suggest pneumonia. Cardio megaly is again noted. Pulmonary edema has mildly improved. IMPRESSION: 1. Cardiopulmonary. Interval improvement in pulmonary edema. 2. Left basilar densities suggestive of atelectasis. ACT 112: Negative or not required by law. Electronically signed by: Gurpreet Andujar M.D. 08/29/2024 9:07 AM
[2024-08-29 09:19] LABS: T4 Free Thyroxine 1.83 ng/dl (0.61-1.60)
--- NOTE | 2024-08-29 09:45 | Cardiology Consultation ---
Date of Consultation August 29, 2024 Assessment & Plan (1) Paroxysmal atrial fibrillation: (2) SVT (supraventricular tachycardia): (3) Acute heart failure with mildly reduced ejection fraction (HFmrEF, 41-49%): (4) Hyperthyroidism: (5) CAD (coronary artery disease): (6) Cardiomyopathy: (7) Non-ST elevation (NSTEMI) myocardial infarction: Plan ASSESSMENT/PLAN: 1. Paroxysmal atrial fibrillation: Probable SVT overnight but now atrial fibrillation since 6:35 AM this morning. Heart rate well-controlled on diltiazem. Underwent cardioversion on 08/25/2024. Hyperthyroidism likely playing a role in her arrhythmia issue. Recommend appropriate therapy for hyperthyroidism. Wean off of diltiazem in the setting of hyperthyroidism. Increase metoprolol. Will use metoprolol to tartrate for the time being to allow for quicker titration. Continue anticoagulation for stroke risk reduction. 2. SVT: After her choking event, appeared to have SVT which has since subsided. Beta-kenton as above. 3. Acute heart failure with mildly reduced EF: She does not appear to be significantly hypervolemic on exam this afternoon. Can continue diuresis. Monitor renal function closely, as well as electrolytes. We discussed the importance of a low-sodium diet, less than 2000 mg daily. Dietary indiscretion likely playing a role. Cannot exclude post cardioversion pulmonary edema. Discontinue diltiazem. Consider SGLT2 inhibitor if no contraindication, but not currently given concerns for UTI by primary hospitalist service. Heart failure program. Mineralocorticoid receptor antagonist. Continue ARB. 4. Cardiomyopathy: Mildly reduced LV systolic function chronically. Medical therapy as above. 5. CAD s/p LAD PCI: Continue antiplatelet therapy. No angina. Troponin elevated but presentation not consistent with acute coronary syndrome. Troponin likely elevated due to prolonged elevated heart rate in the setting of heart failure exacerbation and arrhythmia/demand ischemia. Continue high intensity statin therapy. No indication for urgent cardiac catheterization. 6. NSTEMI: She did not present with acute coronary syndrome and in fact her troponins significantly elevated after her sustained SVT/tachy arrhythmia, and likely demand ischemia in the setting of known CAD. Repeat echo. Plan as above. 7. Hypertension: Blood pressure was initially elevated but better controlled today. Continue plan of care as above. 8. Hyperthyroidism: As per primary hospitalist service and endocrinology. 9. Disposition: Cardiology will continue to follow. Please call with questions or concerns. Plan of care communicated with Debbie Cohen PA-C of the primary hospitalist service. Follow-up with Dr. Prabhakar and heart failure program. Highly complex medical issues. Thank you for allowing me to participate in the care of your patient. Please call for any other questions or concerns. Sincerely, Francisco Javier Galvez M.D. History of Present Illness Reason for Consultation: "A-fib, elevated troponin, SVT" Requesting Physician: Dr. Do Attending Physician: Raj Martines MD History of Present Illness Ms. Whaley is a very pleasant 69-year-old female with a history significant for atrial fibrillation, CAD s/p LAD PCI, type 2 diabetes, CKD, cardiomyopathy, hypertension, heart failure with mildly reduced EF, hyperthyroidism, and sleep apnea on supplemental oxygen nightly 2 L. Her primary child's nurse is Dr. Prabhakar. She was hospitalized on 08/28/2024 after presenting with shortness of breath. She had been in atrial fibrillation and underwent cardioversion on 08/25/2024 to see if her symptoms improved. Cardioversion was successful and despite being in sinus rhythm, she noted no significant improvement in how she felt. She has been experiencing shortness of breath and fatigue for 2 months. On the morning of presentation, shortness of breath worsened, prompting ER visit. Intravenous Lasix and supplemental oxygen were given. She reportedly was placed on a nitroglycerin drip as well. She does not maintain a low-sodium diet and in fact, the night before presentation, enjoyed some sauerkraut. While being here, her breathing has significantly improved but she remains on supplemental oxygen. She had an episode of left lower chest pain while laying in bed, lasting only a few seconds. It occurred without trigger and spontaneously resolved. Her edema has improved. Documentation notes that she choked while receiving medications on 08/28/2024 and during her choking episode, her heart rate became quite tachycardic. When reviewing telemetry, possible SVT in the 160s and sustained before converting to sinus rhythm and then another episode of sustained SVT, followed by sinus rhythm. She then developed atrial fibrillation on 08/29/2024 at approximately 6:35 AM. She was placed on a diltiazem drip during her SVT and remains on such. She denies melena, hematochezia, hematuria. She denies syncope. Review of systems: As above. Family history: CAD. Social history: She denies tobacco, alcohol, or drug abuse. She lives at home alone, with her cat. She has 1 daughter. She has a significant other, Jewel, for more than 20 years. Jewel was present at the bedside. Allergies Allergy/AdvReac Type Severity Reaction Status Date / Time Penicillins Allergy Intermediate Rash, Verified 08/28/24 11:53 itching Iodinated Contrast Media AdvReac Intermediate N/V Verified 08/28/24 11:53 Home Medications Medication Instructions Recorded Confirmed Type aspirin 81 mg tablet,delayed 81 mg PO QAM #30 tabs 06/13/22 08/28/24 Rx release magnesium oxide 400 mg (241.3 mg 400 mg PO BID #30 tabs 06/13/22 08/28/24 Rx magnesium) tablet polyethylene glycol 3350 17 gram 17 g PO DAILY PRN Constipation #30 06/13/22 08/28/24 Rx oral powder packet (Miralax) ea acetaminophen 500 mg tablet 1,000 mg (2 x 500 mg) PO TID pain 01/19/23 08/28/24 Rx (Tylenol Extra Strength) 30 days #180 tabs nitroglycerin 0.4 mg sublingual 0.4 mg sublingual DIRECTED PRN 11/13/23 08/28/24 Rx tablet Chest Pain #25 tabs flash glucose scanning reader #1 ea 11/18/23 08/05/24 Rx (FreeStyle Chanelle 2 Harwood) flash glucose sensor (FreeStyle #6 ea 11/18/23 08/05/24 Rx Chanelle 2 Sensor kit) metoprolol succinate 25 mg 50 mg (2 x 25 mg) PO BID #180 tabs 07/14/24 08/28/24 Rx tablet,extended release 24 hr pen needle, diabetic 31 gauge x #100 ea 08/03/24 08/05/24 Rx 5/16" (BD Ultra-Fine Short Pen Needle) doxepin 10 mg capsule 10 mg PO UD PRN Sleep 08/19/24 08/28/24 History insulin glargine 100 unit/mL (3 36 unit subcut HS 08/19/24 08/28/24 History mL) subcutaneous pen (Basaglar KwikPen U-100 Insulin) lemborexant 5 mg tablet 5 mg PO HS 08/19/24 08/28/24 History potassium chloride 10 mEq 0 meq PO QAM 08/19/24 08/28/24 History capsule,extended release sertraline 100 mg tablet 100 mg PO QAM 08/19/24 08/28/24 History apixaban 5 mg tablet (Eliquis) 0 mg PO BID 08/28/24 08/28/24 History ezetimibe 10 mg tablet (Zetia) 0 mg PO HS 08/28/24 08/28/24 History furosemide 40 mg tablet 0 mg PO QAM 08/28/24 08/28/24 History losartan 50 mg tablet 0 mg PO BID 08/28/24 08/28/24 History metformin 500 mg tablet,extended 0 mg PO BID 08/28/24 08/28/24 History release 24 hr rosuvastatin 40 mg tablet 0 mg PO HS 08/28/24 08/28/24 History Problem List (Updated 08/29/24 @ 15:44 by Con Galvez MD) Non-ST elevation (NSTEMI) myocardial infarction Acute heart failure with mildly reduced ejection fraction (HFmrEF, 41-49%) Shortness of breath (Acute) CHF exacerbation (Acute) Flash pulmonary edema (Acute) Hyperthyroidism SVT (supraventricular tachycardia) DVT prophylaxis Leukocytosis Decreased thyroid stimulating hormone (TSH) level Elevated troponin I level (Acute) Hypersomnia Circadian rhythm sleep disorder, 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, shift work type Dysuria (Acute) Encounter for pre-operative examination Multinodular goiter Patient History Medical History RLS (restless legs syndrome) Nocturnal hypoxemia 2L O2 HS Multinodular goiter History of obstructive sleep apnea 2L O2 HS Insomnia Fatigue Diabetic neuropathy Diabetes mellitus, type 2 IDDM Chronic kidney disease, stage III (moderate) Hx of cardiomyopathy Bilateral hand swelling Hypertension Atrial fibrillation Follows with [facility] cardio Atherogenic dyslipidemia History of anemia CHF (congestive heart failure), NYHA class III Constipation Dizziness Osteoarthritis Fatty liver History of colonic polyps Diverticular disease Hx Depression Anxiety CAD (coronary artery disease) SILVIANO to LAD (2014) Myocardial Infarction 2014 Surgical History History of anesthesia reaction After hip surgery "was seeing bambi and called 911 from hospital room" > no similar issues after total knee replacement" (both surgeries at [facility]) History of tonsillectomy and adenoidectomy Hx of shoulder surgery R/L x2 History of bilateral tubal ligation History of dilatation and curettage History of cardioversion [facility] History of total left knee replacement (TKR) History of hip surgery Left hip fracture > cannulated screw fixation (06/05/22): Grade view 1, MAC#4, ETT 7.0 at [facility] History of cataract surgery R/L History of tooth extraction History of colonoscopy History of heart artery stent x1 (2014) History of cardiac cath 2014 > stent x1 Family History Mother Non-Hodgkin lymphoma Grandfather (Maternal) Bladder cancer Father Hypertension Myocardial infarction Grandfather (Paternal) Hypertension Grandmother (Paternal) Hypotension Other No family history of adverse response to anesthesia Denies family history of Ovarian cancer Prostate cancer Breast cancer Colorectal cancer Colonic polyp Social History Smoking Status: Former smoker Tobacco Type: Cigarettes Second Hand Exposure: No; Do You Dip or Chew Tobacco: No; Hx Alcohol Use: No Hx Substance Use: No Preferred Language: Portuguese Communication Ability: Effective Visual Impairment: No Limitations Hearing Ability: Normal Public Address Servicer Required: No Beliefs That Will Affect Care: None marital status: Current Living Situation: Alone current occupational status: retired 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 Alert and oriented. HEENT: Anicteric sclera. Neck: Thick neck but no appreciable JVD. No bruits. Normal carotid upstrokes bilaterally. Cardiac: Irregularly irregular. Normal heart rate. Normal S1-S2. No murmurs, rubs, or gallops. Pulmonary: Clear to auscultation bilaterally without wheezes, rales, or rhonchi. Abdomen: Soft, nontender, nondistended, with normoactive bowel sounds. No bruits noted. Extremities: 2+ radial pulses bilaterally. 2+ posterior tibialis pulses bilaterally. No edema or cyanosis. Psychiatric: Affect appears appropriate. Results & Data Vital Signs (Past 12 Hours) Vital Signs Temp Pulse Pulse Resp BP BP Pulse Ox 08/29/24 08:08 160/78 H 08/29/24 08:00 81 08/29/24 08:00 08/29/24 07:15 116 H 138/83 08/29/24 03:46 36.8 C 70 18 105/67 95 08/29/24 00:04 77 08/28/24 23:22 100 H 20 128/67 97 08/28/24 23:15 127 H 22 140/78 98 08/28/24 23:07 155 H 22 132/91 97 08/28/24 22:29 164 H 171/129 H 08/28/24 22:16 164 H 176/105 H O2 Del Method O2 Flow Rate 08/29/24 08:08 08/29/24 08:00 08/29/24 08:00 Nasal Cannula 3 08/29/24 07:15 08/29/24 03:46 Nasal Cannula 3 08/29/24 00:04 08/28/24 23:22 Nasal Cannula 3 08/28/24 23:15 Nasal Cannula 3 08/28/24 23:07 Nasal Cannula 3 08/28/24 22:29 08/28/24 22:16 Intake & Output 08/27/24 08/28/24 08/29/24 08/30/24 06:59 06:59 06:59 06:59 Intake Total 322.8 / 322.8 48.417 / 48.417 Output Total 1950 / 1950 Balance -1627.2 / -1627.2 48.417 / 48.417 Weight 229 lb 4.492 oz Laboratory Results Laboratory Results - last 24 hr 08/28/24 08/28/24 08/28/24 09:18 13:27 19:48 WBC 15.50 H RBC 4.05 L Hgb 12.3 Hct 36.5 L MCV 90.1 MCH 30.4 MCHC 33.7 RDW Std Deviation 47.1 H RDW Coeff of Carissa 14.2 Plt Count 189 MPV 9.0 L Immature Gran % (Auto) 0.6 Neut % (Auto) 85.4 Lymph % (Auto) 4.8 Dillon % (Auto) 8.6 Eos % (Auto) 0.3 Baso % (Auto) 0.3 Neut # (Auto) 13.22 H Lymph # (Auto) 0.75 L Dillon # (Auto) 1.34 H Eos # (Auto) 0.05 Baso # (Auto) 0.04 Immature Gran # (Auto) 0.10 Sodium 138 Potassium 3.6 Chloride 102 Carbon Dioxide 28 Anion Gap 8 BUN 19 Creatinine 1.18 Est Cr Clr Drug Dosing 56.4 eGFR 49.38 BUN/Creatinine Ratio 16.1 Glucose 163 H POC Glucose 158 H Calcium 8.6 Magnesium Troponin I High Sens 28.3 H 61.6 H* D C-Reactive Protein 3.87 H B-Natriuretic Peptide 984 H Procalcitonin 0.11 TSH Free T4 Thyroid Stim Immunoglob Urine Color Urine Appearance Urine pH Ur Specific [place] Urine Protein Urine Glucose (UA) Urine Ketones Urine Blood Urine Nitrite Urine Bilirubin Urine Urobilinogen Ur Leukocyte Esterase Urine WBC (Auto) Urine RBC (Auto) U Hyaline Cast (Auto) U Epithel Cells (Auto) Urine Bacteria (Auto) Hyaline Casts Thyroid Antimicrosomal Adenovirus (PCR) Not Detected B. pertussis DNA (PCR) Not Detected B.parapertussis DNA PCR Not Detected C. pneumoniae DNA (PCR) Not Detected Coronavirus OC43 (PCR) Not Detected Coronavirus HKU1 (PCR) Not Detected Coronavirus 229E (PCR) Not Detected SARS-CoV-2 (PCR) Not Detected Coronavirus NL63 (PCR) Not Detected Human Metapneumovir PCR Not Detected Influenza Type A (PCR) Not Detected Influenza Type B (PCR) Not Detected M. pneumoniae (PCR) Not Detected Parainfluenza 1 (PCR) Not Detected Parainfluenza 2 (PCR) Not Detected Parainfluenza 3 (PCR) Not Detected Parainfluenza 4 (PCR) Not Detected RSV (PCR) Not Detected Entero/Rhino (PCR) Not Detected 08/28/24 08/29/24 08/29/24 21:26 02:48 07:18 WBC 14.06 H RBC 3.84 L Hgb 11.3 L Hct 34.5 L MCV 89.8 MCH 29.4 MCHC 32.8 RDW Std Deviation 47.6 H RDW Coeff of Carissa 14.6 H Plt Count 159 MPV 8.8 L Immature Gran % (Auto) 0.6 Neut % (Auto) 83.9 Lymph % (Auto) 5.4 Dillon % (Auto) 9.7 Eos % (Auto) 0.1 Baso % (Auto) 0.3 Neut # (Auto) 11.79 H Lymph # (Auto) 0.76 L Dillon # (Auto) 1.37 H Eos # (Auto) 0.01 Baso # (Auto) 0.04 Immature Gran # (Auto) 0.09 Sodium 137 Potassium 3.9 Chloride 98 Carbon Dioxide 32 Anion Gap 7 BUN 22 Creatinine 1.41 H Est Cr Clr Drug Dosing 45.4 eGFR 39.88 BUN/Creatinine Ratio 15.6 Glucose 160 H POC Glucose 157 H Calcium 8.7 Magnesium 1.9 Troponin I High Sens 58.2 H* 1821.6 H* D C-Reactive Protein B-Natriuretic Peptide Procalcitonin TSH Free T4 Thyroid Stim Immunoglob Urine Color Urine Appearance Urine pH Ur Specific [place] Urine Protein Urine Glucose (UA) Urine Ketones Urine Blood Urine Nitrite Urine Bilirubin Urine Urobilinogen Ur Leukocyte Esterase Urine WBC (Auto) Urine RBC (Auto) U Hyaline Cast (Auto) U Epithel Cells (Auto) Urine Bacteria (Auto) Hyaline Casts Thyroid Antimicrosomal Adenovirus (PCR) B. pertussis DNA (PCR) B.parapertussis DNA PCR C. pneumoniae DNA (PCR) Coronavirus OC43 (PCR) Coronavirus HKU1 (PCR) Coronavirus 229E (PCR) SARS-CoV-2 (PCR) Coronavirus NL63 (PCR) Human Metapneumovir PCR Influenza Type A (PCR) Influenza Type B (PCR) M. pneumoniae (PCR) Parainfluenza 1 (PCR) Parainfluenza 2 (PCR) Parainfluenza 3 (PCR) Parainfluenza 4 (PCR) RSV (PCR) Entero/Rhino (PCR) 08/29/24 08/29/24 08/29/24 07:41 07:49 Unknown WBC RBC Hgb Hct MCV MCH MCHC RDW Std Deviation RDW Coeff of Carissa Plt Count MPV Immature Gran % (Auto) Neut % (Auto) Lymph % (Auto) Dillon % (Auto) Eos % (Auto) Baso % (Auto) Neut # (Auto) Lymph # (Auto) Dillon # (Auto) Eos # (Auto) Baso # (Auto) Immature Gran # (Auto) Sodium Potassium Chloride Carbon Dioxide Anion Gap BUN Creatinine Est Cr Clr Drug Dosing eGFR BUN/Creatinine Ratio Glucose POC Glucose Calcium Magnesium Troponin I High Sens 2544.0 H* D C-Reactive Protein B-Natriuretic Peptide Procalcitonin TSH 0.012 L Free T4 1.83 H Thyroid Stim Immunoglob Pending Urine Color Yellow Urine Appearance Clear Urine pH 5.0 Ur Specific [place] 1.017 Urine Protein Trace H Urine Glucose (UA) Negative Urine Ketones Negative Urine Blood Trace H Urine Nitrite Positive A Urine Bilirubin Negative Urine Urobilinogen Negative Ur Leukocyte Esterase 2+ H Urine WBC (Auto) >50 H Urine RBC (Auto) 0-2 U Hyaline Cast (Auto) 6-10 H U Epithel Cells (Auto) 0-2 Urine Bacteria (Auto) 4+ H Hyaline Casts Present A Thyroid Antimicrosomal Pending Adenovirus (PCR) B. pertussis DNA (PCR) B.parapertussis DNA PCR C. pneumoniae DNA (PCR) Coronavirus OC43 (PCR) Coronavirus HKU1 (PCR) Coronavirus 229E (PCR) SARS-CoV-2 (PCR) Coronavirus NL63 (PCR) Human Metapneumovir PCR Influenza Type A (PCR) Influenza Type B (PCR) M. pneumoniae (PCR) Parainfluenza 1 (PCR) Parainfluenza 2 (PCR) Parainfluenza 3 (PCR) Parainfluenza 4 (PCR) RSV (PCR) Entero/Rhino (PCR) Diagnostic Findings On 08/29/2024, chart, history and physical report reviewed. Labs reviewed and notable for elevated high-sensitivity troponin up to 2544, elevated BNP, normal potassium, mildly abnormal but stable renal function, normal magnesium, suppressed TSH, mild leukocytosis, mild anemia. Cardioversion note reviewed from 08/25/2024. Myocardial perfusion study report from 01/17/2023 reviewed: No reported myocardial ischemia. EF 41%. Echo report reviewed from 03/06/2024: LVEF 45 to 50%. Mild global hypokinesis. Mild LVH. Mild MR. Mild biatrial dilation. ECG personally reviewed 08/28/2024 at 9:11 AM: Possible sinus tachycardia 131 bpm. PVC. LVH. LAFB. CTA chest 08/28/2024: No PE although respiratory motion reported with suboptimal assessment. Interstitial pulmonary edema. No consolidation to suggest pneumonia. Trace bilateral pleural effusions. Multinodular thyroid goiter. Report per radiology. Outpatient cardiology note reviewed. Medications Administered Current Inpatient Medications Acetaminophen (Acetaminophen 500 Mg Tab) 1,000 mg PO TID [facility] Stop: 09/27/24 14:55 Last Admin: 08/29/24 08:29 Dose: 1,000 mg Al Hydrox/Mg Hydrox/Simethicone (Aluminum/Magnesium Susp 30 Ml Udc) 15 ml PO Q4H PRN PRN Reason: Dyspepsia Stop: 09/27/24 14:55 Apixaban (Apixaban 5 Mg Tablet) 5 mg PO BID [facility] Stop: 09/27/24 20:59 Last Admin: 08/29/24 07:18 Dose: 5 mg Aspirin (Aspirin 81 Mg Ectab) 81 mg PO QAM [facility] Stop: 09/28/24 08:59 Last Admin: 08/29/24 07:18 Dose: 81 mg Doxepin HCl (Doxepin Hcl 10 Mg Capsule) 10 mg PO HS PRN PRN Reason: Sleep Stop: 09/27/24 14:55 Ezetimibe (Ezetimibe 10 Mg Tab) 10 mg PO HS [facility] Stop: 09/27/24 20:59 Last Admin: 08/28/24 20:19 Dose: 10 mg Furosemide (Furosemide 40 Mg/4 Ml Vial) 40 mg IV BID [facility] Stop: 09/27/24 20:59 Last Admin: 08/29/24 07:22 Dose: 40 mg Diltiazem HCl 125 mg/ Dextrose 125 mls @ 15 mls/hr IV .Q8H20M [facility]; Protocol Stop: 09/27/24 22:44 Last Titration: 08/29/24 08:08 Dose: 15 mg/hr, 15 mls/hr Ceftriaxone Sodium (Rocephin) 2,000 mg in 50 mls @ 100 mls/hr IV Q24H [facility] Stop: 09/08/24 09:29 Insulin Aspart (Insulin Aspart Per Unit Charge) 0 units SC ACHS [facility] Stop: 09/27/24 20:59 Last Admin: 08/29/24 08:28 Dose: 4 units Insulin Glargine (Lantus Per Unit Charge) 30 units SC HS [facility] Stop: 09/27/24 20:59 Last Admin: 08/29/24 08:28 Dose: 30 units Losartan Potassium (Losartan Potassium 50 Mg Tab) 50 mg PO BID [facility] Stop: 09/27/24 20:59 Last Admin: 08/29/24 07:18 Dose: 50 mg Magnesium Hydroxide (Magnesium Hydroxide Susp 30 Ml Udc) 30 ml PO Q12H PRN PRN Reason: Constipation Stop: 09/27/24 14:55 Magnesium Oxide (Magnesium Oxide 400 Mg Tab) 400 mg PO BID [facility] Stop: 09/27/24 20:59 Last Admin: 08/29/24 08:49 Dose: 400 mg Metoprolol Succinate (Metoprolol Succ 50mg Ext Rel Tab) 50 mg PO BID [facility] Stop: 09/27/24 20:59 Last Admin: 08/29/24 08:49 Dose: 50 mg Nitroglycerin (Nitroglycerin Sl 0.4 Mg/Tab Tab) 0.4 mg SL Q5M PRN PRN Reason: Chest Pain Stop: 09/27/24 14:55 Nitroglycerin (Nitroglycerin 2% Ointment 30gm Tube) 1 inch EXT Q6 [place] Stop: 09/27/24 17:59 Last Admin: 08/29/24 06:23 Dose: 1 inch Ondansetron HCl (Ondansetron Inj 2 Mg/Ml 2 Ml Vial) 4 mg IV Q6H PRN PRN Reason: Nausea Stop: 09/27/24 14:55 Polyethylene Glycol (Polyethylene (Miralax) 17 Gm Pack) 17 gm PO DAILY PRN PRN Reason: Constipation Stop: 09/27/24 14:55 Potassium Chloride (Potassium Chloride 10 Meq Tabcr) 10 meq PO QAM [facility] Stop: 09/28/24 08:59 Last Admin: 08/29/24 08:29 Dose: 10 meq Rosuvastatin Calcium (Rosuvastatin Calcium 20 Mg Tab) 40 mg PO HS [facility] Stop: 09/27/24 20:59 Last Admin: 08/28/24 20:19 Dose: 40 mg Sertraline HCl (Sertraline Hcl 100 Mg Tablet) 100 mg PO QAM [facility] Stop: 09/28/24 08:59 Last Admin: 08/29/24 07:18 Dose: 100 mg PG Care Time/CCT Total # of Minutes Spent Total Time Spent with Patient: Total time spent is greater than 50% in coordination of care (as documented) at patient's floor/unit and/or counseling patient: Coding Level of Care Code 03493 INT INP/OBS CARE MIN Diagnoses Paroxysmal atrial fibrillation I48.0 SVT (supraventricular tachycardia) I47.10 Acute heart failure with mildly reduced ejection fraction (HFmrEF, 41-49%) I50.21 Hyperthyroidism E05.90 CAD (coronary artery disease) I25.10 Cardiomyopathy, unspecified type I42.9 Cardiomyopathy type: unspecified Non-ST elevation (NSTEMI) myocardial infarction I21.4 (6) Cardiomyopathy Cardiomyopathy type: unspecified Qualified Code(s): I42.9 - Cardiomyopathy, unspecified
[2024-08-29] MEDS: cefTRIAXone SODIUM 2,000 MG/50 ML BAG IV SCH (10:40)
[2024-08-29] MEDS: methIMAzole 5 MG TABLET PO SCH (12:33)
[2024-08-29] MEDS: METOPROLOL TARTRATE 50 MG TAB PO SCH (17:27)
[2024-08-29] MEDS: ONDANSETRON INJ 2 MG/ML 2 ML VIAL IV PRN (19:41)
[2024-08-29] MEDS: MoRPHine SULFATE 2 MG/ML CARP IV STA (20:16)
--- NOTE | 2024-08-30 06:27 | Electrocardiogram Report ---
Test Reason : Blood Pressure : */* mmHG Vent. Rate : 115 BPM Atrial Rate : 136 BPM P-R Int : * ms QRS Dur : 110 ms QT Int : 372 ms P-R-T Axes : * -57 103 degrees QTcB Int : 514 ms Poor data quality, interpretation may be adversely affected Atrial fibrillation with rapid ventricular response Left anterior fascicular block Minimal voltage criteria for LVH, may be normal variant Nonspecific ST and T wave abnormality Abnormal ECG When compared with ECG of 28-Aug-2024 09:11, Atrial fibrillation has replaced Sinus rhythm Confirmed by Con Galvez ([id number]) on 08/30/2024 6:27:41 AM Referred By: REFERRED SELF Confirmed By: Con Galvez
[2024-08-30 06:50] LABS: Basophils # (auto) 0.04 K/uL (0.00-0.20); Basophils % (auto) 0.3 %; Eosinophils # (auto) 0.01 K/uL (0.00-0.50); Eosinophils % (auto) 0.1 %; Immature Granulocytes % (auto) 0.8 %; Lymphocytes # (auto) 0.45 K/uL (1.20-3.40); Lymphocytes % (auto) 3.6 %; Mean Corpuscular Hemoglobin 29.6 pg (25.0-34.0); Mean Corpuscular Hgb Conc 32.4 g/dL (32.0-36.0); Mean Corpuscular Volume 91.1 fL (80.0-100.0); Mean Platelet Volume 9.2 fL (9.4-12.4); Monocytes # (auto) 1.22 K/uL (0.11-0.59); Monocytes % (auto) 9.8 %; Neutrophils # (auto) 10.65 K/uL (1.40-6.50); Neutrophils % (auto) 85.4 %; Platelet Count 165 K/uL (130-400); RDW Coefficient of Variation 14.6 % (11.5-14.5); RDW Standard Deviation 48.8 fL (36.4-46.3); Red Blood Count 4.06 M/uL (4.20-5.40); White Blood Count 12.47 K/ul (4.8-10.8)
[2024-08-30] MEDS: PERFLUTREN LIPID MICROSPHERE (DEFINITY) IV ONE (06:57)
[2024-08-30 07:20] LABS: Calcium 8.9 mg/dl (8.6-10.3); Creatinine Clr Calc Pharmacy 35.6 ml/min; Magnesium 2.2 mg/dl (1.7-2.4); Potassium 4.5 mmol/L (3.5-5.1)
--- NOTE | 2024-08-30 07:53 | Hospitalist Progress Note ---
Date of Service August 30, 2024 Assessment & Plan (1) Atrial fibrillation: Plan: 69yo female admitted for acute on chronic systolic/diastolic heart failure with worsening uncontrolled afib likely leading to impaired diastolic dysfunction. Did just recently undergo cardioversion in the past month. CXR w/ volume overload and hypoxia/O2 requirements, increased salt load w/ sauerkraut at home (eats out ~6x/wk) IMPROVED, HR STABLE AT PRESENT with adjustments made afternoon/evening 08/29 Cardiology following/appreciate assistance Cardizem gtt DISCONTINUED 08/29 Metoprolol INCREASED to 50mg Q6h Spironolactone 25mg PO daily added/continued Lasix 40mg IV BID continued but Cr bump to 1.8 and lasix placed on hold for this morning given imprvoement in breathing reported by patient but remains on supplemental O2 - cardiology to decide if able to resume this evening ECHO pending-- troponin decreased with improvement in rates. Suspect demand ischemia 2nd to elevated rates however cannot r/o ACS w/ anginal equivalent w/ SOB Lindsay in place, monitor weight/I&O (weight down 4kg in system but no standing weight for today and asked RN to obtain) Continue to monitor on telemetry (2) Hyperthyroidism: Plan: Suspect untreated/underlying Hyperthyroidism contributing as well. --.Hx multinodular goiter. noted on exam, also on imaging "unchanged" along with prior undetectable TSH back to 2021, also noted on CTA since 2019 -- TSH repeated and LOW/T4 elevated. Added TPO/TSI and discussed w/ endocrinology and started methimazole 10mg PO BID and will be arranging for outpt f/u endocrinology. (3) UTI (urinary tract infection): Plan: Lindsay placed given incontinence issues, also suspected UTI infection likely triggering issues as well per patient w/ UTIs it "acts up in the past" w/ WBC elevation/low grade temp on admission and UA obtained which appeared positive and placed on Ceftriaxone IV. Urine cx ecoli and remains on Ceftriaxone for now, de-escalate to PO pending sensitivities (4) Non-ST elevation (NSTEMI) myocardial infarction: Plan: Troponin elevation suspected 2nd to afib/flutter w/ elevated rates, also 2nd to infection with UTI NO CP but SOB, Troponin decreased on repeat following improvement in HR/abx for UTI and suspect 2nd to demand ischemia but cannot r/o ACS and ECHO has been ordered/pending Continue tele monitoring, cards consult appreciated Nitropaste discontinued EKG w/ CP (5) SVT (supraventricular tachycardia): Plan: See prior days notes No further reports, did get 1gm IV mag to keep closer to 2 w/ afib HR improved on increased BB as outlined and continued telemetry monitoring Also w/ suspected hyperthyroidism as above and methimazole started (6) CHF (congestive heart failure), NYHA class III: Plan: As above, suspected dietary indiscretions with uncontrolled afib contributing but ALSO HYPERTHYROIDISM not treated Given Lasix IV, nitrate drip on admission/transitioned to nitropast Cardiology consulted as above and pending ECHO lasix/spironolactone/metoprolol as outlined above Nitropaste discontinued and possible resumption of IV lasix for this evening but will hold now for CACHORRO, Cr 1.8 and monitor UOP Continue to monitor volume status/I&O, weights (STANDING SCALE Pref) Will need f/u discussion about salt (eats out frequently, 6x/wk), low salt diet at me (7) Diabetes mellitus, type 2: Plan: last A1c fairly recently was 7.5. On lantus Sliding scale while inpatient (8) Chronic kidney disease, stage III (moderate): Plan: as above, acute on chronic CKD w/ cachorro possible from overdiuresis/UTI/medications Lasix placed on hold for now but continues spironolactone Tx UTI as outlined Monitor BMP in AM/avoid toxins (9) Leukocytosis: Plan: As above, initially suspected no infectious sx but reporting suprapubic discomfort and low grade temp w/ +UA and procal 0.11 Start Ceftriaxone, follow urine cx. Monitor CBC in AM (10) DVT prophylaxis: Plan: anticoagulated as above w/ eliquis which has been continued Plan Dispo: continued inpatient stay, ECHO pending. Appreciate recs/assistance from cardiology. PT/OT consults placed for completeness Admission and Anticipated Discharge Date Admission Date: August 28, 2024 Supervising Physician Co-Signing Physician Notes PA Supervision Note: I did not personally see or examine the patient today, but I verified all orozco points of TRINITY Cohen's assessment and plan with the following exceptions/additions: Given CACHORRO, HOLD losartan and further lasix at this time Subjective Evaluated this morning, resting in bed. Reports breathing improved today. Lindsay in place, slightly reduced UOP. Abdominal pain improving, passing gas. No bowel movement, will order bowel regimen. Remains in afib but rates improved. Metoprolol increased q6h as discussed. She is tried, wanting to rest but nursing to get up out of bed for lunch. Spironolactone started but will hold off IV lasix for now give UOP lower and no significant edema. Discussed urine cx appears positive and abx have been continued. Denies further choking on pills. Will hold lasix IV for now but may need to resume. No CP reported. Will dc nitropaste. Remains on telemetry Discussed methimazole and endocrinology follow up. Is agreeable. Will consult PT/OT for completeness Physical Exam 2 Physical Exam: General: 69yo female sitting up in bed, resting, appears much more comfortable/no labored breathing but remains on 3L NC HEENT: head atraumatic, +thyroid goiter/nodules, trachea midline Resp: diminished in the bases with bibasilar crackles, faint exp wheeze, on 3L NC CV: irregularly irregular, rates 80s, +systolic murmur, trace medal edema, calves nontender GI: +BS, soft/slight distension, +suprapubic discomfort (improved) lindsay with concentrated cloudy urine present MSK/Neuro:not confused, answering questions appropriately, nonfocal Psych: AOX3, cooperative Results & Data Results & Data Vital Signs (Past 12 Hours) Vital Signs Temp Pulse Resp BP Pulse Ox O2 Del Method O2 Flow Rate 08/30/24 04:13 36.8 C 97 H 16 121/89 95 Nasal Cannula 3 08/29/24 22:17 36.9 C 82 16 103/65 95 Room Air 08/29/24 21:00 Nasal Cannula 3 Laboratory Results 08/30/24 05:30 08/30/24 05:30 T3 3.0 Lipase 8 Mag 2.2 Diagnostic Findings Chest X-Ray 08/30/24 07:49 XR chest 1V portable HISTORY: 69 years-old Female f/u acute shortness of breath COMPARISON: 10/30/2023 TECHNIQUE: AP view of the chest FINDINGS: Cardiac silhouette is enlarged. Pulmonary vascular congestion. No pneumothorax, pleural effusion or airspace consolidation. Bones appear grossly intact. Mild bibasilar atelectasis. IMPRESSION: 1. Cardiomegaly with unchanged pulmonary vascular congestion. 2. Mild bibasilar atelectasis. ACT 112: Negative or not required by law. The above report was generated using voice recognition software. It may contain grammatical, syntax or spelling errors. Electronically signed by: Jonnie Ac M.D. 08/30/2024 9:03 AM PG Care Time/CCT Total # of Minutes Spent Total Time Spent with Patient: Total time spent is greater than 50% in coordination of care (as documented) at patient's floor/unit and/or counseling patient: Coding Level of Care Code 23063 SUB INP/OBS CARE 3/50MIN Diagnoses Atrial fibrillation I48.91 Hyperthyroidism E05.90 UTI (urinary tract infection) N39.0 Non-ST elevation (NSTEMI) myocardial infarction I21.4 SVT (supraventricular tachycardia) I47.10 CHF (congestive heart failure), NYHA class III I50.9 Diabetes mellitus, type 2 E11.9 Chronic kidney disease, stage III (moderate) N18.30 Leukocytosis D72.829 DVT prophylaxis Z29.9
--- NOTE | 2024-08-30 09:04 | XRay Report ---
XR chest 1V portable HISTORY: 69 years-old Female f/u acute shortness of breath COMPARISON: 10/30/2023 TECHNIQUE: AP view of the chest FINDINGS: Cardiac silhouette is enlarged. Pulmonary vascular congestion. No pneumothorax, pleural effusion or a irspace consolidation. Bones appear grossly intact. Mild bibasilar atelectasis. IMPRESSION: 1. Cardiomegaly with unchanged pulmonary vascular congestion. 2. Mild bibasilar atelectasis. ACT 112: Negative or not required by law. The above report was generated using voice recognition software. It may contain grammatical, syntax o r spelling errors. Electronically signed by: Jonnie Ac M.D. 08/30/2024 9:03 AM
[2024-08-30] MEDS: SPIRONOLACTONE 25 MG TAB PO SCH (09:14)
[2024-08-30] MEDS: DOCUSATE SODIUM 100 MG CAP PO SCH (09:17)
[2024-08-30] MEDS: FUROSEMIDE 40 MG/4 ML VIAL IV ONE (15:58)
--- NOTE | 2024-08-30 18:58 | Cardiology Progress Note ---
Date of Service August 30, 2024 Assessment & Plan (1) Paroxysmal atrial fibrillation: (2) SVT (supraventricular tachycardia): (3) Acute heart failure with mildly reduced ejection fraction (HFmrEF, 41-49%): (4) Hyperthyroidism: (5) CAD (coronary artery disease): (6) Cardiomyopathy: (7) Non-ST elevation (NSTEMI) myocardial infarction: Plan ASSESSMENT/PLAN: 1. Paroxysmal atrial fibrillation: Remains in atrial fibrillation since 6:35 AM on 08/29/2024. Underwent cardioversion on 08/25/2024. Hyperthyroidism likely playing a role in her arrhythmia issue. Recommend appropriate therapy for hyperthyroidism. Increase metoprolol has maintained adequate heart rate cont rol. Continue rate control strategy. She seems to be asymptomatic in regards to her atrial fibrillation, feeling no better when sinus rhythm was restored last week. Continue anticoagulation for stroke risk reduction. 2. SVT: After her choking event, appeared to have SVT which has since subsided. Beta-kenton as above. 3. Acute heart failure with mildly reduced EF: She does not appear to be significantly hypervolemic on exam and labs suggest azotemia. Would hold off on any further diuretics at this time. She did receive Lasix 40 mg IV this afternoon. Repeat labs tomorrow. Monitor renal function closely, as well as electrolytes. Low-sodium diet, less than 2000 mg daily. Dietary indiscretion likely playing a role. Cannot exclude post cardioversion pulmonary edema. Consider SGLT2 inhibitor if no contraindication, but not currently given concerns for UTI by primary hospitalist service. Heart failure program. Mineralocorticoid receptor antagonist. Continue ARB. Will consider replacing ARB with Entresto, but holding off for now in the setting of worsening renal function. 4. Cardiomyopathy: Mildly reduced LV systolic function chronically. Medical therapy as above. 5. CAD s/p LAD PCI: Continue antiplatelet therapy. No angina. Troponin elevated but presentation not consistent with acute coronary syndrome. Troponin likely elevated due to prolonged elevated heart rate in the setting of heart failure exacerbation and arrhythmia/demand ischemia. Continue high intensity statin therapy. No indication for urgent cardiac catheterization. 6. NSTEMI: She did not present with acute coronary syndrome and in fact her troponins significantly elevated after her sustained SVT/tachy arrhythmia, and likely demand ischemia in the setting of known CAD. Repeat echo. Plan as above. 7. Hypertension: Blood pressure well-controlled. Continue plan of care as above. 8. Hyperthyroidism: As per primary hospitalist service and endocrinology. 9. Disposition: Cardiology will continue to follow. Please call with questions or concerns. Plan of care communicated with Debbie Cohen PA-C of the primary hospitalist service. Follow-up with Dr. Prabhakar and heart failure program. Admission and Anticipated Discharge Date Admission Date: August 28, 2024 Subjective Patient seen earlier this evening. She states that her breathing is not normal, still with some shortness of breath, but overall improved from yesterday and has been improving daily. She denies chest pain, syncope, near syncope, palpitations, or bleeding. She was unaccompanied. Physical Exam Physical Exam: Gen.: No acute distress. Alert. HEENT: Anicteric sclera. Neck: Thick neck but no appreciable JVD Cardiac: Irregularly irregular with normal heart rate. Normal S1-S2. No murmurs, rubs, or gallops. Pulmonary: Decreased breath sounds at the bases, but otherwise clear to auscultation bilaterally without wheezes, rales, or rhonchi. Abdomen: Soft, nontender, nondistended, with normoactive bowel sounds. No bruits noted. Extremities: 2+ radial pulses bilaterally. 2+ posterior tibialis pulses bilaterally. Bilateral lower extremity edema. No cyanosis. Results & Data Vital Signs (Past 12 Hours) Vital Signs Intake & Output 08/28/24 08/29/24 08/30/24 08/31/24 06:59 06:59 06:59 06:59 Intake Total 322.8 / 322.8 958.917 / 958.917 310 / 310 Output Total 1949 / 1949 475 / 475 100 / 100 Balance -1627.2 / -1627.2 483.917 / 483.917 210 / 210 Weight 229 lb 4.492 oz 229 lb 15.074 oz 229 lb 0.964 oz Temp Pulse Resp BP BP Pulse Ox O2 Del Method 08/30/24 15:44 115/72 08/30/24 15:35 37.2 C 84 18 95/56 L 98 Nasal Cannula 08/30/24 11:47 37.1 C 90 18 99/62 L 99 Nasal Cannula 08/30/24 09:00 Nasal Cannula 08/30/24 07:51 36.7 C 82 18 107/66 Nasal Cannula Intake & Output 08/28/24 08/29/24 08/30/24 08/31/24 06:59 06:59 06:59 06:59 Intake Total 322.8 / 322.8 958.917 / 958.917 310 / 310 Output Total 1949 / 1949 475 / 475 100 / 100 Balance -1627.2 / -1627.2 483.917 / 483.917 210 / 210 Weight 229 lb 4.492 oz 229 lb 15.074 oz 229 lb 0.964 oz Laboratory Results Laboratory Results - last 24 hr 08/29/24 08/29/24 08/30/24 19:01 20:16 05:30 WBC 12.47 H RBC 4.06 L Hgb 12.0 Hct 37.0 MCV 91.1 MCH 29.6 MCHC 32.4 RDW Std Deviation 48.8 H RDW Coeff of Carissa 14.6 H Plt Count 165 MPV 9.2 L Immature Gran % (Auto) 0.8 Neut % (Auto) 85.4 Lymph % (Auto) 3.6 Camp % (Auto) 9.8 Eos % (Auto) 0.1 Baso % (Auto) 0.3 Neut # (Auto) 10.65 H Lymph # (Auto) 0.45 L Camp # (Auto) 1.22 H Eos # (Auto) 0.01 Baso # (Auto) 0.04 Immature Gran # (Auto) 0.10 Sodium 135 L Potassium 4.5 Chloride 95 L Carbon Dioxide 31 Anion Gap 9 BUN 36 H Creatinine 1.80 H D Est Cr Clr Drug Dosing 35.6 eGFR 29.75 BUN/Creatinine Ratio 20.0 Glucose 159 H POC Glucose 136 H Calcium 8.9 Magnesium 2.2 Troponin I High Sens 2260.4 H* Lipase 8 L Free T3 3.00 08/30/24 08/30/24 08/30/24 07:12 11:12 16:22 WBC RBC Hgb Hct MCV MCH MCHC RDW Std Deviation RDW Coeff of Carissa Plt Count MPV Immature Gran % (Auto) Neut % (Auto) Lymph % (Auto) Camp % (Auto) Eos % (Auto) Baso % (Auto) Neut # (Auto) Lymph # (Auto) Camp # (Auto) Eos # (Auto) Baso # (Auto) Immature Gran # (Auto) Sodium Potassium Chloride Carbon Dioxide Anion Gap BUN Creatinine Est Cr Clr Drug Dosing eGFR BUN/Creatinine Ratio Glucose POC Glucose 223 H 148 H 167 H Calcium Magnesium Troponin I High Sens Lipase Free T3 Diagnostic Findings Telemetry personally reviewed: Atrial fibrillation with acceptable rate. Labs reviewed and notable for worsening renal function, labs suggesting azotemia. Normal potassium, improved leukocytosis, normal hemoglobin. Urine culture 08/29/2024: E. coli Medications Administered Current Inpatient Medications Acetaminophen (Acetaminophen 500 Mg Tab) 1,000 mg PO TID ESTEPHANIA Stop: 09/27/24 14:55 Last Admin: 08/30/24 15:45 Dose: 1,000 mg Al Hydrox/Mg Hydrox/Simethicone (Aluminum/Magnesium Susp 30 Ml Udc) 15 ml PO Q4H PRN PRN Reason: Dyspepsia Stop: 09/27/24 14:55 Apixaban (Apixaban 5 Mg Tablet) 5 mg PO BID ESTEPHANIA Stop: 09/27/24 20:59 Last Admin: 08/30/24 09:14 Dose: 5 mg Aspirin (Aspirin 81 Mg Ectab) 81 mg PO QAM [place]EPH[place]IA Stop: 09/28/24 08:59 Last Admin: 08/30/24 08:13 Dose: 81 mg Docusate Sodium (Docusate Sodium 100 Mg Cap) 100 mg PO BID ESTEPHANIA Stop: 09/29/24 08:59 Last Admin: 08/30/24 09:17 Dose: 100 mg Doxepin HCl (Doxepin Hcl 10 Mg Capsule) 10 mg PO HS PRN PRN Reason: Sleep Stop: 09/27/24 14:55 Ezetimibe (Ezetimibe 10 Mg Tab) 10 mg PO HS [place]EPHANIA Stop: 09/27/24 20:59 Last Admin: 08/29/24 19:46 Dose: 10 mg Furosemide (Furosemide 40 Mg/4 Ml Vial) 40 mg IV BID ESTEPHANIA Stop: 09/27/24 20:59 Last Admin: 08/29/24 20:15 Dose: 40 mg Ceftriaxone Sodium (Rocephin) 2,000 mg in 50 mls @ 100 mls/hr IV Q24H [place]PH[place] Stop: 09/08/24 09:29 Last Infusion: 08/30/24 09:51 Dose: Infused Insulin Aspart (Insulin Aspart Per Unit Charge) 0 units SC ACHS [place]EPHANIA Stop: 09/27/24 20:59 Last Admin: 08/30/24 17:17 Dose: 6 units Insulin Glargine (Lantus Per Unit Charge) 30 units SC HS [facility] Stop: 09/27/24 20:59 Last Admin: 08/29/24 08:28 Dose: 30 units Losartan Potassium (Losartan Potassium 50 Mg Tab) 50 mg PO BID [facility] Stop: 09/27/24 20:59 Last Admin: 08/30/24 08:13 Dose: 50 mg Magnesium Hydroxide (Magnesium Hydroxide Susp 30 Ml Udc) 30 ml PO Q12H PRN PRN Reason: Constipation Stop: 09/27/24 14:55 Magnesium Oxide (Magnesium Oxide 400 Mg Tab) 400 mg PO BID [facility] Stop: 09/27/24 20:59 Last Admin: 08/30/24 08:13 Dose: 400 mg Methimazole (Methimazole 5 Mg Tablet) 10 mg PO BID [facility] Stop: 09/28/24 11:14 Last Admin: 08/30/24 08:12 Dose: 10 mg Metoprolol Tartrate (Metoprolol Tartrate 50 Mg Tab) 50 mg PO Q6H [facility] Stop: 09/28/24 16:29 Last Admin: 08/30/24 15:45 Dose: 50 mg Nitroglycerin (Nitroglycerin Sl 0.4 Mg/Tab Tab) 0.4 mg SL Q5M PRN PRN Reason: Chest Pain Stop: 09/27/24 14:55 Ondansetron HCl (Ondansetron Inj 2 Mg/Ml 2 Ml Vial) 4 mg IV Q6H PRN PRN Reason: Nausea Stop: 09/27/24 14:55 Last Admin: 08/29/24 19:41 Dose: 4 mg Polyethylene Glycol (Polyethylene (Miralax) 17 Gm Pack) 17 gm PO DAILY PRN PRN Reason: Constipation Stop: 09/27/24 14:55 Potassium Chloride (Potassium Chloride 10 Meq Tabcr) 10 meq PO QAM [facility] Stop: 09/28/24 08:59 Last Admin: 08/30/24 08:12 Dose: 10 meq Rosuvastatin Calcium (Rosuvastatin Calcium 20 Mg Tab) 40 mg PO HS [facility] Stop: 09/27/24 20:59 Last Admin: 08/29/24 20:41 Dose: Not Given Sertraline HCl (Sertraline Hcl 100 Mg Tablet) 100 mg PO QAM [facility] Stop: 09/28/24 08:59 Last Admin: 12/16/24 08:13 Dose: 100 mg Spironolactone (Spironolactone 25 Mg Tab) 25 mg PO QAM [facility] Stop: 09/29/24 08:59 Last Admin: 08/30/24 09:14 Dose: 25 mg PG Care Time/CCT Total # of Minutes Spent Total Time Spent with Patient: Total time spent is greater than 50% in coordination of care (as documented) at patient's floor/unit and/or counseling patient: Coding Level of Care Code 19706 SUB INP/OBS CARE 3/50MIN Diagnoses Paroxysmal atrial fibrillation I48.0 SVT (supraventricular tachycardia) I47.10 Acute heart failure with mildly reduced ejection fraction (HFmrEF, 41-49%) I50.21 Hyperthyroidism E05.90 CAD (coronary artery disease) I25.10 Cardiomyopathy, unspecified type I42.9 Cardiomyopathy type: unspecified Non-ST elevation (NSTEMI) myocardial infarction I21.4 (6) Cardiomyopathy Cardiomyopathy type: unspecified Qualified Code(s): I42.9 - Cardiomyopathy, unspecified
--- NOTE | 2024-08-30 23:27 | XCELERA ---
[id number]
[2024-08-31 07:20] LABS: Basophils # (auto) 0.04 K/uL (0.00-0.20); Basophils % (auto) 0.5 %; Eosinophils # (auto) 0.11 K/uL (0.00-0.50); Eosinophils % (auto) 1.4 %; Hematocrit (blood only) 35.6 % (37.0-47.0); Hemoglobin 11.5 g/dl (12.0-16.0); Immature Granulocytes # (auto) 0.06 K/uL (0.01-0.20); Immature Granulocytes % (auto) 0.7 %; Lymphocytes # (auto) 0.95 K/uL (1.20-3.40); Lymphocytes % (auto) 11.8 %; Mean Corpuscular Hemoglobin 29.6 pg (25.0-34.0); Mean Corpuscular Hgb Conc 32.3 g/dL (32.0-36.0); Mean Corpuscular Volume 91.5 fL (80.0-100.0); Mean Platelet Volume 9.6 fL (9.4-12.4); Monocytes # (auto) 1.24 K/uL (0.11-0.59); Monocytes % (auto) 15.5 %; Neutrophils # (auto) 5.62 K/uL (1.40-6.50); Neutrophils % (auto) 70.1 %; Platelet Count 152 K/uL (130-400); RDW Coefficient of Variation 14.6 % (11.5-14.5); RDW Standard Deviation 49.1 fL (36.4-46.3); Red Blood Count 3.89 M/uL (4.20-5.40); White Blood Count 8.02 K/ul (4.8-10.8)
[2024-08-31 07:27] LABS: Albumin Level 3.3 gm/dl (3.4-5.0); Bilirubin,Total 0.4 mg/dl (0.2-1.0); Calcium 8.4 mg/dl (8.6-10.3); Creatinine Clr Calc Pharmacy 35.3 ml/min; Magnesium 2.3 mg/dl (1.7-2.4); Potassium 3.7 mmol/L (3.5-5.1); Total Protein 6.5 gm/dl (6.0-8.3)
[2024-08-31 07:32] VITALS: RESP 18
[2024-08-31] MEDS: POLYETHYLENE (MIRALAX) 17 GM PACK PO PRN (08:30)
--- NOTE | 2024-08-31 08:41 | Hospitalist Progress Note ---
Date of Service August 31, 2024 Assessment & Plan (1) Atrial fibrillation: Plan: Admitted for acute on chronic systolic/diastolic heart failure with worsening uncontrolled afib likely leading to impaired diastolic dysfunction. Did just recently undergo cardioversion in the past month - CXR w/ volume overload and hypoxia/O2 requirements, increased salt load w/ sauerkraut at home (eats out ~6x/wk) - Troponin elevated, downtrended. Suspect secondary to demand ischemia in setting of uncontrolled A fib, known CAD, and heart failure exacerbation - Echo showed EF 35-40%, global hypokinesis, mildly reduced systolic function, mild MR. Compared to study of 03/05/2024, LV systolic function is mildly declined. RV systolic function is now mildly reduced - Rates much improved/stabilized, but patient remains on supplemental O2 - Continue Stiles catheter and monitor weight/I&O - Cardiology following -- declining LV systolic function could be due to hyperthyroidism, but also ischemic heart disease. Could consider coronary angiography outpatient but would not do so with rising creatinine - Continue metoprolol 50 mg Q6H - Continue Eliquis 5 mg BID and aspirin 81 mg daily - Continue Rosuvastatin 40 mg HS - Continue ezetimibe 10 mg HS - Continue low-sodium diet - Consider SGLT2 inhibitor if no contraindication, but not currently given acute UTI - Lasix, Spironolactone, Losartan on HOLD given CACHORRO > Consider replacing ARB with Entresto, but holding off for now in the setting of worsening renal function - Follow-up with Dr. Prabhakar in cardiology and heart failure clinic on discharge (2) Hyperthyroidism: Plan: Suspect untreated/underlying Hyperthyroidism contributing to arrhythmia as well - Hx multinodular goiter. Noted on exam, also on imaging "unchanged" along with prior undetectable TSH back to 2021, also noted on CTA since 2019 - TSH repeated and LOW/T4 elevated. Added TPO/TSI, pending - Discussed with endocrinology and started/continue methimazole 10mg PO BID - Recommend endocrinology follow-up outpatient (3) UTI (urinary tract infection): Plan: Stiles placed given incontinence issues, also with leukocytosis and low-grade temp on admission - Urine culture revealed pansensitive E. coli - Continue Ceftriaxone - Given intermediate allergy to Penicillins, will avoid and plan to transition to Cipro once creatinine downtrends (4) CHF (congestive heart failure), NYHA class III: Plan: With acute on chronic HFrEF- suspected dietary indiscretions with uncontrolled afib contributing but ALSO HYPERTHYROIDISM not treated - Given Lasix IV, nitrate drip on admission/transitioned to nitropaste which has been discontinued now - Cardiology following - Echo: EF 35-40%. Compared to study of 03/05/2024, LV systolic function is mildly declined. RV systolic function is now mildly reduced - Lasix/spironolactone/metoprolol as outlined above - Will need f/u discussion about salt (eats out frequently, 6x/wk), low salt diet at mi (5) Diabetes mellitus, type 2: Plan: Last A1c fairly recently was 7.5 - On lantus - Sliding scale while inpatient (6) Chronic kidney disease, stage III (moderate): Plan: CACHORRO superimposed on chronic CKD from overdiuresis/UTI/medications - Lasix, losartan, and spironolactone placed on hold for now - Monitor BMP in AM/avoid toxins Plan Persistent insomnia -- will try Trazodone 25 mg HS with additional 25 mg available if still awake after 1 hour Discussed case with cardiology Reviewed telemetry -- A-fib with PVCs, rates in 70s90s. Per cardiology, patient to remain in A-fib as she felt no better when in NSR and given hyperthyroidism, may be an uphill romero to maintain NSR currently VTE PPX: Eliquis CODE STATUS: DNR/DNI Admission and Anticipated Discharge Date Admission Date: August 28, 2024 Supervising Physician Co-Signing Physician Notes PA Supervision Note: I did not personally see or examine the patient today, but I verified all orozco points of TRINITY Fabian's assessment and plan with the following exceptions/additions: none Subjective Patient seen and evaluated at bedside. She reports feeling better today. She reports intermittent shortness of breath, but believes she is back to her baseline. She is still on 3 L via nasal cannula at the time my evaluation. She does not use supplemental O2 during the day at home. We discussed weaning her off supplemental O2. She reports poor sleeping at night, which she states is a chronic problem for her. She denies heart palpitations, chest pain, presyncope. No additional complaints or concerns at this time. Physical Exam Physical Exam: General: No acute distress, nondiaphoretic, well-developed, well-nourished. Skin: The skin was without rashes, erythema, edema, or bruising. + Thyroid goiter/nodules. Cardiac: Irregularly irregular, rates in 80-90s. No murmurs, rubs, or gallops. Pulm: diminished in the bases with bibasilar crackles, faint exp wheeze, on 3L NC Abdominal: Soft, nontender, slightly distended. Bowel sounds present. : Stiles with concentrated cloudy urine present. Neuro: A&O x3. No focal neurological deficits. Results & Data Results & Data Vital Signs (Past 12 Hours) Vital Signs Temp Pulse Resp BP Pulse Ox O2 Del Method O2 Flow Rate 08/31/24 07:30 98.1 F 88 18 107/72 100 Nasal Cannula 3.0 08/31/24 03:42 97.5 F L 86 16 135/71 97 Nasal Cannula 3 08/30/24 22:29 97.9 F 90 16 116/79 100 Nasal Cannula 3 08/30/24 21:00 Nasal Cannula 3 Laboratory Results Reviewed CBC Reviewed CMP Reviewed urine culture Diagnostic Findings Reviewed echo Reviewed telemetry PG Care Time/CCT Total # of Minutes Spent Total Time Spent with Patient: Total time spent is greater than 50% in coordination of care (as documented) at patient's floor/unit and/or counseling patient: Coding Level of Care Code 99289 SUB INP/OBS CARE 3/50MIN Diagnoses Atrial fibrillation I48.91 Hyperthyroidism E05.90 UTI (urinary tract infection) N39.0 CHF (congestive heart failure), NYHA class III I50.9 Diabetes mellitus, type 2 E11.9 Chronic kidney disease, stage III (moderate) N18.30
--- NOTE | 2024-08-31 13:54 | Cardiology Progress Note ---
Date of Service August 31, 2024 Assessment & Plan (1) Paroxysmal atrial fibrillation: (2) SVT (supraventricular tachycardia): (3) Acute heart failure with mildly reduced ejection fraction (HFmrEF, 41-49%): (4) Hyperthyroidism: (5) CAD (coronary artery disease): (6) Cardiomyopathy: (7) Non-ST elevation (NSTEMI) myocardial infarction: Plan ASSESSMENT/PLAN: 1. Paroxysmal atrial fibrillation: Remains in atrial fibrillation since 6:35 AM on 08/29/2024 after undergoing cardioversion on 08/25/2024. Hyperthyroidism likely playing a role in her arrhythmia issue. Recommend appropriate therapy for hyperthyroidism. Increase metoprolol has maintained adequate heart rate control. Continue rate control strategy. She seems to be asymptomatic in regards to her atrial fibrillation, feeling no better when sinus rhythm was restored last week. Continue anticoagulation for stroke risk reduction. 2. SVT: After her choking event, appeared to have SVT which has since subsided. Beta-kenton as above. 3. Acute heart failure with mildly reduced EF: She does not appear to be significantly hypervolemic on exam and labs suggest azotemia. Would hold off on any further diuretics at this time. Her last intravenous Lasix was on 08/30/2024 (40 mg). Low-sodium diet, less than 2000 mg daily. Dietary indiscretion likely playing a role. Cannot exclude post cardioversion pulmonary edema. Consider SGLT2 inhibitor if no contraindication, but not currently given concerns for UTI by primary hospitalist service. Heart failure program. Mineralocorticoid receptor antagonist. Continue ARB. Will consider replacing ARB with Entresto, but holding off for now in the setting of worsening renal function. 4. Cardiomyopathy: Biventricular systolic function has declined. She does not meet criteria for ICD for primary prevention. Could consider further ischemic evaluation. She had a myocardial perfusion study on 01/17/2023. Could consider coronary angiography but would hold off currently given worsening renal function. No angina. Medical therapy as above. Hyperthyroidism may also have contributed to decline in LV systolic function. 5. CAD s/p LAD PCI: Continue antiplatelet therapy. No angina. Troponin elevated but presentation not consistent with acute coronary syndrome. Troponin likely elevated due to prolonged elevated heart rate in the setting of heart failure exacerbation and arrhythmia/demand ischemia. Continue high intensity statin therapy. No indication for urgent cardiac catheterization. 6. NSTEMI: She did not present with acute coronary syndrome and in fact her troponins significantly elevated after her sustained SVT/tachy arrhythmia, and likely demand ischemia in the setting of known CAD. Repeat echo demonstrated a mild decline in biventricular systolic function. Plan as above. 7. Hypertension: Blood pressure well-controlled. Continue plan of care as above. 8. Hyperthyroidism: As per primary hospitalist service and endocrinology. 9. Disposition: Please call with questions or concerns. Plan of care communicated with Sonia Fabian PA-C of the primary hospitalist service. Follow- up with Dr. Prabhakar and heart failure program. Admission and Anticipated Discharge Date Admission Date: August 28, 2024 Subjective Patient was seen this morning. She has occasional shortness of breath but admits that she is back to baseline. She denies chest pain, syncope, near syncope, edema, or bleeding. She was unaccompanied. Physical Exam Physical Exam: Gen.: No acute distress. Alert. HEENT: Anicteric sclera. Neck: Thick neck but no appreciable JVD Cardiac: Irregularly irregular. Normal heart rate. Normal S1-S2. No murmurs, rubs, or gallops. Pulmonary: Clear to auscultation bilaterally without wheezes, rales, or rhonchi. Abdomen: Soft, nontender, nondistended, with normoactive bowel sounds. No bruits noted. Extremities: 2+ radial pulses bilaterally. 2+ posterior tibialis pulses bilaterally. Trace bilateral lower extremity edema. No cyanosis. Results & Data Vital Signs (Past 12 Hours) Vital Signs Temp Pulse Resp BP Pulse Ox O2 Del Method O2 Flow Rate 08/31/24 11:57 36.5 C 93 H 18 129/81 98 Nasal Cannula 3.0 08/31/24 07:30 36.7 C 88 18 107/72 100 Nasal Cannula 3.0 08/31/24 03:42 36.4 C L 86 16 135/71 97 Nasal Cannula 3 Intake & Output 08/29/24 08/30/24 08/31/24 09/01/24 06:59 06:59 06:59 06:59 Intake Total 322.8 / 322.8 958.917 / 958.917 550 / 550 50 / 50 Output Total 1950 / 1950 475 / 475 625 / 625 Balance -1627.2 / -1627.2 483.917 / 483.917 -75 / -75 50 / 50 Weight 229 lb 4.492 oz 229 lb 15.074 oz 228 lb 9.91 oz Laboratory Results Laboratory Results - last 24 hr 08/30/24 08/30/24 08/31/24 16:22 20:32 05:36 WBC 8.02 RBC 3.89 L Hgb 11.5 L Hct 35.6 L MCV 91.5 MCH 29.6 MCHC 32.3 RDW Std Deviation 49.1 H RDW Coeff of Carissa 14.6 H Plt Count 152 MPV 9.6 Immature Gran % (Auto) 0.7 Neut % (Auto) 70.1 Lymph % (Auto) 11.8 Gilmer % (Auto) 15.5 Eos % (Auto) 1.4 Baso % (Auto) 0.5 Neut # (Auto) 5.62 Lymph # (Auto) 0.95 L Gilmer # (Auto) 1.24 H Eos # (Auto) 0.11 Baso # (Auto) 0.04 Immature Gran # (Auto) 0.06 Sodium 135 L Potassium 3.7 Chloride 95 L Carbon Dioxide 33 H Anion Gap 7 BUN 47 H Creatinine 1.81 H Est Cr Clr Drug Dosing 35.3 eGFR 29.55 BUN/Creatinine Ratio 26.0 H Glucose 143 H POC Glucose 167 H 149 H Calcium 8.4 L Magnesium 2.3 Total Bilirubin 0.4 Direct Bilirubin 0.0 AST 22 ALT 11 Alkaline Phosphatase 92 Total Protein 6.5 Albumin 3.3 L 08/31/24 08/31/24 07:27 11:35 WBC RBC Hgb Hct MCV MCH MCHC RDW Std Deviation RDW Coeff of Carissa Plt Count MPV Immature Gran % (Auto) Neut % (Auto) Lymph % (Auto) Gilmer % (Auto) Eos % (Auto) Baso % (Auto) Neut # (Auto) Lymph # (Auto) Gilmer # (Auto) Eos # (Auto) Baso # (Auto) Immature Gran # (Auto) Sodium Potassium Chloride Carbon Dioxide Anion Gap BUN Creatinine Est Cr Clr Drug Dosing eGFR BUN/Creatinine Ratio Glucose POC Glucose 159 H 159 H Calcium Magnesium Total Bilirubin Direct Bilirubin AST ALT Alkaline Phosphatase Total Protein Albumin Diagnostic Findings Telemetry personally reviewed: Rate controlled atrial fibrillation. No significant pause. Labs reviewed from 08/31/2024: Azotemic labs, normal potassium, stable hemoglobin. Echo 08/30/2024: Normal LV size, with moderately reduced systolic function. EF 35-40%. Global hypokinesis. Moderate LVH. Normal RV size with mildly reduced systolic function. Moderate left atrial dilation. Sclerotic aortic valve. Mild MR. Compared to 03/05/2024 study, LV systolic function has mildly declined. RV systolic function is now mildly reduced. Medications Administered Current Inpatient Medications Acetaminophen (Acetaminophen 500 Mg Tab) 1,000 mg PO TID ESTEPHANIA Stop: 09/27/24 14:55 Last Admin: 08/31/24 08:30 Dose: 1,000 mg Al Hydrox/Mg Hydrox/Simethicone (Aluminum/Magnesium Susp 30 Ml Udc) 15 ml PO Q4H PRN PRN Reason: Dyspepsia Stop: 09/27/24 14:55 Apixaban (Apixaban 5 Mg Tablet) 5 mg PO BID ESTEPHANIA Stop: 09/27/24 20:59 Last Admin: 08/31/24 08:31 Dose: 5 mg Aspirin (Aspirin 81 Mg Ectab) 81 mg PO QAM ESTEPHANIA Stop: 09/28/24 08:59 Last Admin: 08/31/24 08:30 Dose: 81 mg Docusate Sodium (Docusate Sodium 100 Mg Cap) 100 mg PO BID ESTEPHANIA Stop: 09/29/24 08:59 Last Admin: 08/31/24 08:30 Dose: 100 mg Doxepin HCl (Doxepin Hcl 10 Mg Capsule) 10 mg PO HS PRN PRN Reason: Sleep Stop: 09/27/24 14:55 Ezetimibe (Ezetimibe 10 Mg Tab) 10 mg PO HS ESTEPHANIA Stop: 09/27/24 20:59 Last Admin: 08/30/24 21:26 Dose: 10 mg Ceftriaxone Sodium (Rocephin) 2,000 mg in 50 mls @ 100 mls/hr IV Q24H ESTEPHANIA Stop: 09/08/24 09:29 Last Infusion: 08/31/24 10:31 Dose: Infused Insulin Aspart (Insulin Aspart Per Unit Charge) 0 units SC ACHS ESTEPHANIA Stop: 09/27/24 20:59 Last Admin: 08/31/24 12:20 Dose: 4 units Insulin Glargine (Lantus Per Unit Charge) 30 units SC HS ESTEPHANIA Stop: 09/27/24 20:59 Last Admin: 08/30/24 21:23 Dose: 30 units Losartan Potassium (Losartan Potassium 50 Mg Tab) 50 mg PO BID [facility] Stop: 09/27/24 20:59 Last Admin: 08/30/24 21:26 Dose: 50 mg Magnesium Hydroxide (Magnesium Hydroxide Susp 30 Ml Udc) 30 ml PO Q12H PRN PRN Reason: Constipation Stop: 09/27/24 14:55 Magnesium Oxide (Magnesium Oxide 400 Mg Tab) 400 mg PO BID [facility] Stop: 09/27/24 20:59 Last Admin: 08/31/24 08:30 Dose: 400 mg Methimazole (Methimazole 5 Mg Tablet) 10 mg PO BID [facility] Stop: 09/28/24 11:14 Last Admin: 08/31/24 08:31 Dose: 10 mg Metoprolol Tartrate (Metoprolol Tartrate 50 Mg Tab) 50 mg PO Q6H [facility] Stop: 09/28/24 16:29 Last Admin: 08/31/24 10:00 Dose: 50 mg Nitroglycerin (Nitroglycerin Sl 0.4 Mg/Tab Tab) 0.4 mg SL Q5M PRN PRN Reason: Chest Pain Stop: 09/27/24 14:55 Ondansetron HCl (Ondansetron Inj 2 Mg/Ml 2 Ml Vial) 4 mg IV Q6H PRN PRN Reason: Nausea Stop: 09/27/24 14:55 Last Admin: 08/29/24 19:41 Dose: 4 mg Polyethylene Glycol (Polyethylene (Miralax) 17 Gm Pack) 17 gm PO DAILY PRN PRN Reason: Constipation Stop: 09/27/24 14:55 Last Admin: 08/31/24 08:30 Dose: 17 gm Rosuvastatin Calcium (Rosuvastatin Calcium 20 Mg Tab) 40 mg PO HS [facility] Stop: 09/27/24 20:59 Last Admin: 08/30/24 21:28 Dose: 40 mg Sertraline HCl (Sertraline Hcl 100 Mg Tablet) 100 mg PO QAM [facility] Stop: 09/28/24 08:59 Last Admin: 08/31/24 08:31 Dose: 100 mg Spironolactone (Spironolactone 25 Mg Tab) 25 mg PO QAM [facility] Stop: 09/29/24 08:59 Last Admin: 08/30/24 09:14 Dose: 25 mg PG Care Time/CCT Total # of Minutes Spent Total Time Spent with Patient: Total time spent is greater than 50% in coordination of care (as documented) at patient's floor/unit and/or counseling patient: Coding Level of Care Code 64459 SUB INP/OBS CARE 3/50MIN Diagnoses Paroxysmal atrial fibrillation I48.0 SVT (supraventricular tachycardia) I47.10 Acute heart failure with mildly reduced ejection fraction (HFmrEF, 41-49%) I50.21 Hyperthyroidism E05.90 CAD (coronary artery disease) I25.10 Cardiomyopathy, unspecified type I42.9 Cardiomyopathy type: unspecified Non-ST elevation (NSTEMI) myocardial infarction I21.4 (6) Cardiomyopathy Cardiomyopathy type: unspecified Qualified Code(s): I42.9 - Cardiomyopathy, unspecified
[2024-08-31] MEDS: traZODone HCL 50 MG TAB PO ONE (21:36)
[2024-09-01] MEDS: traZODone HCL 50 MG TAB PO ONE (05:02)
--- NOTE | 2024-09-01 05:57 | Electrocardiogram Report ---
Test Reason : Blood Pressure : */* mmHG Vent. Rate : 115 BPM Atrial Rate : 127 BPM P-R Int : * ms QRS Dur : 112 ms QT Int : 388 ms P-R-T Axes : * -54 97 degrees QTcB Int : 536 ms Atrial fibrillation with rapid ventricular response Left axis deviation Incomplete right bundle branch block Left ventricular hypertrophy with repolarization abnormality Prolonged QT Abnormal ECG When compared with ECG of 28-Aug-2024 09:11, Atrial fibrillation is now Present Confirmed by Con Galvez [id number] on 09/01/2024 5:57:05 AM Referred By: REFERRED SELF Confirmed By: Con Galvez
[2024-09-01 06:04] LABS: Calcium 8.4 mg/dl (8.6-10.3); Creatinine Clr Calc Pharmacy 44.7 ml/min; Potassium 3.9 mmol/L (3.5-5.1)
[2024-09-01 07:50] VITALS: PULSE 81; TEMP 97.5
[2024-09-01 09:51] VITALS: O2SAT 91
--- NOTE | 2024-09-01 11:06 | Discharge Summary ---
Discharge Summary Date of Service September 01, 2024 Principal Dx & Hospital Course #1 = Principal Diagnosis (1) Atrial fibrillation: Admitted for acute on chronic systolic/diastolic heart failure with worsening uncontrolled afib likely leading to impaired diastolic dysfunction. Did just recently undergo cardioversion in the past month - CXR w/ volume overload and hypoxia/O2 requirements, increased salt load w/ sauerkraut at home (eats out ~6x/wk) - Troponin elevated, downtrended. Suspect secondary to demand ischemia in setting of uncontrolled A fib, known CAD, and heart failure exacerbation - Echo showed EF 35-40%, global hypokinesis, mildly reduced systolic function, mild MR. Compared to study of 03/05/2024, LV systolic function is mildly declined. RV systolic function is now mildly reduced - Cardiology consulted -- declining LV systolic function could be due to hyperthyroidism, but also ischemic heart disease. Could consider coronary angiography outpatient but would not do so with rising creatinine - Metoprolol succinate INCREASED to 100 mg BID - Continue Eliquis 5 mg BID and Aspirin 81 mg daily - Continue Rosuvastatin 40 mg HS - Continue ezetimibe 10 mg HS - Resumed losartan, spironolactone, and Lasix on discharge. Lasix resumed at DECREASED dose of 20 mg daily - Consider SGLT2 inhibitor if no contraindication, but not currently given acute UTI - Consider replacing ARB with Entresto, but holding off for now in the setting of recent CACHORRO - Follow-up with Dr. Prabhakar in cardiology and heart failure clinic on discharge (2) CHF (congestive heart failure), NYHA class III: With acute on chronic HFrEF- suspected dietary indiscretions with uncontrolled afib contributing but ALSO HYPERTHYROIDISM not treated - Given Lasix IV, nitrate drip on admission/transitioned to nitropaste which has been discontinued now - Echo: EF 35-40%. Compared to study of 03/05/2024, LV systolic function is mildly declined. RV systolic function is now mildly reduced - Continue Lasix, spironolactone, metoprolol, losartan as outlined above - Continue low-sodium diet (3) Hyperthyroidism: Suspect untreated/underlying Hyperthyroidism contributing to arrhythmia as well - Hx multinodular goiter, had previous thyroid nodule biopsy and recent CT neck showing size unchanged. TSH mildly low in 2021 but FT4 never abnormal until now - TSH undetectable/T4 elevated. Added TPO/TSI, pending - Discussed with endocrinology and started/continue methimazole 10mg PO BID - Recommend endocrinology follow-up outpatient (4) UTI (urinary tract infection): Stiles placed given incontinence issues, also with leukocytosis and low-grade temp on admission - Urine culture revealed pansensitive E. coli - Treated initially with Ceftriaxone, then deescalated to Cipro on discharge for total of 7 day antibiotic course -Stiles removed (5) Diabetes mellitus, type 2: Last A1c fairly recently was 7.5 - On lantus (6) Chronic kidney disease, stage III (moderate): CACHORRO superimposed on chronic CKD from overdiuresis/UTI/medications - Improved to nearly baseline - Lasix, losartan, and spironolactone resumed on discharge (7) Insomnia: Longstanding problems with insomnia and has trialed multiple sleep aids - Previously on lemborexant and doxepin, however patient reports she ran out of these prescriptions -- removed from med rec - Trial of Trazodone worked well for patient while hospitalized - Discharged with Trazodone 25 mg HS PRN for insomnia Plan VTE PPX: Eliquis CODE STATUS: DNR/DNI Notes For Next Care Provider Suspect heart failure exacerbation was due to uncontrolled A-fib and untreated/underlying hyperthyroidism Recommend endocrinology referral, cardiology follow-up, and heart failure clinic follow-up Monitor kidney function Continue to work on penitentiary sleep aid Medication Changes From Visit Metoprolol succinate increased to 100 mg twice daily Lasix decreased to 20 mg daily Started spironolactone 25 mg daily Started methimazole 10 mg twice daily Started trazodone 25 mg HS PRN Cipro x 3 days for UTI Admission HPI Per Admitting Provider patient is a very pleasant 69-year-old female who presents after probably 2 months of worsening symptoms. She noted nonspecifically in onset of shortness of breath and fatigue about 2 months agopredominantly with exertion. She does not note any orthopnea, but also clarifies by saying she was recently started on oxygen at bedtime and wonders if that is why she does not have any dyspnea whenever she is laying down (she only sleeps on 1 pillow). She notes that her symptoms were gradually worsening, and she has been struggling with her atrial fibrillationshe actually had a cardioversion only a few days ago. Notes that unfortunately that did not help with her symptoms at all. She notes that she was continuing to feel about the same after the cardioversion not really worse, and then this morning had way worse shortness of breath and came to the ER for further evaluationhere she was found to have findings mostly consistent with fairly severe pulmonary edema and was started on Lasix and a nitro drip as well as supplemental oxygen (BiPAP initially ordered, but she stabilized quickly enough it was not needed). Of note, she relates that she had sauerkraut last night. Although she had a low-grade temperature here in the ER, she denies any infectious symptoms, denies fevers chills sweats. Discharge Exam General: No acute distress, nondiaphoretic, well-developed, well-nourished. Skin: The skin was without rashes, erythema, edema, or bruising. + Thyroid goiter/nodules. Cardiac: Irregularly irregular, rates in 80-90s. No murmurs, rubs, or gallops. Pulm: Slightly diminished in bases bilaterally but otherwise clear to auscultation without wheezes, rales, or rhonchi. No respiratory distress. 94% on room air. Abdominal: Soft, nontender, slightly distended. Bowel sounds present. Neuro: A&O x3. No focal neurological deficits. Discharge Plan Discharge Items Patient Disposition: Home - Self-Care Reason For Visit: CHF Discharge Diagnosis: Heart failure exacerbation, atrial fibrillation, hyperthyroidism Activity: Resume your previous activity Non-emergency contact: Primary Care Provider and Licensed And Certified Midwife Call non-emergency contact if: you have any medication questions and your symptoms worsen Follow-up/Referrals: Shasta Robledo PA-C [Physician Automated Weaver] - 09/06/24 10:30 am Julius Rodriguez DO [Primary Care Provider] - 09/10/24 1:30 pm (Hospital follow up on September 10 at 1:30 pm) Diet: Carb Consistent or DM2, Heart Healthy and Low Sodium (2gm) Addtl Attending Provider Instructions: Ms. Whaley, You were admitted to the hospital due to a heart failure exacerbation and uncontrolled atrial fibrillation. This was likely multifactorial between dietary indiscretions (i.e. excessive salt intake) and untreated/underlying hyperthyroidism. You were treated with medication and seen by cardiology. It was also discovered that you have a urinary tract infection (UTI) for which you have received IV antibiotics and will continue taking oral antibiotics at home. You had an acute kidney injury (CACHORRO) which has improved and is almost back to baseline. Upon discharge from the hospital: * Your metoprolol has been INCREASED to 100 mg twice daily. This is to control your heart rate from being too high. * Continue methimazole 10 mg twice daily. This is to control your hyperthyroidism. * Take ciprofloxacin (oral antibiotic) 500 mg twice daily x 3 additional days, starting 09/02/2024. This is to complete treatment for your UTI. * Your Lasix has been DECREASED to 20 mg daily. This is to prevent excessive fluid retention. * Take spironolactone 25 mg daily. This is to prevent excessive fluid retention. * Take Trazodone 25 mg at bedtime as needed for insomnia. This is to help with sleep. * Continue your other home medications as prescribed. * Follow a low-salt diet (<2 g salt daily). * Follow-up with the heart failure clinic. Your appointment is scheduled for 09/06/24 at 10:30 AM. * Follow-up with your PCP in 1-2 weeks. * Follow-up with Dr. Prabhakar in cardiology. * Follow-up with endocrinology for your hyperthyroidism. A referral has been made and their office will contact you. Please return to the hospital if you experience any of the following: Chest pain, heart palpitations, shortness of breath, difficulty breathing, lightheadedness, dizziness, passing out, confusion, or any other symptoms concerning for you. It was a pleasure taking care of you while you were in the hospital, Sonia Fabian PA-C Call 911 and go to the Emergency Room if: * You have tightness or pain in your chest that does not go away with rest or Nitroglycerin * You are very short of breath even with rest Call your doctor if any of the following symptoms or problems start or get worse: * Shortness of breath or difficulty breathing * Wake up at night short of breath * Chest pain * Cough * Swelling of your hands, fee, or legs * More fatigued or tired with your normal activity * Palpitations - sudden fast heart beats WEIGHT * Weigh yourself every morning after using the bathroom. * Use the same scale. * Wear the same amount of clothing. * Write your weight down on your chart. * Call your doctor if you gain more than 2-3 pounds in 1-2 days. MEDICATIONS * Use this discharge instruction sheet for instructions. * Take your medications at the time your doctor ordered. * Do not skip a dose of your medicines. * If you miss a dose of medicine, take as soon as possible, but DO NOT DOUBLE A DOSE. * Read your medicine information when you get home. * Know all of the side effects of your medicine. * Call your doctor's office if you have any side effects. * Be sure all of your doctors know what medicine and herbs you take (including cold, flu, and herbal medicine). * Pain Medicine: If you do not get relief from your pain, please call your doctor for help. Take the following with you to your follow-up doctor appointments: * Weight Chart * Medication List * List of questions Do not drink excessive alcohol, beer or wine. Pending Studies at Discharge: Yes (Thyroid antibody testing, TPO) Stand-Alone Forms: My [employer], Smoking Cessation Medications and DC Order Prescriptions: New spironolactone 25 mg Tablet 25 mg PO QAM Qty: 30 0RF methimazole 5 mg Tablet 10 mg PO BID Qty: 60 0RF metoprolol succinate 100 mg tablet extended release 24 hr 100 mg PO BID Qty: 60 0RF furosemide [Lasix] 20 mg tablet 20 mg PO DAILY Qty: 30 0RF ciprofloxacin HCl 500 mg tablet 500 mg PO BID Qty: 6 0RF trazodone 50 mg tablet 25 mg PO HS PRN (Reason: insomnia) Qty: 30 0RF Continued acetaminophen [Tylenol Extra Strength] 500 mg tablet 1,000 mg PO TID 30 Days Qty: 180 0RF Rx Instructions: Unable to verify OTC meds at this date/time. (DME) pen needle, diabetic [BD Ultra-Fine Short Pen Needle] 31 gauge x 5/16" needle See Rx Instructions .Route Qty: 100 5RF Rx Instructions: TO USE WITH INSULIN ONCE DAILY; DX CODE-E11.9 (DME) FreeStyle Chanelle 2 Sensor Kit See Rx Instructions .Route Qty: 6 3RF Rx Instructions: continuous glucose monitoring (DME) FreeStyle Chanelle 2 Carolina Misc See Rx Instructions .ROUTE .MEDSUPPLY Qty: 1 0RF Rx Instructions: continuous glucose monitoring nitroglycerin 0.4 mg tablet, sublingual 0.4 mg Sublingual DIRECTED PRN (Reason: Chest Pain) Qty: 25 5RF polyethylene glycol 3350 [Miralax] 17 gram Powder In Packet 17 g PO DAILY PRN (Reason: Constipation) Qty: 30 0RF Rx Instructions: Unable to verify OTC meds at this date/time. aspirin 81 mg Tablet,Delayed Release (Dr/Ec) 81 mg PO QAM Qty: 30 0RF Rx Instructions: Unable to verify OTC meds at this date/time. magnesium oxide 400 mg (241.3 mg magnesium) Tablet 400 mg PO BID Qty: 30 0RF Rx Instructions: Unable to verify OTC meds at this date/time. potassium chloride 10 mEq capsule, extended release 0 meq PO QAM Rx Instructions: Last filled 02/2024 - Original Directions: 10meq by mouth daily sertraline 100 mg tablet 100 mg PO QAM insulin glargine [Basaglar KwikPen U-100 Insulin] 100 unit/mL (3 mL) insulin pen 36 unit subcut HS losartan 50 mg tablet 0 mg PO BID Rx Instructions: Last filled 11/2023 - Original Directions: 50mg by mouth twice daily metformin 500 mg tablet extended release 24 hr 0 mg PO BID Rx Instructions: Last filled 11/2023 - Original Directions: 500mg by mouth twice daily ezetimibe [Zetia] 10 mg tablet 0 mg PO HS Rx Instructions: Last filled 11/2023 - Original Directions: 10mg by mouth daily rosuvastatin 40 mg tablet 0 mg PO HS Rx Instructions: Last filled 11/2023 - Original Directions: 40mg by mouth daily Eliquis 5 mg tablet 0 mg PO BID Rx Instructions: Last filled 11/2023 - Original Directions: 5mg by mouth twice daily Discontinued metoprolol succinate 25 mg tablet extended release 24 hr 50 mg PO BID Qty: 180 3RF furosemide 40 mg tablet 0 mg PO QAM Rx Instructions: Last filled 11/2023 - Original Directions: 40mg by mouth daily Discharge Orders: Discharge Order- CHF (Routine); Ordered 09/01/24 Ordered By: Sonia Davis/Other Patient Handouts: Heart Failure Meds, Heart Failure Flare Up Signs, Heart Failure: Tracking Your Weight, Urinary Tract Infections in Women, UTIs, Coping with Heart Failure, Heart Failure Make Changes Diet Admission Data Admit Date/Time: 08/28/24 13:01 Attending Provider: Ifeoma Mg Admit Provider: Mac Young Primary Care Provider: Julius Rodriguez Other Providers: Mac Young; Zoltan Gonzalez; Dionicio Lainez; Pa Telles; Caden Prabhakar; Denis Tavarez; Thomas Dean Jr; Con Galvez; Tita Lee; Mary Yang; Alexandru Olivares; Alexandru Samuel; Raj Huang; Shasta Robledo; Luis Felipe Dodge; Domonique Barron; Kalpesh Dennis; Luis Felipe Smith; Mateo Ivy; Js Winkler Other Interventions: Discharge Summary Assessment (RN) Last Done: 09/01/24 11:20 Hospital Stay Data Consultations 08/28/24 12:37 ED Decision to Admit Stat 08/29/24 04:31 Consult Cardiology Routine 08/29/24 15:40 [facility] [place] CHF Program Referral Routine Diagnostic Imagining Performed 08/28/24 09:28 CT for pulmonary embolism PE [CT angio chest PE protocol] Stat Pending Results Patient Have Any Pending Studies at Discharge: Yes (Thyroid antibody testing, TPO) Discharge Instructions Given to Patient (Per Discharging Provider) Ms. Whaley, Dandy were admitted to the hospital due to a heart failure exacerbation and uncontrolled atrial fibrillation. This was likely multifactorial between dietary indiscretions (i.e. excessive salt intake) and untreated/underlying hyperthyroidism. You were treated with medication and seen by cardiology. It was also discovered that you have a urinary tract infection (UTI) for which you have received IV antibiotics and will continue taking oral antibiotics at home. You had an acute kidney injury (CACHORRO) which has improved and is almost back to baseline. Upon discharge from the hospital: * Your metoprolol has been INCREASED to 100 mg twice daily. This is to control your heart rate from being too high. * Continue methimazole 10 mg twice daily. This is to control your hyperthyroidism. * Take ciprofloxacin (oral antibiotic) 500 mg twice daily x 3 additional days, starting 09/02/2024. This is to complete treatment for your UTI. * Your Lasix has been DECREASED to 20 mg daily. This is to prevent excessive fluid retention. * Take spironolactone 25 mg daily. This is to prevent excessive fluid retention. * Take Trazodone 25 mg at bedtime as needed for insomnia. This is to help with sleep. * Continue your other home medications as prescribed. * Follow a low-salt diet (<2 g salt daily). * Follow-up with the heart failure clinic. Your appointment is scheduled for 09/06/24 at 10:30 AM. * Follow-up with your PCP in 1-2 weeks. * Follow-up with Dr. Prabhakar in cardiology. * Follow-up with endocrinology for your hyperthyroidism. A referral has been made and their office will contact you. Please return to the hospital if you experience any of the following: Chest pain, heart palpitations, shortness of breath, difficulty breathing, lightheadedness, dizziness, passing out, confusion, or any other symptoms concerning for you. It was a pleasure taking care of you while you were in the hospital, Sonia Fabian PA-C Call 911 and go to the Emergency Room if: * You have tightness or pain in your chest that does not go away with rest or Nitroglycerin * You are very short of breath even with rest Call your doctor if any of the following symptoms or problems start or get worse: * Shortness of breath or difficulty breathing * Wake up at night short of breath * Chest pain * Cough * Swelling of your hands, fee, or legs * More fatigued or tired with your normal activity * Palpitations - sudden fast heart beats WEIGHT * Weigh yourself every morning after using the bathroom. * Use the same scale. * Wear the same amount of clothing. * Write your weight down on your chart. * Call your doctor if you gain more than 2-3 pounds in 1-2 days. MEDICATIONS * Use this discharge instruction sheet for instructions. * Take your medications at the time your doctor ordered. * Do not skip a dose of your medicines. * If you miss a dose of medicine, take as soon as possible, but DO NOT DOUBLE A DOSE. * Read your medicine information when you get home. * Know all of the side effects of your medicine. * Call your doctor's office if you have any side effects. * Be sure all of your doctors know what medicine and herbs you take (including cold, flu, and herbal medicine). * Pain Medicine: If you do not get relief from your pain, please call your doctor for help. Take the following with you to your follow-up doctor appointments: * Weight Chart * Medication List * List of questions Do not drink excessive alcohol, beer or wine. Supervising Physician Co-Signing Physician Notes PA Supervision Note: I personally saw and examined the patient. I verified all orozco points and agree with TRINITY Fabian with the following exceptions and/or additions: S-Pt feelin gbetter, still some swelling in ankles. No SOB or CP. O- Vitals reviewed Gen: [AAOx3, NAD] HEENT: [anicteric sclerae] CV: [irreg irreg no mgr nl S1S2] Pulm: [CTAB no wcr] Ext: [trace edema legs/ankles bilat] Skin: [no rashes, warm/dry] Neuro: [full strength throughout] A/P-69 yo female here with acute on chronic HFmEF and rapid afib Improving with diuresis, CACHORRO improved, rates controlled in Afib on increased dose of metoprolol f/u with Endo and started methimazole Total Time Total Time Spent Total Time Spent (In Minutes): Greater than 30 minutes spent completing this discharge process including direct patient care, medication reconciliation, documentation, review of labs and images, and coordination of care. Coding Level of Care Code 15723 INP/OBS DISCH >30 MIN Diagnoses Atrial fibrillation I48.91 CHF (congestive heart failure), NYHA class III I50.9 Hyperthyroidism E05.90 UTI (urinary tract infection) N39.0 Diabetes mellitus, type 2 E11.9 Chronic kidney disease, stage III (moderate) N18.30 Insomnia G47.00
[2024-09-01 11:21] VITALS: BP 115/72
[2024-09-02 18:08] LABS: Microsomal Ab <1 IU/mL (<9); TSI <89 % baseline (<140)
--- NOTE | 2024-09-06 20:37 | Coding Query ---
CODING QUERY To promote full compliance with coding requirements relating to patient care, provider participation is requested in all cases of business partner uncertainty. Please assist us with the question(s) below: Coding Question(s): Troponin elevated, downtrended. Suspect secondary to demand ischemia in setting of uncontrolled A fib, known CAD, and heart failure exacerbation - Echo showed EF 35-40%, global hypokinesis, mildly reduced systolic function, mild MR. Compared to study of 03/05/2024, LV systolic function is mildly declined. RV systolic function is now mildly reduced - Cardiology consulted -- declining LV systolic function could be due to hyperthyroidism, but also ischemic heart disease. Could consider coronary angiography outpatient but would not do so with rising creatinine Physician's Response(s): __x__ Demand ischemia ____ Type 2 myocardial infarction ____ Unable to determine ____ Other : Please specify Thank you Minoo FUENTES
== END 2024-09-01 12:54 | disposition home or self-care (01) | DRG 291 ==
LOC: ED 09:05 → 2S 13:01 → SUATTDRO 13:01 → 2S 13:58